=== PATIENT | female | born 1935 | race Caucasian/White ===

== ENCOUNTER 2017-06-13 00:52 | Emergency (ER) | payer MEDICARE, BC ==
[~2017-06-13] VITALS: Ht 152.4 cm; Wt 55.0 kg
[~2017-06-13 00:52] MED LIST: AMLO5TAB2 PO; CLON.1 PO; IPRASOL NEB; K-PHTAB PO; MSIR15 PO; PROT40TA PO; TYLETAB34 PO
[2017-06-13 01:04] VITALS: BP 188/80; PULSE 87; RESP 18; TEMP 97.7; O2SAT 96
[2017-06-13] MEDS ORDERED: SODIUM CHLOR 0.9% 1000 ML INJ 1,000 ML IV SCH (01:07)
[2017-06-13] MEDS ORDERED: SODIUM CHLORIDE 0.9% FLUSH 10 ML FLUSH IVF PRN (01:15)
[2017-06-13] MEDS ORDERED: ONDANSETRON HCL 4 MG/2 ML VIAL IVP ONE (01:15)
[2017-06-13 01:45] LABS: AUTOMATED NEUTROPHIL # 14.8 TH/MM3 (1.8-7.7); BASOPHIL # 0.1 TH/MM3 (0-0.2); BASOPHIL % 0.4 % (0.0-2.0); EOSINOPHIL % 0.1 % (0.0-4.0); HEMATOCRIT 43.8 % (35.0-46.0); LYMPH % 3.9 % (9.0-44.0); LYMPHOCYTE # 0.6 TH/MM3 (1.0-4.8); MEAN CELL VOLUME 89.8 FL (80.0-100.0); MEAN CORPUSCULAR HEMOGLOBIN 30.5 PG (27.0-34.0); MONO % 3.2 % (0.0-8.0); NEUT % 92.4 % (16.0-70.0); PLATELET COUNT 228 TH/MM3 (150-450); RED BLOOD COUNT 4.88 MIL/MM3 (4.00-5.30); RED CELL DISTRIBUTION WIDTH 13.3 % (11.6-17.2)
--- NOTE | 2017-06-13 01:48 | RADRPT ---
EXAM DATE/TIME: 06/13/2017 01:38 [place] COMPARISON: CHEST SINGLE AP, September 10, 2016, 9:53. INDICATIONS : Vomiting, shortness of breath. MEDICAL HISTORY : Hiatal hernia. SURGICAL HISTORY : None. ENCOUNTER: Initial ACUITY: 1 day PAIN SCORE: 0/10 LOCATION: Bilateral chest FINDINGS: No significant new focal pleural or parenchymal opacities. Cardiomediastinal contours are stable. Red emonstration of large hiatal hernia. Remainder of the exam is unchanged. CONCLUSION: 1. No acute abnormality or significant interval change. 1. Johnny Hernández MD on June 13, 2017 at 1:45 Board Certified Radiologist. This report was verified electronically.
[2017-06-13 01:53] LABS: HEMO FLAGS AUTO DIFF
[2017-06-13 02:02] LABS: ALKALINE PHOSPHATASE 69 U/L (45-117); TOTAL BILIRUBIN ADULT 0.7 MG/DL (0.2-1.0)
[2017-06-13 02:04] LABS: ALT (GPT) 23 U/L (10-53); ANION GAP 7 MEQ/L (5-15); AST (GOT) 34 U/L (15-37); BICARBONATE 30.1 MEQ/L (21.0-32.0); BLOOD UREA NITROGEN 16 MG/DL (7-18); CHLORIDE 101 MEQ/L (98-107); GLOMERULAR FILTRATION RATE 62 ML/MIN (>89); SODIUM (NA) 138 MEQ/L (136-145)
[2017-06-13 02:06] LABS: POTASSIUM 5.3 MEQ/L (3.5-5.1)
[2017-06-13 02:09] LABS: PROTHROMBIN TIME - PATIENT 10.9 SEC (9.8-11.6)
[2017-06-13 02:16] LABS: APTT (PATIENT) 19.2 SEC (24.3-30.1)
[2017-06-13 02:17] LABS: PLATELET ESTIMATE SMEAR NORMAL (NORMAL); PLATELET MORPHOLOGY NORMAL (NORMAL); SCAN/DIFF AUTO DIFF CONFIRMED
[2017-06-13 02:41] VITALS: BP 170/72; PULSE 88; RESP 18; O2SAT 95
--- NOTE | 2017-06-13 03:14 | PD ---
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 She reports that over the last 12 hours she's had intractable nausea and vomiting. She reports that the emesis now appears dark in color. She reports that she did have a history of coffee ground emesis and admission for GI bleed in September 2016. She reports that she became concerned that it could be a recurrence of this bleeding. 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 She denies having any recent problems with acid reflux or heartburn prior to this. She reports that she did move her bowels normally twice yesterday. She denies having any diarrhea. She denies having any blood in her stool or black or tarry stools. The patient has generalized weakness reported related to her nausea and vomiting. Otherwise on review of systems, she denies any recent fevers, cough, congestion, neck pain, chest pain, shortness of breath, abdominal pain, urinary symptoms, or other neurologic symptoms. [facility] Past Medical History Narrative Medical the patient's past medical history is significant for a history of GI bleed in September 2016, history of hypertension, history of chronic low back pain, history of a hiatal hernia Asthma: No Autoimmune Disease: No Heart Rhythm Problems: No Cancer: No Cardiovascular Problems: No High Cholesterol: No Chemotherapy: No Chest Pain: No Congestive Heart Failure: No COPD: No Cerebrovascular Accident: No Diabetes: No Diminished Hearing: No Endocrine: No Gastrointestinal Disorders: Yes (diverticulitis) GERD: No Genitourinary: No Hiatal Hernia: No Immune Disorder: No Kidney Stones: No Musculoskeletal: Yes (back pain) Neurologic: No Psychiatric: No Reproductive: No Respiratory: No Migraines: No Radiation Therapy: No Renal Failure: No Seizures: No Sickle Cell Disease: No Sleep Apnea: No Thyroid Disease: No Ulcer: No Tetanus Vaccination: Unknown Influenza Vaccination: No Menopausal: Yes Past Surgical History Narrative Surgical The patient's past surgical history is significant for a hysterectomy. Abdominal Surgery: No AICD: No Arteriovenous Shunt: No Body Medical Devices: a few crowns Cardiac Surgery: No Ear Surgery: No Endocrine Surgery: No Eye Surgery: No Genitourinary Surgery: No Gynecologic Surgery: Yes Hysterectomy: Yes Insulin Pump: No Joint Replacement: No Oral Surgery: No Pacemaker: No Thoracic Surgery: No Social History Alcohol Use: Yes (occasional) Tobacco Use: No (never) Substance Use: No Allergies-Medications (Allergen,Severity, Reaction): Coded Allergies: erythromycin base (Verified Allergy, Unknown, 06/13/17) stomach bleeding meperidine (Unverified Adverse Reaction, Unknown, 06/13/17) she gets all squirrely Reported Meds & Prescriptions Reported Meds & Active Scripts Active Bactrim DS (Sulfamethoxazole-Trimethoprim) 800-160 Mg Tab 1 Tab PO BID Protonix (Pantoprazole Sodium) 40 Mg Tab 40 Mg PO DAILY Zofran Odt (Ondansetron Odt) 4 Mg Tab 4 Mg SL Q6HR PRN Reported Tylenol-Codeine #3 (Acetaminophen-Codeine) 300-30 mg Tab 1 Tab PO HS PRN Review of Systems Except as stated in HPI: all other systems reviewed are Neg General / Constitutional: No: Fever Eyes: No: Visual changes HENT: No: Headaches Cardiovascular: No: Chest Pain or Discomfort Respiratory: No: Shortness of Breath Gastrointestinal: Positive: Nausea, Vomiting, No: Diarrhea, Abdominal Pain, Hematemesis, Hematochezia, Changes in Bowel Habits, Indigestion, Loss of Appetite Genitourinary: No: Dysuria Musculoskeletal: No: Pain Skin: No Rash Neurologic: No: Weakness Psychiatric: No: Depression Endocrine: No: Polydipsia Hematologic/Lymphatic: No: Easy Bruising Physical Exam Narrative General: The patient is a well-developed well-nourished female in no acute distress. Head and Neck exam: Head is normocephalic atraumatic. Eyes: EOMI, pupils are equal round and reactive to light. Nose: Midline septum with pink mucous membranes Mouth: Dentition unremarkable. Moist mucus membranes. Posterior oropharynx is not erythematous. No tonsillar hypertrophy. Uvula midline. Airway patent. Neck: No palpable lymphadenopathy. No nuchal rigidity. No thyromegaly. Cardiovascular: Regular rate and rhythm without murmurs, gallops, or rubs. Lungs: Clear to auscultation bilaterally. No wheezes, rhonchi, or rales. Abdomen: Soft, without tenderness to palpation in all 4 quadrants of the abdomen. No guarding, rebound, or rigidity. Normal bowel sounds are audible. No tenderness on palpation of McBurney's point. Extremities: No clubbing, cyanosis, or edema. 2+ pulses in all 4 extremities. Back: No spinous process tenderness to palpation. No costovertebral angle tenderness to palpation. Neurologic Exam: Grossly nonfocal. Skin Exam: No rash noted. Intact skin that is warm and dry. Data Data Last Documented VS Vital Signs Date Time Temp Pulse Resp B/P (MAP) Pulse Ox O2 Delivery O2 Flow Rate FiO2 06/13/17 06:04 88 16 152/63 (92) 97 Room Air 06/13/17 01:04 97.7 Orders Orders Complete Blood Count With Diff (06/13/17 01:07) Comprehensive Metabolic Panel (06/13/17 01:07) Lipase (06/13/17 01:07) Prothrombin Time / Inr (Pt) (06/13/17 01:07) Act Partial Throm Time (Ptt) (06/13/17 01:07) Urinalysis - C+S If Indicated (06/13/17 01:07) Type And Screen (06/13/17 01:07) Chest, Single Ap (06/13/17 01:07) Ecg Monitoring (06/13/17 01:07) Iv Access Insert/Monitor (06/13/17 01:07) Oximetry (06/13/17 01:07) Ondansetron Inj (Zofran Inj) (06/13/17 01:15) Sodium Chlor 0.9% 1000 Ml Inj (Ns 1000 M (06/13/17 01:07) Sodium Chloride 0.9% Flush (Ns Flush) (06/13/17 01:15) B-Type Natriuretic Peptide (06/13/17 01:07) Troponin I (06/13/17 01:07) Electrocardiogram (06/13/17 ) Sodium Chlorid 0.9% 500 Ml Inj (Ns 500 M (06/13/17 03:45) Pantoprazole Inj (Protonix Inj) (06/13/17 03:45) Oral Rehydration (06/13/17 03:45) Urine Culture (06/13/17 05:24) Sulfamet-Trimeth Ds 800-160 Mg (Bactrim (06/13/17 06:45) Labs Laboratory Tests Test 06/13/17 01:20 06/13/17 05:24 White Blood Count 16.0 TH/MM3 Red Blood Count 4.88 MIL/MM3 Hemoglobin 14.9 GM/DL Hematocrit 43.8 % Mean Corpuscular Volume 89.8 FL Mean Corpuscular Hemoglobin 30.5 PG Mean Corpuscular Hemoglobin Concent 34.0 % Red Cell Distribution Width 13.3 % Platelet Count 228 TH/MM3 Mean Platelet Volume 8.4 FL Neutrophils (%) (Auto) 92.4 % Lymphocytes (%) (Auto) 3.9 % Monocytes (%) (Auto) 3.2 % Eosinophils (%) (Auto) 0.1 % Basophils (%) (Auto) 0.4 % Neutrophils # (Auto) 14.8 TH/MM3 Lymphocytes # (Auto) 0.6 TH/MM3 Monocytes # (Auto) 0.5 TH/MM3 Eosinophils # (Auto) 0.0 TH/MM3 Basophils # (Auto) 0.1 TH/MM3 CBC Comment AUTO DIFF Differential Comment AUTO DIFF CONFIRMED Platelet Estimate NORMAL Platelet Morphology Comment NORMAL Prothrombin Time 10.9 SEC Prothromb Time International Ratio 1.0 RATIO Activated Partial Thromboplast Time 19.2 SEC Blood Urea Nitrogen 16 MG/DL Creatinine 0.87 MG/DL Random Glucose 203 MG/DL Total Protein 8.1 GM/DL Albumin 3.9 GM/DL Calcium Level 9.4 MG/DL Alkaline Phosphatase 69 U/L Aspartate Amino Transf (AST/SGOT) 34 U/L Alanine Aminotransferase (ALT/SGPT) 23 U/L Total Bilirubin 0.7 MG/DL Sodium Level 138 MEQ/L Potassium Level 5.3 MEQ/L Chloride Level 101 MEQ/L Carbon Dioxide Level 30.1 MEQ/L Anion Gap 7 MEQ/L Estimat Glomerular Filtration Rate 62 ML/MIN Troponin I LESS THAN 0.02 NG/ML B-Type Natriuretic Peptide 62 PG/ML Lipase 59 U/L Urine Color YELLOW Urine Turbidity CLEAR Urine pH 7.5 Urine Specific [place] 1.021 Urine Protein 30 mg/dL Urine Glucose (UA) 70 mg/dL Urine Ketones 40 mg/dL Urine Occult Blood MOD Urine Nitrite POS Urine Bilirubin NEG Urine Urobilinogen LESS THAN 2.0 MG/DL Urine Leukocyte Esterase NEG Urine RBC /hpf Urine WBC 9 /hpf Urine Transitional Epithelial Cells <1 /hpf Urine Amorphous Sediment RARE Urine Bacteria MOD /hpf Urine Mucus FEW /lpf Microscopic Urinalysis Comment CULTURE INDICATED MDM Medical Decision Making Medical Screen Exam Complete: Yes Emergency Medical Condition: Yes Medical Record Reviewed: Yes Differential Diagnosis Gastritis, versus hemorrhagic esophagitis, versus Louise-Lorenzo tear, versus viral syndrome, versus dehydration, versus electrolyte derangement Narrative Course During the course of the patients emergency department visit, the patients history, examination, and differential diagnosis were reviewed with the patient. The patient had IV access obtained and blood work sent for analysis. The patient was placed on a radiographer cardiac catheterization with oximetry and blood pressure monitoring. An ECG was done on arrival. The patient's ECG shows a sinus rhythm , nonspecific ST-T wave abnormalities, no acute ST segment elevation or depression. QRS duration is 85 ms, QTC 415 ms. The patient was initially provided Zofran 4 mg IV, normal saline IV fluid bolus and normal saline at a rate of 125 an hour, Protonix 40 mg IV. The patient had no further episodes of vomiting. The patient was started on sips of oral rehydration therapy which she was tolerating well. The patients laboratory studies were reviewed and remarkable for white count of 16, hemoglobin 14.9, platelets 228 with neutrophils 92.4, lymphocytes 3.9, CMP is remarkable for a potassium of 5.3 with slight hemolysis noted. Glucose 203, troponin less than 0.02, BNP is 62, lipase 59, PT 10.9, PTT 19.2. Urinalysis shows Radiology studies were reviewed and remarkable for a chest x-ray that shows no acute abnormality or significant interval change from prior chest x-ray. The patient was offered admission for continued IV fluids and IV antibiotic, however the patient reports that she is feeling improved. She reports that she has a small dog at home to take care of and would prefer to go home and follow- up with her primary care physician. Given the patient's evidence of urinary tract infection, the patient was given Bactrim DS 1 by mouth 1. The patient will be discharged home on Bactrim, Zofran, Protonix. She is instructed to follow-up with her primary care physician today by phone for an appointment within the next 24 hours for follow-up. The patient is resting comfortably and feels better, is alert and in no distress. The patients results and examination findings were discussed with the patient. The repeat examination is unremarkable and benign. The history, exam, diagnostic testing, and current condition do not suggest any significant pathology to warrant further testing, continued ED treatment, admission, or surgical evaluation at this point. The vital signs have been stable. The patient does not have uncontrollable pain, intractable vomiting, or other significant symptoms. The patient's condition is stable and appropriate for discharge. The patient will pursue further outpatient evaluation with a primary care physician or other designated or consulting physician as indicated in the discharge instructions. The patient expressed understanding and was agreeable with this plan. Diagnosis Primary Impression: Vomiting Qualified Codes: R11.2 - Nausea with vomiting, unspecified Additional Impression: Urinary tract infection Qualified Codes: N39.0 - Urinary tract infection, site not specified Referrals: Primary Care Physician 1 day Patient Instructions: Acute Nausea and Vomiting (ED), General Instructions, Urinary Tract Infection in Women (ED) Med/Other Pt SpecificInfo: Prescription(s) given Scripts Sulfamethoxazole-Trimethoprim (Bactrim DS) 800-160 Mg Tab 1 TAB PO BID for Infection, #13 TAB 0 Refills Prov: Miracle Kapoor MD 06/13/17 Pantoprazole (Protonix) 40 Mg Tab 40 MG PO DAILY for Reflux, #30 TAB 0 Refills Prov: Miracle Kapoor MD 06/13/17 Ondansetron Odt (Zofran Odt) 4 Mg Tab 4 MG SL Q6HR Y for Nausea/Vomiting, #7 TAB 0 Refills Prov: Miracle Kapoor MD 06/13/17 Disposition: 01 DISCHARGE HOME Condition: Stable Miracle Kapoor MD Jun 13, 2017 03:14
[2017-06-13] MEDS ORDERED: SODIUM CHLORID 0.9% 500 ML INJ 500 ML IV ONE (03:45)
[2017-06-13] MEDS ORDERED: PANTOPRAZOLE SODIUM 40 MG VIAL IV PUSH ONE (03:45)
[2017-06-13] MEDS ORDERED: ZOFR4TAB3 SL (05:07)
[2017-06-13] MEDS ORDERED: PROT40TA PO (05:07)
[2017-06-13 06:04] VITALS: BP 152/63; PULSE 88; RESP 16; O2SAT 97
[2017-06-13 06:16] LABS: BACTERIA, URINE MOD /hpf; BLOOD, URINE MOD (NEG); COMMENT (UR) CULTURE INDICATED; CULTURE IF INDICATED CULTURE INDICATED; GLUCOSE,URINE 70 mg/dL (NEG); KETONE, URINE 40 mg/dL (NEG); MUCUS URINE FEW /lpf (OCC); NITRITE,URINE POS (NEG); PH, URINE 7.5 (5.0-8.5); TRANSITIONAL EPI CELLS, URINE <1 /hpf; URINE COLOR YELLOW (YELLW/STRAW)
[2017-06-13] MEDS ORDERED: BACT800T5 PO (06:43)
[2017-06-13] MEDS ORDERED: SULFAMETHOXAZOLE-TRIMETHOPRIM DS 800-160 MG TAB PO ONE (06:45)
--- NOTE | 2017-06-13 13:43 | EKG ---
Date Performed: 06/13/2017 Time Performed: 01:10:51 PTAGE: 82 years EKG: Sinus rhythm WITH FIRST DEGREE AV BLOCK MARKED LEFT AXIS DEVIATION LEFT VENTRICULAR HYPERTROPHY AND ST-T CHANGE A BNORMAL ECG Compared to prior tracing no significant change PREVIOUS TRACING : 09/10/2016 07.45 DOCTOR: Tadeo Cordero Interpretating Date/Time 06/13/2017 13:42:57
== END 2017-06-13 08:29 | disposition home or self-care (01) ==
LOC: NEPC 00:52
DX: R11.2 Nausea with vomiting, unspecified (principal); N39.0 Urinary tract infection, site not specified; B96.20 Unspecified Escherichia coli [E. coli] as the cause of diseases classified elsewhere; I44.0 Atrioventricular block, first degree
CPT/HCPCS: 71010; 80053; 81001; 83690; 83880; 84484; 85025; 85610; 85730; 86850; 86900; 86901; 87077; 87086; 87186; 93005; 96361; 96374; 96375; 99285; C9113; J2405; J7030; J7040

== ENCOUNTER 2018-01-08 11:17 | Inpatient (IN) | payer MEDICARE, BC ==
[~2018-01-08] VITALS: Ht 147.3 cm; Wt 59.8 kg
[2018-01-08] VITALS (10 sets, daily range): BP systolic 158–202; BP diastolic 76–90; PULSE 76–125; RESP 18–20; TEMP 98.5; O2SAT 96–99
[~2018-01-08 11:17] MED LIST changes: -AMLO5TAB2 PO; +BACT800T5 PO; -CLON.1 PO; -IPRASOL NEB; -K-PHTAB PO; -MSIR15 PO; +ZOFR4TAB3 SL
[2018-01-08] MEDS ORDERED: IOHEXOL 350 MG/ML 10 ML VIAL (for RAD DIAG) IVCONTRAST ONE (11:18)
[2018-01-08] MEDS ORDERED: SODIUM CHLORIDE 0.9% FLUSH 10 ML FLUSH IVF PRN (12:00)
[2018-01-08] MEDS ORDERED: PANTOPRAZOLE SODIUM 40 MG VIAL IVP ONE (12:00)
--- NOTE | 2018-01-08 12:22 | PD ---
HPI Chief Complaint: Abdominal Pain Time Seen by Provider: 11:51 Travel History International Travel<30 days: No Contact w/Intl Traveler<30days: No Traveled to known affect area: No History of Present Illness HPI 82-year-old female presents to emergency department via [facility] with complaints of nausea and vomiting that started yesterday afternoon. States this morning the vomitus became dark and coffee-ground in appearance and began having abdominal pain so she decided to come to the emergency department today. She does have a prior history of this last year. States that her physicians "have not told her why she is having dark vomitus." Says her abdominal pain is located in the mid umbilical region. No provocative or palliative factors. Pain is constant. she denies chronic medical issues and does not take any medications. She is a remote history of hysterectomy. Says her last bowel movement was yesterday and was normal for her. Denies melena, hematochezia. Denies alcohol or tobacco use. She denies fever, chills, cough, congestion, chest pain, shortness of breath. PFSH Past Medical History Asthma: No Autoimmune Disease: No Heart Rhythm Problems: No Cancer: No Cardiovascular Problems: No High Cholesterol: No Chemotherapy: No Chest Pain: No Congestive Heart Failure: No COPD: No Cerebrovascular Accident: No Diabetes: No Diminished Hearing: No Endocrine: No Gastrointestinal Disorders: Yes (diverticulitis) GERD: No Genitourinary: No Hiatal Hernia: No Immune Disorder: No Kidney Stones: No Musculoskeletal: Yes (back pain) Neurologic: No Psychiatric: No Reproductive: No Respiratory: No Migraines: No Radiation Therapy: No Renal Failure: No Seizures: No Sickle Cell Disease: No Sleep Apnea: No Thyroid Disease: No Ulcer: No Tetanus Vaccination: > 5 Years Influenza Vaccination: No Menopausal: Yes Past Surgical History Abdominal Surgery: No AICD: No Arteriovenous Shunt: No Body Medical Devices: a few crowns Cardiac Surgery: No Ear Surgery: No Endocrine Surgery: No Eye Surgery: No Genitourinary Surgery: No Gynecologic Surgery: Yes Hysterectomy: Yes Insulin Pump: No Joint Replacement: No Oral Surgery: No Pacemaker: No Thoracic Surgery: No Other Surgery: Yes (hysterectomy) Social History Alcohol Use: Yes (occasional) Tobacco Use: No (never) Substance Use: No Allergies-Medications (Allergen,Severity, Reaction): Coded Allergies: erythromycin base (Verified Allergy, Unknown, 01/08/18) stomach bleeding meperidine (Unverified Adverse Reaction, Unknown, 01/08/18) she gets all squirrely Reported Meds & Prescriptions Reported Meds & Active Scripts Active No Active Prescriptions or Reported Medications Review of Systems Except as stated in HPI: all other systems reviewed are Neg Physical Exam Narrative GENERAL: Alert, well-nourished in no apparent distress SKIN: Focused skin assessment warm/dry. HEAD: Atraumatic. Normocephalic. EYES: Pupils equal and round. No scleral icterus. No injection or drainage. ENT: No nasal bleeding or discharge. Mucous membranes pink and moist. NECK: Trachea midline. No JVD. CARDIOVASCULAR: Regular rate and rhythm. No murmur appreciated. RESPIRATORY: No accessory muscle use. Clear to auscultation. Breath sounds equal bilaterally. GASTROINTESTINAL: Abdomen soft, non-tender, nondistended. Hepatic and splenic margins not palpable. No CVA tenderness MUSCULOSKELETAL: No obvious deformities. No clubbing. No cyanosis. No edema. NEUROLOGICAL: Awake and alert. No obvious cranial nerve deficits. Motor grossly within normal limits. Normal speech. PSYCHIATRIC: Appropriate mood and affect; insight and judgment normal. Data Data Last Documented VS Vital Signs Date Time Temp Pulse Resp B/P (MAP) Pulse Ox O2 Delivery O2 Flow Rate FiO2 01/08/18 12:56 95 18 199/88 (125) 98 Room Air 01/08/18 11:49 98.5 Orders Orders Complete Blood Count With Diff (01/08/18 11:51) Comprehensive Metabolic Panel (01/08/18 11:51) Lipase (01/08/18 11:51) Prothrombin Time / Inr (Pt) (01/08/18 11:51) Act Partial Throm Time (Ptt) (01/08/18 11:51) Urinalysis - C+S If Indicated (01/08/18 11:51) Oximetry (01/08/18 11:51) NPO (01/08/18 11:51) Pantoprazole Inj (Protonix Inj) (01/08/18 12:00) Electrocardiogram (01/08/18 11:51) Iv Access Insert/Monitor (01/08/18 11:51) Ecg Monitoring (01/08/18 11:51) Sodium Chloride 0.9% Flush (Ns Flush) (01/08/18 12:00) Thyroid Stimulating Hormone (01/08/18 11:51) Troponin I (01/08/18 11:51) B-Type Natriuretic Peptide (01/08/18 11:51) Chest, Single Ap (01/08/18 ) Ondansetron Inj (Zofran Inj) (01/08/18 12:45) Morphine Inj (Morphine Inj) (01/08/18 13:30) Ct Abd/Pel W Iv Contrast(Rout) (01/08/18 ) Iohexol 350 Inj (Omnipaque 350 Inj) (01/08/18 11:18) Sodium Chlor 0.9% 1000 Ml Inj (Ns 1000 M (01/08/18 15:45) Cath For Specimen (01/08/18 16:06) Octreotide Inj (Sandostatin Inj) (01/08/18 16:15) Type And Screen (01/08/18 16:19) Vital Signs (Adult) Q4H (01/08/18 16:30) Activity Oob With Assistance (01/08/18 16:30) Director Of Federal Sales / Telemetry .CONTINUOUS (01/08/18 16:30) Diet Npo (01/08/18 Dinner) Sodium Chloride 0.9% Flush (Ns Flush) (01/08/18 16:30) Sodium Chloride 0.9% Flush (Ns Flush) (01/08/18 21:00) Ondansetron Inj (Zofran Inj) (01/08/18 17:00) Basic Metabolic Panel (Bmp) (01/09/18 06:00) Complete Blood Count With Diff (01/09/18 06:00) Urinalysis - C+S If Indicated (01/08/18 16:30) Admit Order (Ed Use Only) (01/08/18 16:30) Pt Request For Service (01/08/18 16:30) Case Management Consult (01/08/18 16:30) Naloxone Inj (Narcan Inj) (01/08/18 16:30) Labs Laboratory Tests Test 01/08/18 11:50 White Blood Count 18.4 TH/MM3 Red Blood Count 4.93 MIL/MM3 Hemoglobin 14.5 GM/DL Hematocrit 43.4 % Mean Corpuscular Volume 88.0 FL Mean Corpuscular Hemoglobin 29.4 PG Mean Corpuscular Hemoglobin Concent 33.4 % Red Cell Distribution Width 13.6 % Platelet Count 297 TH/MM3 Mean Platelet Volume 8.7 FL Neutrophils (%) (Auto) 88.8 % Lymphocytes (%) (Auto) 4.3 % Monocytes (%) (Auto) 6.7 % Eosinophils (%) (Auto) 0.0 % Basophils (%) (Auto) 0.2 % Neutrophils # (Auto) 16.4 TH/MM3 Lymphocytes # (Auto) 0.8 TH/MM3 Monocytes # (Auto) 1.2 TH/MM3 Eosinophils # (Auto) 0.0 TH/MM3 Basophils # (Auto) 0.0 TH/MM3 CBC Comment DIFF FINAL Differential Comment Prothrombin Time 10.6 SEC Prothromb Time International Ratio 1.0 RATIO Activated Partial Thromboplast Time 24.3 SEC Blood Urea Nitrogen 21 MG/DL Creatinine 0.98 MG/DL Random Glucose 150 MG/DL Total Protein 7.8 GM/DL Albumin 3.4 GM/DL Calcium Level 8.8 MG/DL Alkaline Phosphatase 69 U/L Aspartate Amino Transf (AST/SGOT) 35 U/L Alanine Aminotransferase (ALT/SGPT) 17 U/L Total Bilirubin 0.6 MG/DL Sodium Level 141 MEQ/L Potassium Level 4.0 MEQ/L Chloride Level 103 MEQ/L Carbon Dioxide Level 28.6 MEQ/L Anion Gap 9 MEQ/L Estimat Glomerular Filtration Rate 54 ML/MIN Troponin I LESS THAN 0.02 NG/ML B-Type Natriuretic Peptide 161 PG/ML Lipase 84 U/L Thyroid Stimulating Hormone 3rd Gen 0.698 uIU/ML MDM Medical Decision Making Medical Screen Exam Complete: Yes Emergency Medical Condition: Yes Differential Diagnosis Gastritis, gastroenteritis, GI bleed, Narrative Course 82-year-old female presents emergency department via [facility] for evaluation of nausea, vomiting, abdominal pain that started yesterday afternoon. After review the EMR, it appears that patient was evaluated by a gastrointestinal specialist in 2016 where she had an EGD. Apparently she had severe esophageal strictures status post dilatation and a small hiatal hernia. At this point, patient states she does not take any medication which indicates to me that she has been noncompliant with her Protonix, or any other PPIs or H2 inhibitor. Patient has not followed up the gastrointestinal specialist. Says that "nobody is ever told her what was wrong with her". She is also not followed up with the primary care physician. Her last follow up was 1.[address] Crabtree. Her last CT abdomen pelvis was September 2016 which read: "1. Large hiatal hernia containing half of the stomach. 2. Multiple calcified nonobstructing bilateral renal calculi. 3. On comp located colonic diverticulosis. 4. Scattered subcentimeter low-density liver lesions within liver which are too small for accurate density measurements. 5. Degenerative changes and scoliosis of the thoracolumbar spine. 6. Left renal cyst measuring 3 cm." Labs and imaging studies were ordered. I explained to her in depth the findings from 2016 and 2017. She seemed frustrated during the conversation however, she understood that it is important to follow-up with a gastrointestinal specialist and take medication as prescribed. At reassessment, patient states that she is having severe abdominal pain and continues to have vomiting. Administered an additional 4 mg Zofran and 2 mg morphine. I added a CT abdomen pelvis as patient was complaining of severe pain, although her pain is likely the result of gastritis or esophagitis. CBC & BMP Diagram 01/08/18 11:50 Total Protein 7.8, Albumin 3.4, Calcium Level 8.8, Alkaline Phosphatase 69, Aspartate Amino Transf (AST/SGOT) 35, Alanine Aminotransferase (ALT/SGPT) 17, Total Bilirubin 0.6 Last Impressions Chest X-Ray 01/08/18 0000 Signed Impressions: Service Date/Time: Monday, January 08, 2018 12:14 - CONCLUSION: No acute abnormality demonstrated. Large chronic hiatal hernia. Aren Medel MD Abdomen/Pelvis CT 01/08/18 0000 Signed Impressions: Service Date/Time: Monday, January 08, 2018 14:42 - CONCLUSION: 1. Overall, the appearance of the CT abdomen/pelvis is similar to prior examination in 2016. Large hiatus hernia containing the antrum of the stomach, distended body of the stomach, diverticulosis of the colon, and severe degenerative changes related to kypho-scoliosis are stable. 2. The only new finding from prior examinations a small right pleural effusion. Jerel Bui MD Her CBC is stable at this point however, because of the quantity of coffee- ground emesis and bloody vomitus I am concerned about stability in this 82-year- old patient. Patient will be admitted for serial CBCs, GI eval. Pt has a dog and a cat at home. The caregiver should be contacted for care of these animals. TIFFANY Martinez will attempt to contact this caregiver. I spoke with Dr. Harris who agreed with this admission Diagnosis Primary Impression: Noncompliance with medication regimen Additional Impression: GI bleed Admitting Information Admitting Physician Requests: Admit Scripts No Active Prescriptions or Reported Meds Condition: Stable Lashon Link Jan 08, 2018 12:22
--- NOTE | 2018-01-08 12:38 | RADRPT ---
EXAM DATE/TIME: 01/08/2018 12:14 [facility] COMPARISON: CHEST SINGLE AP, June 13, 2017, 1:38. INDICATIONS : Shortness of breath. MEDICAL HISTORY : Diverticulitis. SURGICAL HISTORY : Hysterectomy. ENCOUNTER: Initial ACUITY: 1 day PAIN SCORE: 0/10 LOCATION: Bilateral chest FINDINGS: No acute infiltrate demonstrated. No pleural effusion or pneumothorax. Heart size stable, within normal limits. Large hiatal hernia again noted. CONCLUSION: No acute abnormality demonstrated. Large chronic hiatal hernia. Aren Medel MD on January 08, 2018 at 12:35 Board Certified Radiologist. This report was verified electronically.
[2018-01-08] MEDS ORDERED: ONDANSETRON HCL 4 MG/2 ML VIAL IV PUSH ONE (12:45)
[2018-01-08] MEDS ORDERED: MORPHINE SULFATE 2 MG/ML SYRINGE IV PUSH ONE (13:30)
[2018-01-08 13:58] LABS: AUTOMATED NEUTROPHIL # 16.4 TH/MM3 (1.8-7.7); BASOPHIL % 0.2 % (0.0-2.0); HEMATOCRIT 43.4 % (35.0-46.0); HEMOGLOBIN 14.5 GM/DL (11.6-15.3); LYMPH % 4.3 % (9.0-44.0); LYMPHOCYTE # 0.8 TH/MM3 (1.0-4.8); MEAN CORPUSCULAR HEMOGLOBIN 29.4 PG (27.0-34.0); MEAN CORPUSCULAR HGB CONC 33.4 % (32.0-36.0); MEAN PLATELET VOLUME 8.7 FL (7.0-11.0); MONO % 6.7 % (0.0-8.0); MONOCYTE # 1.2 TH/MM3 (0-0.9); NEUT % 88.8 % (16.0-70.0); PLATELET COUNT 297 TH/MM3 (150-450); RED BLOOD COUNT 4.93 MIL/MM3 (4.00-5.30); RED CELL DISTRIBUTION WIDTH 13.6 % (11.6-17.2); WHITE BLOOD COUNT 18.4 TH/MM3 (4.0-11.0)
[2018-01-08 14:08] LABS: PROTHROMBIN TIME - PATIENT 10.6 SEC (9.8-11.6)
[2018-01-08 14:17] LABS: ALBUMIN 3.4 GM/DL (3.4-5.0); ALT (GPT) 17 U/L (10-53); AST (GOT) 35 U/L (15-37); BICARBONATE 28.6 MEQ/L (21.0-32.0); BLOOD UREA NITROGEN 21 MG/DL (7-18); CALCIUM 8.8 MG/DL (8.5-10.1); CHLORIDE 103 MEQ/L (98-107); CREATININE 0.98 MG/DL (0.50-1.00); GLOMERULAR FILTRATION RATE 54 ML/MIN (>89); GLUCOSE,RANDOM 150 MG/DL (74-106); SODIUM (NA) 141 MEQ/L (136-145)
[2018-01-08 14:24] LABS: ALKALINE PHOSPHATASE 69 U/L (45-117); TOTAL BILIRUBIN ADULT 0.6 MG/DL (0.2-1.0); TOTAL PROTEIN 7.8 GM/DL (6.4-8.2); TROPONIN I LESS THAN 0.02 NG/ML (0.02-0.05)
--- NOTE | 2018-01-08 15:26 | RADRPT ---
EXAM DATE/TIME: 01/08/2018 14:42 [facility] COMPARISON: CT ABDOMEN & PELVIS W CONTRAST, September 10, 2016, 8:50. INDICATIONS : Abdomen pain,nausea vomiting dark coffe ground emesis. IV CONTRAST: 72 cc Omnipaque 350 (iohexol) IV ORAL CONTRAST: No oral contrast ingested. RADIATION DOSE: 9.63 CTDIvol (mGy) MEDICAL HISTORY : Diverticulitis. SURGICAL HISTORY : Hysterectomy. ENCOUNTER: Initial ACUITY: 1 day PAIN SCALE: 5/10 LOCATION: Abdomen TECHNIQUE: Volumetric scanning of the abdomen and pelvis was performed. Using automated exposure control and ad justment of the mA and/or kV according to patient size, radiation dose was kept as low as reasonably achievable to obtain optimal diagnostic quality images. DICOM format image data is available electro nically for review and comparison. FINDINGS: LOWER LUNGS: The visualized lower lungs are clear. Small right pleural effusion. There is a large hiatus hernia containing the fundus of the stomach, stable. LIVER: Homogeneous density without solid lesion. Subcentimeter cyst in the left lobe is similar to prior. There is no dilation of the biliary tree. No calcified gallstones. SPLEEN: Normal size without lesion. PANCREAS: Within normal limits. KIDNEYS: No evidence of hydronephrosis. 5 mm calcified stone upper pole renal sinus stable in appearance. Up per pole renal cyst is stable. ADRENAL GLANDS: Within normal limits. VASCULAR: There is no aortic aneurysm. BOWEL/MESENTERY: The body and antrum of the stomach are distended and there is air fluid level. Loops of small and la rge bowel are normal in diameter. Multiple small diverticula throughout the sigmoid colon and transv erse colon without radiographic evidence of diverticulitis. No evidence of free fluid. ABDOMINAL WALL: Within normal limits. RETROPERITONEUM: There is no lymphadenopathy. BLADDER: No wall thickening or mass. REPRODUCTIVE: Within normal limits. INGUINAL: There is no lymphadenopathy or hernia. MUSCULOSKELETAL: Severe kyphoscoliosis throughout the thoracic and lumbar spine, stable from prior. CONCLUSION: 1. Overall, the appearance of the CT abdomen/pelvis is similar to prior examination in 2016. Large h iatus hernia containing the antrum of the stomach, distended body of the stomach, diverticulosis of t he colon, and severe degenerative changes related to kypho-scoliosis are stable. 2. The only new finding from prior examinations a small right pleural effusion. Jerel Bui MD on January 08, 2018 at 15:07 Board Certified Radiologist. This report was verified electronically.
[2018-01-08] MEDS ORDERED: SODIUM CHLOR 0.9% 1000 ML INJ 1,000 ML IV ONE (15:45)
[2018-01-08] MEDS ORDERED: OCTREOTIDE INJ 100 MCG/ML VIAL IV PUSH ONE (16:15)
--- NOTE | 2018-01-08 16:17 | PD ---
Data Data Last Documented VS Vital Signs Date Time Temp Pulse Resp B/P (MAP) Pulse Ox O2 Delivery O2 Flow Rate FiO2 01/08/18 12:56 95 18 199/88 (125) 98 Room Air 01/08/18 11:49 98.5 Orders Orders Complete Blood Count With Diff (01/08/18 11:51) Comprehensive Metabolic Panel (01/08/18 11:51) Lipase (01/08/18 11:51) Prothrombin Time / Inr (Pt) (01/08/18 11:51) Act Partial Throm Time (Ptt) (01/08/18 11:51) Urinalysis - C+S If Indicated (01/08/18 11:51) Oximetry (01/08/18 11:51) NPO (01/08/18 11:51) Pantoprazole Inj (Protonix Inj) (01/08/18 12:00) Electrocardiogram (01/08/18 11:51) Iv Access Insert/Monitor (01/08/18 11:51) Ecg Monitoring (01/08/18 11:51) Sodium Chloride 0.9% Flush (Ns Flush) (01/08/18 12:00) Thyroid Stimulating Hormone (01/08/18 11:51) Troponin I (01/08/18 11:51) B-Type Natriuretic Peptide (01/08/18 11:51) Chest, Single Ap (01/08/18 ) Ondansetron Inj (Zofran Inj) (01/08/18 12:45) Morphine Inj (Morphine Inj) (01/08/18 13:30) Ct Abd/Pel W Iv Contrast(Rout) (01/08/18 ) Iohexol 350 Inj (Omnipaque 350 Inj) (01/08/18 11:18) Sodium Chlor 0.9% 1000 Ml Inj (Ns 1000 M (01/08/18 15:45) Cath For Specimen (01/08/18 16:06) Octreotide Inj (Sandostatin Inj) (01/08/18 16:15) Type And Screen (01/08/18 16:19) Vital Signs (Adult) Q4H (01/08/18 16:30) Activity Oob With Assistance (01/08/18 16:30) Pararescue Manager / Telemetry .CONTINUOUS (01/08/18 16:30) Diet Npo (01/08/18 Dinner) Sodium Chloride 0.9% Flush (Ns Flush) (01/08/18 16:30) Sodium Chloride 0.9% Flush (Ns Flush) (01/08/18 21:00) Ondansetron Inj (Zofran Inj) (01/08/18 17:00) Basic Metabolic Panel (Bmp) (01/09/18 06:00) Complete Blood Count With Diff (01/09/18 06:00) Urinalysis - C+S If Indicated (01/08/18 16:30) Admit Order (Ed Use Only) (01/08/18 16:30) Pt Request For Service (01/08/18 16:30) Case Management Consult (01/08/18 16:30) Naloxone Inj (Narcan Inj) (01/08/18 16:30) Labs Laboratory Tests Test 01/08/18 11:50 White Blood Count 18.4 TH/MM3 Red Blood Count 4.93 MIL/MM3 Hemoglobin 14.5 GM/DL Hematocrit 43.4 % Mean Corpuscular Volume 88.0 FL Mean Corpuscular Hemoglobin 29.4 PG Mean Corpuscular Hemoglobin Concent 33.4 % Red Cell Distribution Width 13.6 % Platelet Count 297 TH/MM3 Mean Platelet Volume 8.7 FL Neutrophils (%) (Auto) 88.8 % Lymphocytes (%) (Auto) 4.3 % Monocytes (%) (Auto) 6.7 % Eosinophils (%) (Auto) 0.0 % Basophils (%) (Auto) 0.2 % Neutrophils # (Auto) 16.4 TH/MM3 Lymphocytes # (Auto) 0.8 TH/MM3 Monocytes # (Auto) 1.2 TH/MM3 Eosinophils # (Auto) 0.0 TH/MM3 Basophils # (Auto) 0.0 TH/MM3 CBC Comment DIFF FINAL Differential Comment Prothrombin Time 10.6 SEC Prothromb Time International Ratio 1.0 RATIO Activated Partial Thromboplast Time 24.3 SEC Blood Urea Nitrogen 21 MG/DL Creatinine 0.98 MG/DL Random Glucose 150 MG/DL Total Protein 7.8 GM/DL Albumin 3.4 GM/DL Calcium Level 8.8 MG/DL Alkaline Phosphatase 69 U/L Aspartate Amino Transf (AST/SGOT) 35 U/L Alanine Aminotransferase (ALT/SGPT) 17 U/L Total Bilirubin 0.6 MG/DL Sodium Level 141 MEQ/L Potassium Level 4.0 MEQ/L Chloride Level 103 MEQ/L Carbon Dioxide Level 28.6 MEQ/L Anion Gap 9 MEQ/L Estimat Glomerular Filtration Rate 54 ML/MIN Troponin I LESS THAN 0.02 NG/ML B-Type Natriuretic Peptide 161 PG/ML Lipase 84 U/L Thyroid Stimulating Hormone 3rd Gen 0.698 uIU/ML MDM Supervised Visit with JENN: Yes Narrative Course I, Dr. Watts, have reviewed the advance practice practitioner's documentation and am in agreement, met with the patient face to face, made the diagnosis, and the medical decision making was done by me. *My assessment and Findings: Patient seen and examined by me in addition to Lashon Nikolay, the patient has had 3 small emesis is in the emergency department all of which is dark brown mucousy emesis which is occult positive. Hemoglobin is actually reassuring and the rest of the blood work is reassuring as well. Still the patient is high risk for continued bleeding and will be admitted to the hospital for further workup and possible GI consult Diagnosis Primary Impression: Noncompliance with medication regimen Scripts No Active Prescriptions or Reported Meds Condition: Stable Colin Watts MD Jan 08, 2018 16:17
[2018-01-08] MEDS ORDERED: SODIUM CHLORIDE 0.9% FLUSH 10 ML FLUSH IV FLUSH PRN (16:30)
[2018-01-08] MEDS ORDERED: NALOXONE HCL 0.4 MG/ML AMP IV PUSH PRN (16:30)
--- NOTE | 2018-01-08 16:59 | HHI.HP ---
[facility] Service [facility] Primary Care Physician No Primary Care Physician Admission Diagnosis hematemesis, abdominal pain Diagnoses: Travel History International Travel<30 Days: No Contact w/Intl Traveler <30 Da: No Traveled to Known Affected Are: No History of Present Illness History from patient, ER PA communication, and review of medical records. Patient reported that since yesterday evening, she has been having vomiting coffee-ground colored vomitus. She therefore decided to come to hospital. Reports of epigastric pain as well. Patient was still vomiting coffee-ground colored vomit while in the emergency room. At the time of my exam as well, patient does have a emesis basin filled with vomitus. It is somewhat greenish in color. I was told by ER VALERIO that Hemoccult was positive on this emesis. Patient denies taking any blood thinners. Denies taking NSAIDs. Patient does report of dizziness on review of system. However she denies other symptoms such as chest pain/palpitations/shortness of breath. She denies seeing any black stool or red stool. Denies any blood in her urine. Patient denies any fever. Denies any burning urination or pain on urination. Patient lives by herself. She states that she walks by herself but does not use a walker. She states she is no longer driving though for the past 6 months because of this dizziness which started around then. She states that she also have back pain which is chronic. In the emergency room, at the time of my exam, patient wanted to urinate and bedpan was given. She was noted to have foul-smelling urine. Review of Systems Except as stated in HPI: all other systems reviewed are Neg Past Family Social History Past Medical History Reports she was told she has hypertension. However she has not seen a doctor for at least 2 years. She used to see Dr. Crabtree. Past Surgical History hysterectomy Allergies: Coded Allergies: erythromycin base (Verified Allergy, Unknown, 01/08/18) stomach bleeding meperidine (Unverified Adverse Reaction, Unknown, 01/08/18) she gets all squirrely Family History nothing she knows of Social History Denies any alcohol abuse or drug abuse. Denies smoking. She lives by herself. No longer driving. Her friend drives her for groceries. She states she walks without a walker. Physical Exam Vital Signs Vital Signs Date Time Temp Pulse Resp B/P (MAP) Pulse Ox O2 Delivery O2 Flow Rate FiO2 01/08/18 12:56 95 18 199/88 (125) 98 Room Air 01/08/18 11:49 98.5 94 18 202/86 (124) 98 Room Air 01/08/18 11:47 18 01/08/18 11:44 98.5 90 18 158/76 (103) 97 Physical Exam GENERAL: This is a well-nourished, well-developed patient, in moderate distress from nausea and abdominal pain SKIN:dry skin on skin HEAD: Atraumatic. Normocephalic. No temporal or scalp tenderness. EYES: No scleral icterus. No injection or drainage. ENT: Nose without bleeding, purulent drainage or septal hematoma. Airway patent. NECK: Trachea midline. No JVD. Supple, nontender, no meningeal signs. CARDIOVASCULAR: Regular rate and rhythm without murmurs, gallops, or rubs. RESPIRATORY: Clear to auscultation. Breath sounds equal bilaterally. No wheezes , rales, or rhonchi. GASTROINTESTINAL: Abdomen soft, nondistended. No guarding. Tenderness diffusely. MUSCULOSKELETAL: Extremities without clubbing, cyanosis, or edema. No calf tenderness. NEUROLOGICAL: Awake and alert. Motor and sensory grossly within normal limits. Normal speech. Laboratory Laboratory Tests Test 01/08/18 11:50 White Blood Count 18.4 Red Blood Count 4.93 Hemoglobin 14.5 Hematocrit 43.4 Mean Corpuscular Volume 88.0 Mean Corpuscular Hemoglobin 29.4 Mean Corpuscular Hemoglobin Concent 33.4 Red Cell Distribution Width 13.6 Platelet Count 297 Mean Platelet Volume 8.7 Neutrophils (%) (Auto) 88.8 Lymphocytes (%) (Auto) 4.3 Monocytes (%) (Auto) 6.7 Eosinophils (%) (Auto) 0.0 Basophils (%) (Auto) 0.2 Neutrophils # (Auto) 16.4 Lymphocytes # (Auto) 0.8 Monocytes # (Auto) 1.2 Eosinophils # (Auto) 0.0 Basophils # (Auto) 0.0 CBC Comment DIFF FINAL Differential Comment Prothrombin Time 10.6 Prothromb Time International Ratio 1.0 Activated Partial Thromboplast Time 24.3 Blood Urea Nitrogen 21 Creatinine 0.98 Random Glucose 150 Total Protein 7.8 Albumin 3.4 Calcium Level 8.8 Alkaline Phosphatase 69 Aspartate Amino Transf (AST/SGOT) 35 Alanine Aminotransferase (ALT/SGPT) 17 Total Bilirubin 0.6 Sodium Level 141 Potassium Level 4.0 Chloride Level 103 Carbon Dioxide Level 28.6 Anion Gap 9 Estimat Glomerular Filtration Rate 54 Troponin I LESS THAN 0.02 Lipase 84 Thyroid Stimulating Hormone 3rd Gen 0.698 Result Diagram: 01/08/18 1150 01/08/18 1150 Imaging Last 48 hours Impressions Chest X-Ray 01/08/18 0000 Signed Impressions: Service Date/Time: Monday, January 08, 2018 12:14 - CONCLUSION: No acute abnormality demonstrated. Large chronic hiatal hernia. Aren Medel MD Abdomen/Pelvis CT 01/08/18 0000 Signed Impressions: Service Date/Time: Monday, January 08, 2018 14:42 - CONCLUSION: 1. Overall, the appearance of the CT abdomen/pelvis is similar to prior examination in 2016. Large hiatus hernia containing the antrum of the stomach, distended body of the stomach, diverticulosis of the colon, and severe degenerative changes related to kypho-scoliosis are stable. 2. The only new finding from prior examinations a small right pleural effusion. MD Rupal Bush VTE Risk Assessment Caprini VTE Risk Assessment: Mod/High Risk (score >= 2) Caprini Risk Assessment Model Point Value = 1 Point Value = 2 Point Value = 3 Point Value = 5 Age 41-60 Minor surgery BMI > 25 kg/m2 Swollen legs Varicose veins or History of unexplained or recurrent spontaneous Oral contraceptives or hormone replacement Sepsis (< 1 month) Serious lung disease, including pneumonia (< 1 month) Abnormal pulmonary function Acute myocardial infarction Congestive heart failure (< 1 month) History of inflammatory bowel disease Medical patient at bed rest Age 61-74 Arthroscopic surgery Major open surgery (> 45 min) Laparoscopic surgery (> 45 min) Malignancy Confined to bed (> 72 hours) Immobilizing plaster cast Central venous access Age >= 75 History of VTE Family history of VTE Factor V Leiden Prothrombin [id number] Lupus anticoagulant Anticardiolipin antibodies Elevated serum homocysteine Heparin-induced thrombocytopenia Other congenital or acquired thrombophilia Stroke (< 1 month) Elective arthroplasty Hip, pelvis, or leg fracture Acute spinal cord injury (< 1 month) Prophylaxis Regimen Total Risk Factor Score Risk Level Prophylaxis Regimen 0-1 Low Early ambulation 2 Moderate Order ONE of the following: *Sequential Compression Device (SCD) *Heparin 5000 units SQ BID 3-4 Higher Order ONE of the following medications: *Heparin 5000 units SQ TID *Enoxaparin/Lovenox 40 mg SQ daily (WT < 150 kg, CrCl > 30 mL/min) *Enoxaparin/Lovenox 30 mg SQ daily (WT < 150 kg, CrCl > 10-29 mL/min) *Enoxaparin/Lovenox 30 mg SQ BID (WT < 150 kg, CrCl > 30 mL/min) AND/OR *Sequential Compression Device (SCD) 5 or more Highest Order ONE of the following medications: *Heparin 5000 units SQ TID (Preferred with Epidurals) *Enoxaparin/Lovenox 40 mg SQ daily (WT < 150 kg, CrCl > 30 mL/min) *Enoxaparin/Lovenox 30 mg SQ daily (WT < 150 kg, CrCl > 10-29 mL/min) *Enoxaparin/Lovenox 30 mg SQ BID (WT < 150 kg, CrCl > 30 mL/min) AND *Sequential Compression Device (SCD) Assessment and Plan Assessment and Plan Impression: possible UGI bleed persistent vomiting large hiatal hernia contributing to above elevated BP- secondary to acute distress from nausea/ vomiting possible underlying undiagnosed htn Leukocytosis with left shift. Possible underlying infection. Hemoconcentration from dehydration as well. Plan: npo serial hgb hct type and screen nausea control pain control still vomiting while in er UA and urine cx if indicated Suspect underlying infection Protonix IV drip Start Zosyn 4.5 g IV every 6 hours for both intra-abdominal etiology and UTI. GI consult. DVT prophylaxis with SCD. Discussed Condition With Patient, ER PA, nursing staff Physician Certification 2 Midnight Certification Type: Admission for Inpatient Services Order for Inpatient Services The services are ordered in accordance with Medicare regulations or non- Medicare payer requirements, as applicable. In the case of services not specified as inpatient-only, they are appropriately provided as inpatient services in accordance with the 2-midnight benchmark. Estimated LOS (days): 4 days is the estimated time the patient will need to remain in the hospital, assuming treatment plan goals are met and no additional complications. Post-Hospital Plan: Home Hudson Harris MD Jan 08, 2018 16:59
[2018-01-08 17:57] LABS: BASOPHIL % 0.1 % (0.0-2.0); HEMATOCRIT 43.1 % (35.0-46.0); HEMOGLOBIN 14.7 GM/DL (11.6-15.3); LYMPH % 4.3 % (9.0-44.0); MEAN CELL VOLUME 88.8 FL (80.0-100.0); MEAN CORPUSCULAR HEMOGLOBIN 30.2 PG (27.0-34.0); MEAN PLATELET VOLUME 8.2 FL (7.0-11.0); MONOCYTE # 1.2 TH/MM3 (0-0.9); NEUT % 90.6 % (16.0-70.0); PLATELET COUNT 282 TH/MM3 (150-450); RED BLOOD COUNT 4.85 MIL/MM3 (4.00-5.30); RED CELL DISTRIBUTION WIDTH 13.5 % (11.6-17.2); WHITE BLOOD COUNT 24.3 TH/MM3 (4.0-11.0)
[2018-01-08] MEDS ORDERED: PANTOPRAZOLE INJ 80 MG in SODIUM CHLORIDE 0.9% INJ 35 ML IV ONE (18:00)
[2018-01-08 18:07] LABS: AMORPHOUS SEDIMENT, URINE RARE; BACTERIA, URINE FEW /hpf; BILIRUBIN, URINE NEG (NEG); BLOOD, URINE SMALL (NEG); GLUCOSE,URINE NEG (NEG); KETONE, URINE NEG (NEG); NITRITE,URINE NEG (NEG); SQUAMOUS EPITHELIAL CELL URINE 1 /hpf (0-5); URINE COLOR LIGHT-YELLOW (YELLW/STRAW); URINE LEUKOCYTE ESTERASE LARGE (NEG)
[2018-01-08] MEDS: PANTOPRAZOLE INJ 80 MG in SODIUM CHLORIDE 0.9% INJ 100 ML IV SCH (18:54)
[2018-01-08] MEDS: PROMETHAZINE INJ 25 MG/ML VIAL IM PRN (19:21)
[2018-01-08] MEDS: SODIUM CHLORIDE 0.9% FLUSH 10 ML FLUSH IV FLUSH SCH (21:00)
[2018-01-08] MEDS: PIPERACIL-TAZO 4.5 GM PREMIX 100 ML IV SCH (22:30)
[2018-01-08] MEDS: ONDANSETRON HCL 4 MG/2 ML VIAL IVP PRN (23:34)
[2018-01-08] MEDS: MORPHINE SULFATE 2 MG/ML SYRINGE IV PUSH PRN (23:46)
[2018-01-09] VITALS (24 sets, daily range): BP systolic 108–189; BP diastolic 58–86; PULSE 74–111; RESP 16–20; TEMP 97.2–99; O2SAT 94–96
[2018-01-09] MEDS: hydrALAZINE HCL 20 MG/ML VIAL IV PUSH PRN (04:44)
[2018-01-09] MEDS: PIPERACIL-TAZO 4.5 GM PREMIX 100 ML IV SCH ×2 (04:44→09:49)
[2018-01-09] MEDS: PANTOPRAZOLE INJ 80 MG in SODIUM CHLORIDE 0.9% INJ 100 ML IV SCH ×2 (04:45→13:00)
[2018-01-09 05:27] LABS: AUTOMATED NEUTROPHIL # 18.7 TH/MM3 (1.8-7.7); BASOPHIL % 0.1 % (0.0-2.0); HEMATOCRIT 44.1 % (35.0-46.0); HEMOGLOBIN 14.6 GM/DL (11.6-15.3); LYMPH % 6.2 % (9.0-44.0); LYMPHOCYTE # 1.3 TH/MM3 (1.0-4.8); MEAN CELL VOLUME 89.4 FL (80.0-100.0); MEAN CORPUSCULAR HEMOGLOBIN 29.7 PG (27.0-34.0); MEAN CORPUSCULAR HGB CONC 33.2 % (32.0-36.0); MEAN PLATELET VOLUME 7.9 FL (7.0-11.0); MONO % 6.2 % (0.0-8.0); MONOCYTE # 1.3 TH/MM3 (0-0.9); NEUT % 87.5 % (16.0-70.0); PLATELET COUNT 293 TH/MM3 (150-450); RED BLOOD COUNT 4.93 MIL/MM3 (4.00-5.30); RED CELL DISTRIBUTION WIDTH 13.9 % (11.6-17.2); WHITE BLOOD COUNT 21.4 TH/MM3 (4.0-11.0)
[2018-01-09 05:55] LABS: CALCIUM 8.7 MG/DL (8.5-10.1); CREATININE 0.94 MG/DL (0.50-1.00)
[2018-01-09] MEDS: ONDANSETRON HCL 4 MG/2 ML VIAL IVP PRN (08:02)
[2018-01-09] MEDS: SODIUM CHLORIDE 0.9% FLUSH 10 ML FLUSH IV FLUSH SCH ×2 (08:02→21:00)
--- NOTE | 2018-01-09 10:40 | PD.PN.STU ---
Subjective Remarks Follow up for persistent vomiting, possible UGI bleed. Patient reports feeling nauseous and vomiting through the night. Notes that Zofran has helped "a little " with the nausea. She also reports abdominal pain in the RLQ and LLQ. She is concerned about her dog at home, I spoke with her telephone appointment clerk/friend Abiola on the phone and relayed the patient's status and instructions to take care of the dog per the patient's request. Denies blood in the stool, fever, chills, SOB, chest pain, dysuria and change in urinary frequency. Objective Vitals Vital Signs Date Time Temp Pulse Resp B/P (MAP) Pulse Ox O2 Delivery O2 Flow Rate FiO2 01/09/18 10:13 85 01/09/18 09:22 95 01/09/18 08:30 86 01/09/18 08:30 98.9 95 16 139/64 (89) 94 01/09/18 06:19 89 01/09/18 05:00 84 01/09/18 04:00 74 01/09/18 03:37 97.2 75 20 189/86 (120) 95 01/09/18 03:00 77 01/09/18 02:00 74 01/09/18 01:00 76 01/09/18 00:15 98.2 82 20 184/86 (118) 96 01/09/18 00:00 76 01/08/18 23:00 76 01/08/18 22:00 76 01/08/18 21:00 77 01/08/18 20:57 01/08/18 20:30 98.5 77 20 174/76 (108) 99 01/08/18 19:26 20 96 Room Air 01/08/18 18:55 76 20 191/90 (123) 99 Room Air 01/08/18 17:17 125 20 193/81 (118) 97 Room Air 01/08/18 12:56 95 18 199/88 (125) 98 Room Air 01/08/18 11:49 98.5 94 18 202/86 (124) 98 Room Air 01/08/18 11:47 18 01/08/18 11:44 98.5 90 18 158/76 (103) 97 I/O 01/08/18 01/08/18 01/08/18 01/09/18 01/09/18 01/09/18 07:00 15:00 23:00 07:00 15:00 23:00 Intake Total 1035 ml 321 ml Balance 1035 ml 321 ml Intake IV Total 1035 ml 321 ml # Voids 1 Result Diagram: 01/09/18 0455 01/09/18 0455 Imaging Last Impressions Chest X-Ray 01/08/18 0000 Signed Impressions: Service Date/Time: Monday, January 08, 2018 12:14 - CONCLUSION: No acute abnormality demonstrated. Large chronic hiatal hernia. Aren Medel MD Abdomen/Pelvis CT 01/08/18 0000 Signed Impressions: Service Date/Time: Monday, January 08, 2018 14:42 - CONCLUSION: 1. Overall, the appearance of the CT abdomen/pelvis is similar to prior examination in 2016. Large hiatus hernia containing the antrum of the stomach, distended body of the stomach, diverticulosis of the colon, and severe degenerative changes related to kypho-scoliosis are stable. 2. The only new finding from prior examinations a small right pleural effusion. Jerel Bui MD Objective Remarks GENERAL: Alert, oriented x3, vomiting intermittently through interview. Patient has some vomitus on her bed sheets. She appears ill. SKIN: Warm and dry. HEAD: Normocephalic. EYES: No scleral icterus. No injection or drainage. NECK: Supple, trachea midline. No JVD or lymphadenopathy. CARDIOVASCULAR: Regular rate and rhythm without murmurs, gallops, or rubs. RESPIRATORY: Breath sounds equal bilaterally. No accessory muscle use. GASTROINTESTINAL: BS+. Abdomen soft, nondistended, LLQ tenderness, no suprapubic tenderness. MUSCULOSKELETAL: No cyanosis, or edema. BACK: Nontender without obvious deformity. No CVA tenderness. A/P Assessment and Plan The patient is an 82 year old female who presented to the ER last night due to a two day history of persistent nausea and vomiting. She stated that yesterday morning, the vomitus became dark and coffee ground, and was accompanied by abdominal pain. She has had an episode like this before. The patient does not take blood thinners. Hemoccult of the vomitus in the ER was positive. CT abdomen revealed a stable hiatal hernia containing the antrum and distended body of stomach as compared to 2016. She was also found to have an elevated WBC of 18.4 with left shift. Her UA was positive and a urine culture was ordered. Persistent vomiting Possible UGI bleed Large Hiatal Hernia, stable Patient still currently vomiting GI consult ordered, panendoscopy ordered today, patient is NPO Continue IV fluids Large hiatal hernia found on CT, stable as compared to previous imaging in 2016, will defer to GI. Sepsis criteria (tachycardic, WBC >12,000, suspected source of infection) WBC 01/08/2018 18.4 -> 24.3 -> 01/09/2018 21.4. On Zosyn 4.5 g every 6 hours IV now UA positive, urine culture pending Hypertension Acute distress from nausea and vomiting may be contributing to blood pressure Patient was told at one point she had hypertension, but has not followed up with PCP in years, and takes no medications. If persistent, consider starting amlodipine 5 mg PO daily DVT prophylaxis: hold anticoagulants pending GI recs. The patient was seen and examined. Case discussed at length with Zhang Anderson MS III. Zhang Anderson M3 Jan 09, 2018 10:40 Valeria Calix MD Jan 09, 2018 14:58
--- NOTE | 2018-01-09 11:46 | GIPROC ---
[facility] [address] [facility]. [facility], [id number] EGD PROCEDURE REPORT EXAM DATE: 01/09/2018 PATIENT NAME: Yanelis Peterson MR #: [id number] BIRTHDATE: 1935 ATTENDING: Areli Holly MD ORDER #: [id number] CREATIVE ENGAGEMENT DIRECTOR: Anamika Sosa and Heron Yung STATUS: inpatient INDICATIONS: The patient is a 82 yr old female here for an EGD due to hematemesis and vomiting PROCEDURE PERFORMED: EGD, diagnostic MEDICATIONS: None and Per Anesthesia. TOPICAL ANESTHETIC: CONSENT: The patient understands the risks and benefits of the procedure and understands that these risks include, but are not limited to: sedation, allergic reaction, infection, perforation and/or bleeding. Alternative means of evaluation and treatment include, among others: physical exam, x-rays, and/or surgical intervention. The patient elects to proceed with this endoscopic procedure. medical equipment was checked for proper function. Hand hygiene and appropriate measures for infection prevention was taken. After the risks, benefits and alternatives of the procedure were thoroughly explained, Informed consent was verified, confirmed and timeout was successfully executed by the treatment team. The patient was anesthetized with topical anesthesia and the Pentax [id number] endoscope was introduced through the mouth and advanced to the stomach body. Retroflexed views revealed a hiatal hernia The gastroscope was then slowly withdrawn and removed. ESOPHAGUS: There was LA Class D esophagitis noted. STOMACH: There was severe gastritis in the gastric antrum. 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 Unable to trverse. Bronchoscope passed through this into the stomach. 800+ cc of fluid suctioned. Unable to advance past the hernia site. ADVERSE EVENTS: There were no complications. IMPRESSIONS: 1. There was LA Class D esophagitis noted 2. 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 Unable to trverse. Bronchoscope passed through this into the stomach. 800+ cc of fluid suctioned. Unable to advance past the hernia site 3. Retroflexed views revealed a hiatal hernia RECOMMENDATIONS: 1. Anti-reflux regimen 2. Continue PPI 3. Xray: UGI SERIES PATIENT CONDITION: stable DISPOSITION: Inpatient REPEAT EXAM: Return 2 days EGD with dilatation Areli Holly MD eSigned: Areli Holly MD 01/09/2018 11:45 AM cc:
[2018-01-09] MEDS ORDERED: DO NOT ADM ANY ANTICOAGULANT DRUGS PRN (11:58)
[2018-01-09] MEDS ORDERED: PHENYLEPH/NS 1000 MCG/10 ML SYR IV ONE (12:00)
[2018-01-09] MEDS ORDERED: ONDANSETRON HCL 4 MG/2 ML VIAL IV ONE (12:00)
[2018-01-09] MEDS ORDERED: ePHEDrine/NS 25 MG/5 ML SYRINGE IV ONE (12:00)
[2018-01-09] MEDS ORDERED: SUCCINYLCHOLINE CHLORIDE 200 MG/10 ML VIAL IV ONE (12:00)
[2018-01-09] MEDS ORDERED: PROPOFOL 200 MG/20 ML AMP IV ONE (12:00)
[2018-01-09] MEDS ORDERED: LIDOCAINE HCL 1% PF 5 ML SYRINGE OTHER ONE (12:00)
--- NOTE | 2018-01-09 13:18 | PD.CONS ---
HPI History of Present Illness This is a 82 year old F with PMH significant for HTN. History is limited, pt just came back from having EGD today, sore throat and pain with speaking. Pt presented to the ER yesterday with complaints of intractable vomiting that began two days prior to arrival. Pt reports initially the emesis was food and bile but noticed it started appearing like coffee ground emesis yesterday. Denies constipation, diarrhea, hematochezia, melena. States some abdominal pain when she was vomiting, described as cramping, now minimal. Denies history of GIB. Did have an EGD Sep 2016 --> Severe esophageal stricture, small hiatal hernia. Pt reports last colonoscopy was probably around 20 years ago and she thinks it was a normal exam. Denies taking blood thinners, ETOH, NSAIDs. (Ann Nicholas) PFSH Past Medical History HTN Past Surgical History hysterectomy EGD Colonoscopy (Ann Nicholas) Coded Allergies: erythromycin base (Verified Allergy, Unknown, 01/08/18) stomach bleeding meperidine (Unverified Adverse Reaction, Unknown, 01/08/18) she gets all squirrely Family History nothing she knows of Social History Denies any alcohol abuse or drug abuse. Denies smoking. She lives by herself. No longer driving. Her friend drives her for groceries. She states she walks without a walker. (Ann Nicholas) Review of Systems Gastrointestinal: COMPLAINS OF: Abdominal pain, Nausea, Vomiting, Hematemesis, DENIES: Black stools, Bloody stools, Constipation, Diarrhea (Ann Nicholas) GI Exam Vitals I&O Vital Signs Date Time Temp Pulse Resp B/P (MAP) Pulse Ox O2 Delivery O2 Flow Rate FiO2 01/09/18 13:02 96 01/09/18 12:25 97.8 90 16 153/67 (95) 96 Nasal Cannula 2 01/09/18 12:15 91 16 149/75 (99) 95 Nasal Cannula 2 01/09/18 12:00 89 16 144/84 (104) 95 Nasal Cannula 2 01/09/18 11:55 99.2 88 18 150/90 (110) 100 Nasal Cannula 3 01/09/18 11:10 98.7 87 16 108/58 (75) 95 01/09/18 11:10 111 4/3/18 10:50 97.8 88 15 165/74 (104) 95 01/09/18 10:13 85 01/09/18 09:22 95 01/09/18 08:30 86 01/09/18 08:30 98.9 95 16 139/64 (89) 94 01/09/18 06:19 89 01/09/18 05:00 84 01/09/18 04:00 74 01/09/18 03:37 97.2 75 20 189/86 (120) 95 01/09/18 03:00 77 01/09/18 02:00 74 01/09/18 01:00 76 01/09/18 00:15 98.2 82 20 184/86 (118) 96 01/09/18 00:00 76 01/08/18 23:00 76 01/08/18 22:00 76 01/08/18 21:00 77 01/08/18 20:57 01/08/18 20:30 98.5 77 20 174/76 (108) 99 01/08/18 19:26 20 96 Room Air 01/08/18 18:55 76 20 191/90 (123) 99 Room Air 01/08/18 17:17 125 20 193/81 (118) 97 Room Air I/O 01/08/18 01/08/18 01/08/18 01/09/18 01/09/18 01/09/18 07:00 15:00 23:00 07:00 15:00 23:00 Intake Total 1035 ml 321 ml 300 ml Balance 1035 ml 321 ml 300 ml Intake IV Total 1035 ml 321 ml Other 300 ml # Voids 1 Imaging Last Impressions Chest X-Ray 01/08/18 0000 Signed Impressions: Service Date/Time: Monday, January 08, 2018 12:14 - CONCLUSION: No acute abnormality demonstrated. Large chronic hiatal hernia. Aren Medel MD Abdomen/Pelvis CT 01/08/18 0000 Signed Impressions: Service Date/Time: Monday, January 08, 2018 14:42 - CONCLUSION: 1. Overall, the appearance of the CT abdomen/pelvis is similar to prior examination in 2016. Large hiatus hernia containing the antrum of the stomach, distended body of the stomach, diverticulosis of the colon, and severe degenerative changes related to kypho-scoliosis are stable. 2. The only new finding from prior examinations a small right pleural effusion. Jerel Bui MD Laboratory Test 01/08/18 17:15 01/09/18 04:55 White Blood Count 24.3 TH/MM3 21.4 TH/MM3 Red Blood Count 4.85 MIL/MM3 4.93 MIL/MM3 Hemoglobin 14.7 GM/DL 14.6 GM/DL Hematocrit 43.1 % 44.1 % Mean Corpuscular Volume 88.8 FL 89.4 FL Mean Corpuscular Hemoglobin 30.2 PG 29.7 PG Mean Corpuscular Hemoglobin Concent 34.0 % 33.2 % Red Cell Distribution Width 13.5 % 13.9 % Platelet Count 282 TH/MM3 293 TH/MM3 Mean Platelet Volume 8.2 FL 7.9 FL Neutrophils (%) (Auto) 90.6 % 87.5 % Lymphocytes (%) (Auto) 4.3 % 6.2 % Monocytes (%) (Auto) 5.0 % 6.2 % Eosinophils (%) (Auto) 0.0 % 0.0 % Basophils (%) (Auto) 0.1 % 0.1 % Neutrophils # (Auto) 22.0 TH/MM3 18.7 TH/MM3 Lymphocytes # (Auto) 1.0 TH/MM3 1.3 TH/MM3 Monocytes # (Auto) 1.2 TH/MM3 1.3 TH/MM3 Eosinophils # (Auto) 0.0 TH/MM3 0.0 TH/MM3 Basophils # (Auto) 0.0 TH/MM3 0.0 TH/MM3 CBC Comment DIFF FINAL DIFF FINAL Differential Comment Urine Color LIGHT-YELLOW Urine Turbidity HAZY Urine pH 8.0 Urine Specific Treadwell 1.045 Urine Protein 30 mg/dL Urine Glucose (UA) NEG mg/dL Urine Ketones NEG mg/dL Urine Occult Blood SMALL Urine Nitrite NEG Urine Bilirubin NEG Urine Urobilinogen LESS THAN 2.0 MG/DL Urine Leukocyte Esterase LARGE Urine RBC 20 /hpf Urine WBC 85 /hpf Urine Squamous Epithelial Cells 1 /hpf Urine Amorphous Sediment RARE Urine Bacteria FEW /hpf Microscopic Urinalysis Comment CULTURE INDICATED Blood Urea Nitrogen 18 MG/DL Creatinine 0.94 MG/DL Random Glucose 130 MG/DL Calcium Level 8.7 MG/DL Sodium Level 145 MEQ/L Potassium Level 3.7 MEQ/L Chloride Level 106 MEQ/L Carbon Dioxide Level 30.0 MEQ/L Anion Gap 9 MEQ/L Estimat Glomerular Filtration Rate 57 ML/MIN Date/Time Source Procedure Growth Status 01/08/18 17:15 Urine Random Urine Urine Culture Pending Received Physical Examination HEENT: Normocephalic; atraumatic CHEST: Even/unlabored CARDIAC: RRR ABDOMEN: Soft, nondistended, nontender; bowel sounds active EXTREMITIES: No clubbing, cyanosis, or edema. SKIN: Normal; no rash; no jaundice. TRAINING AND DEVELOPMENT REP: No focal deficits; alert and oriented times three. (Ann Nicholas) Assessment and Plan Plan Assessment: - Coffee ground emesis- reports coffee ground emesis for one day prior to arrival, vomiting for the past 2 days but initially was food and bile colored. Last EGD Sep 2016 --> Severe esophageal stricture, small hiatal hernia. EGD done today --> Class D esophagitis. Gastritis in the gastric antrum, tight stricture at distal esophagus. Unable to transverse. Bronchoscope passed through this into the stomach 800+ cc of fluid suction. Unable to advance past hernia site. Hiatal hernia. - Abdominal pain, states mostly with emesis, pain is now mild CT abdomen and pelvis --> Overall, the appearance of the CT abdomen/pelvis is similar to prior examination in 2016. Large hiatus hernia containing the antrum of the stomach, distended body of the stomach, diverticulosis of the colon, and severe degenerative changes related to kypho-scoliosis are stable. The only new finding from prior examinations a small right pleural effusion. - Denies constipation, diarrhea, melena, hematochezia- Pt reports last colonoscopy was probably around 20 years ago and she thinks it was a normal exam Plan: UGI series with Gastrografin Clear liquid diet Protonix Further recommendations based on findings of above and clinical course Pt has been seen and examined by myself and Dr. Holly and this note is written on his behalf (Ann Nicholas) Physician Comments Seen and examined with SHAY, EGD done today. UGI gastrografin ordered. Repeat egd under floroscopic guidance depending upon above. Thank you (Areli Holly MD) Ann Nicholas Jan 09, 2018 13:18 Areli Holly MD Jan 09, 2018 14:45
[2018-01-09] MEDS ORDERED: DIATRIZOATE MEGLUM/DIATRIZOATE SOD 120 ML BTL (for RAD DIAG) PO ONE (13:30)
--- NOTE | 2018-01-09 14:13 | RADRPT ---
EXAM DATE/TIME: 01/09/2018 13:29 [facility] COMPARISON: No previous studies available for comparison. INDICATIONS : Stricture. Nausea, vomiting, and abdomen pain. Patient had 800 cc suctioned from her stomach. FLUORO TIME: 0.7 minutes IMAGE COUNT: 9 CONTRAST: 1. MD Patterson MEDICAL HISTORY : Hiatal hernia. Diverticulitis. SURGICAL HISTORY : Hysterectomy. ENCOUNTER: Subsequent ACUITY: 2 days PAIN SCORE: 2/10 LOCATION: Bilateral abdomen. FINDINGS: Nearly half of the stomach is intrathoracic. The GE junction is above the diaphragm. There is an appr oximately 2 cm long mild narrowing of the distal esophagus just above the GE junction probably relate d to volvulus. There is associated mild impedance of the flow to contrast but no complete obstruction . Fairly smooth margins proximally and distally without definite mass CONCLUSION: Large hiatal hernia. Mild non-masslike narrowing of the distal esophagus. Please see above. Aren Medel MD on January 09, 2018 at 14:08 Board Certified Radiologist. This report was verified electronically.
--- NOTE | 2018-01-09 15:02 | HHI.PR ---
Subjective Remarks Follow up for persistent nausea, vomiting, possible UGI bleed. Patient reports feeling nauseous and vomiting through the night. Now with dry heaves. Notes that Zofran has helped "a little" with the nausea. She also reports abdominal pain in the RLQ and LLQ. Denies blood in the stool, fever, chills, SOB, chest pain, dysuria and change in urinary frequency. Objective Vitals Vital Signs Date Time Temp Pulse Resp B/P (MAP) Pulse Ox O2 Delivery O2 Flow Rate FiO2 01/09/18 14:28 97 01/09/18 13:02 96 01/09/18 12:25 97.8 90 16 153/67 (95) 96 Nasal Cannula 2 01/09/18 12:15 91 16 149/75 (99) 95 Nasal Cannula 2 01/09/18 12:00 89 16 144/84 (104) 95 Nasal Cannula 2 01/09/18 11:55 99.2 88 18 150/90 (110) 100 Nasal Cannula 3 01/09/18 11:10 98.7 87 16 108/58 (75) 95 01/09/18 11:10 111 01/09/18 10:50 97.8 88 15 165/74 (104) 95 01/09/18 10:13 85 01/09/18 09:22 95 01/09/18 08:30 86 01/09/18 08:30 98.9 95 16 139/64 (89) 94 01/09/18 06:19 89 01/09/18 05:00 84 01/09/18 04:00 74 01/09/18 03:37 97.2 75 20 189/86 (120) 95 01/09/18 03:00 77 01/09/18 02:00 74 01/09/18 01:00 76 01/09/18 00:15 98.2 82 20 184/86 (118) 96 01/09/18 00:00 76 01/08/18 23:00 76 01/08/18 22:00 76 01/08/18 21:00 77 01/08/18 20:57 01/08/18 20:30 98.5 77 20 174/76 (108) 99 01/08/18 19:26 20 96 Room Air 01/08/18 18:55 76 20 191/90 (123) 99 Room Air 01/08/18 17:17 125 20 193/81 (118) 97 Room Air I/O 01/08/18 01/08/18 01/08/18 01/09/18 01/09/18 01/09/18 07:00 15:00 23:00 07:00 15:00 23:00 Intake Total 1035 ml 321 ml 400 ml Balance 1035 ml 321 ml 400 ml Intake IV Total 1035 ml 321 ml 100 ml Other 300 ml # Voids 1 Result Diagram: 01/09/18 0455 01/09/18 0455 Imaging Last Impressions Upper GI Series 01/09/18 0000 Signed Impressions: Service Date/Time: Tuesday, January 09, 2018 13:29 - CONCLUSION: Large hiatal hernia. Mild non-masslike narrowing of the distal esophagus. Please see above. Aren Medel MD Chest X-Ray 01/08/18 0000 Signed Impressions: Service Date/Time: Monday, January 08, 2018 12:14 - CONCLUSION: No acute abnormality demonstrated. Large chronic hiatal hernia. Aren Medel MD Abdomen/Pelvis CT 01/08/18 0000 Signed Impressions: Service Date/Time: Monday, January 08, 2018 14:42 - CONCLUSION: 1. Overall, the appearance of the CT abdomen/pelvis is similar to prior examination in 2016. Large hiatus hernia containing the antrum of the stomach, distended body of the stomach, diverticulosis of the colon, and severe degenerative changes related to kypho-scoliosis are stable. 2. The only new finding from prior examinations a small right pleural effusion. Jerel Bui MD Objective Remarks GENERAL: Alert, oriented x3, vomiting intermittently through interview. Patient has some vomitus on her bed sheets. She appears ill. CARDIOVASCULAR: Regular rate and rhythm without murmurs, gallops, or rubs. RESPIRATORY: Breath sounds equal bilaterally. No accessory muscle use. GASTROINTESTINAL: BS+. Abdomen soft, nondistended, LLQ tenderness, no suprapubic tenderness. MUSCULOSKELETAL: No cyanosis, or edema. BACK: Nontender without obvious deformity. No CVA tenderness. A/P Assessment and Plan The patient is an 82 year old female who presented to the ER last night due to a two day history of persistent nausea and vomiting. She stated that yesterday morning, the vomitus became dark and coffee ground, and was accompanied by abdominal pain. She has had an episode like this before. The patient does not take blood thinners. Hemoccult of the vomitus in the ER was positive. CT abdomen revealed a stable hiatal hernia containing the antrum and distended body of stomach as compared to 2016. She was also found to have an elevated WBC of 18.4 with left shift. Her UA was positive and a urine culture was ordered. Persistent vomiting Possible UGI bleed Large Hiatal Hernia, stable Patient still currently vomiting GI consult ordered, panendoscopy ordered today, patient is NPO Continue IV fluids Large hiatal hernia found on CT, stable as compared to previous imaging in 2016 , will defer to GI. Sepsis criteria (tachycardic, WBC >12,000, suspected source of infection) WBC 01/08/2018 18.4 -> 24.3 -> 01/09/2018 21.4. On Zosyn 4.5 g every 6 hours IV now UA positive, urine culture pending Hypertension Acute distress from nausea and vomiting may be contributing to blood pressure Patient was told at one point she had hypertension, but has not followed up with PCP in years, and takes no medications. If persistent, consider starting amlodipine 5 mg PO daily DVT prophylaxis: hold anticoagulants pending GI recs. Discussed with the patient, nurse Valeria Calix MD Jan 09, 2018 15:02
[2018-01-09] MEDS: PIPERACIL-TAZO 3.375 GM PREMIX 50 ML IV SCH ×2 (15:56→21:44)
--- NOTE | 2018-01-09 16:20 | EKG ---
Date Performed: 01/08/2018 Time Performed: 11:54:35 PTAGE: 82 years EKG: Sinus rhythm WITH FIRST DEGREE AV BLOCK WITH FREQUENT VENTRICULAR PREMATURE COMPLEXES MARKED LEFT AXIS DEVIATION MINIMAL VOLTAGE CRITERIA FOR LVH, CONSIDER NORMAL VARIANT NONSPECIFIC ST & T-WAVE ABNORMALITY ABNORMA L ECG PREVIOUS TRACING : 06/13/2017 01.10 Ventricular ectopy and subtle ST changes are new since prio r tracing. Clinical correlation is recommended. DOCTOR: Tadeo Cordero Interpretating Date/Time 01/09/2018 16:19:36
[2018-01-10] VITALS (26 sets, daily range): BP systolic 134–190; BP diastolic 61–88; PULSE 75–104; RESP 19–21; TEMP 97.8–98.8; O2SAT 93–98
[2018-01-10] MEDS: ONDANSETRON HCL 4 MG/2 ML VIAL IVP PRN ×3 (03:57→16:49)
[2018-01-10] MEDS: PIPERACIL-TAZO 3.375 GM PREMIX 50 ML IV SCH ×4 (03:57→21:57)
[2018-01-10 05:09] LABS: AUTOMATED NEUTROPHIL # 11.5 TH/MM3 (1.8-7.7); BASOPHIL % 0.2 % (0.0-2.0); HEMATOCRIT 39.5 % (35.0-46.0); HEMOGLOBIN 13.4 GM/DL (11.6-15.3); LYMPH % 7.2 % (9.0-44.0); MEAN CELL VOLUME 88.1 FL (80.0-100.0); MEAN CORPUSCULAR HEMOGLOBIN 29.8 PG (27.0-34.0); MEAN CORPUSCULAR HGB CONC 33.8 % (32.0-36.0); MEAN PLATELET VOLUME 7.8 FL (7.0-11.0); MONO % 6.1 % (0.0-8.0); MONOCYTE # 0.8 TH/MM3 (0-0.9); NEUT % 86.5 % (16.0-70.0); PLATELET COUNT 262 TH/MM3 (150-450); RED BLOOD COUNT 4.49 MIL/MM3 (4.00-5.30); WHITE BLOOD COUNT 13.3 TH/MM3 (4.0-11.0)
[2018-01-10 05:37] LABS: BICARBONATE 27.5 MEQ/L (21.0-32.0); CREATININE 0.96 MG/DL (0.50-1.00)
[2018-01-10] MEDS: POTASSIUM CHLOR 20 MEQ PREMIX 100 ML IV SCH ×4 (06:44→16:44)
[2018-01-10] MEDS: PROMETHAZINE INJ 25 MG/ML VIAL IM PRN (06:55)
[2018-01-10] MEDS: hydrALAZINE HCL 20 MG/ML VIAL IV PUSH PRN ×2 (08:10→15:53)
[2018-01-10] MEDS: MORPHINE SULFATE 2 MG/ML SYRINGE IV PUSH PRN ×2 (08:11→21:09)
[2018-01-10] MEDS: SODIUM CHLORIDE 0.9% FLUSH 10 ML FLUSH IV FLUSH SCH ×2 (08:16→21:09)
--- NOTE | 2018-01-10 09:10 | HHI.PR ---
Subjective Remarks Patient in the chair. Appears in some distress. Still with nausea and vomiting. Also some epigastric pain. No fever or chills. Coughing some. Lungs some sounds congested. Objective Vitals Vital Signs Date Time Temp Pulse Resp B/P (MAP) Pulse Ox O2 Delivery O2 Flow Rate FiO2 01/10/18 08:00 95 01/10/18 07:00 83 01/10/18 06:39 82 01/10/18 05:35 75 01/10/18 04:35 80 01/10/18 03:50 78 01/10/18 03:50 98.8 78 21 159/78 (105) 94 01/10/18 02:37 84 01/10/18 01:30 79 01/10/18 00:03 84 01/09/18 23:40 99.0 87 20 129/62 (84) 96 01/09/18 23:40 77 01/09/18 22:58 77 01/09/18 21:32 79 01/09/18 20:50 80 01/09/18 19:40 79 01/09/18 19:40 98.7 88 19 132/60 (84) 96 01/09/18 18:05 95 01/09/18 17:08 87 01/09/18 16:01 87 01/09/18 15:13 97.7 84 16 132/63 (86) 96 01/09/18 15:13 91 01/09/18 14:28 97 01/09/18 13:02 96 01/09/18 12:25 97.8 90 16 153/67 (95) 96 Nasal Cannula 2 01/09/18 12:15 91 16 149/75 (99) 95 Nasal Cannula 2 01/09/18 12:00 89 16 144/84 (104) 95 Nasal Cannula 2 01/09/18 11:55 99.2 88 18 150/90 (110) 100 Nasal Cannula 3 01/09/18 11:10 98.7 87 16 108/58 (75) 95 01/09/18 11:10 111 01/09/18 10:50 97.8 88 15 165/74 (104) 95 01/09/18 10:13 85 01/09/18 09:22 95 I/O 01/09/18 01/09/18 01/09/18 01/10/18 01/10/184/18 06:59 14:59 22:59 06:59 14:59 22:59 Intake Total 321 ml 400 ml 440 ml 600 ml Output Total 500 ml 400 ml Balance 321 ml 400 ml -60 ml 200 ml Intake Oral 240 ml 600 ml IV Total 321 ml 100 ml 200 ml Other 300 ml Output Urine Total 500 ml 400 ml # Voids 1 0 2 # Bowel Movements 0 Result Diagram: 01/10/18 0450 01/10/18 0450 Imaging Last Impressions Upper GI Series 01/09/18 0000 Signed Impressions: Service Date/Time: Tuesday, January 09, 2018 13:29 - CONCLUSION: Large hiatal hernia. Mild non-masslike narrowing of the distal esophagus. Please see above. Aren Medel MD Chest X-Ray 01/08/18 0000 Signed Impressions: Service Date/Time: Monday, January 08, 2018 12:14 - CONCLUSION: No acute abnormality demonstrated. Large chronic hiatal hernia. Aren Medel MD Abdomen/Pelvis CT 01/08/18 0000 Signed Impressions: Service Date/Time: Monday, January 08, 2018 14:42 - CONCLUSION: 1. Overall, the appearance of the CT abdomen/pelvis is similar to prior examination in 2016. Large hiatus hernia containing the antrum of the stomach, distended body of the stomach, diverticulosis of the colon, and severe degenerative changes related to kypho-scoliosis are stable. 2. The only new finding from prior examinations a small right pleural effusion. Jerel Bui MD Objective Remarks GENERAL: Alert, oriented x3, vomiting intermittently through interview. Patient has some vomitus on her bed sheets. She appears ill. CARDIOVASCULAR: Regular rate and rhythm without murmurs, gallops, or rubs. RESPIRATORY: Breath sounds equal bilaterally. No accessory muscle use. GASTROINTESTINAL: +BS x 4Q. Abdomen soft, nondistended, LLQ tenderness, no suprapubic tenderness. MUSCULOSKELETAL: No cyanosis, or edema. BACK: Nontender without obvious deformity. No CVA tenderness. A/P Assessment and Plan The patient is an 82 year old female who presented to the ER last night due to a two day history of persistent nausea and vomiting. She stated that yesterday morning, the vomitus became dark and coffee ground, and was accompanied by abdominal pain. She has had an episode like this before. The patient does not take blood thinners. Hemoccult of the vomitus in the ER was positive. CT abdomen revealed a stable hiatal hernia containing the antrum and distended body of stomach as compared to 2016. She was also found to have an elevated WBC of 18.4 with left shift. Her UA was positive and a urine culture was ordered. Persistent vomiting Possible UGI bleed Large Hiatal Hernia, stable Hypokalemia 2/2 GI loss decreased PO intake . Replace with IV as patient cant keep anything down. Patient still currently vomiting GI consult Continue IV fluids Large hiatal hernia found on CT, stable as compared to previous imaging in 2016 , will defer to GI. S/P panendoscopy patient with LA class D esophagitis. Gastritis and gastric antrum. Denies stricture at the distal esophagus unable to transverse. Plan for EGD with dilation. Continue PPI X ray UGI series reviewed distal esophagus stricture and large hiatal hernia Plan for EGD with dilation poss tomorrow Might consider gen surg for eval of large hiatal hernia Sepsis criteria (tachycardic, WBC >12,000, suspected source of infection) WBC 01/08/2018 18.4 -> 24.3 -> 01/09/2018 21.4. On Zosyn 4.5 g every 6 hours IV now UA positive, urine culture pending Hypertension Acute distress from nausea and vomiting may be contributing to blood pressure Patient was told at one point she had hypertension, but has not followed up with PCP in years, and takes no medications. If persistent, consider starting amlodipine 5 mg PO daily DVT prophylaxis: hold anticoagulants pending GI recs. Discussed with the patient, nurse, Valeria Moreno MD Jan 10, 2018 09:10
[2018-01-10] MEDS: PANTOPRAZOLE INJ 80 MG in SODIUM CHLORIDE 0.9% INJ 100 ML IV SCH ×4 (10:03→21:09)
--- NOTE | 2018-01-10 11:46 | HHI.GIFU ---
Subjective Remarks Pt OOB to chair. Nonverbal but indicates still with n/v, abd pain. (Annalee Torres) Objective Vitals I&O Vital Signs Date Time Temp Pulse Resp B/P (MAP) Pulse Ox O2 Delivery O2 Flow Rate FiO2 01/10/18 10:00 104 01/10/18 09:00 103 01/10/18 08:30 19 01/10/18 08:00 95 01/10/18 07:30 134/61 (85) 01/10/18 07:00 83 01/10/18 07:00 98.5 84 19 190/88 (122) 98 01/10/18 06:39 82 01/10/18 05:35 75 01/10/18 04:35 80 01/10/18 03:50 78 01/10/18 03:50 98.8 78 21 159/78 (105) 94 01/10/18 02:37 84 01/10/18 01:30 79 01/10/18 00:03 84 01/09/18 23:40 99.0 87 20 129/62 (84) 96 01/09/18 23:40 77 01/09/18 22:58 77 01/09/18 21:32 79 01/09/18 20:50 80 01/09/18 19:40 79 01/09/18 19:40 98.7 88 19 132/60 (84) 96 01/09/18 18:05 95 01/09/18 17:08 87 01/09/18 16:01 87 01/09/18 15:13 97.7 84 16 132/63 (86) 96 01/09/18 15:13 91 01/09/18 14:28 97 01/09/18 13:02 96 01/09/18 12:25 97.8 90 16 153/67 (95) 96 Nasal Cannula 2 01/09/18 12:15 91 16 149/75 (99) 95 Nasal Cannula 2 01/09/18 12:00 89 16 144/84 (104) 95 Nasal Cannula 2 01/09/18 11:55 99.2 88 18 150/90 (110) 100 Nasal Cannula 3 I/O 4/3/18 4/3/18 4/3/18 4/4/18 4/4/18 4/4/18 07:00 15:00 23:00 07:00 15:00 23:00 Intake Total 321 ml 400 ml 440 ml 600 ml 200 ml Output Total 500 ml 400 ml Balance 321 ml 400 ml -60 ml 200 ml 200 ml Intake Oral 240 ml 600 ml IV Total 321 ml 100 ml 200 ml 200 ml Other 300 ml Output Urine Total 500 ml 400 ml # Voids 1 0 2 # Bowel Movements 0 Laboratory Laboratory Tests Test 01/10/18 04:50 White Blood Count 13.3 Red Blood Count 4.49 Hemoglobin 13.4 Hematocrit 39.5 Mean Corpuscular Volume 88.1 Mean Corpuscular Hemoglobin 29.8 Mean Corpuscular Hemoglobin Concent 33.8 Red Cell Distribution Width 14.0 Platelet Count 262 Mean Platelet Volume 7.8 Neutrophils (%) (Auto) 86.5 Lymphocytes (%) (Auto) 7.2 Monocytes (%) (Auto) 6.1 Eosinophils (%) (Auto) 0.0 Basophils (%) (Auto) 0.2 Neutrophils # (Auto) 11.5 Lymphocytes # (Auto) 1.0 Monocytes # (Auto) 0.8 Eosinophils # (Auto) 0.0 Basophils # (Auto) 0.0 CBC Comment DIFF FINAL Differential Comment Blood Urea Nitrogen 26 Creatinine 0.96 Random Glucose 116 Calcium Level 8.0 Sodium Level 146 Potassium Level 2.9 Chloride Level 110 Carbon Dioxide Level 27.5 Anion Gap 9 Estimat Glomerular Filtration Rate 56 Date/Time Source Procedure Growth Status 01/08/18 17:15 Urine Random Urine Urine Culture - Preliminary Gram Negative Titi Resulted Imaging Last Impressions Upper GI Series 01/09/18 0000 Signed Impressions: Service Date/Time: Tuesday, January 09, 2018 13:29 - CONCLUSION: Large hiatal hernia. Mild non-masslike narrowing of the distal esophagus. Please see above. Aren Medel MD Chest X-Ray 01/08/18 0000 Signed Impressions: Service Date/Time: Monday, January 08, 2018 12:14 - CONCLUSION: No acute abnormality demonstrated. Large chronic hiatal hernia. Aren Medel MD Abdomen/Pelvis CT 01/08/18 0000 Signed Impressions: Service Date/Time: Monday, January 08, 2018 14:42 - CONCLUSION: 1. Overall, the appearance of the CT abdomen/pelvis is similar to prior examination in 2016. Large hiatus hernia containing the antrum of the stomach, distended body of the stomach, diverticulosis of the colon, and severe degenerative changes related to kypho-scoliosis are stable. 2. The only new finding from prior examinations a small right pleural effusion. Jerel Bui MD Physical Exam HEENT: PERRL normocephalic; atraumatic; no jaundice. CHEST: wheezes CARDIAC: RRR ABDOMEN: Soft, mildly distended, diffuse TTP; no hepatosplenomegaly; bowel sounds are present in all four quadrants. EXTREMITIES: No clubbing, cyanosis, or edema. SKIN: Normal; no rash; no jaundice. WORKFORCE DEVELOPMENT SPECIALIST: nonverbal but responds appropriately (Annalee Torres) Assessment and Plan Plan Assessment: - Coffee ground emesis- reports coffee ground emesis for one day prior to arrival, vomiting for the past 2 days but initially was food and bile colored. Last EGD Sep 2016 --> Severe esophageal stricture, small hiatal hernia. EGD done today --> Class D esophagitis. Gastritis in the gastric antrum, tight stricture at distal esophagus. Unable to transverse. Bronchoscope passed through this into the stomach 800+ cc of fluid suction. Unable to advance past hernia site. Hiatal hernia. - Abdominal pain, states mostly with emesis, pain is now mild CT abdomen and pelvis --> Overall, the appearance of the CT abdomen/pelvis is similar to prior examination in 2016. Large hiatus hernia containing the antrum of the stomach, distended body of the stomach, diverticulosis of the colon, and severe degenerative changes related to kypho-scoliosis are stable. The only new finding from prior examinations a small right pleural effusion. - Denies constipation, diarrhea, melena, hematochezia- Pt reports last colonoscopy was probably around 20 years ago and she thinks it was a normal exam 01/10/18 UGI series noted, large hiatal hernia, esophageal narrowing. s/p EGD found class D esophagitis, esophageal stricture, fluid suctioned from stomach, unable to pass stricture and had to use bronchoscope. still with n/v, abd discomfort. Plan: EGD with dilatation tomorrow obtain consent NPO after MN GS consult Clear liquid diet Protonix Further recommendations based on findings of above and clinical course Pt has been seen and examined by myself and Dr. Holly and this note is written on his behalf (Annalee Torres) Physician Comments Seen and examined with TYPEWRITER [employer] W[employer]ER, S/P egd and ugi. Repeat egd with dilation under floroscopy tomorrow. Clears. (Arlei Holly MD) Annalee Torres Jan 10, 2018 11:46 Areli Holly MD Jan 10, 2018 14:24
[2018-01-10] MEDS ORDERED: POTASSIUM CHLOR 20 MEQ PREMIX 100 ML IV SCH (12:00)
--- NOTE | 2018-01-10 17:52 | MB ---
cc: Wero Brady MD, Michael A MD DATE: 01/10/2018 REASON FOR CONSULTATION: Hiatal hernia with possible volvulus. HISTORY OF PRESENT ILLNESS: The patient is an elderly 82-year-old female who reports a many year history of problems with her stomach. She had been followed by Dr. Crabtree prior to coming into the hospital before he left for clinic. The patient had coffee ground emesis and was found to have normal hemoglobin of 14.5, WBCs of 18.4. The patient underwent endoscopic examination by Dr. Holly on 01/09 which demonstrated esophagitis with gastritis in the gastric antrum and a tight stricture at the distal esophagus. Bronchoscope was used to pass through this and the patient had a large amount of bloody fluid in the stomach. Upper GI was performed after these findings and this demonstrated half of the stomach being intrathoracic with the GE junction above the diaphragm and a 2 cm long narrowing of the distal esophagus, just above the GE junction. There is mild impedance of contrast, but no complete obstruction. LABORATORY DATA: Today demonstrate WBCs of 13.3, down from 24.3 two days ago. Hemoglobin is 13.4, platelets 262,000. Chemistries demonstrate potassium of 2.9, sodium 146, BUN and creatinine are 26 and 0.96. PHYSICAL EXAMINATION: GENERAL: An elderly female who appears older than her stated age. VITAL SIGNS: BP 168/77, pulse 95, respirations 19, temperature 98.2 HEENT: Sclerae are anicteric. CHEST: Clear to auscultation. CARDIOVASCULAR: Reveals regular rate and rhythm. ABDOMEN: Soft with tenderness in the epigastrium. There are no hernias noted. Pulses are present. ASSESSMENT: Hiatal hernia with possible gastric volvulus. I have spoken with Dr. Holly; he is going to repeat esophagogastroduodenoscopy tomorrow and try to dilate the distal esophagus. If he is successful with this, I will have the patient undergo laparoscopic gastrostomy tube placement to anchor the stomach in the abdominal cavity. This should minimize the risk of volvulus and allow further management based on findings. It is unclear whether she has gastric outlet obstruction in addition to her current problems. We will follow with you, and Dr. Holly will call after the repeat endoscopy tomorrow. There is a possibility that the surgery may be canceled if findings are not consistent with volvulus as patient has stable hemoglobin and she is not bleeding profusely. MD KATELYN Major/SA/rh , 05:04 PM , 05:25 PM
[2018-01-10] MEDS: METOCLOPRAMIDE HCL 10 MG/2 ML VIAL IV PUSH PRN (21:09)
[2018-01-11] VITALS (18 sets, daily range): BP systolic 102–161; BP diastolic 51–84; PULSE 82–100; RESP 19–20; TEMP 97.6–98.4; O2SAT 92–97
[2018-01-11] MEDS: MORPHINE SULFATE 2 MG/ML SYRINGE IV PUSH PRN ×3 (00:27→08:24)
[2018-01-11] MEDS: ONDANSETRON HCL 4 MG/2 ML VIAL IVP PRN ×2 (00:28→08:24)
[2018-01-11] MEDS: PIPERACIL-TAZO 3.375 GM PREMIX 50 ML IV SCH ×4 (04:31→22:52)
[2018-01-11 04:57] LABS: AUTOMATED NEUTROPHIL # 22.8 TH/MM3 (1.8-7.7); BASOPHIL # 0.1 TH/MM3 (0-0.2); BASOPHIL % 0.3 % (0.0-2.0); EOSINOPHIL # 0.1 TH/MM3 (0-0.4); EOSINOPHIL % 0.3 % (0.0-4.0); HEMATOCRIT 44.8 % (35.0-46.0); HEMOGLOBIN 14.9 GM/DL (11.6-15.3); MEAN CORPUSCULAR HEMOGLOBIN 29.8 PG (27.0-34.0); MEAN CORPUSCULAR HGB CONC 33.2 % (32.0-36.0); MEAN PLATELET VOLUME 8.4 FL (7.0-11.0); MONO % 7.2 % (0.0-8.0); MONOCYTE # 1.9 TH/MM3 (0-0.9); NEUT % 88.2 % (16.0-70.0); PLATELET COUNT 319 TH/MM3 (150-450); RED BLOOD COUNT 4.98 MIL/MM3 (4.00-5.30); RED CELL DISTRIBUTION WIDTH 14.7 % (11.6-17.2); WHITE BLOOD COUNT 25.8 TH/MM3 (4.0-11.0)
[2018-01-11 05:14] LABS: BICARBONATE 22.3 MEQ/L (21.0-32.0); CALCIUM 8.9 MG/DL (8.5-10.1); CREATININE 1.34 MG/DL (0.50-1.00)
--- NOTE | 2018-01-11 05:44 | PD.PN.STU ---
Subjective Remarks Follow up for persistent vomiting and possible UGI bleed. Patient reports continued nausea and vomiting over night with abdominal pain. No other changes. Denies fever, chills, chest pain, SOB. Objective Vitals Vital Signs Date Time Temp Pulse Resp B/P (MAP) Pulse Ox O2 Delivery O2 Flow Rate FiO2 01/11/18 05:11 100 01/11/18 05:06 97.9 85 149/70 (96) 94 01/11/18 05:04 18 01/11/18 04:00 97 01/11/18 03:00 84 01/11/18 02:00 82 01/11/18 01:25 97.6 98 139/61 (87) 92 01/11/18 01:00 90 01/11/18 00:00 98 01/10/18 23:00 102 01/10/18 22:56 97.8 98 173/77 (109) 94 01/10/18 22:00 98 01/10/18 21:00 98 01/10/18 20:00 94 01/10/18 19:00 100 01/10/18 18:00 92 01/10/18 17:00 88 01/10/18 16:00 91 01/10/18 15:00 88 01/10/18 15:00 98.2 95 19 168/77 (107) 97 01/10/18 14:00 84 01/10/18 13:00 86 01/10/18 12:00 89 01/10/18 11:00 97.9 94 19 159/70 (99) 93 01/10/18 11:00 95 01/10/18 10:00 104 01/10/18 09:00 103 01/10/18 08:00 95 01/10/18 07:30 134/61 (85) 01/10/18 07:00 83 01/10/18 07:00 98.5 84 19 190/88 (122) 98 01/10/18 06:39 82 I/O 01/10/18 01/10/18 01/10/18 01/11/18 01/11/18 01/11/18 07:00 15:00 23:00 07:00 15:00 23:00 Intake Total 600 ml 350 ml 1190 ml Output Total 400 ml Balance 200 ml 350 ml 1190 ml Intake Oral 600 ml 840 ml IV Total 350 ml 350 ml Output Urine Total 400 ml # Voids 2 4 Result Diagram: 01/11/18 0425 01/11/18 0425 Imaging Last Impressions Upper GI Series 01/09/18 0000 Signed Impressions: Service Date/Time: Tuesday, January 09, 2018 13:29 - CONCLUSION: Large hiatal hernia. Mild non-masslike narrowing of the distal esophagus. Please see above. Aren Medel MD Chest X-Ray 01/08/18 0000 Signed Impressions: Service Date/Time: Monday, January 08, 2018 12:14 - CONCLUSION: No acute abnormality demonstrated. Large chronic hiatal hernia. Aren Medel MD Abdomen/Pelvis CT 01/08/18 0000 Signed Impressions: Service Date/Time: Monday, January 08, 2018 14:42 - CONCLUSION: 1. Overall, the appearance of the CT abdomen/pelvis is similar to prior examination in 2016. Large hiatus hernia containing the antrum of the stomach, distended body of the stomach, diverticulosis of the colon, and severe degenerative changes related to kypho-scoliosis are stable. 2. The only new finding from prior examinations a small right pleural effusion. Jerel Bui MD Objective Remarks GENERAL: Alert, oriented x3, NAD. She appears ill. SKIN: Warm and dry. HEAD: Normocephalic. EYES: No scleral icterus. No injection or drainage. NECK: Supple, trachea midline. No JVD or lymphadenopathy. CARDIOVASCULAR: Regular rate and rhythm without murmurs, gallops, or rubs. RESPIRATORY: Breath sounds equal bilaterally. No accessory muscle use. GASTROINTESTINAL: BS+. Abdomen soft, nondistended, RLQ, LLQ tenderness, no suprapubic tenderness. MUSCULOSKELETAL: No cyanosis, or edema. BACK: Nontender without obvious deformity. No CVA tenderness. Procedures EGD 01/09 Class D esophagitis. Gastritis in the gastric antrum, tight stricture at distal esophagus. Unable to transverse. Bronchoscope passed through this into the stomach 800+ cc of fluid suction. Unable to advance past hernia site. Hiatal hernia. Repeat EGD with dilatation done 01/11 A/P Assessment and Plan The patient is an 82 year old female who presented to the ER last night due to a two day history of persistent nausea and vomiting. She stated that yesterday morning, the vomitus became dark and coffee ground, and was accompanied by abdominal pain. She has had an episode like this before. The patient does not take blood thinners. Hemoccult of the vomitus in the ER was positive. CT abdomen revealed a stable hiatal hernia containing the antrum and distended body of stomach as compared to 2016. She was also found to have an elevated WBC of 18.4 with left shift. Her UA was positive and a urine culture was ordered. Persistent vomiting Possible UGI bleed Large Hiatal Hernia, stable Patient still currently vomiting GI consult ordered, panendoscopy ordered today, patient is NPO Continue IV fluids Large hiatal hernia found on CT, stable as compared to previous imaging in 2016, will defer to GI. EGD done 01/09 --> Class D esophagitis. Gastritis in the gastric antrum, tight stricture at distal esophagus. Unable to transverse. Bronchoscope passed through this into the stomach 800+ cc of fluid suction. Unable to advance past hernia site. Hiatal hernia. GI recs repeat EGD with dilatation, done 01/11 Sepsis criteria (tachycardic, WBC >12,000, suspected source of infection) WBC 01/08/2018 18.4 -> 24.3 -> 01/09/2018 21.4. On Zosyn 4.5 g every 6 hours IV now UA positive, urine culture + E. coli Hypertension Acute distress from nausea and vomiting may be contributing to blood pressure Patient was told at one point she had hypertension, but has not followed up with PCP in years, and takes no medications. If persistent, consider starting amlodipine 5 mg PO daily DVT prophylaxis: hold anticoagulants pending GI recs. The patient was seen next and examined. The case was discussed at length with Zhang Anderson MS III. The noted above was reviewed and agree with the above note. Zhang Anderson M3 Jan 11, 2018 05:44 Valeria Calix MD Jan 11, 2018 17:13
[2018-01-11] MEDS: PANTOPRAZOLE INJ 80 MG in SODIUM CHLORIDE 0.9% INJ 100 ML IV SCH ×2 (06:00→15:35)
--- NOTE | 2018-01-11 08:04 | HHI.PR ---
Subjective Remarks With abd pain, persistent nausea and vomiting. No fever or chills. No sob. Objective Vitals Vital Signs Date Time Temp Pulse Resp B/P (MAP) Pulse Ox O2 Delivery O2 Flow Rate FiO2 01/11/18 07:00 98.4 91 20 155/84 (107) 95 01/11/18 07:00 85 01/11/18 06:02 86 01/11/18 05:11 100 01/11/18 05:06 97.9 85 149/70 (96) 94 01/11/18 05:04 18 01/11/18 04:00 97 01/11/18 03:00 84 01/11/18 02:00 82 01/11/18 01:25 97.6 98 139/61 (87) 92 01/11/18 01:00 90 01/11/18 00:00 98 01/10/18 23:00 102 01/10/18 22:56 97.8 98 173/77 (109) 94 01/10/18 22:00 98 01/10/18 21:00 98 01/10/18 20:00 94 01/10/18 19:00 100 01/10/18 18:00 92 01/10/18 17:00 88 01/10/18 16:00 91 01/10/18 15:00 88 01/10/18 15:00 98.2 95 19 168/77 (107) 97 01/10/18 14:00 84 01/10/18 13:00 86 01/10/18 12:00 89 01/10/18 11:00 97.9 94 19 159/70 (99) 93 01/10/18 11:00 95 01/10/18 10:00 104 01/10/18 09:00 103 I/O 01/10/18 01/10/18 01/10/18 01/11/18 01/11/18 01/11/18 07:00 15:00 23:00 07:00 15:00 23:00 Intake Total 600 ml 350 ml 1190 ml 599.8 ml Output Total 400 ml 600 ml Balance 200 ml 350 ml 1190 ml -0.2 ml Intake Oral 600 ml 840 ml 450 ml IV Total 350 ml 350 ml 149.8 ml Output Urine Total 400 ml 300 ml Emesis 300 ml # Voids 2 4 Result Diagram: 01/11/18 0425 01/11/18 0425 Imaging Last Impressions Upper GI Series 01/09/18 0000 Signed Impressions: Service Date/Time: Tuesday, January 09, 2018 13:29 - CONCLUSION: Large hiatal hernia. Mild non-masslike narrowing of the distal esophagus. Please see above. Aren Medel MD Chest X-Ray 01/08/18 0000 Signed Impressions: Service Date/Time: Monday, January 08, 2018 12:14 - CONCLUSION: No acute abnormality demonstrated. Large chronic hiatal hernia. Aren Medel MD Abdomen/Pelvis CT 01/08/18 0000 Signed Impressions: Service Date/Time: Monday, January 08, 2018 14:42 - CONCLUSION: 1. Overall, the appearance of the CT abdomen/pelvis is similar to prior examination in 2016. Large hiatus hernia containing the antrum of the stomach, distended body of the stomach, diverticulosis of the colon, and severe degenerative changes related to kypho-scoliosis are stable. 2. The only new finding from prior examinations a small right pleural effusion. Jerel Bui MD Objective Remarks GENERAL: Alert, oriented x3, vomiting intermittently through interview. Patient has some vomitus on her bed sheets. She appears ill. CARDIOVASCULAR: Regular rate and rhythm without murmurs, gallops, or rubs. RESPIRATORY: Breath sounds equal bilaterally. No accessory muscle use. GASTROINTESTINAL: +BS x 4Q. Abdomen soft, nondistended, LLQ tenderness, no suprapubic tenderness. MUSCULOSKELETAL: No cyanosis, or edema. BACK: Nontender without obvious deformity. No CVA tenderness. A/P Assessment and Plan The patient is an 82 year old female who presented to the ER last night due to a two day history of persistent nausea and vomiting. She stated that yesterday morning, the vomitus became dark and coffee ground, and was accompanied by abdominal pain. She has had an episode like this before. The patient does not take blood thinners. Hemoccult of the vomitus in the ER was positive. CT abdomen revealed a stable hiatal hernia containing the antrum and distended body of stomach as compared to 2016. She was also found to have an elevated WBC of 18.4 with left shift. Her UA was positive and a urine culture was ordered. Persistent vomiting Possible UGI bleed Large Hiatal Hernia. Consult gen surg Hypokalemia 2/2 GI loss decreased PO intake . Replace with IV as patient cant keep anything down. Patient still currently vomiting GI consult Continue IV fluids Large hiatal hernia found on CT, stable as compared to previous imaging in 2016 , will defer to GI. S/P panendoscopy patient with LA class D esophagitis. Gastritis and gastric antrum. Denies stricture at the distal esophagus unable to transverse. Plan for EGD with dilation. Continue PPI X ray UGI series reviewed distal esophagus stricture and large hiatal hernia Plan for EGD with dilation today Gen surg consulted for eval of large hiatal hernia Sepsis criteria (tachycardic, WBC >12,000, suspected source of infection) WBC 01/08/2018 18.4 -> 24.3 -> 01/09/2018 21.4. On Zosyn 4.5 g every 6 hours IV now UA positive, urine culture pending Hypertension Acute distress from nausea and vomiting may be contributing to blood pressure Patient was told at one point she had hypertension, but has not followed up with PCP in years, and takes no medications. If persistent, consider starting amlodipine 5 mg PO daily DVT prophylaxis: hold anticoagulants pending GI recs. Discussed with the patient, nurse DC plan pending improvement. Will marjorie CRS and GI clearance Plan for EGD with dilation 01/11 Gen surg consulted for eval large hiatal hernia Valeria Cailx MD Jan 11, 2018 08:04
[2018-01-11] MEDS: SODIUM CHLORIDE 0.9% FLUSH 10 ML FLUSH IV FLUSH SCH ×2 (09:00→21:00)
[2018-01-11] MEDS: METOCLOPRAMIDE HCL 10 MG/2 ML VIAL IV PUSH PRN (11:58)
[2018-01-11] MEDS ORDERED: EPINEPHrine HCL (1:1000) 1 MG/ML VIAL IV ONE (12:00)
[2018-01-11] MEDS ORDERED: ONDANSETRON HCL 4 MG/2 ML VIAL IV ONE (12:00)
[2018-01-11] MEDS ORDERED: PHENYLEPHRINE HCL 10 MG/ML VIAL IV ONE (12:00)
[2018-01-11] MEDS ORDERED: STERILE WATER FOR INJECTION 20 ML VIAL IV ONE (12:00)
[2018-01-11] MEDS ORDERED: ePHEDrine/NS 25 MG/5 ML SYRINGE IV ONE (12:00)
[2018-01-11] MEDS ORDERED: PHENYLEPH/NS 1000 MCG/10 ML SYR IV ONE (12:00)
[2018-01-11] MEDS ORDERED: ceFAZolin INJ 1,000 MG VIAL IV ONE ×2 (12:00→15:40)
[2018-01-11] MEDS ORDERED: SUCCINYLCHOLINE CHLORIDE 100 MG/5 ML SYRINGE IV PUSH ONE (12:00)
[2018-01-11] MEDS ORDERED: PROPOFOL 200 MG/20 ML AMP IV ONE (12:00)
[2018-01-11] MEDS ORDERED: ROCURONIUM INJ 50 MG/5 ML SYRINGE IV PUSH ONE (12:00)
[2018-01-11] MEDS ORDERED: DEXAMETHASONE SOD PHOS 4 MG/ML VIAL IV ONE (12:00)
[2018-01-11] MEDS ORDERED: LIDOCAINE HCL 1% PF 5 ML SYRINGE OTHER ONE (12:00)
[2018-01-11] MEDS ORDERED: POVIDONE IODINE 5% (ANTISEPSIS KIT) 4 APPLICATIONS EACH NARE PRN (13:00)
[2018-01-11] MEDS ORDERED: SODIUM CHLORID 0.9% 500 ML IV PRN (13:00)
[2018-01-11] MEDS ORDERED: LACTATED RINGER'S 1000 ML IV PRN (13:00)
[2018-01-11] MEDS ORDERED: CHLORHEXIDINE GLUCONATE 2 % 1 PACK (2 CLOTHS) TOPICAL PRN (13:00)
--- NOTE | 2018-01-11 14:31 | GIPROC ---
[facility] [address] [facility]. [facility], [address] EGD PROCEDURE REPORT EXAM DATE: 01/11/2018 PATIENT NAME: Yanelis Peterson MR #: [id number] BIRTHDATE: 1935 ATTENDING: Areli Holly MD ORDER #: [id number] RELAY RECORD CLERK: Heron Yung and Bettina Benoit STATUS: inpatient INDICATIONS: The patient is a 82 yr old female here for an EGD due to dyspepsia and dysphagia PROCEDURE PERFORMED: EGD w/ dilation of esophagus via guidewire MEDICATIONS: Per Anesthesia and None. TOPICAL ANESTHETIC: CONSENT: The patient understands the risks and benefits of the procedure and understands that these risks include, but are not limited to: sedation, allergic reaction, infection, perforation and/or bleeding. Alternative means of evaluation and treatment include, among others: physical exam, x-rays, and/or surgical intervention. The patient elects to proceed with this endoscopic procedure. medical equipment was checked for proper function. Hand hygiene and appropriate measures for infection prevention was taken. After the risks, benefits and alternatives of the procedure were thoroughly explained, Informed consent was verified, confirmed and timeout was successfully executed by the treatment team. The patient was anesthetized with topical anesthesia and the Pentax EG-[id number] endoscope was introduced through the mouth and advanced to the second portion of the duodenum. Retroflexed views revealed a hiatal hernia and Retroflexed views revealed Large hernia The gastroscope was then slowly withdrawn and removed. ESOPHAGUS: There was LA Class D esophagitis noted. STOMACH: There was erythematous moderate gastritis in the gastric antrum. !300 cc of fluid in the stomach suctioned. Gastric volvulous. DUODENUM: Moderate duodenal inflammation was found in the bulb and second portion of the duodenum. ADVERSE EVENTS: There were no complications. IMPRESSIONS: 1. There was LA Class D esophagitis noted 2. There was erythematous gastritis in the gastric antrum; !300 cc of fluid in the stomach suctioned. Gastric volvulous 3. Duodenal inflammation was found in the bulb and second portion of the duodenum 4. Retroflexed views revealed a hiatal hernia 5. Retroflexed views revealed Large hernia RECOMMENDATIONS: 1. Anti-reflux regimen 2. Gastropexy today with Dr Brady PATIENT CONDITION: stable DISPOSITION: Inpatient REPEAT EXAM: Return 2 months EGD with dilatation Areli Holly MD eSigned: Areli Holly MD 01/11/2018 2:30 PM cc: PATIENT NAME: Yanelis Peterson MR#: [id number]
[2018-01-11] MEDS ORDERED: VASOPRESSIN 20 UNITS/ML VIAL ONE (15:05)
[2018-01-11] MEDS ORDERED: BUPIVACAINE/EPINEPHRINE 0.25% 50 ML VIAL ONE (15:27)
--- NOTE | 2018-01-11 16:52 | HHI.PR ---
cc: Wero Brady MD Immediate Post Op Note Procedure Date: Jan 11, 2018 Pre Op Diagnosis: Gastric volvulus Post Op Diagnosis: Same Surgeon: Wero Brady Carpenter Mold(s): HERMILA Dow Procedure: Lap gastrostomy tube converted to open gastrostomy tube Findings: Large floppy stomach Complications: Hypotension intraop - resolved with fluid and small dose pressors Specimen(s) removed: None Estimated blood loss: 25 ml Anesthesia: General Drains: None IVF (1500 ml) Patient to: PACU Patient Condition: Fair Date/Time of Procedure: SEE SURGICAL CARE RECORD Wero Brady MD Jan 11, 2018 16:52
[2018-01-11] MEDS ORDERED: DO NOT ADM ANY ANTICOAGULANT DRUGS PRN (16:55)
--- NOTE | 2018-01-11 17:29 | RADRPT ---
EXAM DATE/TIME: 01/11/2018 17:08 [place] COMPARISON: CHEST SINGLE AP, January 08, 2018, 12:14. INDICATIONS : Shortness of breath. MEDICAL HISTORY : Hiatal hernia. SURGICAL HISTORY : None. ENCOUNTER: Subsequent ACUITY: 3 days PAIN SCORE: 0/10 LOCATION: Bilateral chest FINDINGS: There is increasing consolidation at the left lung base with loss of delineation of the entire left h emidiaphragm and a meniscal interface laterally suggesting associated pleural effusion. The right mayet ng is clear. The heart is normal in size. CONCLUSION: Left lower lobe segmental consolidation and pleural effusion. Jerel Bui MD on January 11, 2018 at 17:26 Board Certified Radiologist. This report was verified electronically.
[2018-01-11] MEDS ORDERED: METOPROLOL TARTRATE 5 MG/5 ML VIAL IV PUSH ONE (17:30)
[2018-01-11 18:40] LABS: AUTOMATED NEUTROPHIL # 13.3 TH/MM3 (1.8-7.7); HEMATOCRIT 35.3 % (35.0-46.0); HEMOGLOBIN 11.7 GM/DL (11.6-15.3); LYMPH % 3.6 % (9.0-44.0); LYMPHOCYTE # 0.5 TH/MM3 (1.0-4.8); MEAN CORPUSCULAR HEMOGLOBIN 29.9 PG (27.0-34.0); MEAN CORPUSCULAR HGB CONC 33.2 % (32.0-36.0); MEAN PLATELET VOLUME 7.8 FL (7.0-11.0); MONO % 7.5 % (0.0-8.0); MONOCYTE # 1.1 TH/MM3 (0-0.9); NEUT % 88.9 % (16.0-70.0); PLATELET COUNT 272 TH/MM3 (150-450); RED BLOOD COUNT 3.93 MIL/MM3 (4.00-5.30)
--- NOTE | 2018-01-11 18:54 | MP ---
cc: Wero Brady MD DATE OF OPERATION: 01/11/2018 DATE OF PROCEDURE: 01/11/2018 PROCEDURE PERFORMED: Gastrostomy tube placement. PREOPERATIVE DIAGNOSIS: Gastric volvulus with obstruction and bleeding. POSTOPERATIVE DIAGNOSIS: Gastric volvulus with obstruction and bleeding. ANESTHESIA: General endotracheal. SURGEON: Wero Brady MD WRAP YARN SORTER: Sincere Salas MD ESTIMATED BLOOD LOSS: 25 mL. FLUIDS: 1500 mL crystalloid. COMPLICATIONS: Hypotension intraoperatively, requiring pressor therapy. PROCEDURE IN DETAIL: The patient had just undergone EGD with decompression of the stomach by Dr. Holly. The patient was placed in a supine position and the abdomen prepped and draped. Timeout was taken confirming we had the correct patient, site, and procedure to be performed. A 5 mm trocar was placed just inferior to the umbilicus under direct vision. This entered the abdominal cavity uneventfully. The abdomen was insufflated and 2 additional 5 mm trocars were placed after placing a 5-mm 30-degree lens. The stomach was then manipulated somewhat and during this time, insufflation needed to be discontinued due to elevated end tidal CO2 and bradycardia. When this was corrected, insufflation was reinstituted. The stomach was further manipulated and was still quite distended. It was elected at this point to discontinue the laparoscopic procedure and the trocars were removed. A small upper midline incision was made and the stomach was manipulated into view. A nasogastric tube was placed and the stomach decompressed. The patient had placement of the percutaneous gastrostomy tube, utilizing a modified open technique. An 18-Danish MICHAEL tube was placed without difficulty and the balloon inflated. The stomach was then transfixed to the anterior abdominal wall with four 3-0 silk sutures. As the stomach was quite floppy, at the termination of this portion of the procedure, an additional 3-0 silk suture was placed further down along the antrum near the lesser curve of the stomach to fixate this stomach at 2 points so that it would not go back into the chest and also that risk of repeat organoaxial volvulus would be minimized. When this was completed and hemostasis was assured, the wound was closed with #1 PDS in a running fashion followed by closure of the skin with 3-0 Vicryl and 5-0 PDS in a running subcuticular fashion. The trocar sites were closed with 3-0 Vicryl in an interrupted buried fashion. All sites were dressed with Steri-Strips. A 4 x 4 was applied around the gastrostomy tube. The patient was extubated and taken back to the recovery room stable but on ephedrine. Sponge and needle counts were reported to be correct. MD KATELYN Major/JULIA , 06:36 PM , 06:53 PM
--- NOTE | 2018-01-11 20:05 | EKG ---
Date Performed: 01/11/2018 Time Performed: 17:31:39 PTAGE: 82 years EKG: ATRIAL FIBRILLATION WITH RAPID VENTRICULAR RESPONSE WITH ABERRANT CONDUCTION OR VENTRICULAR PREMATURE COMPLEXES LEFT ANTERIOR FASCICULAR BLOCK ABNORMAL R WAVE PROGRESSION, CONSIDER PRECORDIAL LEAD MISPLACEMENT VOLTAGE CRITERIA FOR LVH ST DEVIATION AND MODERATE T-WAVE ABNORMALITY, CONSIDER LAT ERAL ISCHEMIA ABNORMAL ECG PREVIOUS TRACING : 01/08/2018 11.54 Compared to previous tracing, atrial fibrillation has repla angelika probable Sinus rhythm , heart rate has increased, high lateral T wave inversion is now evident, abnormal R wave progression is now present. DOCTOR: Nate Garcia Interpretating Date/Time 01/11/2018 20:03:43
[2018-01-11] MEDS ORDERED: DIGOXIN 0.25 MG TAB PO ONE (20:30)
[2018-01-11] MEDS: LACTATED RINGER'S 1000 ML INJ 1,000 ML IV SCH ×2 (21:00→21:35)
--- NOTE | 2018-01-11 21:46 | PD.CONS ---
HPI Service Critical Care Medicine Consult Requested By Primary Care Physician No Primary Care Physician History of Present Illness 82-year-old female who was admitted with coffee-ground emesis and underwent EGD which revealed hiatal hernia and gastritis with tight stricture and distal esophagus. Patient underwent open G-tube placement by Dr. Brady under GETA today. She was reportedly hypotensive Intra-Op. Postoperatively she had runs of A. fib and it was noted that her IV had infiltrated in the arm. Patient was admitted to the ICU and critical care consult was requested by Dr. Brady. Patient was hemodynamically stable since arrival to the ICU and not in any acute distress when I evaluated her. She denied any chest pain or shortness of breath. Denied any palpitations. She wasn't sinus rhythm however had occasional runs of A. fib with RVR with heart rate up to 140s. ROS - General Review of Systems Except as stated in HPI: all other systems reviewed are Neg PFSH Past Family Social History Past Medical History Reports she was told she has hypertension. However she has not seen a doctor for at least 2 years. She used to see Dr. Crabtree. Past Surgical History hysterectomy Allergies: Coded Allergies: erythromycin base (Verified Allergy, Unknown, 01/08/18) stomach bleeding meperidine (Unverified Adverse Reaction, Unknown, 01/08/18) she gets all squirrely Family History nothing she knows of Social History Denies any alcohol abuse or drug abuse. Denies smoking. She lives by herself. No longer driving. Her friend drives her for groceries. She states she walks without a walker. Physical Exam Vital Signs Vital Signs Date Time Temp Pulse Resp B/P (MAP) Pulse Ox O2 Delivery O2 Flow Rate FiO2 01/11/18 21:00 97 Nasal Cannula 2.00 01/11/18 18:30 97 01/11/18 18:15 98.0 92 19 104/55 (71) 97 Nasal Cannula 2 01/11/18 18:00 110 23 105/55 (72) 95 Nasal Cannula 2 01/11/18 17:45 95 19 153/67 (95) 95 Nasal Cannula 2 01/11/18 17:30 133 22 150/67 (94) 97 Nasal Cannula 2 01/11/18 17:15 130 20 129/95 (106) 97 Nasal Cannula 2 01/11/18 17:00 126 21 134/68 (90) 97 Nasal Cannula 4 01/11/18 16:57 97.6 95 19 166/76 (106) 96 Nasal Cannula 4 01/11/18 12:35 97.6 92 20 160/69 (99) 96 01/11/18 11:00 98.1 94 20 161/74 (103) 94 01/11/18 11:00 93 01/11/18 10:00 84 01/11/18 08:00 90 01/11/18 07:00 98.4 91 20 155/84 (107) 95 01/11/18 07:00 85 01/11/18 06:02 86 01/11/18 05:11 100 01/11/18 05:06 97.9 85 149/70 (96) 94 01/11/18 05:04 18 01/11/18 04:00 97 01/11/18 03:00 84 01/11/18 02:00 82 01/11/18 01:25 97.6 98 139/61 (87) 92 01/11/18 01:00 90 01/11/18 00:00 98 01/10/18 23:00 102 01/10/18 22:56 97.8 98 173/77 (109) 94 01/10/18 22:00 98 Physical Exam Physical Exam GENERAL: This is a well-nourished, well-developed patient, laying in bed not in any acute distress SKIN:dry skin on skin HEAD: Atraumatic. Normocephalic. No temporal or scalp tenderness. EYES: Pallor present No scleral icterus. No injection or drainage. ENT: Nose without bleeding, purulent drainage or septal hematoma. Airway patent. NECK: Trachea midline. No JVD. Supple, nontender CARDIOVASCULAR: Regular rate and rhythm without murmurs, gallops, or rubs. RESPIRATORY: Clear to auscultation. Breath sounds equal bilaterally. No wheezes , rales, or rhonchi. GASTROINTESTINAL: Abdomen soft, nondistended. No guarding. G-tube in place with dressing around it which is clean dry and intact MUSCULOSKELETAL: Extremities without clubbing, cyanosis, or edema. NEUROLOGICAL: Awake and alert. Motor and sensory grossly within normal limits. Normal speech. Laboratory Laboratory Tests Test 01/11/18 04:25 01/11/18 18:11 White Blood Count 25.8 15.0 Red Blood Count 4.98 3.93 Hemoglobin 14.9 11.7 Hematocrit 44.8 35.3 Mean Corpuscular Volume 90.0 90.0 Mean Corpuscular Hemoglobin 29.8 29.9 Mean Corpuscular Hemoglobin Concent 33.2 33.2 Red Cell Distribution Width 14.7 14.0 Platelet Count 319 272 Mean Platelet Volume 8.4 7.8 Neutrophils (%) (Auto) 88.2 88.9 Lymphocytes (%) (Auto) 4.0 3.6 Monocytes (%) (Auto) 7.2 7.5 Eosinophils (%) (Auto) 0.3 0.0 Basophils (%) (Auto) 0.3 0.0 Neutrophils # (Auto) 22.8 13.3 Lymphocytes # (Auto) 1.0 0.5 Monocytes # (Auto) 1.9 1.1 Eosinophils # (Auto) 0.1 0.0 Basophils # (Auto) 0.1 0.0 CBC Comment DIFF FINAL DIFF FINAL Differential Comment Blood Urea Nitrogen 40 Creatinine 1.34 Random Glucose 116 Calcium Level 8.9 Sodium Level 144 Potassium Level 4.1 Chloride Level 110 Carbon Dioxide Level 22.3 Anion Gap 12 Estimat Glomerular Filtration Rate 38 Date/Time Source Procedure Growth Status 01/08/18 17:15 Urine Random Urine Urine Culture - Final Escherichia Coli Complete Result Diagram: 01/11/18 1811 01/11/18 0425 Imaging Last Impressions Chest X-Ray 01/11/18 0000 Signed Impressions: Service Date/Time: January 17:08 - CONCLUSION: Left lower lobe segmental consolidation and pleural effusion. Jerel Bui MD Upper GI Series 01/09/18 0000 Signed Impressions: Service Date/Time: Tuesday, January 09, 2018 13:29 - CONCLUSION: Large hiatal hernia. Mild non-masslike narrowing of the distal esophagus. Please see above. Aren Medel MD Abdomen/Pelvis CT 01/08/18 0000 Signed Impressions: Service Date/Time: Monday, January 08, 2018 14:42 - CONCLUSION: 1. Overall, the appearance of the CT abdomen/pelvis is similar to prior examination in 2016. Large hiatus hernia containing the antrum of the stomach, distended body of the stomach, diverticulosis of the colon, and severe degenerative changes related to kypho-scoliosis are stable. 2. The only new finding from prior examinations a small right pleural effusion. Jerel Bui MD Assessment and Plan Assessment and Plan Upper GI bleed Gastritis Hiatal hernia Gastric volvulus Status post G-tube placement Paroxysmal A. fib with RVR Anemia UTI Plan: Patient admitted to ICU by Dr. Brady Currently appears hemodynamically stable. Continue IV fluids Continue IV Zosyn. Digoxin 0.5 mg IV 1 dose Ordered Protonix 40 mg IV daily as patient is currently off Protonix gtt. General surgery Dr. Brady following, GI following Patient will be transferred to hospitalist service in [facility]. Critical care will be available as needed Manpreet Richard MD Jan 11, 2018 21:46
[2018-01-11] MEDS: PANTOPRAZOLE SODIUM 40 MG VIAL IV PUSH SCH (22:52)
[2018-01-11] MEDS ORDERED: DIGOXIN 0.5 MG/2 ML VIAL IV PUSH ONE (23:15)
[2018-01-12] VITALS (11 sets, daily range): BP systolic 111–165; BP diastolic 53–72; PULSE 57–96; RESP 15–20; TEMP 97.6–98.6; O2SAT 94–98
[2018-01-12] MEDS: PIPERACIL-TAZO 3.375 GM PREMIX 50 ML IV SCH ×3 (04:33→16:42)
[2018-01-12 04:55] LABS: AUTOMATED NEUTROPHIL # 12.7 TH/MM3 (1.8-7.7); HEMATOCRIT 37.1 % (35.0-46.0); HEMOGLOBIN 12.4 GM/DL (11.6-15.3); LYMPH % 5.6 % (9.0-44.0); LYMPHOCYTE # 0.8 TH/MM3 (1.0-4.8); MEAN CORPUSCULAR HEMOGLOBIN 29.8 PG (27.0-34.0); MEAN CORPUSCULAR HGB CONC 33.4 % (32.0-36.0); MEAN PLATELET VOLUME 8.1 FL (7.0-11.0); MONO % 8.2 % (0.0-8.0); MONOCYTE # 1.2 TH/MM3 (0-0.9); NEUT % 86.2 % (16.0-70.0); PLATELET COUNT 264 TH/MM3 (150-450); RED BLOOD COUNT 4.17 MIL/MM3 (4.00-5.30); RED CELL DISTRIBUTION WIDTH 14.1 % (11.6-17.2); WHITE BLOOD COUNT 14.8 TH/MM3 (4.0-11.0)
[2018-01-12 05:00] LABS: BICARBONATE 25.5 MEQ/L (21.0-32.0); CALCIUM 7.9 MG/DL (8.5-10.1); CREATININE 1.01 MG/DL (0.50-1.00)
[2018-01-12] MEDS: LACTATED RINGER'S 1000 ML INJ 1,000 ML IV SCH (05:39)
[2018-01-12] MEDS: MORPHINE SULFATE 2 MG/ML SYRINGE IV PUSH PRN ×2 (06:38→10:05)
[2018-01-12] MEDS: SODIUM CHLORIDE 0.9% FLUSH 10 ML FLUSH IV FLUSH SCH (09:00)
--- NOTE | 2018-01-12 09:42 | HHI.PR ---
Subjective Subjective Notes c/o cramping abd pain, otherwise doing well. off pressors Objective Vitals/I&O Vital Signs Date Time Temp Pulse Resp B/P (MAP) Pulse Ox O2 Delivery O2 Flow Rate FiO2 01/12/18 06:00 95 01/12/18 04:00 98.6 20 126/60 (82) 95 01/11/18 21:00 Nasal Cannula 2.00 01/11/18 19:00 97 Labs Laboratory Tests Test 01/11/18 18:11 01/12/18 03:44 White Blood Count 15.0 14.8 Red Blood Count 3.93 4.17 Hemoglobin 11.7 12.4 Hematocrit 35.3 37.1 Mean Corpuscular Volume 90.0 89.0 Mean Corpuscular Hemoglobin 29.9 29.8 Mean Corpuscular Hemoglobin Concent 33.2 33.4 Red Cell Distribution Width 14.0 14.1 Platelet Count 272 264 Mean Platelet Volume 7.8 8.1 Neutrophils (%) (Auto) 88.9 86.2 Lymphocytes (%) (Auto) 3.6 5.6 Monocytes (%) (Auto) 7.5 8.2 Eosinophils (%) (Auto) 0.0 0.0 Basophils (%) (Auto) 0.0 0.0 Neutrophils # (Auto) 13.3 12.7 Lymphocytes # (Auto) 0.5 0.8 Monocytes # (Auto) 1.1 1.2 Eosinophils # (Auto) 0.0 0.0 Basophils # (Auto) 0.0 0.0 CBC Comment DIFF FINAL DIFF FINAL Differential Comment Blood Urea Nitrogen 32 Creatinine 1.01 Random Glucose 86 Calcium Level 7.9 Sodium Level 149 Potassium Level 3.2 Chloride Level 113 Carbon Dioxide Level 25.5 Anion Gap 11 Estimat Glomerular Filtration Rate 52 Date/Time Source Procedure Growth Status 01/08/18 17:15 Urine Random Urine Urine Culture - Final Escherichia Coli Complete Lungs: Clear Abdomen: Other (soft incision c/d/i g tube low sxn) A/P Assessment and Plan POD 1 open g tube PLAN G Tube to gravity bag ok for ice chips change LR to 1/2NS replace K remove gar tomorrow Sincere Salas MD Jan 12, 2018 09:42
[2018-01-12] MEDS ORDERED: POTASSIUM CHLORIDE 25 MEQ EFFERVESCENT TAB PO PRN (10:00)
[2018-01-12] MEDS ORDERED: ICU - POTASSIUM PHOSPHATE MONOBASIC 500 MG TAB PO PRN (10:00)
[2018-01-12] MEDS ORDERED: ICU - SODIUM PHOSPHATE 30 MMOL/NS 250 ML IV PRN ×2 (10:00)
[2018-01-12] MEDS ORDERED: ICU - MAGNESIUM OXIDE 400 MG TAB PO PRN (10:00)
[2018-01-12] MEDS ORDERED: ICU - MAGNESIUM SULFATE 2 GM/NS 100 ML IV PRN ×2 (10:00)
[2018-01-12] MEDS ORDERED: ICU - D/C ICU ELECTROLYTE ORDERS PRN (10:00)
[2018-01-12] MEDS ORDERED: ICU - POTASSIUM CHLORIDE/AQUEOUS SOLN 40 MEQ/100 ML IVPB IV PRN (10:00)
[2018-01-12] MEDS ORDERED: ICU - POTASSIUM PHOSPHATE 30 MMOL/NS 250 ML IV PRN ×2 (10:00)
[2018-01-12] MEDS ORDERED: ICU - MAGNESIUM SULFATE 4 GM/NS 100 ML IV PRN ×2 (10:00)
[2018-01-12] MEDS ORDERED: ICU - CALL ORDERING PHYSICIAN PRN (10:00)
[2018-01-12] MEDS: SODIUM CHLOR 0.45% 1000 ML INJ 1,000 ML IV SCH ×2 (10:04→18:14)
--- NOTE | 2018-01-12 10:40 | HHI.GIFU ---
Subjective Remarks Pt resting in bed Complaining of some soreness to her abdomen Tolerating ice chips Denies BM since surgery G-tube to LIWS with small amount of bloody output (Ann Nicholas) Objective Vitals I&O Vital Signs Date Time Temp Pulse Resp B/P (MAP) Pulse Ox O2 Delivery O2 Flow Rate FiO2 01/12/18 10:24 20 01/12/18 07:20 Nasal Cannula 2.00 98 01/12/18 06:00 95 01/12/18 04:00 98.6 95 20 126/60 (82) 95 01/12/18 04:00 95 01/12/18 02:00 96 01/12/18 00:00 92 01/12/18 00:00 92 18 111/53 (72) 95 01/11/18 22:00 92 01/11/18 21:00 97 Nasal Cannula 2.00 01/11/18 20:00 97.6 84 19 102/51 (68) 97 01/11/18 20:00 100 01/11/18 19:00 Nasal Cannula 2.00 97 01/11/18 18:30 97 01/11/18 18:15 98.0 92 19 104/55 (71) 97 Nasal Cannula 2 01/11/18 18:00 110 23 105/55 (72) 95 Nasal Cannula 2 01/11/18 17:45 95 19 153/67 (95) 95 Nasal Cannula 2 01/11/18 17:30 133 22 150/67 (94) 97 Nasal Cannula 2 01/11/18 17:15 130 20 129/95 (106) 97 Nasal Cannula 2 01/11/18 17:00 126 21 134/68 (90) 97 Nasal Cannula 4 01/11/18 16:57 97.6 95 19 166/76 (106) 96 Nasal Cannula 4 01/11/18 12:35 97.6 92 20 160/69 (99) 96 01/11/18 11:00 98.1 94 20 161/74 (103) 94 01/11/18 11:00 93 I/O 01/11/18 01/11/18 01/11/18 01/12/18 01/12/18 01/12/18 07:00 15:00 23:00 07:00 15:00 23:00 Intake Total 599.8 ml 50 ml 1550 ml 1100 ml 350 ml Output Total 600 ml 25 ml 625 ml Balance -0.2 ml 50 ml 1525 ml 475 ml 350 ml Intake Oral 450 ml IV Total 149.8 ml 50 ml 50 ml 1100 ml 350 ml Other 1500 ml Output Urine Total 300 ml 0 ml 625 ml Stool Total 0 ml Gastric Drainage Total 0 ml Emesis 300 ml Estimated Blood Loss 25 ml Laboratory Laboratory Tests Test 01/11/18 18:11 01/12/18 03:44 White Blood Count 15.0 14.8 Red Blood Count 3.93 4.17 Hemoglobin 11.7 12.4 Hematocrit 35.3 37.1 Mean Corpuscular Volume 90.0 89.0 Mean Corpuscular Hemoglobin 29.9 29.8 Mean Corpuscular Hemoglobin Concent 33.2 33.4 Red Cell Distribution Width 14.0 14.1 Platelet Count 272 264 Mean Platelet Volume 7.8 8.1 Neutrophils (%) (Auto) 88.9 86.2 Lymphocytes (%) (Auto) 3.6 5.6 Monocytes (%) (Auto) 7.5 8.2 Eosinophils (%) (Auto) 0.0 0.0 Basophils (%) (Auto) 0.0 0.0 Neutrophils # (Auto) 13.3 12.7 Lymphocytes # (Auto) 0.5 0.8 Monocytes # (Auto) 1.1 1.2 Eosinophils # (Auto) 0.0 0.0 Basophils # (Auto) 0.0 0.0 CBC Comment DIFF FINAL DIFF FINAL Differential Comment Blood Urea Nitrogen 32 Creatinine 1.01 Random Glucose 86 Calcium Level 7.9 Sodium Level 149 Potassium Level 3.2 Chloride Level 113 Carbon Dioxide Level 25.5 Anion Gap 11 Estimat Glomerular Filtration Rate 52 Date/Time Source Procedure Growth Status 01/08/18 17:15 Urine Random Urine Urine Culture - Final Escherichia Coli Complete Imaging Last Impressions Chest X-Ray 01/11/18 0000 Signed Impressions: Service Date/Time: January 17:08 - CONCLUSION: Left lower lobe segmental consolidation and pleural effusion. Jerel Bui MD Upper GI Series 01/09/18 0000 Signed Impressions: Service Date/Time: Tuesday, January 09, 2018 13:29 - CONCLUSION: Large hiatal hernia. Mild non-masslike narrowing of the distal esophagus. Please see above. Aren Medel MD Abdomen/Pelvis CT 01/08/18 0000 Signed Impressions: Service Date/Time: Monday, January 08, 2018 14:42 - CONCLUSION: 1. Overall, the appearance of the CT abdomen/pelvis is similar to prior examination in 2016. Large hiatus hernia containing the antrum of the stomach, distended body of the stomach, diverticulosis of the colon, and severe degenerative changes related to kypho-scoliosis are stable. 2. The only new finding from prior examinations a small right pleural effusion. Jerel Bui MD Physical Exam HEENT: Normocephalic; atraumatic CHEST: Even/unlabored CARDIAC: Irregularly irregular, rate controlled ABDOMEN: Soft, nondistended, mild tenderness, bowel sounds active. G-tube to LIWS with small amount of bloody secretions SKIN: Pale DENTAL FINANCIAL COORDINATOR: Alert and oriented x 3 (Ann Nicholas BUSINESS SUPPORT MANAGER) Assessment and Plan Plan Assessment: - Coffee ground emesis- reports coffee ground emesis for one day prior to arrival, vomiting for the past 2 days but initially was food and bile colored. Last EGD Sep 2016 --> Severe esophageal stricture, small hiatal hernia. EGD done (01/09) --> Class D esophagitis. Gastritis in the gastric antrum, tight stricture at distal esophagus. Unable to transverse. Bronchoscope passed through this into the stomach 800+ cc of fluid suction. Unable to advance past hernia site. Hiatal hernia. - Abdominal pain, states mostly with emesis, pain is now mild CT abdomen and pelvis --> Overall, the appearance of the CT abdomen/pelvis is similar to prior examination in 2016. Large hiatus hernia containing the antrum of the stomach, distended body of the stomach, diverticulosis of the colon, and severe degenerative changes related to kypho-scoliosis are stable. The only new finding from prior examinations a small right pleural effusion. - Denies constipation, diarrhea, melena, hematochezia- Pt reports last colonoscopy was probably around 20 years ago and she thinks it was a normal exam (01/12) UGI series with Gastrografin (01/09) --> Large hiatal hernia. Mild non- masslike narrowing of the distal esophagus. S/P repeat EGD (01/11) --> Class D esophagitis. Erythematous gastritis in the gastric antrum, 300 cc of fluid in the stomach suctioned. Gastric volvulus. Duodenal inflammation in the bulb and second portion of the duodenum. Hiatal hernia. GS consulted, now S/P open gastrostomy tube placement for gastric volvulus with obstruction and bleeding. G- tube currently to LIWS with small amount of bloody secretions in suction canister. Post op pt had runs of a-fib RVR and hypotension, currently in ICU. Plan: Protonix G tube to gravity per GS Diet per GS GI will sign off, please reconsult as needed Have pt follow up with GI after DC Pt has been seen and examined by myself and Dr. oHlly and this note is written on his behalf (Ann Nicholas) Physician Comments Seen and examined with BUSINESS SUPPORT MANAGER, s/p egd/dilation and laparatomy. Post op management per surgery. GI available as needed. Will sign off. Thank you (Areli Holly MD) Ann Nicholas Jan 12, 2018 10:40 Areli Holly MD Jan 12, 2018 15:56
[2018-01-12] MEDS: ICU - POTASSIUM CHLORIDE/AQUEOUS SOLN 20 MEQ/100 ML IVPB IV PRN ×4 (11:39→18:13)
[2018-01-12] MEDS ORDERED: SUGAMMADEX SODIUM 200 MG/2 ML VIAL IV PUSH ONE (15:20)
--- NOTE | 2018-01-12 17:47 | HHI.PR ---
Objective Vitals Vital Signs Date Time Temp Pulse Resp B/P (MAP) Pulse Ox O2 Delivery O2 Flow Rate FiO2 01/12/18 16:00 84 01/12/18 16:00 98.4 84 19 160/72 (101) 98 01/12/18 14:00 84 01/12/18 12:00 97.6 94 19 157/69 (98) 95 01/12/18 12:00 94 01/12/18 10:24 20 01/12/18 10:00 92 01/12/18 08:00 91 01/12/18 08:00 98.4 92 19 141/63 (89) 95 01/12/18 07:20 Nasal Cannula 2.00 98 01/12/18 06:00 95 01/12/18 04:00 98.6 95 20 126/60 (82) 95 01/12/18 04:00 95 01/12/18 02:00 96 01/12/18 00:00 92 01/12/18 00:00 92 18 111/53 (72) 95 01/11/18 22:00 92 01/11/18 21:00 97 Nasal Cannula 2.00 01/11/18 20:00 97.6 84 19 102/51 (68) 97 01/11/18 20:00 100 01/11/18 19:00 Nasal Cannula 2.00 97 01/11/18 18:30 97 01/11/18 18:15 98.0 92 19 104/55 (71) 97 Nasal Cannula 2 01/11/18 18:00 110 23 105/55 (72) 95 Nasal Cannula 2 I/O 01/11/18 01/11/18 01/11/18 01/12/18 01/12/18 01/12/18 07:00 15:00 23:00 07:00 15:00 23:00 Intake Total 599.8 ml 50 ml 1550 ml 1100 ml 500 ml Output Total 600 ml 25 ml 625 ml Balance -0.2 ml 50 ml 1525 ml 475 ml 500 ml Intake Oral 450 ml IV Total 149.8 ml 50 ml 50 ml 1100 ml 500 ml Other 1500 ml Output Urine Total 300 ml 0 ml 625 ml Stool Total 0 ml Gastric Drainage Total 0 ml Emesis 300 ml Estimated Blood Loss 25 ml Result Diagram: 01/12/18 0344 01/12/18 034 Objective Remarks GENERAL: Alert, oriented x3, vomiting intermittently through interview. Patient has some vomitus on her bed sheets. She appears ill. CARDIOVASCULAR: Regular rate and rhythm without murmurs, gallops, or rubs. RESPIRATORY: Breath sounds equal bilaterally. No accessory muscle use. GASTROINTESTINAL: +BS x 4Q. Abdomen soft, nondistended, LLQ tenderness, no suprapubic tenderness. MUSCULOSKELETAL: No cyanosis, or edema. BACK: Nontender without obvious deformity. No CVA tenderness. A/P Assessment and Plan The patient is an 82 year old female who presented to the ER last night due to a two day history of persistent nausea and vomiting. She stated that yesterday morning, the vomitus became dark and coffee ground, and was accompanied by abdominal pain. She has had an episode like this before. The patient does not take blood thinners. Hemoccult of the vomitus in the ER was positive. CT abdomen revealed a stable hiatal hernia containing the antrum and distended body of stomach as compared to 2016. She was also found to have an elevated WBC of 18.4 with left shift. Her UA was positive and a urine culture was ordered. Persistent vomiting Possible UGI bleed Large Hiatal Hernia. Consult gen surg Hypokalemia 2/2 GI loss decreased PO intake . Replace with IV as patient cant keep anything down. Patient still currently vomiting GI consult Continue IV fluids Large hiatal hernia found on CT, stable as compared to previous imaging in 2016 , will defer to GI. S/P panendoscopy patient with LA class D esophagitis. Gastritis and gastric antrum. Denies stricture at the distal esophagus unable to transverse. Plan for EGD with dilation. Continue PPI X ray UGI series reviewed distal esophagus stricture and large hiatal hernia Plan for EGD with dilation today Gen surg consulted for eval of large hiatal hernia Sepsis criteria (tachycardic, WBC >12,000, suspected source of infection) WBC 01/08/2018 18.4 -> 24.3 -> 01/09/2018 21.4. On Zosyn 4.5 g every 6 hours IV now UA positive, urine culture pending Hypertension Acute distress from nausea and vomiting may be contributing to blood pressure Patient was told at one point she had hypertension, but has not followed up with PCP in years, and takes no medications. If persistent, consider starting amlodipine 5 mg PO daily DVT prophylaxis: hold anticoagulants pending GI recs. Discussed with the patient, nurse DC plan pending improvement. Will marjorie CRS and GI clearance Plan for EGD with dilation 01/11 Gen surg consulted for eval large hiatal hernia Valeria Calix MD Jan 12, 2018 17:47
--- NOTE | 2018-01-12 17:52 | HHI.PR ---
Subjective Remarks Patient is nauseated has abdominal pain at the surgical site. No fever or chills. No chest pain or shortness of breath no palpitations. Objective Vitals Vital Signs Date Time Temp Pulse Resp B/P (MAP) Pulse Ox O2 Delivery O2 Flow Rate FiO2 01/12/18 16:00 84 01/12/18 16:00 98.4 84 19 160/72 (101) 98 01/12/18 14:00 84 01/12/18 12:00 97.6 94 19 157/69 (98) 95 01/12/18 12:00 94 01/12/18 10:24 20 01/12/18 10:00 92 01/12/18 08:00 91 01/12/18 08:00 98.4 92 19 141/63 (89) 95 01/12/18 07:20 Nasal Cannula 2.00 98 01/12/18 06:00 95 01/12/18 04:00 98.6 95 20 126/60 (82) 95 01/12/18 04:00 95 01/12/18 02:00 96 01/12/18 00:00 92 01/12/18 00:00 92 18 111/53 (72) 95 01/11/18 22:00 92 01/11/18 21:00 97 Nasal Cannula 2.00 01/11/18 20:00 97.6 84 19 102/51 (68) 97 01/11/18 20:00 100 01/11/18 19:00 Nasal Cannula 2.00 97 01/11/18 18:30 97 01/11/18 18:15 98.0 92 19 104/55 (71) 97 Nasal Cannula 2 01/11/18 18:00 110 23 105/55 (72) 95 Nasal Cannula 2 I/O 01/11/18 01/11/18 01/11/18 01/12/18 01/12/18 01/12/18 07:00 15:00 23:00 07:00 15:00 23:00 Intake Total 599.8 ml 50 ml 1550 ml 1100 ml 500 ml Output Total 600 ml 25 ml 625 ml Balance -0.2 ml 50 ml 1525 ml 475 ml 500 ml Intake Oral 450 ml IV Total 149.8 ml 50 ml 50 ml 1100 ml 500 ml Other 1500 ml Output Urine Total 300 ml 0 ml 625 ml Stool Total 0 ml Gastric Drainage Total 0 ml Emesis 300 ml Estimated Blood Loss 25 ml Result Diagram: 01/12/18 0344 01/12/18 0344 Imaging Last Impressions Chest X-Ray 01/11/18 0000 Signed Impressions: Service Date/Time: January 17:08 - CONCLUSION: Left lower lobe segmental consolidation and pleural effusion. Jerel Bui MD Upper GI Series 01/09/18 0000 Signed Impressions: Service Date/Time: Tuesday, January 09, 2018 13:29 - CONCLUSION: Large hiatal hernia. Mild non-masslike narrowing of the distal esophagus. Please see above. Aren Medel MD Abdomen/Pelvis CT 01/08/18 0000 Signed Impressions: Service Date/Time: Monday, January 08, 2018 14:42 - CONCLUSION: 1. Overall, the appearance of the CT abdomen/pelvis is similar to prior examination in 2016. Large hiatus hernia containing the antrum of the stomach, distended body of the stomach, diverticulosis of the colon, and severe degenerative changes related to kypho-scoliosis are stable. 2. The only new finding from prior examinations a small right pleural effusion. Jerel Bui MD Objective Remarks GENERAL: Alert, oriented x3, vomiting intermittently through interview. Patient has some vomitus on her bed sheets. She appears ill. CARDIOVASCULAR: Regular rate and rhythm without murmurs, gallops, or rubs. RESPIRATORY: Breath sounds equal bilaterally. No accessory muscle use. GASTROINTESTINAL: +BS x 4Q. Abdomen soft, nondistended, LLQ tenderness, no suprapubic tenderness. MUSCULOSKELETAL: No cyanosis, or edema. BACK: Nontender without obvious deformity. No CVA tenderness. Procedures Lap gastrostomy tube converted to open gastrostomy tube EGD with dilation A/P Assessment and Plan The patient is an 82 year old female who presented to the ER last night due to a two day history of persistent nausea and vomiting. She stated that yesterday morning, the vomitus became dark and coffee ground, and was accompanied by abdominal pain. She has had an episode like this before. The patient does not take blood thinners. Hemoccult of the vomitus in the ER was positive. CT abdomen revealed a stable hiatal hernia containing the antrum and distended body of stomach as compared to 2016. She was also found to have an elevated WBC of 18.4 with left shift. Her UA was positive and a urine culture was ordered. Persistent vomiting/ nausea . Resolving Possible UGI bleed Large Hiatal Hernia. Consult gen surg Hypokalemia 2/2 GI loss decreased PO intake . Replace as need GI consult, ff Gen surg consulted for eval of large hiatal hernia Continue IV fluids Large hiatal hernia found on CT, stable as compared to previous imaging in 2016 , will defer to GI. S/P panendoscopy patient with LA class D esophagitis. Gastritis and gastric antrum. Denies stricture at the distal esophagus unable to transverse. Plan for EGD with dilation. Continue PPI X ray UGI series reviewed distal esophagus stricture and large hiatal hernia S/p EGD with dilation today Lap gastrostomy tube converted to open gastrostomy tube Sepsis criteria (tachycardic, WBC >12,000, suspected source of infection) WBC 01/08/2018 18.4 -> 24.3 -> 01/09/2018 21.4. On Zosyn 4.5 g every 6 hours IV now UA positive, urine culture pending Hypertension Acute distress from nausea and vomiting may be contributing to blood pressure Patient was told at one point she had hypertension, but has not followed up with PCP in years, and takes no medications. If persistent, consider starting amlodipine 5 mg PO daily DVT prophylaxis: hold anticoagulants pending GI recs. Discussed with the patient, nurse DC plan pending improvement. Will need GS and GI clearance Valeria Calix MD Jan 12, 2018 17:52
--- NOTE | 2018-01-12 22:26 | MB ---
cc: ChristopherAndre Sudha BOWERS DATE: 01/12/2018 REASON FOR CONSULTATION: Atrial fibrillation. HISTORY OF PRESENT ILLNESS: Yanelis Peterson is a pleasant 82-year-old female who originally presented to [facility] Emergency Room on 01/08/2018 due to coffee ground emesis. She underwent an EGD which showed hiatal hernia and gastritis as well as a tight stricture of her distal esophagus. She was taken by Dr. Brady for open G-tube placement and during this, she was noted to be somewhat hypertensive. She was also noted to have episodes of atrial fibrillation with rapid ventricular response. Postprocedure, she was admitted to the ICU. Since arriving in the ICU she has been hemodynamically stable and converted back to sinus rhythm. In seeing her, she denies chest pain, shortness of breath or palpitations. She does have some abdominal pain from her surgery. PAST MEDICAL HISTORY: 1. New onset atrial fibrillation. 2. Hypertension. PAST SURGICAL HISTORY: 1. Hysterectomy. 2. Gastrostomy tube placement due to gastric volvulus with obstruction and bleeding. ALLERGIES: 1. ERYTHROMYCIN ____. 2. MEPERIDINE. MEDICATIONS: Denies. FAMILY HISTORY: Denies premature coronary artery disease or sudden cardiac within the family. SOCIAL HISTORY: Denies tobacco, alcohol or drug abuse. REVIEW OF SYSTEMS: Fourteen systems were reviewed including osteopathic. Pertinent positives and negatives above, otherwise negative. PHYSICAL EXAMINATION: VITAL SIGNS: Temperature 97.6, heart rate 90, blood pressure 157/69, respirations 20, pulse oximetry 95%. GENERAL: The patient appears well in no acute distress, alert, awake and oriented x 3. HEENT: Extraocular muscles intact. Mucous membranes moist. NECK: Supple. No JVD at 45 degrees. No carotid bruits heard bilaterally. Carotid upstroke is brisk in nature. HEART: Regular rate and rhythm. Positive first and second heart sounds with a 1/6 crescendo decrescendo murmur to the right sternal border. LUNGS: Clear to auscultation bilaterally. No wheezes, rales or rhonchi. ABDOMEN: Soft, mildly tender with no guarding. EXTREMITIES: Show no clubbing, cyanosis or edema. Femoral and distal pulses are intact bilaterally. NEUROLOGIC: No focal deficits. SKIN: Warm, dry and intact. OSTEOPATHIC: No kyphoscoliosis, lordosis or paraspinal tender points. LABORATORY DATA: Hemoglobin 12.4, hematocrit 37.1, platelets 264. Potassium 3.2, BUN 32, creatinine 1.03. Electrocardiogram (01/11/2018 at 1731) atrial fibrillation with rapid ventricular response, left anterior fascicular block, nonspecific ST-T wave changes. IMPRESSIONS: 1. New onset atrial fibrillation with rapid ventricular response. 2. Coffee ground emesis due to upper gastrointestinal bleed. 3. Gastric volvulus status post gastrostomy tube placement. 4. Hiatal hernia. 5. Hypertension. RECOMMENDATIONS: 1. Ms. Peterson appears to have new onset atrial fibrillation with rapid ventricular response which has since converted back to normal sinus rhythm. 2. This is most likely due to her overall sickness. 3. She has a CHADS-VASc score of 4 (age x 2, hypertension, gender) but at this time due to her upper GI bleed would not plan on starting her on anticoagulation. 4. When possible from a GI and surgical standpoint, would start her on aspirin 81 mg daily. 5. If in the future, she no longer has the risk of gastrointestinal bleed, would consider placing her on anticoagulation. 6. She is hypertensive will place on a light dose of beta david to help make sure we control her heart rate. Thank you for allowing me to see Yanelis Peterson. If there are any questions, please do not hesitate to call. Andre White, VGP/rt , 09:44 PM , 10:25 PM
[2018-01-12] MEDS: PANTOPRAZOLE SODIUM 40 MG VIAL IV PUSH SCH (23:59)
[2018-01-13] VITALS: BP 158/68; PULSE 80; RESP 17; TEMP 97.9; O2SAT 93
[2018-01-13] MEDS: PIPERACIL-TAZO 3.375 GM PREMIX 50 ML IV SCH ×5 (00:02→20:34)
[2018-01-13] MEDS: SODIUM CHLORIDE 0.9% FLUSH 10 ML FLUSH IV FLUSH SCH ×3 (00:02→20:34)
[2018-01-13 03:13] LABS: AUTOMATED NEUTROPHIL # 14.2 TH/MM3 (1.8-7.7); BASOPHIL % 0.1 % (0.0-2.0); HEMATOCRIT 35.9 % (35.0-46.0); LYMPH % 7.5 % (9.0-44.0); LYMPHOCYTE # 1.3 TH/MM3 (1.0-4.8); MEAN CELL VOLUME 89.7 FL (80.0-100.0); MEAN CORPUSCULAR HEMOGLOBIN 29.9 PG (27.0-34.0); MEAN CORPUSCULAR HGB CONC 33.4 % (32.0-36.0); MONO % 7.9 % (0.0-8.0); MONOCYTE # 1.3 TH/MM3 (0-0.9); NEUT % 84.5 % (16.0-70.0); PLATELET COUNT 234 TH/MM3 (150-450); RED BLOOD COUNT 4.01 MIL/MM3 (4.00-5.30); RED CELL DISTRIBUTION WIDTH 14.4 % (11.6-17.2); WHITE BLOOD COUNT 16.8 TH/MM3 (4.0-11.0)
[2018-01-13 03:33] LABS: CALCIUM 8.1 MG/DL (8.5-10.1); CREATININE 0.7 MG/DL (0.50-1.00); MAGNESIUM 2.4 MG/DL (1.5-2.5)
[2018-01-13] MEDS: SODIUM CHLOR 0.45% 1000 ML INJ 1,000 ML IV SCH ×3 (05:00→22:56)
[2018-01-13 08:00] VITALS: BP 176/73; PULSE 84; RESP 22; TEMP 97.9; O2SAT 95
[2018-01-13] MEDS ORDERED: METOPROLOL TARTRATE 25 MG TAB PO SCH (09:00)
[2018-01-13] MEDS: MORPHINE SULFATE 2 MG/ML SYRINGE IV PUSH PRN (10:48)
--- NOTE | 2018-01-13 11:54 | HHI.PR ---
Subjective Remarks Follow-up for coffee-ground emesis, large hiatal hernia. Patient is sitting in her chair. No acute concerns. No fever or chills. She requests some water or clear liquid diet. Objective Vitals Vital Signs Date Time Temp Pulse Resp B/P (MAP) Pulse Ox O2 Delivery O2 Flow Rate FiO2 01/13/18 08:00 97.9 84 22 176/73 (107) 95 01/13/18 00:00 97.9 80 17 158/68 (98) 93 01/12/18 20:00 98.0 93 15 165/71 (102) 94 01/12/18 18:00 79 01/12/18 16:00 84 01/12/18 16:00 98.4 84 19 160/72 (101) 98 01/12/18 14:00 84 01/12/18 12:00 97.6 94 19 157/69 (98) 95 01/12/18 12:00 94 I/O 01/12/18 01/12/18 01/12/18 01/13/18 01/13/18 01/13/18 07:00 15:00 23:00 07:00 15:00 23:00 Intake Total 1100 ml 500 ml 1100 ml 140 ml 50 ml Output Total 625 ml 520 ml 300 ml Balance 475 ml 500 ml 580 ml -160 ml 50 ml Intake Oral 140 ml IV Total 1100 ml 500 ml 1100 ml 50 ml Output Urine Total 625 ml 480 ml 300 ml Stool Total 0 ml Gastric Drainage Total 0 ml 40 ml # Bowel Movements 0 Result Diagram: 01/13/18 0257 01/13/18 0257 Imaging Last Impressions Chest X-Ray 01/11/18 0000 Signed Impressions: Service Date/Time: January 17:08 - CONCLUSION: Left lower lobe segmental consolidation and pleural effusion. Jerel Bui MD Upper GI Series 01/09/18 0000 Signed Impressions: Service Date/Time: Tuesday, January 09, 2018 13:29 - CONCLUSION: Large hiatal hernia. Mild non-masslike narrowing of the distal esophagus. Please see above. Aren Medel MD Abdomen/Pelvis CT 01/08/18 0000 Signed Impressions: Service Date/Time: Monday, January 08, 2018 14:42 - CONCLUSION: 1. Overall, the appearance of the CT abdomen/pelvis is similar to prior examination in 2016. Large hiatus hernia containing the antrum of the stomach, distended body of the stomach, diverticulosis of the colon, and severe degenerative changes related to kypho-scoliosis are stable. 2. The only new finding from prior examinations a small right pleural effusion. Jerel Bui MD Objective Remarks GENERAL: Alert, NAD. SKIN: Warm and dry. HEAD: Normocephalic. EYES: No scleral icterus. No injection or drainage. NECK: Supple, trachea midline. No JVD or lymphadenopathy. CARDIOVASCULAR: Regular rate and rhythm without murmurs, gallops, or rubs. RESPIRATORY: Breath sounds equal bilaterally. No accessory muscle use. GASTROINTESTINAL: Abdomen soft, non-tender, nondistended. G-tube in place. MUSCULOSKELETAL: No cyanosis, or edema. BACK: Nontender without obvious deformity. No CVA tenderness. Procedures Lap gastrostomy tube converted to open gastrostomy tube EGD with dilation A/P Assessment and Plan Ms. Peterson is a pleasant 82-year-old female who was admitted to the hospital due to nausea vomiting coffee-ground emesis. CT abdomen revealed a stable hiatal hernia containing the antrum and distended body of stomach as compared to 2016. Patient underwent open gastrostomy by general surgery for gastric volvulus with obstruction and bleeding. Patient developed A. fib RVR postop. Gastric volvulus with obstruction and bleeding Status post open gastrostomy by general surgery. Currently clear liquid diet. Currently on Zosyn 3.375g every 6 hours. Atrial fibrillation [id number] score 4. Cardiology was consulted and recommended aspirin when okay with GI/general surgery In the future she may need anticoagulation. In future, consider apixaban 2.5 mg twice daily due to age and weight. Cardiology started metoprolol 12.5 mg every 12 hours. Carvedilol may work better due to patient's hypertension as well. Hypertension - we will start patient on amlodipine 5 mg p.o. daily. Full code. SCDs. Rosa Ryan DO Jan 13, 2018 11:54 am
[2018-01-13 12:00] VITALS: BP 160/65; PULSE 79; RESP 20; TEMP 98.1; O2SAT 9
--- NOTE | 2018-01-13 13:00 | PD.CARD.PN ---
Subjective Subjective Remarks No events overnight Doing well No CP/SOB/palpitations Objective Medications Current Medications Medications (Trade) Dose Ordered Sig/Nghia Route Start Time Stop Time Status Last Admin (NS Flush) 2 ml UNSCH PRN IV FLUSH 01/08/18 16:30 (NS Flush) 2 ml BID IV FLUSH 01/08/18 21:00 01/13/18 00:02 (Zofran Inj) 4 mg Q6H PRN IVP 01/08/18 17:00 01/11/18 08:24 (Narcan Inj) 0.4 mg UNSCH PRN IV PUSH 01/08/18 16:30 (Morphine Inj) 2 mg Q3H PRN IV PUSH 01/08/18 18:00 01/13/18 10:48 (Phenergan Inj) 12.5 mg Q4H PRN IM 01/08/18 18:00 01/10/18 06:55 (Apresoline Inj) 10 mg Q6H PRN IV PUSH 01/09/18 03:45 01/10/18 15:53 Piperacillin Sod/ Tazobactam Sod 50 ml @ 100 mls/hr Q6H IV 01/09/18 16:00 01/13/18 08:21 (Reglan Inj) 5 mg Q8H PRN IV PUSH 01/09/18 15:15 01/11/18 11:58 (Betadine 5% Antisepsis Kit) 1 applic [employer] PRN EACH NARE 01/11/18 13:00 01/14/18 12:59 (Chlorhexidine 2% Cloth) 3 pack [employer] PRN TOPICAL 01/11/18 13:00 01/14/18 12:59 (Protonix Inj) 40 mg Q24H IV PUSH 01/11/18 22:00 01/12/18 23:59 Sodium Chloride 1,000 ml @ 100 mls/hr Q10H IV 01/12/18 09:00 01/13/18 11:26 (Lopressor) 12.5 mg Q12HR PO 01/13/18 09:00 01/13/18 08:21 Vital Signs / I&O Vital Signs Date Time Temp Pulse Resp B/P (MAP) Pulse Ox O2 Delivery O2 Flow Rate FiO2 01/13/18 12:00 98.1 79 20 160/65 (96) 9 01/13/18 08:00 97.9 84 22 176/73 (107) 95 01/13/18 00:00 97.9 80 17 158/68 (98) 93 01/12/18 20:00 98.0 93 15 165/71 (102) 94 01/12/18 18:00 79 01/12/18 16:00 84 01/12/18 16:00 98.4 84 19 160/72 (101) 98 01/12/18 14:00 84 I/O 01/12/18 01/12/18 01/12/18 01/13/18 01/13/18 01/13/18 07:00 15:00 23:00 07:00 15:00 23:00 Intake Total 1100 ml 500 ml 1100 ml 140 ml 50 ml Output Total 625 ml 520 ml 300 ml Balance 475 ml 500 ml 580 ml -160 ml 50 ml Intake Oral 140 ml IV Total 1100 ml 500 ml 1100 ml 50 ml Output Urine Total 625 ml 480 ml 300 ml Stool Total 0 ml Gastric Drainage Total 0 ml 40 ml # Bowel Movements 0 Physical Exam GENERAL: NAD, AAOx3 SKIN: Warm and dry. HEAD: Atraumatic. Normocephalic. EYES: Pupils equal and round. No scleral icterus. No injection or drainage. ENT: No nasal bleeding or discharge. Mucous membranes pink and moist. NECK: Trachea midline. No JVD. CARDIOVASCULAR: Regular rate and rhythm. 1/6 crescendo-decrescendo systolic murmur to the RSB RESPIRATORY: No accessory muscle use. Clear to auscultation. Breath sounds equal bilaterally. GASTROINTESTINAL: Abdomen soft, non-tender, nondistended. Hepatic and splenic margins not palpable. MUSCULOSKELETAL: Extremities without clubbing, cyanosis, or edema. No obvious deformities. NEUROLOGICAL: Awake and alert. No obvious cranial nerve deficits. Motor grossly within normal limits. Five out of 5 muscle strength in the arms and legs. Normal speech. PSYCHIATRIC: Appropriate mood and affect; insight and judgment normal. Laboratory Laboratory Tests Test 01/13/18 02:57 White Blood Count 16.8 TH/MM3 Red Blood Count 4.01 MIL/MM3 Hemoglobin 12.0 GM/DL Hematocrit 35.9 % Mean Corpuscular Volume 89.7 FL Mean Corpuscular Hemoglobin 29.9 PG Mean Corpuscular Hemoglobin Concent 33.4 % Red Cell Distribution Width 14.4 % Platelet Count 234 TH/MM3 Mean Platelet Volume 8.0 FL Neutrophils (%) (Auto) 84.5 % Lymphocytes (%) (Auto) 7.5 % Monocytes (%) (Auto) 7.9 % Eosinophils (%) (Auto) 0.0 % Basophils (%) (Auto) 0.1 % Neutrophils # (Auto) 14.2 TH/MM3 Lymphocytes # (Auto) 1.3 TH/MM3 Monocytes # (Auto) 1.3 TH/MM3 Eosinophils # (Auto) 0.0 TH/MM3 Basophils # (Auto) 0.0 TH/MM3 CBC Comment DIFF FINAL Differential Comment Blood Urea Nitrogen 22 MG/DL Creatinine 0.70 MG/DL Random Glucose 60 MG/DL Calcium Level 8.1 MG/DL Magnesium Level 2.4 MG/DL Sodium Level 150 MEQ/L Potassium Level 3.9 MEQ/L Chloride Level 114 MEQ/L Carbon Dioxide Level 24.0 MEQ/L Anion Gap 12 MEQ/L Estimat Glomerular Filtration Rate 80 ML/MIN Assessment and Plan Problem List: (1) Hiatus hernia with obstruction ICD Codes: K44.0 - Diaphragmatic hernia with obstruction, without gangrene Status: Acute (2) GI bleed ICD Codes: K92.2 - Gastrointestinal hemorrhage, unspecified Status: Acute (3) New onset a-fib ICD Codes: I48.91 - Unspecified atrial fibrillation (4) Esophageal stricture ICD Codes: K22.2 - Esophageal obstruction Status: Acute Assessment and Plan 1) Hiatal hernia with obstruction s/p Gtube placement 2) Upper GI Bleed 3) New onset AFib Currently back in NSR Agree with changing Metoprolol to Coreg for BP control CHADS-VASc = 4 ASA 81mg daily when ok with GI/Surgery Not an anti-coagulation candidate at this time due to GI bleed, this can be reassessed in the future 4) 2D echo pending Problem Qualifiers (1) GI bleed: Andre White DO Jan 13, 2018 13:00
--- NOTE | 2018-01-13 14:04 | HHI.PR ---
cc: Amaury Moreno MD Subjective Subjective Notes DAILY PROGRESS NOTE FOR SURGICAL ATTENDING, DR. AMAURY MORENO I am very thirsty I would like to drink something Objective Vitals/I&O Vital Signs Date Time Temp Pulse Resp B/P (MAP) Pulse Ox O2 Delivery O2 Flow Rate FiO2 01/13/18 12:00 98.1 79 20 160/65 (96) 9 01/12/18 07:20 Nasal Cannula 2.00 98 Labs Laboratory Tests Test 01/13/18 02:57 White Blood Count 16.8 Red Blood Count 4.01 Hemoglobin 12.0 Hematocrit 35.9 Mean Corpuscular Volume 89.7 Mean Corpuscular Hemoglobin 29.9 Mean Corpuscular Hemoglobin Concent 33.4 Red Cell Distribution Width 14.4 Platelet Count 234 Mean Platelet Volume 8.0 Neutrophils (%) (Auto) 84.5 Lymphocytes (%) (Auto) 7.5 Monocytes (%) (Auto) 7.9 Eosinophils (%) (Auto) 0.0 Basophils (%) (Auto) 0.1 Neutrophils # (Auto) 14.2 Lymphocytes # (Auto) 1.3 Monocytes # (Auto) 1.3 Eosinophils # (Auto) 0.0 Basophils # (Auto) 0.0 CBC Comment DIFF FINAL Differential Comment Blood Urea Nitrogen 22 Creatinine 0.70 Random Glucose 60 Calcium Level 8.1 Magnesium Level 2.4 Sodium Level 150 Potassium Level 3.9 Chloride Level 114 Carbon Dioxide Level 24.0 Anion Gap 12 Estimat Glomerular Filtration Rate 80 Date/Time Source Procedure Growth Status 01/08/18 17:15 Urine Random Urine Urine Culture - Final Escherichia Coli Complete Radiology Last Impressions Chest X-Ray 01/11/18 0000 Signed Impressions: Service Date/Time: January 17:08 - CONCLUSION: Left lower lobe segmental consolidation and pleural effusion. Jerel Bui MD Upper GI Series 01/09/18 0000 Signed Impressions: Service Date/Time: Tuesday, January 09, 2018 13:29 - CONCLUSION: Large hiatal hernia. Mild non-masslike narrowing of the distal esophagus. Please see above. Aren Medel MD Abdomen/Pelvis CT 01/08/18 0000 Signed Impressions: Service Date/Time: Monday, January 08, 2018 14:42 - CONCLUSION: 1. Overall, the appearance of the CT abdomen/pelvis is similar to prior examination in 2016. Large hiatus hernia containing the antrum of the stomach, distended body of the stomach, diverticulosis of the colon, and severe degenerative changes related to kypho-scoliosis are stable. 2. The only new finding from prior examinations a small right pleural effusion. Jerel Bui MD Cardiovascular: Regular Lungs: Clear Abdomen: Non-distended, Post-op tenderness Extremities: Perfused Narrative Exam G-tube in place minimal output A/P Problem List: (1) S/P gastrostomy tube (G tube) placement, follow-up exam ICD Codes: Z09 - Encounter for follow-up examination after completed treatment for conditions other than malignant neoplasm Status: Acute (2) Gastrostomy tube in place ICD Codes: Z93.1 - Gastrostomy status Status: Acute (3) Esophageal stricture ICD Codes: K22.2 - Esophageal obstruction Status: Chronic (4) Hiatus hernia with obstruction ICD Codes: K44.0 - Diaphragmatic hernia with obstruction, without gangrene Status: Chronic (5) New onset a-fib ICD Codes: I48.91 - Unspecified atrial fibrillation Status: Acute (6) S/P dilatation of esophageal stricture ICD Codes: Z98.890 - Other specified postprocedural states; Z87.19 - Personal history of other diseases of the digestive system Status: Chronic (7) Elevated WBC count ICD Codes: D72.829 - Elevated white blood cell count, unspecified Status: Acute (8) UTI (urinary tract infection) ICD Codes: N39.0 - Urinary tract infection, site not specified Status: Acute (9) E. coli UTI (urinary tract infection) ICD Codes: N39.0 - Urinary tract infection, site not specified; B96.20 - Unspecified Escherichia coli [E. coli] as the cause of diseases classified elsewhere Status: Acute Assessment and Plan PO open g tube on PLAN G Tube to gravity bag ok for ice chips change LR to S replace Karlo gar tomorrow Attending Statement NOTE FOR SURGICAL ATTENDING, DR. AMAURY MORENO I attest that I had a [id number] encounter with the patient on the same day, and personally performed and documented my assessment and findings in the medical record. The following services were provided during this hospital visit: Chart data review, vital sign assessments/reviewing monitor data Review of consultations notes if present. Medication orders/review and/or management Ordering and/or reviewing lab tests Ordering and/or interpreting/reviewing x-rays and/or diagnostic studies Care of the patient and discussion of the patient with the care team Documentation time To help prompt me to consider important information that might be impacting today's encounter and assessment, Information from prior notes written by myself or my colleagues may have been "brought forward/copy and pasted" into today's note. Problem Qualifiers (1) Elevated WBC count: Qualified Codes: D72.825 - Bandemia (2) UTI (urinary tract infection): Amaury Moreno MD Jan 13, 2018 14:04
[2018-01-13] MEDS: ACETAMINOPHEN/HYDROcodone 325 MG/5 MG TAB PO PRN ×2 (15:49→23:01)
[2018-01-13 16:00] VITALS: BP 158/71; PULSE 84; RESP 20; TEMP 99.2; O2SAT 93
--- NOTE | 2018-01-13 18:24 | ECHRPT ---
Indication: A-FIB CONCLUSIONS The left ventricular systolic function is hyperdynamic with an estimated ejection fraction in the ra nge of 65- 70%. Mild concentric left ventricular hypertrophy. Trace mitral valve regurgitation. Mild aortic valve regurgitation. There is trace tricuspid valve regurgitation. BP: 158 / 69 HR: 98 Rhythm: Atrial fibrillation MEASUREMENTS (Male / Female) Normal Values Technical Quality:Fair 2D ECHO LV Diastolic Diameter PLAX 3.4 cm 4.2 - 5.9 / 3.9 - 5.3 cm LV Systolic Diameter PLAX 2.4 cm IVS Diastolic Thickness 1.3 cm 0.6 - 1.0 / 0.6 - 0.9 cm LVPW Diastolic Thickness 1.2 cm 0.6 - 1.0 / 0.6 - 0.9 cm LV Relative Wall Thickness 0.7 LVOT Diameter 1.6 cm LA Systolic Diameter LX 3.0 cm 3.0 - 4.0 / 2.7 - 3.8 cm LV Ejection Fraction MOD 4C 81.8 % LV Cardiac Index MOD 4C 2792.2 cm/minm LV Ejection Fraction 4C AL 82.5 % LV Cardiac Index 4C AL 3007.3 cm/minm M-MODE Aortic Root Diameter MM 2.0 cm LA Systolic Diameter MM 3.2 cm LA Ao Ratio MM 1.6 AV Cusp Separation MM 1.4 cm DOPPLER AV Peak Velocity 187.0 cm/s AV Peak Gradient 14.0 mmHg AI Peak Velocity 359.0 cm/s AI Peak Gradient 51.6 mmHg AI Pressure Half Time 505.5 ms LVOT Peak Velocity 125.0 cm/s LVOT Peak Gradient 6.3 mmHg AV Area Cont Eq pk 1.3 cm MV Area PHT 4.3 cm TR Peak Velocity 293.0 cm/s TR Peak Gradient 34.3 mmHg Right Atrial Pressure 10.0 mmHg Pulmonary Artery Systolic Pressu 44.3 mmHg Right Ventricular Systolic Press 44.3 mmHg PV Peak Velocity 124.0 cm/s PV Peak Gradient 6.2 mmHg FINDINGS LEFT VENTRICLE The left ventricular systolic function is hyperdynamic with an estimated ejection fraction in the ra nge of 65- 70%. Normal left ventricular size. Mild concentric left ventricular hypertrophy. No regional wall motion abnormalities are present. RIGHT VENTRICLE Normal right ventricular size and systolic function. LEFT ATRIUM The left atrial size is normal. RIGHT ATRIUM The right atrial size is normal. ATRIAL SEPTUM Normal atrial septal thickness AORTA The aortic root and proximal ascending aorta are normal in size on limited imaging. MITRAL VALVE Structurally normal mitral valve. Mild mitral annular calcification. Trace mitral valve regurgitation. No mitral valve stenosis. AORTIC VALVE Trileaflet aortic valve. Aortic valve sclerosis is present. Mild aortic valve regurgitation. No aortic valve stenosis. TRICUSPID VALVE Structurally normal tricuspid valve. There is trace tricuspid valve regurgitation. The estimated pulmonary arterial pressure is 44.3 mmHg. PULMONARY VALVE No pulmonary valve regurgitation or stenosis. VESSELS The inferior vena cava is normal in size. PERICARDIUM No pericardial effusion. Andre White DO (Electronically Signed) Final Date:13 January 2018 18:23
[2018-01-13 20:00] VITALS: BP 144/67; PULSE 88; RESP 18; TEMP 98.5; O2SAT 91
[2018-01-13] MEDS: PANTOPRAZOLE SODIUM 40 MG VIAL IV PUSH SCH (20:34)
[2018-01-13] MEDS: CARVEDILOL 6.25 MG TAB PO SCH (20:34)
[2018-01-14] VITALS: BP 150/67; PULSE 72; RESP 18; TEMP 98.2; O2SAT 92
[2018-01-14] MEDS: PIPERACIL-TAZO 3.375 GM PREMIX 50 ML IV SCH ×4 (04:56→20:16)
[2018-01-14] MEDS: ACETAMINOPHEN/HYDROcodone 325 MG/5 MG TAB PO PRN ×2 (06:27→15:43)
[2018-01-14] MEDS: CARVEDILOL 6.25 MG TAB PO SCH ×2 (07:48→20:16)
[2018-01-14] MEDS: SODIUM CHLORIDE 0.9% FLUSH 10 ML FLUSH IV FLUSH SCH ×2 (07:52→20:18)
[2018-01-14 08:00] VITALS: BP 170/72; PULSE 67; RESP 18; TEMP 98.1; O2SAT 94
--- NOTE | 2018-01-14 09:24 | HHI.PR ---
Subjective Subjective Notes diarrhea overnight, c/o abd pain, no fevers wbc yesterday 16k Objective Vitals/I&O Vital Signs Date Time Temp Pulse Resp B/P (MAP) Pulse Ox O2 Delivery O2 Flow Rate FiO2 01/14/18 08:00 98.1 67 18 170/72 (104) 94 01/12/18 07:20 Nasal Cannula 2.00 98 Labs Date/Time Source Procedure Growth Status 01/08/18 17:15 Urine Random Urine Urine Culture - Final Escherichia Coli Complete Radiology Last Impressions Chest X-Ray 01/11/18 0000 Signed Impressions: Service Date/Time: January 17:08 - CONCLUSION: Left lower lobe segmental consolidation and pleural effusion. Jerel Bui MD Upper GI Series 01/09/18 0000 Signed Impressions: Service Date/Time: Tuesday, January 09, 2018 13:29 - CONCLUSION: Large hiatal hernia. Mild non-masslike narrowing of the distal esophagus. Please see above. Aren Medel MD Abdomen/Pelvis CT 01/08/18 0000 Signed Impressions: Service Date/Time: Monday, January 08, 2018 14:42 - CONCLUSION: 1. Overall, the appearance of the CT abdomen/pelvis is similar to prior examination in 2016. Large hiatus hernia containing the antrum of the stomach, distended body of the stomach, diverticulosis of the colon, and severe degenerative changes related to kypho-scoliosis are stable. 2. The only new finding from prior examinations a small right pleural effusion. Jerel Bui MD Abdomen: Other (mild ttp g tube to gravity c/d/i) A/P Problem List: (1) S/P gastrostomy tube (G tube) placement, follow-up exam ICD Codes: Z09 - Encounter for follow-up examination after completed treatment for conditions other than malignant neoplasm Status: Acute (2) Gastrostomy tube in place ICD Codes: Z93.1 - Gastrostomy status Status: Acute (3) Esophageal stricture ICD Codes: K22.2 - Esophageal obstruction Status: Chronic (4) Hiatus hernia with obstruction ICD Codes: K44.0 - Diaphragmatic hernia with obstruction, without gangrene Status: Chronic (5) New onset a-fib ICD Codes: I48.91 - Unspecified atrial fibrillation Status: Acute (6) S/P dilatation of esophageal stricture ICD Codes: Z98.890 - Other specified postprocedural states; Z87.19 - Personal history of other diseases of the digestive system Status: Chronic (7) Elevated WBC count ICD Codes: D72.829 - Elevated white blood cell count, unspecified Status: Acute (8) UTI (urinary tract infection) ICD Codes: N39.0 - Urinary tract infection, site not specified Status: Acute (9) E. coli UTI (urinary tract infection) ICD Codes: N39.0 - Urinary tract infection, site not specified; B96.20 - Unspecified Escherichia coli [E. coli] as the cause of diseases classified elsewhere Status: Acute Assessment and Plan POD 3 open g tube PLAN start TF full liq diet labs pending today check c dift med mgnt of htn and electrolytes Problem Qualifiers (1) Elevated WBC count: Qualified Codes: D72.825 - Bandemia (2) UTI (urinary tract infection): Sincere Salas MD Jan 14, 2018 09:23
[2018-01-14] MEDS: SODIUM CHLOR 0.45% 1000 ML INJ 1,000 ML IV SCH ×2 (10:34→20:16)
--- NOTE | 2018-01-14 11:55 | HHI.PR ---
Subjective Remarks Follow-up for coffee-ground emesis, large hiatal hernia. Patient is currently resting in bed. No acute concerns. No fever or chills. Tolerating liquid diet well. Objective Vitals Vital Signs Date Time Temp Pulse Resp B/P (MAP) Pulse Ox O2 Delivery O2 Flow Rate FiO2 01/14/18 08:00 98.1 67 18 170/72 (104) 94 01/14/18 00:00 98.2 72 18 150/67 (94) 92 01/13/18 20:00 98.5 88 18 144/67 (92) 91 01/13/18 16:00 99.2 84 20 158/71 (100) 93 01/13/18 12:00 98.1 79 20 160/65 (96) 9 I/O 01/13/18 01/13/18 01/13/18 01/14/18 01/14/18 01/14/18 07:00 15:00 23:00 07:00 15:00 23:00 Intake Total 140 ml 50 ml 1650 ml 290 ml Output Total 300 ml 500 ml 500 ml Balance -160 ml 50 ml 1150 ml -210 ml Intake Oral 140 ml 600 ml 240 ml IV Total 50 ml 1050 ml 50 ml Output Urine Total 300 ml 350 ml Gastric Drainage Total 500 ml Drainage Total 150 ml # Voids 4 # Bowel Movements 0 2 Result Diagram: 01/13/18 0257 01/13/18 0257 Imaging Last Impressions Chest X-Ray 01/11/18 0000 Signed Impressions: Service Date/Time: January 17:08 - CONCLUSION: Left lower lobe segmental consolidation and pleural effusion. Jerel Bui MD Upper GI Series 01/09/18 0000 Signed Impressions: Service Date/Time: Tuesday, January 09, 2018 13:29 - CONCLUSION: Large hiatal hernia. Mild non-masslike narrowing of the distal esophagus. Please see above. Aren Medel MD Abdomen/Pelvis CT 01/08/18 0000 Signed Impressions: Service Date/Time: Monday, January 08, 2018 14:42 - CONCLUSION: 1. Overall, the appearance of the CT abdomen/pelvis is similar to prior examination in 2016. Large hiatus hernia containing the antrum of the stomach, distended body of the stomach, diverticulosis of the colon, and severe degenerative changes related to kypho-scoliosis are stable. 2. The only new finding from prior examinations a small right pleural effusion. Jerel Bui MD Objective Remarks GENERAL: Alert, NAD. SKIN: Warm and dry. HEAD: Normocephalic. EYES: No scleral icterus. No injection or drainage. NECK: Supple, trachea midline. No JVD or lymphadenopathy. CARDIOVASCULAR: Regular rate and rhythm without murmurs, gallops, or rubs. RESPIRATORY: Breath sounds equal bilaterally. No accessory muscle use. GASTROINTESTINAL: Abdomen soft, non-tender, nondistended. G-tube in place. MUSCULOSKELETAL: No cyanosis, or edema. BACK: Nontender without obvious deformity. No CVA tenderness. Procedures Lap gastrostomy tube converted to open gastrostomy tube EGD with dilation A/P Assessment and Plan Ms. Peterson is a pleasant 82-year-old female who was admitted to the hospital due to nausea vomiting coffee-ground emesis. CT abdomen revealed a stable hiatal hernia containing the antrum and distended body of stomach as compared to 2016. Patient underwent open gastrostomy by general surgery for gastric volvulus with obstruction and bleeding. Patient developed A. fib RVR postop. Gastric volvulus with obstruction and bleeding Status post open gastrostomy by general surgery. Currently clear liquid diet. Currently on Zosyn 3.375g every 6 hours. Atrial fibrillation [id number] score 4. Cardiology was consulted and recommended aspirin when okay with GI/general surgery In the future she may need anticoagulation. In future, consider apixaban 2.5 mg twice daily due to age and weight. Cardiology start the patient on carvedilol 6.25 mg twice daily. Hypertension - we will start patient on nifedipine 30 mg p.o. daily. Full code. SCDs. Rosa Ryan DO Jan 14, 2018 11:55 am
[2018-01-14 12:00] VITALS: BP 135/62; PULSE 63; RESP 18; TEMP 98; O2SAT 94
[2018-01-14 12:47] LABS: AUTOMATED NEUTROPHIL # 12.6 TH/MM3 (1.8-7.7); BASOPHIL % 0.1 % (0.0-2.0); EOSINOPHIL # 0.2 TH/MM3 (0-0.4); EOSINOPHIL % 1.4 % (0.0-4.0); HEMATOCRIT 34.4 % (35.0-46.0); HEMOGLOBIN 11.3 GM/DL (11.6-15.3); LYMPH % 8.1 % (9.0-44.0); LYMPHOCYTE # 1.2 TH/MM3 (1.0-4.8); MEAN CELL VOLUME 89.5 FL (80.0-100.0); MEAN CORPUSCULAR HEMOGLOBIN 29.5 PG (27.0-34.0); MEAN CORPUSCULAR HGB CONC 32.9 % (32.0-36.0); MEAN PLATELET VOLUME 8.2 FL (7.0-11.0); MONO % 9.1 % (0.0-8.0); MONOCYTE # 1.4 TH/MM3 (0-0.9); NEUT % 81.3 % (16.0-70.0); PLATELET COUNT 235 TH/MM3 (150-450); RED BLOOD COUNT 3.85 MIL/MM3 (4.00-5.30); RED CELL DISTRIBUTION WIDTH 13.9 % (11.6-17.2); WHITE BLOOD COUNT 15.4 TH/MM3 (4.0-11.0)
[2018-01-14] MEDS ORDERED: NIFEdipine 30 MG SUSTAINED RELEASE TAB PO ONE (13:00)
[2018-01-14 13:10] LABS: BICARBONATE 27.6 MEQ/L (21.0-32.0); CALCIUM 7.5 MG/DL (8.5-10.1); CREATININE 0.63 MG/DL (0.50-1.00)
--- NOTE | 2018-01-14 13:37 | PD.CARD.PN ---
Subjective Subjective Remarks No events overnight Doing well No CP/SOB/palpitations Objective Medications Current Medications Medications (Trade) Dose Ordered Sig/Nghia Route Start Time Stop Time Status Last Admin (NS Flush) 2 ml UNSCH PRN IV FLUSH 01/08/18 16:30 (NS Flush) 2 ml BID IV FLUSH 01/08/18 21:00 01/13/18 00:02 (Zofran Inj) 4 mg Q6H PRN IVP 01/08/18 17:00 01/11/18 08:24 (Narcan Inj) 0.4 mg UNSCH PRN IV PUSH 01/08/18 16:30 (Phenergan Inj) 12.5 mg Q4H PRN IM 01/08/18 18:00 01/10/18 06:55 (Apresoline Inj) 10 mg Q6H PRN IV PUSH 01/09/18 03:45 01/10/18 15:53 Piperacillin Sod/ Tazobactam Sod 50 ml @ 100 mls/hr Q6H IV 01/09/18 16:00 01/14/18 07:48 (Reglan Inj) 5 mg Q8H PRN IV PUSH 01/09/18 15:15 01/11/18 11:58 (Protonix Inj) 40 mg Q24H IV PUSH 01/11/18 22:00 01/13/18 20:34 Sodium Chloride 1,000 ml @ 100 mls/hr Q10H IV 01/12/18 09:00 01/14/18 10:34 (Coreg) 6.25 mg Q12HR PO 01/13/18 21:00 01/14/18 07:48 ([place] 5-325 Mg) 1 tab Q6HR PRN PO 01/13/18 14:15 01/14/18 06:27 (Procardia Xl) 30 mg DAILY PO 01/15/18 09:00 Vital Signs / I&O Vital Signs Date Time Temp Pulse Resp B/P (MAP) Pulse Ox O2 Delivery O2 Flow Rate FiO2 01/14/18 12:00 98.0 63 18 135/62 (86) 94 01/14/18 08:00 98.1 67 18 170/72 (104) 94 01/14/18 00:00 98.2 72 18 150/67 (94) 92 01/13/18 20:00 98.5 88 18 144/67 (92) 91 01/13/18 16:00 99.2 84 20 158/71 (100) 93 I/O 01/13/18 01/13/18 01/13/18 01/14/18 01/14/18 01/14/18 07:00 15:00 23:00 07:00 15:00 23:00 Intake Total 140 ml 50 ml 1650 ml 290 ml Output Total 300 ml 500 ml 500 ml Balance -160 ml 50 ml 1150 ml -210 ml Intake Oral 140 ml 600 ml 240 ml IV Total 50 ml 1050 ml 50 ml Output Urine Total 300 ml 350 ml Gastric Drainage Total 500 ml Drainage Total 150 ml # Voids 4 # Bowel Movements 0 2 Physical Exam GENERAL: NAD, AAOx3 SKIN: Warm and dry. HEAD: Atraumatic. Normocephalic. EYES: Pupils equal and round. No scleral icterus. No injection or drainage. ENT: No nasal bleeding or discharge. Mucous membranes pink and moist. NECK: Trachea midline. No JVD. CARDIOVASCULAR: Regular rate and rhythm. / crescendo-decrescendo systolic murmur to the RSB RESPIRATORY: No accessory muscle use. Clear to auscultation. Breath sounds equal bilaterally. GASTROINTESTINAL: Abdomen soft, non-tender, nondistended. Hepatic and splenic margins not palpable. MUSCULOSKELETAL: Extremities without clubbing, cyanosis, or edema. No obvious deformities. NEUROLOGICAL: Awake and alert. No obvious cranial nerve deficits. Motor grossly within normal limits. Five out of 5 muscle strength in the arms and legs. Normal speech. PSYCHIATRIC: Appropriate mood and affect; insight and judgment normal. Laboratory Laboratory Tests Test 01/14/18 12:13 White Blood Count 15.4 TH/MM3 Red Blood Count 3.85 MIL/MM3 Hemoglobin 11.3 GM/DL Hematocrit 34.4 % Mean Corpuscular Volume 89.5 FL Mean Corpuscular Hemoglobin 29.5 PG Mean Corpuscular Hemoglobin Concent 32.9 % Red Cell Distribution Width 13.9 % Platelet Count 235 TH/MM3 Mean Platelet Volume 8.2 FL Neutrophils (%) (Auto) 81.3 % Lymphocytes (%) (Auto) 8.1 % Monocytes (%) (Auto) 9.1 % Eosinophils (%) (Auto) 1.4 % Basophils (%) (Auto) 0.1 % Neutrophils # (Auto) 12.6 TH/MM3 Lymphocytes # (Auto) 1.2 TH/MM3 Monocytes # (Auto) 1.4 TH/MM3 Eosinophils # (Auto) 0.2 TH/MM3 Basophils # (Auto) 0.0 TH/MM3 CBC Comment DIFF FINAL Differential Comment Blood Urea Nitrogen 14 MG/DL Creatinine 0.63 MG/DL Random Glucose 163 MG/DL Calcium Level 7.5 MG/DL Carbon Dioxide Level 27.6 MEQ/L Estimat Glomerular Filtration Rate 90 ML/MIN Assessment and Plan Problem List: (1) Hiatus hernia with obstruction ICD Codes: K44.0 - Diaphragmatic hernia with obstruction, without gangrene Status: Chronic (2) GI bleed ICD Codes: K92.2 - Gastrointestinal hemorrhage, unspecified Status: Acute (3) New onset a-fib ICD Codes: I48.91 - Unspecified atrial fibrillation Status: Acute (4) Esophageal stricture ICD Codes: K22.2 - Esophageal obstruction Status: Chronic Assessment and Plan 1) Hiatal hernia with obstruction s/p Gtube placement 2) Upper GI Bleed 3) New onset AFib Currently back in NSR Agree with changing Metoprolol to Coreg for BP control CHADS-VASc = 4 ASA 81mg daily when ok with GI/Surgery Not an anti-coagulation candidate at this time due to GI bleed, this can be reassessed in the future 4) HTN Agree with placing on Procardia Blood pressure better controlled 5) EF 65-70% Problem Qualifiers (1) GI bleed: Andre White DO Jan 14, 2018 13:36
[2018-01-14 16:00] VITALS: BP 142/65; PULSE 66; RESP 16; TEMP 98.7; O2SAT 95
[2018-01-14 20:00] VITALS: BP 148/70; PULSE 67; RESP 18; TEMP 98.2; O2SAT 94
[2018-01-14] MEDS: PANTOPRAZOLE SODIUM 40 MG VIAL IV PUSH SCH (20:16)
[2018-01-15] VITALS: BP 158/71; PULSE 66; RESP 18; TEMP 98.1; O2SAT 95
[2018-01-15] MEDS: ACETAMINOPHEN/HYDROcodone 325 MG/5 MG TAB PO PRN ×2 (02:38→17:09)
[2018-01-15] MEDS: PIPERACIL-TAZO 3.375 GM PREMIX 50 ML IV SCH ×4 (05:01→21:44)
[2018-01-15] MEDS: SODIUM CHLOR 0.45% 1000 ML INJ 1,000 ML IV SCH ×2 (06:11→17:10)
[2018-01-15 08:00] VITALS: BP 189/80; PULSE 70; RESP 18; TEMP 98; O2SAT 94
[2018-01-15] MEDS: CARVEDILOL 6.25 MG TAB PO SCH ×2 (08:59→21:45)
[2018-01-15] MEDS: NIFEdipine 30 MG SUSTAINED RELEASE TAB PO SCH (08:59)
[2018-01-15] MEDS: SODIUM CHLORIDE 0.9% FLUSH 10 ML FLUSH IV FLUSH SCH ×2 (09:00→21:46)
[2018-01-15 12:00] VITALS: BP 124/60; PULSE 58; RESP 20; TEMP 98.3; O2SAT 95
--- NOTE | 2018-01-15 12:15 | HHI.PR ---
Subjective Remarks Follow-up for coffee-ground emesis, large hiatal hernia. Patient is resting in bed. No acute concerns. No fever, chills. Objective Vitals Vital Signs Date Time Temp Pulse Resp B/P (MAP) Pulse Ox O2 Delivery O2 Flow Rate FiO2 01/15/18 08:00 98.0 70 18 189/80 (116) 94 01/15/18 00:00 98.1 66 18 158/71 (100) 95 01/14/18 20:00 98.2 67 18 148/70 (96) 94 01/14/18 16:00 98.7 66 16 142/65 (90) 95 I/O 01/14/18 01/14/18 01/14/18 01/15/18 01/15/18 01/15/18 07:00 15:00 23:00 07:00 15:00 23:00 Intake Total 290 ml 50 ml 1050 ml 1290 ml 50 ml Output Total 500 ml 200 ml 1000 ml Balance -210 ml 50 ml 850 ml 290 ml 50 ml Intake Oral 240 ml 240 ml IV Total 50 ml 50 ml 1050 ml 1050 ml 50 ml Output Urine Total 600 ml Gastric Drainage Total 500 ml 400 ml Drainage Total 200 ml # Voids 4 1 # Bowel Movements 2 1 Result Diagram: 01/14/18 1213 01/14/18 1213 Objective Remarks GENERAL: Alert, NAD. SKIN: Warm and dry. HEAD: Normocephalic. EYES: No scleral icterus. No injection or drainage. NECK: Supple, trachea midline. No JVD or lymphadenopathy. CARDIOVASCULAR: Regular rate and rhythm without murmurs, gallops, or rubs. RESPIRATORY: Breath sounds equal bilaterally. No accessory muscle use. GASTROINTESTINAL: Abdomen soft, non-tender, nondistended. G-tube in place. MUSCULOSKELETAL: No cyanosis, or edema. BACK: Nontender without obvious deformity. No CVA tenderness. Procedures Lap gastrostomy tube converted to open gastrostomy tube EGD with dilation A/P Assessment and Plan Ms. Peterson is a pleasant 82-year-old female who was admitted to the hospital due to nausea vomiting coffee-ground emesis. CT abdomen revealed a stable hiatal hernia containing the antrum and distended body of stomach as compared to 2016. Patient underwent open gastrostomy by general surgery for gastric volvulus with obstruction and bleeding. Patient developed A. fib RVR postop. Gastric volvulus with obstruction and bleeding Status post open gastrostomy by general surgery. Currently clear liquid diet. General surgery indicated possible tube feeding. Currently on Zosyn 3.375g every 6 hours. Atrial fibrillation [id number] score 4. Cardiology was consulted and recommended aspirin when okay with GI/general surgery In the future she may need anticoagulation. In future, consider apixaban 2.5 mg twice daily due to age and weight. Cardiology started the patient on carvedilol 6.25 mg twice daily. Hypertension - Continue Nifedipine 30 mg p.o. daily Full code. SCDs. Rosa Ryan DO Jan 15, 2018 12:15 pm
--- NOTE | 2018-01-15 12:34 | HHI.PR ---
cc: Sincere Salas MD Subjective Subjective Notes Resting in bed "I am lactose intolerant so there is not much I can pick from the full liquid menu." "I use eye drops at home everyday because I get dry eyes." Objective Vitals/I&O Vital Signs Date Time Temp Pulse Resp B/P (MAP) Pulse Ox O2 Delivery O2 Flow Rate FiO2 01/15/18 08:00 98.0 70 18 189/80 (116) 94 01/12/18 07:20 Nasal Cannula 2.00 98 Labs Date/Time Source Procedure Growth Status 01/08/18 17:15 Urine Random Urine Urine Culture - Final Escherichia Coli Complete Radiology Last Impressions Chest X-Ray 01/11/18 0000 Signed Impressions: Service Date/Time: January 17:08 - CONCLUSION: Left lower lobe segmental consolidation and pleural effusion. Jerel Bui MD Upper GI Series 01/09/18 0000 Signed Impressions: Service Date/Time: Tuesday, January 09, 2018 13:29 - CONCLUSION: Large hiatal hernia. Mild non-masslike narrowing of the distal esophagus. Please see above. Aren Medel MD Abdomen/Pelvis CT 01/08/18 0000 Signed Impressions: Service Date/Time: Monday, January 08, 2018 14:42 - CONCLUSION: 1. Overall, the appearance of the CT abdomen/pelvis is similar to prior examination in 2016. Large hiatus hernia containing the antrum of the stomach, distended body of the stomach, diverticulosis of the colon, and severe degenerative changes related to kypho-scoliosis are stable. 2. The only new finding from prior examinations a small right pleural effusion. Jerel Bui MD Cardiovascular: Regular Lungs: Clear Abdomen: Other (lap sites c/d/i; G tube clamped; soft; minimal tenderness to palaption ) Extremities: No edema A/P Problem List: (1) S/P gastrostomy tube (G tube) placement, follow-up exam ICD Codes: Z09 - Encounter for follow-up examination after completed treatment for conditions other than malignant neoplasm Status: Acute (2) Gastrostomy tube in place ICD Codes: Z93.1 - Gastrostomy status Status: Acute (3) Esophageal stricture ICD Codes: K22.2 - Esophageal obstruction Status: Chronic (4) Hiatus hernia with obstruction ICD Codes: K44.0 - Diaphragmatic hernia with obstruction, without gangrene Status: Chronic (5) New onset a-fib ICD Codes: I48.91 - Unspecified atrial fibrillation Status: Acute (6) S/P dilatation of esophageal stricture ICD Codes: Z98.890 - Other specified postprocedural states; Z87.19 - Personal history of other diseases of the digestive system Status: Chronic (7) Elevated WBC count ICD Codes: D72.829 - Elevated white blood cell count, unspecified Status: Acute (8) UTI (urinary tract infection) ICD Codes: N39.0 - Urinary tract infection, site not specified Status: Acute (9) E. coli UTI (urinary tract infection) ICD Codes: N39.0 - Urinary tract infection, site not specified; B96.20 - Unspecified Escherichia coli [E. coli] as the cause of diseases classified elsewhere Status: Acute Assessment and Plan 82 year old female POD4 open G tube for gastric volvulus -Continue full liquids -Start TF via G tube -OOB as tolerated -CBC pending today; will follow up -Closely monitor electrolytes -Hypertensive; Medicine following Problem Qualifiers (1) Elevated WBC count: Qualified Codes: D72.825 - Bandemia (2) UTI (urinary tract infection): Larissa Mireles/Literacy Education Professor [employer] Jan 15, 2018 12:34
[2018-01-15 13:38] LABS: BASOPHIL % 0.1 % (0.0-2.0); EOSINOPHIL # 0.2 TH/MM3 (0-0.4); EOSINOPHIL % 1.5 % (0.0-4.0); HEMATOCRIT 38.5 % (35.0-46.0); HEMOGLOBIN 12.7 GM/DL (11.6-15.3); LYMPH % 8.7 % (9.0-44.0); LYMPHOCYTE # 1.3 TH/MM3 (1.0-4.8); MEAN CELL VOLUME 88.1 FL (80.0-100.0); MEAN CORPUSCULAR HEMOGLOBIN 29.1 PG (27.0-34.0); MEAN PLATELET VOLUME 8.6 FL (7.0-11.0); MONOCYTE # 1.2 TH/MM3 (0-0.9); NEUT % 81.7 % (16.0-70.0); PLATELET COUNT 330 TH/MM3 (150-450); RED BLOOD COUNT 4.37 MIL/MM3 (4.00-5.30); RED CELL DISTRIBUTION WIDTH 14.1 % (11.6-17.2); WHITE BLOOD COUNT 14.7 TH/MM3 (4.0-11.0)
[2018-01-15 13:59] LABS: BICARBONATE 28.7 MEQ/L (21.0-32.0); CALCIUM 7.8 MG/DL (8.5-10.1); CREATININE 0.63 MG/DL (0.50-1.00)
[2018-01-15 14:20] LABS: BANDS 14 % (0-6); LYMPHOCYTES 4 % (9-44); MONOCYTES 6 % (0-8); NEUTROPHIL # MANUAL DIFF 13.2 TH/MM3 (1.8-7.7); POLYS (SEG NEUTROPHILS) 76 % (16-70); TOXIC GRANULATION 2+ (NORMAL)
--- NOTE | 2018-01-15 15:34 | PD.CARD.PN ---
Subjective Subjective Remarks No events overnight Doing well No CP/SOB/palpitations Objective Medications Current Medications Medications (Trade) Dose Ordered Sig/Nghia Route Start Time Stop Time Status Last Admin (NS Flush) 2 ml UNSCH PRN IV FLUSH 01/08/18 16:30 (NS Flush) 2 ml BID IV FLUSH 01/08/18 21:00 01/13/18 00:02 (Zofran Inj) 4 mg Q6H PRN IVP 01/08/18 17:00 01/11/18 08:24 (Narcan Inj) 0.4 mg UNSCH PRN IV PUSH 01/08/18 16:30 (Phenergan Inj) 12.5 mg Q4H PRN IM 01/08/18 18:00 01/10/18 06:55 (Apresoline Inj) 10 mg Q6H PRN IV PUSH 01/09/18 03:45 01/10/18 15:53 Piperacillin Sod/ Tazobactam Sod 50 ml @ 100 mls/hr Q6H IV 01/09/18 16:00 01/15/18 09:02 (Reglan Inj) 5 mg Q8H PRN IV PUSH 01/09/18 15:15 01/11/18 11:58 (Protonix Inj) 40 mg Q24H IV PUSH 01/11/18 22:00 01/14/18 20:16 Sodium Chloride 1,000 ml @ 100 mls/hr Q10H IV 01/12/18 09:00 01/15/18 06:11 (Coreg) 6.25 mg Q12HR PO 01/13/18 21:00 01/15/18 08:59 ([place] 5-325 Mg) 1 tab Q6HR PRN PO 01/13/18 14:15 01/15/18 02:38 (Procardia Xl) 30 mg DAILY PO 01/15/18 09:00 01/15/18 08:59 Vital Signs / I&O Vital Signs Date Time Temp Pulse Resp B/P (MAP) Pulse Ox O2 Delivery O2 Flow Rate FiO2 01/15/18 12:00 98.3 58 20 124/60 (81) 95 01/15/18 08:00 98.0 70 18 189/80 (116) 94 01/15/18 00:00 98.1 66 18 158/71 (100) 95 01/14/18 20:00 98.2 67 18 148/70 (96) 94 01/14/18 16:00 98.7 66 16 142/65 (90) 95 I/O 01/14/18 01/14/18 01/14/18 01/15/18 01/15/18 01/15/18 07:00 15:00 23:00 07:00 15:00 23:00 Intake Total 290 ml 50 ml 1050 ml 1290 ml 50 ml Output Total 500 ml 200 ml 1000 ml Balance -210 ml 50 ml 850 ml 290 ml 50 ml Intake Oral 240 ml 240 ml IV Total 50 ml 50 ml 1050 ml 1050 ml 50 ml Output Urine Total 600 ml Gastric Drainage Total 500 ml 400 ml Drainage Total 200 ml # Voids 4 1 # Bowel Movements 2 1 Physical Exam GENERAL: NAD, AAOx3 SKIN: Warm and dry. HEAD: Atraumatic. Normocephalic. EYES: Pupils equal and round. No scleral icterus. No injection or drainage. ENT: No nasal bleeding or discharge. Mucous membranes pink and moist. NECK: Trachea midline. No JVD. CARDIOVASCULAR: Regular rate and rhythm. / crescendo-decrescendo systolic murmur to the RSB RESPIRATORY: No accessory muscle use. Clear to auscultation. Breath sounds equal bilaterally. GASTROINTESTINAL: Abdomen soft, non-tender, nondistended. Hepatic and splenic margins not palpable. MUSCULOSKELETAL: Extremities without clubbing, cyanosis, or edema. No obvious deformities. NEUROLOGICAL: Awake and alert. No obvious cranial nerve deficits. Motor grossly within normal limits. Five out of 5 muscle strength in the arms and legs. Normal speech. PSYCHIATRIC: Appropriate mood and affect; insight and judgment normal. Laboratory Laboratory Tests Test 01/15/18 12:52 White Blood Count 14.7 TH/MM3 Red Blood Count 4.37 MIL/MM3 Hemoglobin 12.7 GM/DL Hematocrit 38.5 % Mean Corpuscular Volume 88.1 FL Mean Corpuscular Hemoglobin 29.1 PG Mean Corpuscular Hemoglobin Concent 33.0 % Red Cell Distribution Width 14.1 % Platelet Count 330 TH/MM3 Mean Platelet Volume 8.6 FL Neutrophils (%) (Auto) 81.7 % Lymphocytes (%) (Auto) 8.7 % Monocytes (%) (Auto) 8.0 % Eosinophils (%) (Auto) 1.5 % Basophils (%) (Auto) 0.1 % Neutrophils # (Auto) 12.0 TH/MM3 Lymphocytes # (Auto) 1.3 TH/MM3 Monocytes # (Auto) 1.2 TH/MM3 Eosinophils # (Auto) 0.2 TH/MM3 Basophils # (Auto) 0.0 TH/MM3 CBC Comment AUTO DIFF Differential Total Cells Counted 100 Neutrophils % (Manual) 76 % Band Neutrophils % 14 % Lymphocytes % 4 % Monocytes % 6 % Neutrophils # (Manual) 13.2 TH/MM3 Differential Comment FINAL DIFF MANUAL Toxic Granulation 2+ Platelet Estimate NORMAL Platelet Morphology Comment NORMAL Red Cell Morphology Comment NORMAL Blood Urea Nitrogen 7 MG/DL Creatinine 0.63 MG/DL Random Glucose 142 MG/DL Calcium Level 7.8 MG/DL Sodium Level 143 MEQ/L Potassium Level 2.9 MEQ/L Chloride Level 108 MEQ/L Carbon Dioxide Level 28.7 MEQ/L Anion Gap 6 MEQ/L Estimat Glomerular Filtration Rate 90 ML/MIN Assessment and Plan Problem List: (1) Hiatus hernia with obstruction ICD Codes: K44.0 - Diaphragmatic hernia with obstruction, without gangrene Status: Chronic (2) GI bleed ICD Codes: K92.2 - Gastrointestinal hemorrhage, unspecified Status: Acute (3) New onset a-fib ICD Codes: I48.91 - Unspecified atrial fibrillation Status: Acute (4) Esophageal stricture ICD Codes: K22.2 - Esophageal obstruction Status: Chronic Assessment and Plan 1) Hiatal hernia with obstruction s/p Gtube placement 2) Upper GI Bleed 3) New onset AFib Currently back in NSR Agree with changing Metoprolol to Coreg for BP control CHADS-VASc = 4 ASA 81mg daily when ok with GI/Surgery Not an anti-coagulation candidate at this time due to GI bleed, this can be reassessed in the future 4) HTN Agree with placing on Procardia BP labile, if stable then will hold on increasing meds If elevated then increase Procardia 5) EF 65-70% Problem Qualifiers (1) GI bleed: Andre White DO Jan 15, 2018 15:34
[2018-01-15 16:00] VITALS: BP 146/70; PULSE 67; RESP 20; TEMP 98.3; O2SAT 95
[2018-01-15] MEDS: ENOXAPARIN SODIUM 40 MG/0.4 ML SYRINGE SQ SCH (17:10)
[2018-01-15 20:00] VITALS: BP 123/63; PULSE 68; RESP 17; TEMP 98.4; O2SAT 97
[2018-01-15] MEDS: ARTIFICIAL TEARS OPTH SOLN 15 ML BTL EACH EYE SCH (21:46)
[2018-01-15] MEDS: PANTOPRAZOLE SODIUM 40 MG VIAL IV PUSH SCH (21:46)
[2018-01-15] MEDS: POTASSIUM CHLORIDE 20 MEQ PWD PACKET NG SCH (21:46)
[2018-01-15] MEDS: POTASSIUM CHLOR 20 MEQ PREMIX 100 ML IV SCH (21:47)
[2018-01-16] VITALS: BP 151/66; PULSE 69; RESP 17; TEMP 98.1; O2SAT 97
[2018-01-16] MEDS: POTASSIUM CHLOR 20 MEQ PREMIX 100 ML IV SCH (01:04)
[2018-01-16] MEDS: SODIUM CHLOR 0.45% 1000 ML INJ 1,000 ML IV SCH (03:55)
[2018-01-16] MEDS: PIPERACIL-TAZO 3.375 GM PREMIX 50 ML IV SCH ×4 (03:55→20:18)
[2018-01-16 08:00] VITALS: BP 112/57; PULSE 62; RESP 18; TEMP 96.8; O2SAT 93
[2018-01-16] MEDS: SODIUM CHLORIDE 0.9% FLUSH 10 ML FLUSH IV FLUSH SCH ×2 (09:00→20:24)
[2018-01-16] MEDS: NIFEdipine 30 MG SUSTAINED RELEASE TAB PO SCH (09:49)
[2018-01-16] MEDS: CARVEDILOL 6.25 MG TAB PO SCH ×2 (09:50→20:18)
[2018-01-16] MEDS: POTASSIUM CHLORIDE 20 MEQ PWD PACKET NG SCH ×2 (09:56→20:18)
[2018-01-16] MEDS: ARTIFICIAL TEARS OPTH SOLN 15 ML BTL EACH EYE SCH ×2 (09:57→20:24)
--- NOTE | 2018-01-16 10:03 | PD.CARD.PN ---
Subjective Subjective Remarks No events overnight Doing well No CP/SOB/palpitations Objective Medications Current Medications Medications (Trade) Dose Ordered Sig/Nghia Route Start Time Stop Time Status Last Admin (NS Flush) 2 ml UNSCH PRN IV FLUSH 01/08/18 16:30 (NS Flush) 2 ml BID IV FLUSH 01/08/18 21:00 01/15/18 21:46 (Zofran Inj) 4 mg Q6H PRN IVP 01/08/18 17:00 01/11/18 08:24 (Narcan Inj) 0.4 mg UNSCH PRN IV PUSH 01/08/18 16:30 (Phenergan Inj) 12.5 mg Q4H PRN IM 01/08/18 18:00 01/10/18 06:55 (Apresoline Inj) 10 mg Q6H PRN IV PUSH 01/09/18 03:45 01/10/18 15:53 Piperacillin Sod/ Tazobactam Sod 50 ml @ 100 mls/hr Q6H IV 01/09/18 16:00 01/16/18 03:55 (Reglan Inj) 5 mg Q8H PRN IV PUSH 01/09/18 15:15 01/11/18 11:58 (Protonix Inj) 40 mg Q24H IV PUSH 01/11/18 22:00 01/15/18 21:46 Sodium Chloride 1,000 ml @ 100 mls/hr Q10H IV 01/12/18 09:00 01/16/18 03:55 (Coreg) 6.25 mg Q12HR PO 01/13/18 21:00 01/15/18 21:45 ([place] 5-325 Mg) 1 tab Q6HR PRN PO 01/13/18 14:15 01/15/18 17:09 (Procardia Xl) 30 mg DAILY PO 01/15/18 09:00 01/15/18 08:59 (Lovenox Inj) 40 mg Q24H SQ 01/15/18 17:00 01/15/18 17:10 (Tears Naturale Opth Soln) 1 drop BID EACH EYE 01/15/18 21:00 01/15/18 21:46 (KCl Powder) 20 meq Q12HR NG 01/15/18 21:00 01/18/18 20:59 01/15/18 21:46 Vital Signs / I&O Vital Signs Date Time Temp Pulse Resp B/P (MAP) Pulse Ox O2 Delivery O2 Flow Rate FiO2 01/16/18 08:00 96.8 62 18 112/57 (75) 93 01/16/18 00:00 98.1 69 17 151/66 (94) 97 01/15/18 20:00 98.4 68 17 123/63 (83) 97 01/15/18 16:00 98.3 67 20 146/70 (95) 95 01/15/18 12:00 98.3 58 20 124/60 (81) 95 I/O 01/15/18 01/15/18 01/15/18 01/16/18 01/16/18 01/16/18 07:00 15:00 23:00 07:00 15:00 23:00 Intake Total 1290 ml 50 ml 2450 ml 280 ml Output Total 1000 ml 400 ml 800 ml 1300 ml Balance 290 ml -350 ml 1650 ml -1020 ml Intake Oral 240 ml 1400 ml 280 ml IV Total 1050 ml 50 ml 1050 ml Output Urine Total 600 ml 800 ml 1300 ml Gastric Drainage Total 400 ml Drainage Total 400 ml # Voids 1 3 # Bowel Movements 1 1 1 Physical Exam GENERAL: NAD, AAOx3 SKIN: Warm and dry. HEAD: Atraumatic. Normocephalic. EYES: Pupils equal and round. No scleral icterus. No injection or drainage. ENT: No nasal bleeding or discharge. Mucous membranes pink and moist. NECK: Trachea midline. No JVD. CARDIOVASCULAR: Regular rate and rhythm. 1/6 crescendo-decrescendo systolic murmur to the RSB RESPIRATORY: No accessory muscle use. Clear to auscultation. Breath sounds equal bilaterally. GASTROINTESTINAL: Abdomen soft, non-tender, nondistended. Hepatic and splenic margins not palpable. MUSCULOSKELETAL: Extremities without clubbing, cyanosis, or edema. No obvious deformities. NEUROLOGICAL: Awake and alert. No obvious cranial nerve deficits. Motor grossly within normal limits. Five out of 5 muscle strength in the arms and legs. Normal speech. PSYCHIATRIC: Appropriate mood and affect; insight and judgment normal. Laboratory Laboratory Tests Test 01/15/18 12:52 01/15/18 18:47 White Blood Count 14.7 TH/MM3 Red Blood Count 4.37 MIL/MM3 Hemoglobin 12.7 GM/DL Hematocrit 38.5 % Mean Corpuscular Volume 88.1 FL Mean Corpuscular Hemoglobin 29.1 PG Mean Corpuscular Hemoglobin Concent 33.0 % Red Cell Distribution Width 14.1 % Platelet Count 330 TH/MM3 Mean Platelet Volume 8.6 FL Neutrophils (%) (Auto) 81.7 % Lymphocytes (%) (Auto) 8.7 % Monocytes (%) (Auto) 8.0 % Eosinophils (%) (Auto) 1.5 % Basophils (%) (Auto) 0.1 % Neutrophils # (Auto) 12.0 TH/MM3 Lymphocytes # (Auto) 1.3 TH/MM3 Monocytes # (Auto) 1.2 TH/MM3 Eosinophils # (Auto) 0.2 TH/MM3 Basophils # (Auto) 0.0 TH/MM3 CBC Comment AUTO DIFF Differential Total Cells Counted 100 Neutrophils % (Manual) 76 % Band Neutrophils % 14 % Lymphocytes % 4 % Monocytes % 6 % Neutrophils # (Manual) 13.2 TH/MM3 Differential Comment FINAL DIFF MANUAL Toxic Granulation 2+ Platelet Estimate NORMAL Platelet Morphology Comment NORMAL Red Cell Morphology Comment NORMAL Blood Urea Nitrogen 7 MG/DL Creatinine 0.63 MG/DL Random Glucose 142 MG/DL Calcium Level 7.8 MG/DL Sodium Level 143 MEQ/L Potassium Level 2.9 MEQ/L Chloride Level 108 MEQ/L Carbon Dioxide Level 28.7 MEQ/L Anion Gap 6 MEQ/L Estimat Glomerular Filtration Rate 90 ML/MIN Stool C. difficile Toxin (PCR) NEGATIVE Stl C. difficile Toxin Epiderm 027 PRESUMPTIVE NEGATIVE Assessment and Plan Problem List: (1) Hiatus hernia with obstruction ICD Codes: K44.0 - Diaphragmatic hernia with obstruction, without gangrene Status: Chronic (2) GI bleed ICD Codes: K92.2 - Gastrointestinal hemorrhage, unspecified Status: Acute (3) New onset a-fib ICD Codes: I48.91 - Unspecified atrial fibrillation Status: Acute (4) Esophageal stricture ICD Codes: K22.2 - Esophageal obstruction Status: Chronic Assessment and Plan 1) Hiatal hernia with obstruction s/p Gtube placement 2) Upper GI Bleed 3) New onset AFib Currently back in NSR CHADS-VASc = 4 ASA 81mg daily when ok with GI/Surgery Not an anti-coagulation candidate at this time due to GI bleed, this can be reassessed in the future 4) HTN Agree with placing on Procardia BP better today 5) EF 65-70% Problem Qualifiers (1) GI bleed: Andre White DO Jan 16, 2018 10:03
--- NOTE | 2018-01-16 10:36 | HHI.PR ---
Subjective Remarks Follow-up for coffee-ground emesis, large hiatal hernia. Patient is currently doing well. She does feel somewhat weak. She also requests lactose free Ensure. Objective Vitals Vital Signs Date Time Temp Pulse Resp B/P (MAP) Pulse Ox O2 Delivery O2 Flow Rate FiO2 01/16/18 08:00 96.8 62 18 112/57 (75) 93 01/16/18 00:00 98.1 69 17 151/66 (94) 97 01/15/18 20:00 98.4 68 17 123/63 (83) 97 01/15/18 16:00 98.3 67 20 146/70 (95) 95 01/15/18 12:00 98.3 58 20 124/60 (81) 95 I/O 01/15/18 01/15/18 01/15/18 01/16/18 01/16/18 01/16/18 07:00 15:00 23:00 07:00 15:00 23:00 Intake Total 1290 ml 50 ml 2450 ml 280 ml Output Total 1000 ml 400 ml 800 ml 1300 ml Balance 290 ml -350 ml 1650 ml -1020 ml Intake Oral 240 ml 1400 ml 280 ml IV Total 1050 ml 50 ml 1050 ml Output Urine Total 600 ml 800 ml 1300 ml Gastric Drainage Total 400 ml Drainage Total 400 ml # Voids 1 3 # Bowel Movements 1 1 1 Result Diagram: 01/15/18 1252 01/15/18 1252 Imaging Last Impressions Chest X-Ray 01/11/18 0000 Signed Impressions: Service Date/Time: January 17:08 - CONCLUSION: Left lower lobe segmental consolidation and pleural effusion. Jerel Bui MD Upper GI Series 01/09/18 0000 Signed Impressions: Service Date/Time: Tuesday, January 09, 2018 13:29 - CONCLUSION: Large hiatal hernia. Mild non-masslike narrowing of the distal esophagus. Please see above. Aren Medel MD Abdomen/Pelvis CT 01/08/18 0000 Signed Impressions: Service Date/Time: Monday, January 08, 2018 14:42 - CONCLUSION: 1. Overall, the appearance of the CT abdomen/pelvis is similar to prior examination in 2016. Large hiatus hernia containing the antrum of the stomach, distended body of the stomach, diverticulosis of the colon, and severe degenerative changes related to kypho-scoliosis are stable. 2. The only new finding from prior examinations a small right pleural effusion. Jerel Bui MD Objective Remarks GENERAL: Alert, NAD. SKIN: Warm and dry. HEAD: Normocephalic. EYES: No scleral icterus. No injection or drainage. NECK: Supple, trachea midline. No JVD or lymphadenopathy. CARDIOVASCULAR: Regular rate and rhythm without murmurs, gallops, or rubs. RESPIRATORY: Breath sounds equal bilaterally. No accessory muscle use. GASTROINTESTINAL: Abdomen soft, non-tender, nondistended. G-tube in place. MUSCULOSKELETAL: No cyanosis, or edema. BACK: Nontender without obvious deformity. No CVA tenderness. Procedures Lap gastrostomy tube converted to open gastrostomy tube EGD with dilation A/P Assessment and Plan Ms. Peterson is a pleasant 82-year-old female who was admitted to the hospital due to nausea vomiting coffee-ground emesis. CT abdomen revealed a stable hiatal hernia containing the antrum and distended body of stomach as compared to 2016. Patient underwent open gastrostomy by general surgery for gastric volvulus with obstruction and bleeding. Patient developed A. fib RVR postop. Gastric volvulus with obstruction and bleeding Status post open gastrostomy by general surgery. Currently clear liquid diet. General surgery started tube feeding. Currently on Zosyn 3.375g every 6 hours. Atrial fibrillation [id number] score 4. Cardiology was consulted and recommended aspirin when okay with GI/general surgery In the future she may need anticoagulation. In future, consider apixaban 2.5 mg twice daily due to age and weight. Cardiology started the patient on carvedilol 6.25 mg twice daily. Hypertension - Continue Nifedipine 30 mg p.o. daily Hypokalemia - Potassium replaced. Will check BMP. Full code. SCDs. Rosa Ryan DO Jan 16, 2018 10:36 am
--- NOTE | 2018-01-16 10:40 | HHI.PR ---
Subjective Subjective Notes Resting in bed Requesting Ensure Clear Objective Vitals/I&O Vital Signs Date Time Temp Pulse Resp B/P (MAP) Pulse Ox O2 Delivery O2 Flow Rate FiO2 01/16/18 08:00 96.8 62 18 112/57 (75) 93 01/12/18 07:20 Nasal Cannula 2.00 98 Labs Laboratory Tests Test 01/15/18 12:52 01/15/18 18:47 White Blood Count 14.7 Red Blood Count 4.37 Hemoglobin 12.7 Hematocrit 38.5 Mean Corpuscular Volume 88.1 Mean Corpuscular Hemoglobin 29.1 Mean Corpuscular Hemoglobin Concent 33.0 Red Cell Distribution Width 14.1 Platelet Count 330 Mean Platelet Volume 8.6 Neutrophils (%) (Auto) 81.7 Lymphocytes (%) (Auto) 8.7 Monocytes (%) (Auto) 8.0 Eosinophils (%) (Auto) 1.5 Basophils (%) (Auto) 0.1 Neutrophils # (Auto) 12.0 Lymphocytes # (Auto) 1.3 Monocytes # (Auto) 1.2 Eosinophils # (Auto) 0.2 Basophils # (Auto) 0.0 CBC Comment AUTO DIFF Differential Total Cells Counted 100 Neutrophils % (Manual) 76 Band Neutrophils % 14 Lymphocytes % 4 Monocytes % 6 Neutrophils # (Manual) 13.2 Differential Comment FINAL DIFF MANUAL Toxic Granulation 2+ Platelet Estimate NORMAL Platelet Morphology Comment NORMAL Red Cell Morphology Comment NORMAL Blood Urea Nitrogen 7 Creatinine 0.63 Random Glucose 142 Calcium Level 7.8 Sodium Level 143 Potassium Level 2.9 Chloride Level 108 Carbon Dioxide Level 28.7 Anion Gap 6 Estimat Glomerular Filtration Rate 90 Stool C. difficile Toxin (PCR) NEGATIVE Stl C. difficile Toxin Epiderm 027 PRESUMPTIVE NEGATIVE Date/Time Source Procedure Growth Status 01/08/18 17:15 Urine Random Urine Urine Culture - Final Escherichia Coli Complete Radiology Last Impressions Chest X-Ray 01/11/18 0000 Signed Impressions: Service Date/Time: January 17:08 - CONCLUSION: Left lower lobe segmental consolidation and pleural effusion. Jerel Bui MD Upper GI Series 01/09/18 0000 Signed Impressions: Service Date/Time: Tuesday, January 09, 2018 13:29 - CONCLUSION: Large hiatal hernia. Mild non-masslike narrowing of the distal esophagus. Please see above. Aren Medel MD Abdomen/Pelvis CT 01/08/18 0000 Signed Impressions: Service Date/Time: Monday, January 08, 2018 14:42 - CONCLUSION: 1. Overall, the appearance of the CT abdomen/pelvis is similar to prior examination in 2016. Large hiatus hernia containing the antrum of the stomach, distended body of the stomach, diverticulosis of the colon, and severe degenerative changes related to kypho-scoliosis are stable. 2. The only new finding from prior examinations a small right pleural effusion. Jerel Bui MD Cardiovascular: Regular Lungs: Clear Abdomen: Other (lap sites c/d/i; G tube without complications ) Extremities: No edema A/P Problem List: (1) S/P gastrostomy tube (G tube) placement, follow-up exam ICD Codes: Z09 - Encounter for follow-up examination after completed treatment for conditions other than malignant neoplasm Status: Acute (2) Gastrostomy tube in place ICD Codes: Z93.1 - Gastrostomy status Status: Acute (3) Esophageal stricture ICD Codes: K22.2 - Esophageal obstruction Status: Chronic (4) Hiatus hernia with obstruction ICD Codes: K44.0 - Diaphragmatic hernia with obstruction, without gangrene Status: Chronic (5) New onset a-fib ICD Codes: I48.91 - Unspecified atrial fibrillation Status: Acute (6) S/P dilatation of esophageal stricture ICD Codes: Z98.890 - Other specified postprocedural states; Z87.19 - Personal history of other diseases of the digestive system Status: Chronic (7) Elevated WBC count ICD Codes: D72.829 - Elevated white blood cell count, unspecified Status: Acute (8) UTI (urinary tract infection) ICD Codes: N39.0 - Urinary tract infection, site not specified Status: Acute (9) E. coli UTI (urinary tract infection) ICD Codes: N39.0 - Urinary tract infection, site not specified; B96.20 - Unspecified Escherichia coli [E. 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
[2018-01-16 11:48] LABS: CALCIUM 7.6 MG/DL (8.5-10.1); CREATININE 0.55 MG/DL (0.50-1.00)
[2018-01-16 12:00] VITALS: BP 133/72; PULSE 64; RESP 17; TEMP 97.6; O2SAT 92
[2018-01-16] MEDS: ENOXAPARIN SODIUM 40 MG/0.4 ML SYRINGE SQ SCH (15:31)
[2018-01-16 16:00] VITALS: BP 122/60; PULSE 61; RESP 16; TEMP 98.1; O2SAT 94
[2018-01-16 20:00] VITALS: BP 135/61; PULSE 61; RESP 17; TEMP 97.8; O2SAT 97
[2018-01-16] MEDS: PANTOPRAZOLE SODIUM 40 MG VIAL IV PUSH SCH (20:20)
[2018-01-17] VITALS: BP 121/70; PULSE 60; RESP 17; TEMP 97.9; O2SAT 96
[2018-01-17] MEDS: PIPERACIL-TAZO 3.375 GM PREMIX 50 ML IV SCH ×2 (04:45→08:57)
[2018-01-17 08:00] VITALS: BP 161/73; PULSE 57; RESP 19; TEMP 98.1; O2SAT 94
[2018-01-17] MEDS: CARVEDILOL 6.25 MG TAB PO SCH (08:57)
[2018-01-17] MEDS: SODIUM CHLORIDE 0.9% FLUSH 10 ML FLUSH IV FLUSH SCH (08:57)
[2018-01-17] MEDS: POTASSIUM CHLORIDE 20 MEQ PWD PACKET NG SCH (08:57)
[2018-01-17] MEDS ORDERED: NIFEdipine 60 MG SUSTAINED RELEASE TAB PO SCH (09:00)
[2018-01-17] MEDS: ARTIFICIAL TEARS OPTH SOLN 15 ML BTL EACH EYE SCH (09:04)
--- NOTE | 2018-01-17 11:00 | RADRPT ---
EXAM DATE/TIME: 01/17/2018 09:43 [facility] COMPARISON: CHEST SINGLE AP, January 11, 2018, 17:08. INDICATIONS : Shortness of breath. MEDICAL HISTORY : Hiatal hernia. SURGICAL HISTORY : None. ENCOUNTER: Subsequent ACUITY: 1 week PAIN SCORE: 0/10 LOCATION: Bilateral chest FINDINGS: Redemonstration of left lower lobe airspace disease and likely trace pleural effusion. Slight increas ed opacities in the right lower lung zone in the interval. Cardiomediastinal contours are stable. Rem ainder of the exam is unchanged. CONCLUSION: 1. Persistent left lower lobe airspace disease and trace left pleural effusion. 2. Development of mild right lower lung zone airspace disease. This may reflect atelectasis. Differen tial considerations include aspiration in the appropriate clinical setting. Johnny Hernández MD on January 17, 2018 at 10:37 Board Certified Radiologist. This report was verified electronically.
--- NOTE | 2018-01-17 11:20 | HHI.PR ---
Subjective Subjective Notes "It hurts to take a deep breath. I feel like I can't catch my breath." Objective Vitals/I&O Vital Signs Date Time Temp Pulse Resp B/P (MAP) Pulse Ox O2 Delivery O2 Flow Rate FiO2 01/17/18 08:00 98.1 57 19 161/73 (102) 94 Labs Date/Time Source Procedure Growth Status 01/08/18 17:15 Urine Random Urine Urine Culture - Final Escherichia Coli Complete Radiology Last Impressions Chest X-Ray 01/11/18 0000 Signed Impressions: Service Date/Time: January 17:08 - CONCLUSION: Left lower lobe segmental consolidation and pleural effusion. Jerel Bui MD Upper GI Series 01/09/18 0000 Signed Impressions: Service Date/Time: Tuesday, January 09, 2018 13:29 - CONCLUSION: Large hiatal hernia. Mild non-masslike narrowing of the distal esophagus. Please see above. Aren Medel MD Abdomen/Pelvis CT 01/08/18 0000 Signed Impressions: Service Date/Time: Monday, January 08, 2018 14:42 - CONCLUSION: 1. Overall, the appearance of the CT abdomen/pelvis is similar to prior examination in 2016. Large hiatus hernia containing the antrum of the stomach, distended body of the stomach, diverticulosis of the colon, and severe degenerative changes related to kypho-scoliosis are stable. 2. The only new finding from prior examinations a small right pleural effusion. Jerel Bui MD Cardiovascular: Regular Lungs: Clear Abdomen: Other (lap sites c/d/i; dressing in place; TF through G tube without complications ) Extremities: No edema A/P Problem List: (1) S/P gastrostomy tube (G tube) placement, follow-up exam ICD Codes: Z09 - Encounter for follow-up examination after completed treatment for conditions other than malignant neoplasm Status: Acute (2) Gastrostomy tube in place ICD Codes: Z93.1 - Gastrostomy status Status: Acute (3) Esophageal stricture ICD Codes: K22.2 - Esophageal obstruction Status: Chronic (4) Hiatus hernia with obstruction ICD Codes: K44.0 - Diaphragmatic hernia with obstruction, without gangrene Status: Chronic (5) New onset a-fib ICD Codes: I48.91 - Unspecified atrial fibrillation Status: Acute (6) S/P dilatation of esophageal stricture ICD Codes: Z98.890 - Other specified postprocedural states; Z87.19 - Personal history of other diseases of the digestive system Status: Chronic (7) Elevated WBC count ICD Codes: D72.829 - Elevated white blood cell count, unspecified Status: Acute (8) UTI (urinary tract infection) ICD Codes: N39.0 - Urinary tract infection, site not specified Status: Acute (9) E. coli UTI (urinary tract infection) ICD Codes: N39.0 - Urinary tract infection, site not specified; B96.20 - Unspecified Escherichia coli [E. coli] as the cause of diseases classified elsewhere Status: Acute Assessment and Plan 82 year old female POD6 open G tube for gastric volvulus -TF at 35 cc/hr + pureed diet -Check CXR this morning -Labs ordered for today -OOB as tolerated -Closely monitor electrolytes -Discussed with Dr. Ryan---may need cardiac workup Problem Qualifiers (1) Elevated WBC count: Qualified Codes: D72.825 - Bandemia (2) UTI (urinary tract infection): Larissa Mireles/[employer] Jan 17, 2018 11:20
[2018-01-17] MEDS ORDERED: CARV6.25 PO (12:03)
[2018-01-17] MEDS ORDERED: NIFE60TA8 PO (12:03)
[2018-01-17] MEDS ORDERED: MOXI1TAB2 PO (12:03)
[2018-01-17] MEDS ORDERED: PROT40TA PO (12:03)
[2018-01-17] MEDS ORDERED: HYDR-3516 PO (12:03)
[2018-01-17 12:06] LABS: AUTOMATED NEUTROPHIL # 8.9 TH/MM3 (1.8-7.7); BASOPHIL % 0.3 % (0.0-2.0); EOSINOPHIL # 0.1 TH/MM3 (0-0.4); EOSINOPHIL % 1.3 % (0.0-4.0); HEMATOCRIT 36.6 % (35.0-46.0); HEMOGLOBIN 12.4 GM/DL (11.6-15.3); LYMPH % 10.7 % (9.0-44.0); LYMPHOCYTE # 1.2 TH/MM3 (1.0-4.8); MEAN CELL VOLUME 88.3 FL (80.0-100.0); MEAN CORPUSCULAR HEMOGLOBIN 29.8 PG (27.0-34.0); MEAN CORPUSCULAR HGB CONC 33.8 % (32.0-36.0); MEAN PLATELET VOLUME 8.9 FL (7.0-11.0); MONO % 10.1 % (0.0-8.0); MONOCYTE # 1.1 TH/MM3 (0-0.9); NEUT % 77.6 % (16.0-70.0); PLATELET COUNT 240 TH/MM3 (150-450); RED BLOOD COUNT 4.15 MIL/MM3 (4.00-5.30); RED CELL DISTRIBUTION WIDTH 13.9 % (11.6-17.2); WHITE BLOOD COUNT 11.4 TH/MM3 (4.0-11.0)
[2018-01-17 12:35] LABS: TOXIC GRANULATION 2+ (NORMAL)
[2018-01-17 12:40] LABS: BICARBONATE 27.4 MEQ/L (21.0-32.0); CALCIUM 7.7 MG/DL (8.5-10.1); CREATININE 0.52 MG/DL (0.50-1.00)
[2018-01-17 15:20] VITALS: O2SAT 93
[2018-01-17 16:00] VITALS: BP 144/63; PULSE 55; RESP 16; TEMP 97.5; O2SAT 97
--- NOTE | 2018-01-17 19:30 | HHI.DS ---
Discharge Summary Admission Date Jan 08, 2018 at 16:34 Discharge Date: Jan 17, 2018 Admitting Diagnosis hematemesis, abdominal pain (1) Hypertension ICD Code: I10 - Essential (primary) hypertension (2) Gastric volvulus ICD Code: K31.89 - Other diseases of stomach and duodenum Diagnosis: Principal (3) New onset a-fib ICD Code: I48.91 - Unspecified atrial fibrillation Status: Acute Procedures Lap gastrostomy tube converted to open gastrostomy tube EGD with dilation Brief History - From Admission History from patient, ER PA communication, and review of medical records. Patient reported that since yesterday evening, she has been having vomiting coffee-ground colored vomitus. She therefore decided to come to hospital. Reports of epigastric pain as well. Patient was still vomiting coffee-ground colored vomit while in the emergency room. At the time of my exam as well, patient does have a emesis basin filled with vomitus. It is somewhat greenish in color. I was told by ER PA that Hemoccult was positive on this emesis. Patient denies taking any blood thinners. Denies taking NSAIDs. Patient does report of dizziness on review of system. However she denies other symptoms such as chest pain/palpitations/shortness of breath. She denies seeing any black stool or red stool. Denies any blood in her urine. Patient denies any fever. Denies any burning urination or pain on urination. Patient lives by herself. She states that she walks by herself but does not use a walker. She states she is no longer driving though for the past 6 months because of this dizziness which started around then. She states that she also have back pain which is chronic. In the emergency room, at the time of my exam, patient wanted to urinate and bedpan was given. She was noted to have foul-smelling urine. CBC/BMP: 01/17/18 1130 01/17/18 1130 Significant Findings Laboratory Tests Test 01/15/18 12:52 01/15/18 18:47 01/16/18 10:25 01/17/18 11:30 White Blood Count 14.7 TH/MM3 (4.0-11.0) 11.4 TH/MM3 (4.0-11.0) Neutrophils (%) (Auto) 81.7 % (16.0-70.0) 77.6 % (16.0-70.0) Lymphocytes (%) (Auto) 8.7 % (9.0-44.0) Neutrophils # (Auto) 12.0 TH/MM3 (1.8-7.7) 8.9 TH/MM3 (1.8-7.7) Monocytes # (Auto) 1.2 TH/MM3 (0-0.9) 1.1 TH/MM3 (0-0.9) Neutrophils % (Manual) 76 % (16-70) Band Neutrophils % 14 % (0-6) Lymphocytes % 4 % (9-44) Neutrophils # (Manual) 13.2 TH/MM3 (1.8-7.7) Toxic Granulation 2+ (NORMAL) 2+ (NORMAL) Random Glucose 142 MG/DL (74-106) 204 MG/DL (74-106) 181 MG/DL (74-106) Calcium Level 7.8 MG/DL (8.5-10.1) 7.6 MG/DL (8.5-10.1) 7.7 MG/DL (8.5-10.1) Potassium Level 2.9 MEQ/L (3.5-5.1) Chloride Level 108 MEQ/L (98-107) Blood Urea Nitrogen 6 MG/DL (7-18) Monocytes (%) (Auto) 10.1 % (0.0-8.0) Troponin I LESS THAN 0.02 NG/ML Imaging Last Impressions Chest X-Ray 01/17/18 0000 Signed Impressions: Service Date/Time: Wednesday, January 17, 2018 09:43 - CONCLUSION: 1. Persistent left lower lobe airspace disease and trace left pleural effusion. 2. Development of mild right lower lung zone airspace disease. This may reflect atelectasis. Differential considerations include aspiration in the appropriate clinical setting. Johnny Hernández MD Upper GI Series 01/09/18 0000 Signed Impressions: Service Date/Time: Tuesday, January 09, 2018 13:29 - CONCLUSION: Large hiatal hernia. Mild non-masslike narrowing of the distal esophagus. Please see above. Aren Medel MD Abdomen/Pelvis CT 01/08/18 0000 Signed Impressions: Service Date/Time: Monday, January 08, 2018 14:42 - CONCLUSION: 1. Overall, the appearance of the CT abdomen/pelvis is similar to prior examination in 2016. Large hiatus hernia containing the antrum of the stomach, distended body of the stomach, diverticulosis of the colon, and severe degenerative changes related to kypho-scoliosis are stable. 2. The only new finding from prior examinations a small right pleural effusion. Jerel Bui MD PE at Discharge GENERAL: Alert, NAD. SKIN: Warm and dry. HEAD: Normocephalic. EYES: No scleral icterus. No injection or drainage. NECK: Supple, trachea midline. No JVD or lymphadenopathy. CARDIOVASCULAR: Regular rate and rhythm without murmurs, gallops, or rubs. RESPIRATORY: Breath sounds equal bilaterally. No accessory muscle use. GASTROINTESTINAL: Abdomen soft, non-tender, nondistended. G-tube in place. MUSCULOSKELETAL: No cyanosis, or edema. BACK: Nontender without obvious deformity. No CVA tenderness. Pt update on day of discharge Patient is doing well. No acute concerns. Patient mentioned chest discomfort to another provider - EKG, troponins were unremarkable. Hospital Course Ms. Petesron is a pleasant 82-year-old female who was admitted to the hospital due to nausea vomiting coffee-ground emesis. CT abdomen revealed a stable hiatal hernia containing the antrum and distended body of stomach as compared to 2016. Patient underwent open gastrostomy by general surgery for gastric volvulus with obstruction and bleeding. Patient developed A. fib RVR postop. Gastric volvulus with obstruction and bleeding Status post open gastrostomy by general surgery. Currently clear liquid diet. General surgery started tube feeding. Patient received Zosyn. Possible atelectasis Possible aspiration pneumonia CXR indicated possibility of atelectasis vs aspiration pneumonia No cough, fever, chills. We will complete a course Moxifloxacin for 7 days. Chest discomfort - unremarkable EKG and troponin. Atrial fibrillation [id number] score 4. Cardiology was consulted and recommended aspirin when okay with GI/general surgery In the future she may need anticoagulation. In future, consider apixaban 2.5 mg twice daily due to age and weight. Cardiology started the patient on carvedilol 6.25 mg twice daily. Hypertension - Continue Nifedipine 30 mg p.o. daily Hypokalemia - Potassium replaced. Pt Condition on Discharge: Good Discharge Disposition: Discharge to SNF Discharge Time: > 30 minutes Discharge Instructions DIET: Follow Instructions for: On Tube Feeding Additional Diet Instructions: Tube feed with tray. Activities you can perform: Regular-No Restrictions Follow up Referrals: SNF/[facility]/ New Medications: Moxifloxacin (Moxifloxacin) 400 Mg Tab 400 MG PO DAILY for Infection, #7 TAB 0 Refills Pantoprazole (Protonix) 40 Mg Tab 40 MG PO DAILY for Reflux, #30 TAB 0 Refills Carvedilol (Coreg) 6.25 Mg Tab 6.25 MG PO Q12HR for Heart, #60 TAB Hold if systolic BP < 110 or Heart rate < 65 Hydrocodone/Acetaminophen (Hydrocodone-Acetamin 5-325 mg) 5 Mg-325 Mg Tablet 1 TAB PO Q6HR PRN for PAIN SCALE 5 TO 10, #12 TAB Nifedipine ER 24 HR (Nifedipine ER 24 HR) 60 Mg Tab 60 MG PO DAILY for Blood Pressure Management, #30 TAB Rosa Ryan DO Jan 17, 2018 19:30
--- NOTE | 2018-01-17 20:41 | EKG ---
Date Performed: 01/17/2018 Time Performed: 10:50:19 PTAGE: 82 years EKG: SINUS BRADYCARDIA BORDERLINE LEFT AXIS DEVIATION LEFT VENTRICULAR HYPERTROPHY AND ST-T [place] GE ABNORMAL ECG PREVIOUS TRACING : 01/11/2018 17.31 Compared to previous tracing, Afib with RVR is no longer p resent DOCTOR: Rahul Foss Interpretating Date/Time 01/17/2018 20:40:49
== END 2018-01-17 18:21 | DRG 327 ==
LOC: NEPC 11:17 → NEDA 16:34 → HCPC 20:53 → N05A 01-11 12:22 → N03B 01-11 16:59 → N07B 01-12 18:49
PROVIDERS: ADMIT Internal Medicine; ATTEND Internal Medicine
PROC: 0DJ08ZZ Inspection of Upper Intestinal Tract, Via Natural or Artificial Opening Endoscopic (ICD-10-PCS; 2018-01-09)
PROC: 0D758ZZ Dilation of Esophagus, Via Natural or Artificial Opening Endoscopic (ICD-10-PCS; 2018-01-11)
PROC: 0DH60UZ Insertion of Feeding Device into Stomach, Open Approach (ICD-10-PCS; principal; 2018-01-11 13:58)
PROC: 0WJP4ZZ Inspection of Gastrointestinal Tract, Percutaneous Endoscopic Approach (ICD-10-PCS; 2018-01-11 13:58)
DX: K44.0 Diaphragmatic hernia with obstruction, without gangrene (principal); K92.0 Hematemesis; I48.0 Paroxysmal atrial fibrillation; I95.89 Other hypotension; R00.1 Bradycardia, unspecified; E86.0 Dehydration; N39.0 Urinary tract infection, site not specified; K20.9 Esophagitis, unspecified; I10 Essential (primary) hypertension; K22.2 Esophageal obstruction; E87.6 Hypokalemia; K31.89 Other diseases of stomach and duodenum; K29.70 Gastritis, unspecified, without bleeding; B96.20 Unspecified Escherichia coli [E. coli] as the cause of diseases classified elsewhere; G89.29 Other chronic pain; R91.8 Other nonspecific abnormal finding of lung field; R07.89 Other chest pain
CPT/HCPCS: 71045; 74177; 74240; 76000; 76937; 80048; 80053; 81001; 83690; 83735; 83880; 84443; 84484; 85007; 85025; 85027; 85610; 85730; 86850; 86900; 86901; 86920; 87077; 87086; 87186; 87493; 93005; 93306; 94150; 96361; 96374; 96375; C1769; C9113; J0171; J0330; J0360; J0690; J1100; J1160; J1650; J2270; J2354; J2370; J2405; J2543; J2550; J2765; J3010; J3480; J7030; J7120; Q9963; Q9967

== ENCOUNTER 2018-01-20 14:12 | Inpatient (IN) | payer MEDICARE, BC ==
[~2018-01-20] VITALS: Ht 152.4 cm; Wt 55.5 kg
[~2018-01-20 14:12] MED LIST changes: -BACT800T5 PO; +CARV6.25 PO; +HYDR-3516 PO; +MOXI1TAB2 PO; +NIFE60TA8 PO; -TYLETAB34 PO; -ZOFR4TAB3 SL
[2018-01-20 14:20] VITALS: BP 123/88; PULSE 60; RESP 35; TEMP 97.9; O2SAT 93
[2018-01-20] MEDS ORDERED: RESP: ALBUTEROL 2.5 MG/IPRATROPIUM 0.5 MG NEB (SCH) INH ONE (14:45)
[2018-01-20] MEDS ORDERED: SODIUM CHLORIDE 0.9% FLUSH 10 ML FLUSH IVF PRN (14:45)
[2018-01-20 15:27] LABS: BASOPHIL # 0.1 TH/MM3 (0-0.2); BASOPHIL % 0.4 % (0.0-2.0); EOSINOPHIL # 0.2 TH/MM3 (0-0.4); EOSINOPHIL % 1.6 % (0.0-4.0); HEMATOCRIT 34.6 % (35.0-46.0); HEMOGLOBIN 11.5 GM/DL (11.6-15.3); LYMPH % 7.3 % (9.0-44.0); MEAN CELL VOLUME 87.9 FL (80.0-100.0); MEAN CORPUSCULAR HEMOGLOBIN 29.2 PG (27.0-34.0); MEAN CORPUSCULAR HGB CONC 33.2 % (32.0-36.0); MEAN PLATELET VOLUME 8.8 FL (7.0-11.0); MONO % 6.4 % (0.0-8.0); MONOCYTE # 0.9 TH/MM3 (0-0.9); NEUT % 84.3 % (16.0-70.0); PLATELET COUNT 391 TH/MM3 (150-450); RED BLOOD COUNT 3.93 MIL/MM3 (4.00-5.30); RED CELL DISTRIBUTION WIDTH 13.9 % (11.6-17.2); WHITE BLOOD COUNT 14.2 TH/MM3 (4.0-11.0)
[2018-01-20] MEDS ORDERED: FLOR250C PO (15:29)
[2018-01-20 15:35] LABS: BILIRUBIN, URINE NEG (NEG); BLOOD, URINE NEG (NEG); GLUCOSE,URINE NEG (NEG); KETONE, URINE NEG (NEG); MUCUS URINE FEW /lpf (OCC); NITRITE,URINE NEG (NEG); PH, URINE 6.5 (5.0-8.5); SQUAMOUS EPITHELIAL CELL URINE 12 /hpf (0-5); URINE COLOR YELLOW (YELLW/STRAW); URINE LEUKOCYTE ESTERASE NEG (NEG)
--- NOTE | 2018-01-20 15:42 | RADRPT ---
EXAM DATE/TIME: 01/20/2018 15:28 [facility] COMPARISON: CHEST SINGLE AP, January 17, 2018, 9:43. INDICATIONS : Shortness of breath. MEDICAL HISTORY : Hiatal hernia. SURGICAL HISTORY : None. ENCOUNTER: Initial ACUITY: 1 day PAIN SCORE: Non-responsive. LOCATION: Bilateral chest FINDINGS: There is persistent basilar parenchymal opacity and pleural effusion bilaterally. Cardiac contour is grossly unchanged. CONCLUSION: No significant change Aren Valdez MD on January 20, 2018 at 15:39 Board Certified Radiologist. This report was verified electronically.
[2018-01-20 15:47] LABS: PROTHROMBIN TIME - PATIENT 9.7 SEC (9.8-11.6)
[2018-01-20 15:53] LABS: ALBUMIN 1.9 GM/DL (3.4-5.0); ALKALINE PHOSPHATASE 68 U/L (45-117); ALT (GPT) 29 U/L (10-53); AST (GOT) 28 U/L (15-37); BICARBONATE 31.9 MEQ/L (21.0-32.0); BLOOD UREA NITROGEN 18 MG/DL (7-18); CALCIUM 7.9 MG/DL (8.5-10.1); CHLORIDE 103 MEQ/L (98-107); CREATININE 0.56 MG/DL (0.50-1.00); GLOMERULAR FILTRATION RATE 103 ML/MIN (>89); GLUCOSE,RANDOM 149 MG/DL (74-106); SODIUM (NA) 140 MEQ/L (136-145); TOTAL BILIRUBIN ADULT 0.3 MG/DL (0.2-1.0); TROPONIN I LESS THAN 0.02 NG/ML (0.02-0.05)
[2018-01-20] MEDS ORDERED: IOHEXOL 350 MG/ML 10 ML VIAL (for RAD DIAG) IVCONTRAST ONE (16:00)
[2018-01-20 16:40] VITALS: BP 133/58; PULSE 58; RESP 30; O2SAT 95
--- NOTE | 2018-01-20 16:55 | RADRPT ---
EXAM DATE/TIME: 01/20/2018 16:25 [facility] COMPARISON: CHEST SINGLE AP, January 20, 2018, 15:28. INDICATIONS : Shortness of breath. IV CONTRAST: 71 cc Omnipaque 350 (iohexol) IV ; Cumulative dose for multiple exams. RADIATION DOSE: 20.63 CTDIvol (mGy) ; Patient positioning MEDICAL HISTORY : Stroke. Hernia, hiatal. Gastroesophageal reflux disease. SURGICAL HISTORY : Hysterectomy. Appendectomy.PEG placement ENCOUNTER: Initial ACUITY: 1 day PAIN SCALE: 0/10 LOCATION: Bilateral chest TECHNIQUE: Volumetric scanning of the chest was performed using a pulmonary embolism protocol MIP images were re constructed. Using automated exposure control and adjustment of the mA and/or kV according to patien t size, radiation dose was kept as low as reasonably achievable to obtain optimal diagnostic quality images. DICOM format image data is available electronically for review and comparison. Follow-up recommendations for detected pulmonary nodules are based at a minimum on nodule size and pa tient risk factors according to Fleischner Society Guidelines. FINDINGS: PULMONARY ARTERIES: No filling defects are seen in the pulmonary arteries through the segmental level. LUNGS: Mild groundglass infiltrate in the right middle lobe and moderate atelectasis in the dependent merchant banker ior lung bases associated with sizable effusions PLEURAE: Moderate bilateral effusion MEDIASTINUM: There is good visualization of the great vessels of the middle mediastinum. No evidence of mediastin al or hilar adenopathy/mass. MUSCULOSKELETAL: Severe kyphoscoliosis CONCLUSION: No evidence of pulmonary embolism Aren Valdez MD on January 20, 2018 at 16:50 Board Certified Radiologist. This report was verified electronically.
--- NOTE | 2018-01-20 16:59 | RADRPT ---
EXAM DATE/TIME: 01/20/2018 16:25 [facility] COMPARISON: CT ABDOMEN & PELVIS W CONTRAST, January 08, 2018, 14:42. CT PULMONARY ANGIOGRAM, January 20, 2018, 16:25 . INDICATIONS : Diffuse abdomen pain today. IV CONTRAST: 71 cc Omnipaque 350 (iohexol) IV ; Cumulative dose for multiple exams. ORAL CONTRAST: No oral contrast ingested. RADIATION DOSE: 20.64 CTDIvol (mGy) ; Patient positioning MEDICAL HISTORY : Stroke. Hernia, hiatal. Gastroesophageal reflux disease. SURGICAL HISTORY : Appendectomy. Hysterectomy.PEG placement ENCOUNTER: Initial ACUITY: 1 day PAIN SCALE: 7/10 LOCATION: Bilateral abdomen TECHNIQUE: Volumetric scanning of the abdomen and pelvis was performed. Using automated exposure control and ad justment of the mA and/or kV according to patient size, radiation dose was kept as low as reasonably achievable to obtain optimal diagnostic quality images. DICOM format image data is available electro nically for review and comparison. FINDINGS: LIVER: Tiny liver cysts. No evidence of suspicious mass or biliary ductal dilatation. SPLEEN: Normal size without lesion. PANCREAS: Within normal limits. KIDNEYS: Nonobstructing calculus in the upper pole of the left kidney. ADRENAL GLANDS: Within normal limits. VASCULAR: There is no aortic aneurysm. BOWEL/MESENTERY: The esophagus is fluid filled. A gastrostomy tube is present. There is no abnormal dilatation of hadley l. Colonic diverticulosis. Small blind free peritoneal fluid. ABDOMINAL WALL: Small subcutaneous tissue fluid density in the midline upper abdomen may be an injection site. Correl ation recommended RETROPERITONEUM: There is no lymphadenopathy. BLADDER: No wall thickening or mass. REPRODUCTIVE: Uterus surgically absent. INGUINAL: There is no lymphadenopathy or hernia. MUSCULOSKELETAL: Degenerative changes and severe scoliosis. CONCLUSION: No acute CT findings in the abdomen or pelvis Aren Valdez MD on January 20, 2018 at 16:53 Board Certified Radiologist. This report was verified electronically.
--- NOTE | 2018-01-20 17:28 | PD ---
HPI Chief Complaint: [employer] Problem Time Seen by Provider: 14:36 Travel History International Travel<30 days: No Contact w/Intl Traveler<30days: No Traveled to known affect area: No History of Present Illness HPI Patient is an 82-year-old female [facility] due to shortness of breath and possible issues with her PEG tube. She was recently discharged after having a bowel obstruction. She says she feels very tight around her chest and that is making it difficult for her to breathe. She is also noticed swelling her hands and feet. She denies any chest pain. She is not really having any abdominal pain either. She has not had any nausea or vomiting. Severity is mild to moderate. PFSH Past Medical History Asthma: No Atrial Fibrillation: Yes Autoimmune Disease: No Heart Rhythm Problems: No Cancer: No Cardiovascular Problems: No High Cholesterol: No Chemotherapy: No Chest Pain: No Congestive Heart Failure: No COPD: No Cerebrovascular Accident: Yes (COPD) Diabetes: No Diminished Hearing: No Endocrine: No Gastrointestinal Disorders: Yes (diverticulitis, GI bleed) GERD: Yes Genitourinary: No Hiatal Hernia: Yes Hypertension: Yes Immune Disorder: No Kidney Stones: No Musculoskeletal: Yes (back pain) Neurologic: No Psychiatric: No Reproductive: No Respiratory: No Migraines: No Radiation Therapy: No Renal Failure: No Seizures: No Sickle Cell Disease: No Sleep Apnea: No Thyroid Disease: No Ulcer: No Tetanus Vaccination: < 5 Years Influenza Vaccination: No ?: Not Menopausal: Yes Past Surgical History Abdominal Surgery: Yes (hiatal hernia repair with PEG placement) AICD: No Appendectomy: Yes Arteriovenous Shunt: No Body Medical Devices: a few crowns Cardiac Surgery: No Ear Surgery: No Endocrine Surgery: No Eye Surgery: No Genitourinary Surgery: No Gynecologic Surgery: Yes Hysterectomy: Yes Insulin Pump: No Joint Replacement: No Oral Surgery: No Pacemaker: No Thoracic Surgery: No Other Surgery: Yes (hysterectomy) Social History Alcohol Use: No (occasional) Tobacco Use: No (never) Substance Use: No Allergies-Medications (Allergen,Severity, Reaction): Coded Allergies: erythromycin base (Verified Allergy, Unknown, 01/20/18) stomach bleeding meperidine (Unverified Adverse Reaction, Unknown, 01/20/18) she gets all squirrely Reported Meds & Prescriptions Reported Meds & Active Scripts Active Moxifloxacin (Moxifloxacin HCl) 400 Mg Tab 400 Mg PO DAILY Protonix (Pantoprazole Sodium) 40 Mg Tab 40 Mg PO DAILY Hydrocodone-Acetamin 5-325 mg (Hydrocodone/Acetaminophen) 5 Mg-325 Mg Tablet 1 Tab PO Q6HR PRN Nifedipine ER 24 HR (Nifedipine) 60 Mg Tab 60 Mg PO DAILY Coreg (Carvedilol) 6.25 Mg Tab 6.25 Mg PO Q12HR Hold if systolic BP < 110 or Heart rate < 65 Reported Florastor (Saccharomyces Boulardii) 250 Mg Cap 250 Mg PO BID Review of Systems Except as stated in HPI: all other systems reviewed are Neg General / Constitutional: No: Fever, Chills HENT: No: Headaches, Lightheadedness Cardiovascular: No: Chest Pain or Discomfort Respiratory: Positive: Shortness of Breath Musculoskeletal: Positive: Edema Skin: No Rash, No Change in Pigmentation Neurologic: No: Weakness, Dizziness Physical Exam Narrative GENERAL: Awake and alert, in mild respiratory distress. SKIN: Focused skin assessment warm/dry. HEAD: Atraumatic. Normocephalic. EYES: Pupils equal and round. No scleral icterus. ENT: Mucous membranes pink and moist. NECK: Trachea midline. No JVD. CARDIOVASCULAR: Regular rate and rhythm. No murmur appreciated. RESPIRATORY: No accessory muscle use. Occasional wheezing. Decreased breath sounds at the bases. Breath sounds equal bilaterally. GASTROINTESTINAL: Abdomen soft, non-tender, nondistended. MUSCULOSKELETAL: No obvious deformities. No clubbing. No cyanosis. Edema of the lower extremities as well as the upper extremities. NEUROLOGICAL: Awake and alert. No obvious cranial nerve deficits. Motor grossly within normal limits. Normal speech. PSYCHIATRIC: Appropriate mood and affect; insight and judgment normal. Data Data Last Documented VS Vital Signs Date Time Temp Pulse Resp B/P (MAP) Pulse Ox O2 Delivery O2 Flow Rate FiO2 01/20/18 16:40 58 30 133/58 (83) 95 Nasal Cannula 2.00 01/20/18 14:20 97.9 Orders Orders Complete Blood Count With Diff (01/20/18 14:36) Comprehensive Metabolic Panel (01/20/18 14:36) Act Partial Throm Time (Ptt) (01/20/18 14:36) Prothrombin Time / Inr (Pt) (01/20/18 14:36) Ckmb (Isoenzyme) Profile (01/20/18 14:36) Troponin I (01/20/18 14:36) Urinalysis - C+S If Indicated (01/20/18 14:36) Iv Access Insert/Monitor (01/20/18 14:36) Electrocardiogram (01/20/18 14:36) Ecg Monitoring (01/20/18 14:36) Oximetry (01/20/18 14:36) Oxygen Administration (01/20/18 14:36) Chest, Single Ap (01/20/18 14:36) Ct Pulmonary Angiogram (01/20/18 14:36) Sodium Chloride 0.9% Flush (Ns Flush) (01/20/18 14:45) Albuterol-Ipratropium Neb (Duoneb Neb) (01/20/18 14:45) Ct Abd/Pel W Iv Contrast(Rout) (01/20/18 ) Iohexol 350 Inj (Omnipaque 350 Inj) (01/20/18 16:00) Furosemide Inj (Lasix Inj) (01/20/18 17:30) Admit Order (Ed Use Only) (01/20/18 ) Labs Laboratory Tests Test 01/20/18 14:47 White Blood Count 14.2 TH/MM3 Red Blood Count 3.93 MIL/MM3 Hemoglobin 11.5 GM/DL Hematocrit 34.6 % Mean Corpuscular Volume 87.9 FL Mean Corpuscular Hemoglobin 29.2 PG Mean Corpuscular Hemoglobin Concent 33.2 % Red Cell Distribution Width 13.9 % Platelet Count 391 TH/MM3 Mean Platelet Volume 8.8 FL Neutrophils (%) (Auto) 84.3 % Lymphocytes (%) (Auto) 7.3 % Monocytes (%) (Auto) 6.4 % Eosinophils (%) (Auto) 1.6 % Basophils (%) (Auto) 0.4 % Neutrophils # (Auto) 12.0 TH/MM3 Lymphocytes # (Auto) 1.0 TH/MM3 Monocytes # (Auto) 0.9 TH/MM3 Eosinophils # (Auto) 0.2 TH/MM3 Basophils # (Auto) 0.1 TH/MM3 CBC Comment DIFF FINAL Differential Comment Prothrombin Time 9.7 SEC Prothromb Time International Ratio 1.0 RATIO Activated Partial Thromboplast Time 21.1 SEC Urine Color YELLOW Urine Turbidity HAZY Urine pH 6.5 Urine Specific [place] 1.014 Urine Protein TRACE mg/dL Urine Glucose (UA) NEG mg/dL Urine Ketones NEG mg/dL Urine Occult Blood NEG Urine Nitrite NEG Urine Bilirubin NEG Urine Urobilinogen LESS THAN 2.0 MG/DL Urine Leukocyte Esterase NEG Urine RBC 3 /hpf Urine WBC 3 /hpf Urine Squamous Epithelial Cells 12 /hpf Urine Mucus FEW /lpf Microscopic Urinalysis Comment CATH-CULT NOT IND Blood Urea Nitrogen 18 MG/DL Creatinine 0.56 MG/DL Random Glucose 149 MG/DL Total Protein 6.0 GM/DL Albumin 1.9 GM/DL Calcium Level 7.9 MG/DL Alkaline Phosphatase 68 U/L Aspartate Amino Transf (AST/SGOT) 28 U/L Alanine Aminotransferase (ALT/SGPT) 29 U/L Total Bilirubin 0.3 MG/DL Sodium Level 140 MEQ/L Potassium Level 4.7 MEQ/L Chloride Level 103 MEQ/L Carbon Dioxide Level 31.9 MEQ/L Anion Gap 5 MEQ/L Estimat Glomerular Filtration Rate 103 ML/MIN Total Creatine Kinase 56 U/L Troponin I LESS THAN 0.02 NG/ML MDM Medical Decision Making Medical Screen Exam Complete: Yes Emergency Medical Condition: Yes Medical Record Reviewed: Yes Interpretation(s) ECG shows normal sinus rhythm at a rate of 62, no ST elevation or depression. Differential Diagnosis CHF versus pneumonia versus PE Narrative Course Patient is an 82-year-old female who comes in due to shortness of breath. Exam shows tachypnea, decreased breath sounds, occasional wheezing. IV established, labs sent. Labs show an elevated white blood cell count 14, it was similar a few days ago, also albumin is low at 1.9. CTA of the chest performed shows bilateral pleural effusions. Last 24 hours Impressions Chest X-Ray 01/20/18 1436 Signed Impressions: Service Date/Time: Saturday, January 20, 2018 15:28 - CONCLUSION: No significant change Aren Valdez MD CT Angiography 01/20/18 1436 Signed Impressions: Service Date/Time: Saturday, January 20, 2018 16:25 - CONCLUSION: No evidence of pulmonary embolism Aren Valdez MD Abdomen/Pelvis CT 01/20/18 0000 Signed Impressions: Service Date/Time: Saturday, January 20, 2018 16:25 - CONCLUSION: No acute CT findings in the abdomen or pelvis Aren Valdez MD Patient given a dose of Lasix. She was given 1 DuoNeb. She is on 4 L nasal cannula with an oxygen saturation of 95%. She does report some improvement of her symptoms. She will be admitted for further management. Diagnosis Primary Impression: Pleural effusion Additional Impression: Hypoxia Admitting Information Admitting Physician Requests: Admit Sheela Ibarra MD Jan 20, 2018 17:28
[2018-01-20] MEDS ORDERED: FUROSEMIDE 40 MG/4 ML VIAL IV PUSH ONE (17:30)
[2018-01-20] MEDS ORDERED: ONDANSETRON HCL 4 MG/2 ML VIAL IVP PRN (18:15)
[2018-01-20] MEDS ORDERED: NALOXONE HCL 0.4 MG/ML AMP IV PUSH PRN (18:15)
[2018-01-20] MEDS ORDERED: BISACODYL 10 MG SUPP RECTAL PRN (18:15)
[2018-01-20] MEDS ORDERED: SODIUM CHLORIDE 0.9% FLUSH 10 ML FLUSH IV FLUSH PRN (18:15)
[2018-01-20] MEDS ORDERED: SENNOSIDES 8.6 MG TAB PO PRN (18:15)
[2018-01-20] MEDS ORDERED: MAGNESIUM HYDROXIDE SUSP 30 ML CUP PO PRN (18:15)
[2018-01-20] MEDS ORDERED: LACTULOSE SYRUP 20 GM/30 ML CUP PO PRN (18:15)
--- NOTE | 2018-01-20 19:06 | RADRPT ---
EXAM DATE/TIME: 01/20/2018 18:32 [facility] COMPARISON: CT PULMONARY ANGIOGRAM, January 20, 2018, 16:25. INDICATIONS : Shortness of breath. MEDICAL HISTORY : Hiatal hernia. SURGICAL HISTORY : None. ENCOUNTER: Subsequent ACUITY: 1 day PAIN SCORE: 0/10 LOCATION: chest FINDINGS: Small moderate pleural effusions with basilar consolidation again noted and not significantly changed . No pneumothorax. Heart size stable, upper limits of normal. CONCLUSION: Persistent bilateral effusions and basilar consolidation. Aren Medel MD on January 20, 2018 at 19:03 Board Certified Radiologist. This report was verified electronically.
[2018-01-20 19:09] VITALS: BP 133/64; PULSE 62; RESP 26; O2SAT 98
[2018-01-20 20:01] VITALS: BP 126/60; PULSE 60; RESP 22; O2SAT 97
--- NOTE | 2018-01-20 20:07 | HHI.HP ---
[facility] No Primary Care Physician Admission Diagnosis bilateral pleural effusions, hypoxia Diagnoses: (1) Pleural effusion Diagnosis: Principal (2) Hypoxia Diagnosis: Principal (3) A-fib Diagnosis: Principal Travel History International Travel<30 Days: No Contact w/Intl Traveler <30 Da: No Traveled to Known Affected Are: No History of Present Illness This is an 82-year-old female with a PMH of HTN, A. 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 Denies any abdominal pain, nausea or vomiting. Does note SOB in addition to swelling to bilateral hands starting earlier today. Denies fever, chills, cough or chest pain. On arrival , BP 133/58, HR 58, O2 sat 95% on 2L NC, Afebrile. WBC 14.2. Chemistry essentially unremarkable. Troponin negative. INR 1.0. UA negative. CT Abdomen/Pelvis with no acute findings. CTA Pulm negative for PE, CXR w/ bilateral effusions and basilar consolidation. S/p Lasix 40mg IV in ER and DuoNeb Review of Systems Except as stated in HPI: all other systems reviewed are Neg ROS: 14 point review of systems otherwise negative. Past Family Social History Past Medical History PMH: HTN, A. fib, COPD and s/p Open Gastrostomy Tube Placement for Volvulus 01/11 Past Surgical History PAST SURGICAL HISTORY: Hiatal Hernia Repair, PEG Tube, Appendectomy, Hysterectomy Allergies: Coded Allergies: erythromycin base (Verified Allergy, Unknown, 01/20/18) stomach bleeding meperidine (Unverified Adverse Reaction, Unknown, 01/20/18) she gets all squirrely Family History PAST FAMILY HISTORY: Reviewed. No h/o DM or CAD Social History PAST SOCIAL HISTORY: Occasional alcohol. Negative for tobacco or drugs. Physical Exam Vital Signs Vital Signs Date Time Temp Pulse Resp B/P (MAP) Pulse Ox O2 Delivery O2 Flow Rate FiO2 01/20/18 20:01 60 22 126/60 (82) 97 Nasal Cannula 2.00 01/20/18 19:09 62 26 133/64 (87) 98 Nasal Cannula 2.00 01/20/18 16:40 58 30 133/58 (83) 95 Nasal Cannula 2.00 01/20/18 14:20 97.9 60 35 123/88 (100) 93 Physical Exam PE: GENERAL: Very pleasant elderly white female in no acute distress. HEENT: PERRLA, EOMI. No scleral icterus or conjunctival pallor. No lid lag or facial droop. CARDIOVASCULAR: Regular rate and rhythm. No obvious murmurs to auscultation. No chest tenderness to palpation. RESPIRATORY: No obvious rhonchi or wheezing. Clear to auscultation. Breath sounds equal bilaterally. GASTROINTESTINAL: Abdomen soft, non-tender, nondistended. BS normal. MUSCULOSKELETAL: Extremities without clubbing, cyanosis, or edema. No obvious deformities. NEUROLOGICAL: Awake, alert and oriented x4. No focal neurologic deficits. Moving both upper and lower extremities spontaneously. Laboratory Laboratory Tests Test 01/20/18 14:47 White Blood Count 14.2 Red Blood Count 3.93 Hemoglobin 11.5 Hematocrit 34.6 Mean Corpuscular Volume 87.9 Mean Corpuscular Hemoglobin 29.2 Mean Corpuscular Hemoglobin Concent 33.2 Red Cell Distribution Width 13.9 Platelet Count 391 Mean Platelet Volume 8.8 Neutrophils (%) (Auto) 84.3 Lymphocytes (%) (Auto) 7.3 Monocytes (%) (Auto) 6.4 Eosinophils (%) (Auto) 1.6 Basophils (%) (Auto) 0.4 Neutrophils # (Auto) 12.0 Lymphocytes # (Auto) 1.0 Monocytes # (Auto) 0.9 Eosinophils # (Auto) 0.2 Basophils # (Auto) 0.1 CBC Comment DIFF FINAL Differential Comment Prothrombin Time 9.7 Prothromb Time International Ratio 1.0 Activated Partial Thromboplast Time 21.1 Urine Color YELLOW Urine Turbidity HAZY Urine pH 6.5 Urine Specific [place] 1.014 Urine Protein TRACE Urine Glucose (UA) NEG Urine Ketones NEG Urine Occult Blood NEG Urine Nitrite NEG Urine Bilirubin NEG Urine Urobilinogen LESS THAN 2.0 Urine Leukocyte Esterase NEG Urine RBC 3 Urine WBC 3 Urine Squamous Epithelial Cells 12 Urine Mucus FEW Microscopic Urinalysis Comment CATH-CULT NOT IND Blood Urea Nitrogen 18 Creatinine 0.56 Random Glucose 149 Total Protein 6.0 Albumin 1.9 Calcium Level 7.9 Alkaline Phosphatase 68 Aspartate Amino Transf (AST/SGOT) 28 Alanine Aminotransferase (ALT/SGPT) 29 Total Bilirubin 0.3 Sodium Level 140 Potassium Level 4.7 Chloride Level 103 Carbon Dioxide Level 31.9 Anion Gap 5 Estimat Glomerular Filtration Rate 103 Total Creatine Kinase 56 Troponin I LESS THAN 0.02 Result Diagram: 01/20/18 1447 01/20/18 1447 Caprini VTE Risk Assessment Caprini VTE Risk Assessment: No/Low Risk (score <= 1) Caprini Risk Assessment Model Point Value = 1 Point Value = 2 Point Value = 3 Point Value = 5 Age 41-60 Minor surgery BMI > 25 kg/m2 Swollen legs Varicose veins or History of unexplained or recurrent spontaneous Oral contraceptives or hormone replacement Sepsis (< 1 month) Serious lung disease, including pneumonia (< 1 month) Abnormal pulmonary function Acute myocardial infarction Congestive heart failure (< 1 month) History of inflammatory bowel disease Medical patient at bed rest Age 61-74 Arthroscopic surgery Major open surgery (> 45 min) Laparoscopic surgery (> 45 min) Malignancy Confined to bed (> 72 hours) Immobilizing plaster cast Central venous access Age >= 75 History of VTE Family history of VTE Factor V Leiden Prothrombin [id number] Lupus anticoagulant Anticardiolipin antibodies Elevated serum homocysteine Heparin-induced thrombocytopenia Other congenital or acquired thrombophilia Stroke (< 1 month) Elective arthroplasty Hip, pelvis, or leg fracture Acute spinal cord injury (< 1 month) Prophylaxis Regimen Total Risk Factor Score Risk Level Prophylaxis Regimen 0-1 Low Early ambulation 2 Moderate Order ONE of the following: *Sequential Compression Device (SCD) *Heparin 5000 units SQ BID 3-4 Higher Order ONE of the following medications: *Heparin 5000 units SQ TID *Enoxaparin/Lovenox 40 mg SQ daily (WT < 150 kg, CrCl > 30 mL/min) *Enoxaparin/Lovenox 30 mg SQ daily (WT < 150 kg, CrCl > 10-29 mL/min) *Enoxaparin/Lovenox 30 mg SQ BID (WT < 150 kg, CrCl > 30 mL/min) AND/OR *Sequential Compression Device (SCD) 5 or more Highest Order ONE of the following medications: *Heparin 5000 units SQ TID (Preferred with Epidurals) *Enoxaparin/Lovenox 40 mg SQ daily (WT < 150 kg, CrCl > 30 mL/min) *Enoxaparin/Lovenox 30 mg SQ daily (WT < 150 kg, CrCl > 10-29 mL/min) *Enoxaparin/Lovenox 30 mg SQ BID (WT < 150 kg, CrCl > 30 mL/min) AND *Sequential Compression Device (SCD) Assessment and Plan Problem List: (1) Pleural effusion ICD Code: J90 - Pleural effusion, not elsewhere classified Status: Acute (2) Hypoxia ICD Code: R09.02 - Hypoxemia Status: Acute (3) A-fib ICD Code: I48.91 - Unspecified atrial fibrillation Assessment and Plan A/P: 1. Pleural Effusion: CXR w/ bilateral pleural effusions and basilar consolidation, images reviewed by me. CTA Pulm negative for PE. Echo 01/13/18 w / EF 65-70%. Thoracentesis scheduled for am. SOB improved. Continue DuoNeb prn 2. Hypoxia: Transient, O2 sat 90's, currently 98% on 2L NC, monitor O2, no PE on CTA Pulm 3. A-fib: New Onset of A-fib on recent admit 01/2018, will continue home Coreg , on ASA only, no further anticoagulation. 4. DVT Prophylaxis: SCD/Teds 5. Social work for d/c planning as needed. 6. Case discussed w/ ER physician at length, labs/records/imaging reviewed by me. Lora Low MD Jan 20, 2018 20:07
[2018-01-20 20:22] VITALS: BP 123/56; PULSE 63; RESP 17; TEMP 97.6; O2SAT 99
[2018-01-20 21:00] VITALS: PULSE 63
[2018-01-20] MEDS: DOCUSATE SODIUM 50 MG/SENNA 8.6 MG TAB PO SCH (21:00)
[2018-01-20] MEDS: SODIUM CHLORIDE 0.9% FLUSH 10 ML FLUSH IV FLUSH SCH (21:00)
[2018-01-20] MEDS ORDERED: CARVEDILOL 6.25 MG TAB PO SCH (21:00)
[2018-01-21] VITALS: BP_SYST 133; BP_DIAS 52; BP_DIAS 62; PULSE 55; PULSE 56; RESP 20; TEMP 97.2; O2SAT 98
[2018-01-21 04:00] VITALS: BP 121/58; PULSE 47; PULSE 63; RESP 18; TEMP 97.5; O2SAT 98
[2018-01-21 06:50] LABS: AUTOMATED NEUTROPHIL # 9.2 TH/MM3 (1.8-7.7); BASOPHIL % 0.3 % (0.0-2.0); EOSINOPHIL # 0.2 TH/MM3 (0-0.4); EOSINOPHIL % 1.4 % (0.0-4.0); HEMATOCRIT 32.7 % (35.0-46.0); LYMPH % 12.6 % (9.0-44.0); LYMPHOCYTE # 1.5 TH/MM3 (1.0-4.8); MEAN CELL VOLUME 89.2 FL (80.0-100.0); MEAN CORPUSCULAR HEMOGLOBIN 30.1 PG (27.0-34.0); MEAN CORPUSCULAR HGB CONC 33.8 % (32.0-36.0); MEAN PLATELET VOLUME 8.5 FL (7.0-11.0); MONO % 7.4 % (0.0-8.0); MONOCYTE # 0.9 TH/MM3 (0-0.9); NEUT % 78.3 % (16.0-70.0); PLATELET COUNT 339 TH/MM3 (150-450); RED BLOOD COUNT 3.67 MIL/MM3 (4.00-5.30); RED CELL DISTRIBUTION WIDTH 13.9 % (11.6-17.2); WHITE BLOOD COUNT 11.8 TH/MM3 (4.0-11.0)
[2018-01-21 07:07] LABS: ALBUMIN 1.9 GM/DL (3.4-5.0); AST (GOT) 22 U/L (15-37); BICARBONATE 36.8 MEQ/L (21.0-32.0); BLOOD UREA NITROGEN 15 MG/DL (7-18); CALCIUM 8.1 MG/DL (8.5-10.1); CHLORIDE 100 MEQ/L (98-107); CREATININE 0.54 MG/DL (0.50-1.00); GLOMERULAR FILTRATION RATE 108 ML/MIN (>89); GLUCOSE,RANDOM 102 MG/DL (74-106); SODIUM (NA) 140 MEQ/L (136-145)
[2018-01-21 07:10] LABS: ALKALINE PHOSPHATASE 63 U/L (45-117); ALT (GPT) 25 U/L (10-53); TOTAL BILIRUBIN ADULT 0.2 MG/DL (0.2-1.0); TOTAL PROTEIN 5.9 GM/DL (6.4-8.2)
[2018-01-21 08:00] VITALS: BP 137/64; PULSE 59; PULSE 61; RESP 20; TEMP 98; O2SAT 98
[2018-01-21] MEDS: NIFEdipine 60 MG SUSTAINED RELEASE TAB PO SCH (09:00)
[2018-01-21] MEDS: SODIUM CHLORIDE 0.9% FLUSH 10 ML FLUSH IV FLUSH SCH ×2 (09:00→21:27)
[2018-01-21] MEDS: PANTOPRAZOLE SOD 40 MG DELAYED RELEASE TAB PO SCH (10:13)
[2018-01-21] MEDS: DOCUSATE SODIUM 50 MG/SENNA 8.6 MG TAB PO SCH ×2 (10:13→21:00)
--- NOTE | 2018-01-21 11:05 | RADRPT ---
EXAM DATE/TIME: 01/21/2018 10:13 [facility] COMPARISON: CHEST SINGLE AP, January 20, 2018, 18:32. INDICATIONS : Shortness of breath. MEDICAL HISTORY : None. SURGICAL HISTORY : None. ENCOUNTER: Subsequent ACUITY: 3 days PAIN SCORE: 0/10 LOCATION: Bilateral chest FINDINGS: Moderate bibasilar parenchymal changes with cardiomegaly and mild interstitial edema. There is no pn eumothorax. The portion of the bony skeleton visualized is unremarkable. CONCLUSION: Bibasilar partial changes with mild to moderate congestive failure. Findings are stable to slightly improved.. Armaan Matuet MD FACR on January 21, 2018 at 11:02 Board Certified Radiologist. This report was verified electronically.
[2018-01-21 11:30] LABS: PLEURAL FLUID RBC 660 /MM3 (0-0); PLEURAL FLUID WBC 68 /MM3 (0-10)
[2018-01-21 11:45] LABS: PLEURAL FLUID EOS 1 %; PLEURAL FLUID HISTIOCYTES 1 %; PLEURAL FLUID LYMPHS 58 %; PLEURAL FLUID MESOTHELIAL 3 %; PLEURAL FLUID MONOS 9 %; PLEURAL FLUID PLASMA CELLS 9 %; PLEURAL FLUID POLYS (SEGS) 13 %
[2018-01-21 12:00] VITALS: BP 143/64; PULSE 55; PULSE 60; RESP 20; TEMP 98.4; O2SAT 96
[2018-01-21 12:24] LABS: PLEURAL FLUID RBC 114 /MM3 (0-0); PLEURAL FLUID WBC 102 /MM3 (0-10)
[2018-01-21 12:28] LABS: PLEURAL FLUID EOS 1 %; PLEURAL FLUID HISTIOCYTES 17 %; PLEURAL FLUID LYMPHS 54 %; PLEURAL FLUID MONOS 12 %; PLEURAL FLUID PLASMA CELLS 7 %; PLEURAL FLUID POLYS (SEGS) 1 %
[2018-01-21 12:29] LABS: PLEURAL FLUID MESOTHELIAL 6 %
--- NOTE | 2018-01-21 13:13 | HHI.PR ---
Subjective Remarks Patient reports she is feeling much better. Breathing much more comfortable since she had her thoracentesis. Objective Vitals Vital Signs Date Time Temp Pulse Resp B/P (MAP) Pulse Ox O2 Delivery O2 Flow Rate FiO2 01/21/18 08:00 98.0 59 20 137/64 (88) 98 01/21/18 04:00 97.5 63 18 121/58 (79) 98 01/21/18 04:00 47 01/21/18 00:00 97.2 56 20 133/62 (85) 98 01/21/18 00:00 55 01/20/18 21:00 Nasal Cannula 2.00 01/20/18 21:00 63 01/20/18 20:22 97.6 63 17 123/56 (78) 99 01/20/18 20:01 60 22 126/60 (82) 97 Nasal Cannula 2.00 01/20/18 19:09 62 26 133/64 (87) 98 Nasal Cannula 2.00 01/20/18 16:40 58 30 133/58 (83) 95 Nasal Cannula 2.00 01/20/18 14:20 97.9 60 35 123/88 (100) 93 I/O 01/20/18 01/20/18 01/20/18 01/21/18 01/21/18 01/21/18 07:00 15:00 23:00 07:00 15:00 23:00 Intake Total 0 ml Output Total 0 ml Balance 0 ml Intake Oral 0 ml Output Urine Total 0 ml # Voids 1 # Bowel Movements 0 Result Diagram: 01/21/1862101/21/18 06 Objective Remarks GENERAL: Frail elderly female in no apparent distress. CARDIOVASCULAR: Normal rate and irregular rhythm without murmurs, gallops, or rubs. RESPIRATORY: Good respiratory efforts. Diminished breath sounds at the bases bilaterally otherwise clear to auscultation GASTROINTESTINAL: Abdomen soft, non-tender, non-distended. Normal active bowel sounds MUSCULOSKELETAL: Extremities without cyanosis, or edema. NEURO: Alert & Oriented x4 to person, place, time, situation. Moves all ext x4 PSYCH: Appropriate mood and affect. A/P Problem List: (1) Pleural effusion ICD Code: J90 - Pleural effusion, not elsewhere classified Status: Acute Plan: Chest x-ray shows bibasilar pleural effusion and basilar consolidation. I reviewed the image. CTA negative for PE. No known heart failure. LVEF on echo from 01/13/18 with EF of 65-70%. Status post thoracentesis with improvement in symptoms. Follow fluid studies. (2) Hypoxia ICD Code: R09.02 - Hypoxemia Status: Acute Plan: Secondary to pleural effusion above. Continue supplemental oxygen. Expect improvement. (3) A-fib ICD Code: I48.91 - Unspecified atrial fibrillation Plan: Patient is currently bradycardic. Med rec included Coreg 6.25 mg twice daily. Will hold all beta-blockers for now. Monitor on telemetry. Patient had recent GI bleeding at the last admission about 4 days ago. That seemed to have resolved. We will plan on starting Eliquis 2.5 mg twice daily if H&H remains stable and has no signs of bleeding. (4) Bradycardia ICD Code: R00.1 - Bradycardia, unspecified Plan: Could be secondary to Coreg. Hold Coreg and monitor on telemetry. May need cardiology consult if persistent. Currently she is asymptomatic. Although it is hard to tell if that was not the main contributor of the pleural effusion Discharge Planning Patient states she will not return to the same SNF. We will ask case management to discuss options with her. She will likely need to return to SNF due to debility. Hector Hall MD Jan 21, 2018 13:13
[2018-01-21 16:00] VITALS: BP 139/64; PULSE 63; PULSE 65; RESP 20; TEMP 99; O2SAT 96
--- NOTE | 2018-01-21 16:16 | EKG ---
Date Performed: 01/20/2018 Time Performed: 15:08:03 PTAGE: 82 years EKG: Sinus rhythm BORDERLINE LEFT AXIS DEVIATION NONSPECIFIC ST & T-WAVE ABNORMALITY BORDERLINE ECG Compared to PREVIOUS TRACING , the patient is no longer bradycardic. PREVIOUS TRACIN01/17/2018 10. 50 DOCTOR: Uzma Wooten Interpretating Date/Time 01/21/2018 16:15:34
[2018-01-21 20:00] VITALS: BP 144/68; PULSE 59; PULSE 64; RESP 20; TEMP 99; O2SAT 98
[2018-01-22] VITALS (14 sets, daily range): BP systolic 141–170; BP diastolic 64–75; PULSE 42–61; RESP 17–30; TEMP 98.1–98.6; O2SAT 96–99
--- NOTE | 2018-01-22 07:48 | RADRPT ---
EXAM DATE/TIME: 01/21/2018 08:43 [facility] COMPARISON: No previous studies available for comparison. INDICATIONS : Right pleural effusion. MEDICAL HISTORY : Chronic obstructive pulmonary disease. Hypertension. Gastroesophageal reflux disease. Atrial fibrilla tion. Hiatal hernia. Diverticultitis. GI bleed. SURGICAL HISTORY : Appendectomy. Hysterectomy. ENCOUNTER: Initial ACUITY: 1 day PAIN SCORE: 2/10 LOCATION: Right chest FLUID: Total volume of 350 cc of clear, yellow fluid was removed. Fluid was sent to lab for ordered studies. TECHNIQUE: 1. Ultrasound guidance for thoracentesis. 2. Thoracentesis. The risks, benefits, and alternatives to ultrasound guided thoracentesis were explained to the patien t in lay simple terms, including the risk of bleeding and infection. Written and verbal informed con sent was obtained. Appropriate area for thoracentesis was marked under ultrasound guidance with the patient in the uprig ht position. Overlying skin was prepped and draped in the usual sterile fashion and with local anest hetic, a dermatotomy was made with an 11 blade scalpel. A 6 Hebrew thoracentesis catheter was placed in the pleural space and fluid was removed. Catheter was then removed and a sterile dressing applie d. There were no immediate complications. The patient tolerated the procedure well and the left the ultrasound suite in stable condition. Chest radiograph is to be obtained. CONCLUSION: Uncomplicated ultrasound guided thoracentesis. Johnny Hernández MD on January 22, 2018 at 7:33 Board Certified Radiologist. This report was verified electronically.
--- NOTE | 2018-01-22 07:48 | RADRPT ---
EXAM DATE/TIME: 01/21/2018 09:07 [facility] COMPARISON: CHEST SINGLE AP, January 20, 2018, 18:32. CHEST SINGLE AP, January 21, 2018, 10:13. INDICATIONS : Left pleural effusion. MEDICAL HISTORY : Gastroesophageal reflux disease. Hypertension. Chronic obstructive pulmonary disease. Atrial fibrilla tion. Hiatal hernia. Diverticultitis. GI bleed. SURGICAL HISTORY : Hysterectomy. Appendectomy. ENCOUNTER: Initial ACUITY: 1 day PAIN SCORE: 2/10 LOCATION: Left chest FLUID: Total volume of 450 cc of clear, yellow fluid was removed. Fluid was sent to lab for ordered studies. TECHNIQUE: 1. Ultrasound guidance for thoracentesis. 2. Thoracentesis. The risks, benefits, and alternatives to ultrasound guided thoracentesis were explained to the patien t in lay simple terms, including the risk of bleeding and infection. Written and verbal informed con sent was obtained. Appropriate area for thoracentesis was marked under ultrasound guidance with the patient in the uprig ht position. Overlying skin was prepped and draped in the usual sterile fashion and with local anest hetic, a dermatotomy was made with an 11 blade scalpel. A 6 German thoracentesis catheter was placed in the pleural space and fluid was removed. Catheter was then removed and a sterile dressing applie d. There were no immediate complications. The patient tolerated the procedure well and the left the ultrasound suite in stable condition. Chest radiograph is to be obtained. CONCLUSION: Uncomplicated ultrasound guided thoracentesis. Johnny Hernández MD on January 22, 2018 at 7:46 Board Certified Radiologist. This report was verified electronically.
[2018-01-22] MEDS: DOCUSATE SODIUM 50 MG/SENNA 8.6 MG TAB PO SCH ×2 (09:00→21:00)
[2018-01-22] MEDS: NIFEdipine 60 MG SUSTAINED RELEASE TAB PO SCH (09:00)
[2018-01-22 10:11] LABS: HEMATOCRIT 36.7 % (35.0-46.0); HEMOGLOBIN 12.3 GM/DL (11.6-15.3); MEAN CELL VOLUME 89.8 FL (80.0-100.0); MEAN CORPUSCULAR HGB CONC 33.4 % (32.0-36.0); MEAN PLATELET VOLUME 8.6 FL (7.0-11.0); PLATELET COUNT 336 TH/MM3 (150-450); RED BLOOD COUNT 4.09 MIL/MM3 (4.00-5.30); WHITE BLOOD COUNT 11.7 TH/MM3 (4.0-11.0)
[2018-01-22 10:24] LABS: BICARBONATE 31.3 MEQ/L (21.0-32.0); CALCIUM 8.4 MG/DL (8.5-10.1); CREATININE 0.6 MG/DL (0.50-1.00); MAGNESIUM 2.6 MG/DL (1.5-2.5)
[2018-01-22] MEDS: SODIUM CHLORIDE 0.9% FLUSH 10 ML FLUSH IV FLUSH SCH ×2 (10:24→21:00)
[2018-01-22] MEDS: PANTOPRAZOLE SOD 40 MG DELAYED RELEASE TAB PO SCH (10:25)
[2018-01-22 10:26] LABS: PHOSPHORUS 3.2 MG/DL (2.5-4.9)
--- NOTE | 2018-01-22 11:22 | HHI.PR ---
Subjective Remarks Patient reports she is feeling okay. No increased in shortness of breath. Objective Vitals Vital Signs Date Time Temp Pulse Resp B/P (MAP) Pulse Ox O2 Delivery O2 Flow Rate FiO2 01/22/18 08:07 98.2 58 18 168/74 (105) 97 01/22/18 04:00 55 01/22/18 04:00 98.2 55 20 152/69 (96) 98 01/22/18 00:00 98.5 60 17 167/74 (105) 96 01/22/18 00:00 Nasal Cannula 2.00 01/22/18 00:00 52 01/21/18 21:30 Nasal Cannula 2.00 01/21/18 20:00 99.0 64 20 144/68 (93) 98 01/21/18 20:00 59 01/21/18 16:00 99.0 63 20 139/64 (89) 96 01/21/18 16:00 65 01/21/18 12:00 98.4 60 20 143/64 (90) 96 01/21/18 12:00 55 I/O 01/21/18 01/21/18 01/21/18 01/22/18 01/22/18 01/22/18 07:00 15:00 23:00 07:00 15:00 23:00 Intake Total 0 ml 240 ml Output Total 0 ml 700 ml Balance 0 ml -460 ml Intake Oral 0 ml 240 ml Output Urine Total 0 ml 700 ml # Voids 1 # Bowel Movements 0 1 2 Result Diagram: 01/22/1885701/22/1858 Objective Remarks GENERAL: Frail elderly female in no apparent distress. CARDIOVASCULAR: Normal rate and irregular rhythm without murmurs, gallops, or rubs. RESPIRATORY: Good respiratory efforts. Diminished breath sounds at the bases but there are faint crackles and wheezing at the bases bilaterally. GASTROINTESTINAL: Abdomen soft, non-tender, non-distended. Normal active bowel sounds MUSCULOSKELETAL: Extremities without cyanosis, or edema. NEURO: Alert & Oriented x4 to person, place, time, situation. Moves all ext x4 PSYCH: Appropriate mood and affect. A/P Problem List: (1) Pleural effusion ICD Code: J90 - Pleural effusion, not elsewhere classified Status: Acute Plan: Chest x-ray shows bibasilar pleural effusion and basilar consolidation. CTA negative for PE. No known heart failure. LVEF on echo from 01/13/18 with EF of 65-70%. Status post thoracentesis with improvement in symptoms. Follow fluid studies. Appeared to be transudate. Repeat chest x-ray (2) Hypoxia ICD Code: R09.02 - Hypoxemia Status: Acute Plan: Secondary to pleural effusion above. Continue supplemental oxygen. Incentive spirometry (3) A-fib ICD Code: I48.91 - Unspecified atrial fibrillation Plan: Patient is currently bradycardic. Discussed with cardiology, Dr. White. Continue to hold Coreg. Patient had recent GI bleeding at the last admission about 4 days ago. That seemed to have resolved. Will discuss with cardiology regarding anticoagulation. (4) Bradycardia ICD Code: R00.1 - Bradycardia, unspecified Plan: Could be secondary to Coreg. Hold Coreg and monitor on telemetry. Cardiology consulted and agreed to continue to hold Coreg. Continue to monitor on telemetry. (5) Debility ICD Code: R53.81 - Other malaise Plan: Consult PT. Will likely need SNF. Discharge Planning Patient states she will not return to the same SNF. Case management consulted. She will likely need to return to SNF due to debility. Hector Hall MD Jan 22, 2018 11:22
--- NOTE | 2018-01-22 12:51 | RADRPT ---
EXAM DATE/TIME: 01/22/2018 11:46 [place] COMPARISON: CT PULMONARY ANGIOGRAM, January 20, 2018, 16:25. CHEST SINGLE AP, January 20, 2018, 18:32. CHEST SINGLE AP, January 21, 2018, 10:13. INDICATIONS : Short of breath MEDICAL HISTORY : None. SURGICAL HISTORY : None. ENCOUNTER: Subsequent ACUITY: 4 - 6 days PAIN SCORE: 0/10 LOCATION: chest FINDINGS: Rotated portable AP view of the chest demonstrates a normal-sized cardiac silhouette. There are bibas ilar pleural-parenchymal opacities, slightly increased from yesterday's examination. No pneumothorax is identified. The bones and soft tissues demonstrate no acute finding. There is lumbar scoliosis. CONCLUSION: Small bibasilar opacities likely representing pleural effusions with associated volume loss and/or ai rspace consolidation. These findings are stable compared to the 01/20/2018 exam. Aren Mac MD on January 22, 2018 at 12:48 Board Certified Radiologist. This report was verified electronically.
[2018-01-22] MEDS ORDERED: LIDOCAINE HCL 1% 20 ML VIAL ONE (16:02)
[2018-01-23] VITALS (18 sets, daily range): BP systolic 146–179; BP diastolic 73–88; PULSE 30–66; RESP 15–22; TEMP 97.9–98.5; O2SAT 93–99
[2018-01-23 07:16] LABS: HEMATOCRIT 31.9 % (35.0-46.0); HEMOGLOBIN 10.8 GM/DL (11.6-15.3); MEAN CELL VOLUME 89.1 FL (80.0-100.0); MEAN CORPUSCULAR HEMOGLOBIN 30.1 PG (27.0-34.0); MEAN CORPUSCULAR HGB CONC 33.8 % (32.0-36.0); MEAN PLATELET VOLUME 8.5 FL (7.0-11.0); PLATELET COUNT 318 TH/MM3 (150-450); RED BLOOD COUNT 3.58 MIL/MM3 (4.00-5.30); WHITE BLOOD COUNT 11.7 TH/MM3 (4.0-11.0)
[2018-01-23 08:04] LABS: CALCIUM 8.1 MG/DL (8.5-10.1); CREATININE 0.53 MG/DL (0.50-1.00)
[2018-01-23] MEDS: SODIUM CHLORIDE 0.9% FLUSH 10 ML FLUSH IV FLUSH SCH ×2 (08:31→21:00)
[2018-01-23] MEDS: DOCUSATE SODIUM 50 MG/SENNA 8.6 MG TAB PO SCH ×2 (08:31→21:00)
[2018-01-23] MEDS: NIFEdipine 60 MG SUSTAINED RELEASE TAB PO SCH (08:31)
[2018-01-23] MEDS: PANTOPRAZOLE SOD 40 MG DELAYED RELEASE TAB PO SCH (08:31)
--- NOTE | 2018-01-23 09:37 | MB ---
cc: Andre White DO DATE: 01/22/2018 REASON FOR CONSULTATION: Bradycardia/pauses. HISTORY OF PRESENT ILLNESS: Yanelis Peterson is a pleasant 82-year-old female who presented to [facility] Emergency Room on 01/20/2018 from her SNF for shortness of breath and possible PEG tube malfunction. 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 During this, she was found to have atrial fibrillation with RVR and was noted to be relatively controlled and so she was started on carvedilol. During her original hospitalization, she was also noted to have a GI bleed and so she was not started on anticoagulation. She went to the nursing facility and was brought in due to shortness of breath. She has noted some swelling in her bilateral hands earlier today, as well as the shortness of breath and so on arrival, she was given IV Lasix. In seeing her, she states that her shortness of breath is somewhat better and her swelling down. On telemetry, she was noted to have some mild bradycardia and occasional pauses intermittently during her atrial fibrillation. PAST MEDICAL HISTORY: 1. Hypertension. 2. Atrial fibrillation. 3. Chronic obstructive pulmonary disease. PAST SURGICAL HISTORY: 1. Open G-tube placement for volvulus (01/11/2018). 2. Hiatal hernia repair. 3. Appendectomy. 4. Hysterectomy. ALLERGIES: 1. ERYTHROMYCIN. 2. MEPERIDINE. MEDICATIONS: 1. Moxifloxacin 400 mg daily. 2. Coreg 6.25 mg every 12 hours. 3. Nifedipine extended release 60 mg daily. 4. Hydrocodone/acetaminophen 5/325 every 6 hours as needed for pain. 5. Protonix 40 mg daily. 6. Florastor 250 mg b.i.d. FAMILY HISTORY: Denies premature coronary artery disease or sudden cardiac within the family. SOCIAL HISTORY: The patient occasionally drinks alcohol. She denies tobacco or drug abuse. REVIEW OF SYSTEMS: Fourteen systems were reviewed including osteopathic, pertinent positives and negatives above, otherwise negative. PHYSICAL EXAMINATION: VITAL SIGNS: Temperature 98.2, heart rate 58, blood pressure 168/74, respirations 18, pulse oximetry 97% on 2 liters. GENERAL: The patient appears well, in no acute distress. Alert and oriented x 3. HEENT: Extraocular muscles intact. Mucous membranes moist. NECK: Supple. No JVD at 45 degrees. No carotid bruits heard bilaterally. Carotid upstroke is brisk in nature. HEART: Rate is irregularly irregular. Positive first and second heart sounds, with no murmurs, gallops or rubs. LUNGS: Decreased breath sounds bilaterally. No overt wheezes, rales or rhonchi. ABDOMEN: Soft, nontender, nondistended. No organomegaly noted. EXTREMITIES: Show no clubbing, cyanosis or edema. Femoral and distal pulses intact bilaterally. NEUROLOGIC: No focal deficits. SKIN: Warm, dry and intact. OSTEOPATHIC: No kyphoscoliosis, lordosis or paraspinal tender points. LABORATORY DATA: Hemoglobin 12.3, hematocrit 36.2, platelets 336. Potassium 3.8, BUN 12, creatinine 0.66. Troponin less than 0.02. TSH previously 0.698. ELECTROCARDIOGRAM (01/20/2018 AT 1508): Probable atrial fibrillation, sinus rhythm, nonspecific ST-T wave changes. IMPRESSION: 1. Bilateral pleural effusion, status post thoracentesis. 2. Hypoxia due to pleural effusions. 3. Paroxysmal atrial fibrillation, with episodes of atrial fibrillation with slow ventricular response. 4. History of gastric volvulus with gastrointestinal bleed, status post open gastrostomy tube placement. RECOMMENDATIONS: 1. Ms. Peterson appears to have episodes of bradycardia with her atrial fibrillation, on carvedilol. We will plan on holding her carvedilol and watching her telemetry overnight. 2. She appears relatively asymptomatic from this, but if significant episodes of bradycardia or if she has episodes of significant tachycardia off medications, she may need further evaluation by EP Cardiology. 3. As far as her bilateral pleural effusions, she feels better after thoracentesis. We will plan on her going home on some Lasix therapy orally. Pleural effusions may be third spacing due to her low albumin level. 4. Further recommendations will be made based on the hospital course. Thank you for allowing me to see Yanelis Peterson. If there are any questions, please do not hesitate to call. DO PRIMITIVO Vicente/KRIS , 10:33 PM , 11:03 PM
--- NOTE | 2018-01-23 11:38 | HHI.PR ---
Subjective Remarks Patient has been having pauses up to 6 secs. Objective Vitals Vital Signs Date Time Temp Pulse Resp B/P (MAP) Pulse Ox O2 Delivery O2 Flow Rate FiO2 01/23/18 09:03 30 01/23/18 08:58 30 01/23/18 08:00 98.5 58 17 159/88 (111) 98 01/23/18 08:00 Nasal Cannula 2.00 01/23/18 04:18 Nasal Cannula 2.00 01/23/18 04:18 98.0 60 22 146/76 (99) 99 01/23/18 03:46 49 01/23/18 02:09 40 01/23/18 00:05 63 01/22/18 23:25 Nasal Cannula 2.00 01/22/18 23:25 98.2 60 30 141/75 (97) 98 01/22/18 23:21 42 01/22/18 22:43 44 01/22/18 20:19 98 Nasal Cannula 2.00 01/22/18 20:00 Nasal Cannula 2.00 01/22/18 20:00 98.1 61 18 141/64 (89) 98 01/22/18 19:46 61 01/22/18 16:06 98.6 55 18 154/70 (98) 99 01/22/18 16:00 51 01/22/18 12:09 98.5 60 18 170/72 (104) 99 01/22/18 12:00 58 01/22/18 11:53 97 Nasal Cannula 2.00 I/O 01/22/18 01/22/18 01/22/18 01/23/18 01/23/18 01/23/18 07:00 15:00 23:00 07:00 15:00 23:00 Intake Total 240 ml 480 ml 610 ml Output Total 700 ml 1000 ml 450 ml Balance -460 ml -520 ml 160 ml Intake Oral 240 ml 480 ml 610 ml Output Urine Total 700 ml 1000 ml 450 ml # Voids 1 # Bowel Movements 2 0 1 Result Diagram: 01/23/1855 01/23/18 0655 Objective Remarks GENERAL: Frail elderly female in no apparent distress. CARDIOVASCULAR: rate in the 50's and irregular rhythm without murmurs, gallops, or rubs. RESPIRATORY: Good respiratory efforts. Diminished breath sounds at the bases but there are faint crackles and wheezing at the bases bilaterally. GASTROINTESTINAL: Abdomen soft, non-tender, non-distended. Normal active bowel sounds MUSCULOSKELETAL: Extremities without cyanosis, or edema. NEURO: Alert & Oriented x4 to person, place, time, situation. Moves all ext x4 PSYCH: Appropriate mood and affect. A/P Problem List: (1) Pleural effusion ICD Code: J90 - Pleural effusion, not elsewhere classified Status: Acute Plan: Chest x-ray shows bibasilar pleural effusion and basilar consolidation. CTA negative for PE. No known heart failure. LVEF on echo from 01/13/18 with EF of 65-70%. Status post thoracentesis with improvement in symptoms. Follow fluid studies. Appeared to be transudate. Repeat chest x-ray (2) Hypoxia ICD Code: R09.02 - Hypoxemia Status: Acute Plan: Secondary to pleural effusion above. Continue supplemental oxygen. Incentive spirometry (3) A-fib ICD Code: I48.91 - Unspecified atrial fibrillation Plan: Patient with episodes of bradycardia with long pauses Discussed with cardiology, Dr. White and Dr. Galloway. Plan for pacemaker placement today Patient had recent GI bleeding at the last admission about 4 days ago. That seemed to have resolved. Further decision on anticoagulation per Cardiology. (4) Bradycardia ICD Code: R00.1 - Bradycardia, unspecified Plan: See above. No improvement after stopping Coreg. Plan for Pacemaker. (5) Debility ICD Code: R53.81 - Other malaise Plan: Continue PT. Will need SNF. Discharge Planning Patient states she will not return to the same SNF. Case management consulted. She will likely need to return to SNF due to debility. Hector Hall MD Jan 23, 2018 11:38
--- NOTE | 2018-01-23 11:41 | PD.CARD.PN ---
Subjective Subjective Remarks Overnight Afib with bradycardia and pauses of greater than 5 seconds Asymptomatic, not sleeping Today feels well, no complaints Objective Medications Current Medications Medications (Trade) Dose Ordered Sig/Nghia Route Start Time Stop Time Status Last Admin (NS Flush) 2 ml UNSCH PRN IV FLUSH 01/20/18 18:15 (NS Flush) 2 ml BID IV FLUSH 01/20/18 21:00 01/23/18 08:31 (Tylenol) 650 mg Q4H PRN PO 01/20/18 18:15 (Zofran Inj) 4 mg Q6H PRN IVP 01/20/18 18:15 (Narcan Inj) 0.4 mg UNSCH PRN IV PUSH 01/20/18 18:15 (Kendra-Colace) 1 tab BID PO 01/20/18 21:00 01/21/18 10:13 (Milk Of Magnesia Liq) 30 ml Q12H PRN PO 01/20/18 18:15 (Senokot) 17.2 mg Q12H PRN PO 01/20/18 18:15 (Dulcolax Supp) 10 mg DAILY PRN RECTAL 01/20/18 18:15 (Lactulose Liq) 30 ml DAILY PRN PO 01/20/18 18:15 (Coreg) 6.25 mg Q12HR PO 01/20/18 21:00 Future Hold (Procardia Xl) 60 mg DAILY PO 01/21/18 09:00 (Protonix) 40 mg DAILY PO 01/21/18 09:00 01/22/18 10:25 Vital Signs / I&O Vital Signs Date Time Temp Pulse Resp B/P (MAP) Pulse Ox O2 Delivery O2 Flow Rate FiO2 01/23/18 09:03 30 01/23/18 08:58 30 01/23/18 08:00 98.5 58 17 159/88 (111) 98 01/23/18 08:00 Nasal Cannula 2.00 01/23/18 04:18 Nasal Cannula 2.00 01/23/18 04:18 98.0 60 22 146/76 (99) 99 01/23/18 03:46 49 01/23/18 02:09 40 01/23/18 00:05 63 01/22/18 23:25 Nasal Cannula 2.00 01/22/18 23:25 98.2 60 30 141/75 (97) 98 01/22/18 23:21 42 01/22/18 22:43 44 01/22/18 20:19 98 Nasal Cannula 2.00 01/22/18 20:00 Nasal Cannula 2.00 01/22/18 20:00 98.1 61 18 141/64 (89) 98 01/22/18 19:46 61 01/22/18 16:06 98.6 55 18 154/70 (98) 99 01/22/18 16:00 51 01/22/18 12:09 98.5 60 18 170/72 (104) 99 01/22/18 12:00 58 01/22/18 11:53 97 Nasal Cannula 2.00 I/O 01/22/18 01/22/18 01/22/18 01/23/18 01/23/18 01/23/18 07:00 15:00 23:00 07:00 15:00 23:00 Intake Total 240 ml 480 ml 610 ml Output Total 700 ml 1000 ml 450 ml Balance -460 ml -520 ml 160 ml Intake Oral 240 ml 480 ml 610 ml Output Urine Total 700 ml 1000 ml 450 ml # Voids 1 # Bowel Movements 2 0 1 Physical Exam GENERAL: NAD, AAOx3 SKIN: Warm and dry. HEAD: Atraumatic. Normocephalic. EYES: Pupils equal and round. No scleral icterus. No injection or drainage. ENT: No nasal bleeding or discharge. Mucous membranes pink and moist. NECK: Trachea midline. No JVD. CARDIOVASCULAR: Irregularly irregular RESPIRATORY: No accessory muscle use. Clear to auscultation. Breath sounds equal bilaterally. GASTROINTESTINAL: Abdomen soft, non-tender, nondistended. Hepatic and splenic margins not palpable. MUSCULOSKELETAL: Extremities without clubbing, cyanosis, or edema. No obvious deformities. NEUROLOGICAL: Awake and alert. No obvious cranial nerve deficits. Motor grossly within normal limits. Five out of 5 muscle strength in the arms and legs. Normal speech. PSYCHIATRIC: Appropriate mood and affect; insight and judgment normal. Laboratory Laboratory Tests Test 01/23/18 06:55 White Blood Count 11.7 TH/MM3 Red Blood Count 3.58 MIL/MM3 Hemoglobin 10.8 GM/DL Hematocrit 31.9 % Mean Corpuscular Volume 89.1 FL Mean Corpuscular Hemoglobin 30.1 PG Mean Corpuscular Hemoglobin Concent 33.8 % Red Cell Distribution Width 14.0 % Platelet Count 318 TH/MM3 Mean Platelet Volume 8.5 FL Blood Urea Nitrogen 11 MG/DL Creatinine 0.53 MG/DL Random Glucose 115 MG/DL Calcium Level 8.1 MG/DL Sodium Level 142 MEQ/L Potassium Level 4.0 MEQ/L Chloride Level 104 MEQ/L Carbon Dioxide Level 35.0 MEQ/L Anion Gap 3 MEQ/L Estimat Glomerular Filtration Rate 110 ML/MIN Assessment and Plan Problem List: (1) A-fib ICD Codes: I48.91 - Unspecified atrial fibrillation (2) Bradycardia ICD Codes: R00.1 - Bradycardia, unspecified (3) Debility ICD Codes: R53.81 - Other malaise (4) Hypoxia ICD Codes: R09.02 - Hypoxemia Status: Acute (5) Pleural effusion ICD Codes: J90 - Pleural effusion, not elsewhere classified Status: Acute (6) Hypertension ICD Codes: I10 - Essential (primary) hypertension (7) Gastrostomy tube in place ICD Codes: Z93.1 - Gastrostomy status Status: Acute Assessment and Plan 1) Afib Currently with bradycardia/pauses, asymptomatic Last dose of Coreg on 01/[address] Galloway evaluated for consideration of PPM Not an anti-coagulation candidate due to previous GI bleed last admission 2) B/L pleural effusion s/p thoracentesis May be due to third spacing due to her low albumin level Andre White DO Jan 23, 2018 11:41
[2018-01-23 15:23] LABS: AMYLASE BODY FLUID 19 U/L; AMYLASE BODY FLUID TYPE RIGHT PLEURAL FLUID
[2018-01-23 15:24] LABS: AMYLASE BODY FLUID 15 U/L; AMYLASE BODY FLUID TYPE LEFT PLEURAL
--- NOTE | 2018-01-23 19:05 | MB ---
cc: Tony Galloway MD DATE: 01/23/2018 REASON FOR CONSULTATION: Bradycardia, 7 second pause. HISTORY OF PRESENT ILLNESS: Ms. Peterson is an 82-year-old female with history of high blood pressure, atrial fibrillation, COPD. She has a G-tube placement, admitted through emergency room due to severe bradycardia and atrial fibrillation. Coreg was discontinued since 01/20. The patient is developing some 5-7 second pauses and symptomatic. I was consulted for evaluation and management. Chart was reviewed. The patient was evaluated. I discussed the case with Dr. White as well as Dr. Hall. ALLERGIES: ERYTHROMYCIN AND MEPERIDINE. SOCIAL HISTORY: Negative for smoking and drinking. FAMILY HISTORY: Noncontributory to her current medical condition. MEDICATIONS: Currently, the patient is on Coreg 6.25 mg twice a day, acetaminophen p.r.n. The patient is on Procardia XL, is on Protonix. REVIEW OF SYSTEMS: The patient with currently no chest pain, no chest discomfort, no palpitation, no fever. PHYSICAL EXAMINATION: GENERAL: Alert, fully oriented, pleasant, in bed. The patient is cachectic. VITAL SIGNS: Blood pressure 163/73, pulse 57, respiratory rate 18. LUNGS: Ventilated. CARDIOVASCULAR: S1, S2, irregular. No gallop. No murmur. ABDOMEN: Soft. No mass. No bruits. EXTREMITIES: With no edema. DIAGNOSTIC DATA: Electrocardiogram on hospitalization shows sinus rhythm. Subsequent telemetry showed AFib and multiple pauses. LABORATORY DATA:: Hemoglobin is 10.8, white blood cell 11.7. Potassium 4.0, creatinine is 0.53. INR is 1.0. ASSESSMENT AND RECOMMENDATIONS: Ms. Peterson has severe bradycardia and pauses. She was on Coreg, that was discontinued. She is on Procardia XL. calcium channel david with less negative chronotropic effect. At this point, the best approach is to transfer the patient to CIC unit and then to insert a permanent pacemaker. The risks, the nature and the benefits of the procedure are clearly stated to her. Risks include pneumothorax, cardiac perforation, stroke and even . She understood and agreed to proceed. The Micra transvenous wireless pacemaker will be inserted. ADDENDUM: Due to anesthesia unavailability, at this point, I am going to reschedule the case for tomorrow. Anterior, posterior pad will be placed for pacing support if necessary. MD WADE Resendiz/HERMINIO , 06:10 PM , 07:05 PM
[2018-01-23] MEDS ORDERED: SODIUM CHLORID 0.9% 500 ML IV PRN (22:30)
[2018-01-23] MEDS ORDERED: METOPROLOL TARTRATE 25 MG TAB PO PRN (22:30)
[2018-01-23] MEDS ORDERED: POVIDONE IODINE 5% (ANTISEPSIS KIT) 4 APPLICATIONS EACH NARE PRN (22:30)
[2018-01-23] MEDS ORDERED: CHLORHEXIDINE GLUCONATE 2 % 1 PACK (2 CLOTHS) TOPICAL PRN (22:30)
[2018-01-23] MEDS ORDERED: LACTATED RINGER'S 1000 ML IV PRN (22:30)
[2018-01-24] VITALS (20 sets, daily range): BP systolic 132–206; BP diastolic 46–80; PULSE 48–75; RESP 16–20; TEMP 97.7–98.7; O2SAT 94–96
[2018-01-24 05:13] LABS: HEMATOCRIT 33.8 % (35.0-46.0); HEMOGLOBIN 11.4 GM/DL (11.6-15.3); MEAN CELL VOLUME 89.7 FL (80.0-100.0); MEAN CORPUSCULAR HEMOGLOBIN 30.3 PG (27.0-34.0); MEAN CORPUSCULAR HGB CONC 33.7 % (32.0-36.0); PLATELET COUNT 365 TH/MM3 (150-450); RED BLOOD COUNT 3.77 MIL/MM3 (4.00-5.30); WHITE BLOOD COUNT 12.5 TH/MM3 (4.0-11.0)
[2018-01-24 05:37] LABS: BICARBONATE 32.6 MEQ/L (21.0-32.0); CALCIUM 8.1 MG/DL (8.5-10.1); CREATININE 0.55 MG/DL (0.50-1.00)
[2018-01-24] MEDS: DOCUSATE SODIUM 50 MG/SENNA 8.6 MG TAB PO SCH ×2 (09:00→21:00)
[2018-01-24] MEDS: PANTOPRAZOLE SOD 40 MG DELAYED RELEASE TAB PO SCH (09:30)
[2018-01-24] MEDS: SODIUM CHLORIDE 0.9% FLUSH 10 ML FLUSH IV FLUSH SCH ×2 (09:34→21:00)
[2018-01-24] MEDS ORDERED: ePHEDrine/NS 25 MG/5 ML SYRINGE IV ONE (12:00)
[2018-01-24] MEDS ORDERED: SUCCINYLCHOLINE CHLORIDE 100 MG/5 ML SYRINGE IV PUSH ONE (12:00)
[2018-01-24] MEDS ORDERED: PHENYLEPH/NS 1000 MCG/10 ML SYR IV ONE (12:00)
[2018-01-24] MEDS ORDERED: SODIUM CHLORID 0.9% 500 ML INJ 1,000 ML IV ONE (12:00)
[2018-01-24] MEDS ORDERED: PROPOFOL 200 MG/20 ML AMP IV ONE (12:00)
--- NOTE | 2018-01-24 14:48 | PD.CARD.PN ---
Subjective Subjective Remarks Overnight Afib with bradycardia and pauses of greater than 5 seconds still, plan for PPM today by Dr. Galloway Today feels well, no complaints Objective Medications Current Medications Medications (Trade) Dose Ordered Sig/Nghia Route Start Time Stop Time Status Last Admin (NS Flush) 2 ml UNSCH PRN IV FLUSH 01/20/18 18:15 (NS Flush) 2 ml BID IV FLUSH 01/20/18 21:00 01/24/18 09:34 (Tylenol) 650 mg Q4H PRN PO 01/20/18 18:15 (Zofran Inj) 4 mg Q6H PRN IVP 01/20/18 18:15 (Narcan Inj) 0.4 mg UNSCH PRN IV PUSH 01/20/18 18:15 (Kendra-Colace) 1 tab BID PO 01/20/18 21:00 01/21/18 10:13 (Milk Of Magnesia Liq) 30 ml Q12H PRN PO 01/20/18 18:15 (Senokot) 17.2 mg Q12H PRN PO 01/20/18 18:15 (Dulcolax Supp) 10 mg DAILY PRN RECTAL 01/20/18 18:15 (Lactulose Liq) 30 ml DAILY PRN PO 01/20/18 18:15 (Coreg) 6.25 mg Q12HR PO 01/20/18 21:00 Future Hold (Protonix) 40 mg DAILY PO 01/21/18 09:00 01/24/18 09:30 Lactated Ringer's 1,000 ml @ 30 mls/hr Q24H PRN IV 01/23/18 22:30 01/26/18 22:29 Sodium Chloride 500 ml @ 30 mls/hr [id number] PRN IV 01/23/18 22:30 01/26/18 22:29 (Lopressor) 25 mg [employer] PRN PO 01/23/18 22:30 01/26/18 22:29 (Betadine 5% Antisepsis Kit) 1 applic [employer] PRN EACH NARE 01/23/18 22:30 01/26/18 22:29 (Chlorhexidine 2% Cloth) 3 pack [employer] PRN TOPICAL 01/23/18 22:30 01/26/18 22:29 Vital Signs / I&O Vital Signs Date Time Temp Pulse Resp B/P (MAP) Pulse Ox O2 Delivery O2 Flow Rate FiO2 01/24/18 14:00 63 01/24/18 13:00 53 01/24/18 12:00 62 01/24/18 11:00 63 01/24/18 11:00 98.7 60 20 178/80 (112) 96 01/24/18 10:00 53 01/24/18 09:00 60 01/24/18 08:00 60 01/24/18 07:00 194/78 (116) 01/24/18 07:00 98.5 60 19 172/74 (106) 96 01/24/18 07:00 48 01/24/18 07:00 96 Nasal Cannula 2.00 01/24/18 06:11 48 01/24/18 05:00 63 01/24/18 04:00 59 01/24/18 03:00 60 01/24/18 03:00 98.0 65 16 169/79 (109) 95 01/24/18 02:00 59 01/24/18 01:00 49 01/24/18 00:05 50 01/23/18 23:00 97.9 60 18 170/74 (106) 96 01/23/18 23:00 52 01/23/18 22:00 60 01/23/18 21:00 64 01/23/18 20:00 66 01/23/18 19:15 97.9 61 15 179/76 (110) 93 01/23/18 19:15 93 Nasal Cannula 2.00 01/23/18 19:00 57 01/23/18 18:23 98.2 59 16 163/73 (103) 96 01/23/18 18:00 60 01/23/18 16:00 Nasal Cannula 2.00 01/23/18 16:00 65 I/O 01/23/18 01/23/18 01/23/18 01/24/18 01/24/18 01/24/18 07:00 15:00 23:00 07:00 15:00 23:00 Intake Total 610 ml 400 ml Output Total 450 ml Balance 160 ml 400 ml Intake Oral 610 ml 400 ml Output Urine Total 450 ml # Voids 3 # Bowel Movements 1 2 Physical Exam GENERAL: NAD, AAOx3 SKIN: Warm and dry. HEAD: Atraumatic. Normocephalic. EYES: Pupils equal and round. No scleral icterus. No injection or drainage. ENT: No nasal bleeding or discharge. Mucous membranes pink and moist. NECK: Trachea midline. No JVD. CARDIOVASCULAR: Irregularly irregular RESPIRATORY: No accessory muscle use. Clear to auscultation. Breath sounds equal bilaterally. GASTROINTESTINAL: Abdomen soft, non-tender, nondistended. Hepatic and splenic margins not palpable. MUSCULOSKELETAL: Extremities without clubbing, cyanosis, or edema. No obvious deformities. NEUROLOGICAL: Awake and alert. No obvious cranial nerve deficits. Motor grossly within normal limits. Five out of 5 muscle strength in the arms and legs. Normal speech. PSYCHIATRIC: Appropriate mood and affect; insight and judgment normal. Laboratory Laboratory Tests Test 01/24/18 03:53 White Blood Count 12.5 TH/MM3 Red Blood Count 3.77 MIL/MM3 Hemoglobin 11.4 GM/DL Hematocrit 33.8 % Mean Corpuscular Volume 89.7 FL Mean Corpuscular Hemoglobin 30.3 PG Mean Corpuscular Hemoglobin Concent 33.7 % Red Cell Distribution Width 14.0 % Platelet Count 365 TH/MM3 Mean Platelet Volume 9.0 FL Blood Urea Nitrogen 11 MG/DL Creatinine 0.55 MG/DL Random Glucose 89 MG/DL Calcium Level 8.1 MG/DL Sodium Level 142 MEQ/L Potassium Level 4.4 MEQ/L Chloride Level 104 MEQ/L Carbon Dioxide Level 32.6 MEQ/L Anion Gap 5 MEQ/L Estimat Glomerular Filtration Rate 106 ML/MIN Assessment and Plan Problem List: (1) A-fib ICD Codes: I48.91 - Unspecified atrial fibrillation (2) Bradycardia ICD Codes: R00.1 - Bradycardia, unspecified (3) Debility ICD Codes: R53.81 - Other malaise (4) Hypoxia ICD Codes: R09.02 - Hypoxemia Status: Acute (5) Pleural effusion ICD Codes: J90 - Pleural effusion, not elsewhere classified Status: Acute (6) Hypertension ICD Codes: I10 - Essential (primary) hypertension (7) Gastrostomy tube in place ICD Codes: Z93.1 - Gastrostomy status Status: Acute Assessment and Plan 1) Afib Currently with bradycardia/pauses, asymptomatic Last dose of Coreg on 01/[address] PPM today, plan for Micra Not an anti-coagulation candidate due to previous GI bleed last admission 2) B/L pleural effusion s/p thoracentesis May be due to third spacing due to her low albumin level Andre White DO Jan 24, 2018 14:48
[2018-01-24] MEDS ORDERED: HEPARIN SODIUM - IV 10,000 UNITS/10 ML VIAL ONE (15:53)
[2018-01-24] MEDS ORDERED: LIDOCAINE HCL 1% PF 30 ML VIAL ONE (16:19)
[2018-01-24] MEDS ORDERED: HEPARIN-NS/PF FLUSH BAG 2,000 ML IV FLUSH ONE (16:20)
[2018-01-24] MEDS ORDERED: SODIUM CHLOR 0.9% 250 ML INJ 250 ML ONE (16:36)
[2018-01-24] MEDS ORDERED: VANCOMYCIN HCL 1000 MG VIAL ONE (16:36)
[2018-01-24] MEDS ORDERED: DOPamine 800 MG/500 ML INJ 500 ML ONE (17:02)
[2018-01-24] MEDS ORDERED: NOREPINEPHRINE 4 MG/4 ML AMP ONE (17:16)
[2018-01-24] MEDS ORDERED: PROTAMINE SULFATE 50 MG/5 ML VIAL ONE (17:16)
[2018-01-24] MEDS ORDERED: HYDROCORTISONE SOD SUCCINATE 100 MG VIAL ONE (17:39)
--- NOTE | 2018-01-24 17:56 | CATHPROC ---
[employer] HIS Report Study Information Study Number Admission Scheduled Start Study Start [id number] Jan 21 2018 1:16PM 01/24/2018 Jan 24 2018 3:58PM [place] [facility] Cardiac Pacer/ICD Admit Source Facility Department Emergency department [facility] - [facility] Physician and Clinical Staff Initial Tony Melendez Joggle Press Operator Renetta Mendoza,VITA TECH2 Joggle Press Operator Shivani Kruger,TIFFANY Other Alexander Hernández RN Other Anesthesia, PIPELINE ENGINEER Recorder Bárbara Gallagher,BUTTONER TECH2 Recorder Shivani Kruger,TIFFANY Recorder Ladan Lewis ,ELIZABETHN Scrub Jignesh Durán,RT(R) Procedures Performed Procedure Location (Site) Vessel Name Wire insertion Fem Vein (right) Femoral Vein Equipment Time Store Shopper Description Size Mfg Part Number Used/Scraped [employer] GroupTER [id number] 16:02 SET, TUBING COOLFLOW * Used INC. *[id number] 16:03 COOK/PACER DILATOR SET (MICRA) FR8-12 Used *[id number] WIRE, GUIDE AMPLATZ STIFF [id number] 16:03 COOK/PACER 3MMJ Used 180CM *[id number] 16:03 [employer] INDUSTRIES PACK, CCL CUSTOM * Used *[id number] 16:03 [employer] PACER RODAS, LIMB * 2530 *[id number] Used [facility]-4F-11- 17:05 [employer] MEDICAL SHEATH, FR4.5 PRELUDE 11CM FR 4.5 Used [id number] 16:08 NAMIC TUBING, HIGH PRESSURE 20" 20" Used *[id number] 16:03 NAMIC TUBING, HIGH PRESSURE 20" 20" Used *[id number] 17:05 NAMIC TUBING, HIGH PRESSURE 48" 48" Used *[id number] 17:14 NAMIC TUBING, HIGH PRESSURE 48" 48" Used *[id number] 16:03 [employer] OMNIPAQUE, 300 MG, 50ML 50ML [id number] Used SUTURE, 0 ETHIBOND [CT1] (CX21D), 8pk [id number] 16:03 [employer] MEDICAL BLANKET,WARM AIR CCL * Used *[id number] 17:13 [facility] MEDICAL SHEATH, EPS, FR7 FAST CATH FR 7 [id number] Used 16:03 VITATRON MEDTRONIC MONITOR, PACEMAKER\\ICD 57744 *[id number] Used SYSTEM, TRANS-CATHETER [id number] 16:03 M-ChangaATRCurseTRONIC Used PACING (MICRA) *[id number] History: Current Medications Medication Dosage/Unit Route Frequency Last Date/Time Taken CARVEDILOL PROCARDIA History: Risk Factors Hypertension Yes Chronic Lung Disease History: Arrhythmias Selection Items Atrial fibrillation Labs Hgb (g/dl) Hct (%) WBC (l/cumm) Platelets (thousands) 11.60-17.00 35.00-51.00 4.00-11.00 150.00-450.00 11.4 33.8 12.5 365 Glucose (mg/dl) BUN (mg/dl) Creatinine (mg/dl) BUN:Creatinine (1:x) 74.00-106.00 7.00-18.00 0.50-1.30 10.00-20.00 89 11 0.5 22 Na (meq/l) K (meq/l) Cl (meq/l) CO2 (mmol/L) Ca (mg/dl) 136.00-145.00 3.50-5.10 98.00-107.00 21.00-32.00 8.50-10.10 142 4.4 104 32.6 8.1 PT (sec) PTT (sec) INR (PTT:PT) 9.80-11.60 24.30-30.10 0.90-1.10 9.7 21.1 1 CPK-MB (ng/ML) 0.50-3.60 Not Drawn Medication Medication Total Dose (Bolus/Oral) Medication Total Dosage/Unit 1% XYLOCAINE 20 mL HEPARIN 2000 units PROTAMINE 10 mg Medications (Bolus/Oral) Medication Time Given Dosage/Unit Administered By Reason 1% XYLOCAINE 01/24/2018 4:36:39 PM 20 mL Tony Galloway 20 mL 1% XYLOCAINE given in lab by Tony Galloway in Right Groin via Subcutaneous. HEPARIN 01/24/2018 4:44:23 PM 2000 units Anesthesia, PIPELINE ENGINEER 2000 units HEPARIN given in lab by Isiah, PIPELINE ENGINEER in Right Wrist via Peripheral IV. Ordered by Tony Boo. PROTAMINE 01/24/2018 5:19:54 PM 10 mg Anesthesia, PIPELINE ENGINEER 10 mg PROTAMINE given in lab by Anesthesia, PIPELINE ENGINEER. Ordered by Tony Galloway. Medication (Drip) Medication Time Given Dosage/Unit Concentration/Unit Diluent (ml) Guy on DOPAMINE HCL 01/24/2018 5:12:03 PM 5 mcg/kg/min 800 mg 500 D5W 5 mcg/kg/min DOPAMINE HCL given in lab by Anesthesia, PIPELINE ENGINEER via Peripheral IV. Pump/Drip Flow = 10.63 ml/hr using D5W with a concentration of 800 mg in 500 ml. Ordered by Tony Galloway. IV Solutions 01/24/2018 4:10:30 PM 0 mL (IV) 500 NaCl .9 Patient arrived on IV Solutions in Right Wrist via Peripheral IV. Pump/Drip Flow = 20 ml/hr using NaC l .9. IV Solutions 01/24/2018 4:10:32 PM 0 mL (IV) 500 NaCl .9 Patient arrived on IV Solutions in Left Wrist via Peripheral IV. Pump/Drip Flow = 20 ml/hr using NaCl .9. LEVOPHED 01/24/2018 5:14:17 PM 4 mcg/min 4 mg 250 D5W 4 mcg/min LEVOPHED given in lab by Anesthesia, PIPELINE ENGINEER via Central IV. Pump/Drip Flow = 15 ml/hr using D 5W with a concentration of 4 mg in 250 ml. Ordered by Tony Galloway. VANCOMYCIN DRIP 01/24/2018 4:40:16 PM 1 g 1 g VANCOMYCIN DRIP given in lab by Anesthesia, PIPELINE ENGINEER in Right Wrist via Peripheral IV. Ordered by Tony Villegas. Initial Case Assessment Cardiovascular HR NIBP Chest Pain 61 113/73 0 Circulatory - Right Pulses Dorsalis Pedis 3 Scale (0,1,2,3,4,d) Circulatory - Left Pulses Dorsalis Pedis 3 Scale (0,1,2,3,4,d) Neurological State Oriented to time-place- Alert Moves all extremities person Respiration - General Respiration Rate SpO2 (%) (B/min) 16 100 Chronological Log Time Study Chronological Log 15:57:42 Patient arrived via Bed. 15:57:43 Patient Name, D.O.B, / Armband Verified By R.N. 15:57:44 Consent signed by the physician and the patient and verified by the [facility] staff. 15:57:46 Pre-op and post- op instructions given; patient acknowledges understanding of instructions. 15:57:48 Verbal Stimulation=2 Physical Stimulation=2 Airway=2 Respiration=2 TOTAL=8. (0=absent, 1=li mited, 2=present) 15:57:49 Anesthesia at bedside.BRIAN Mcdaniel Assumes care of patient. 16:01:47 Presedation assessment performed by [facility] RN. 16:01:50 Patient has been NPO for More than 6Hrs. 16:01:51 Skin Breakdown-none 16:01:52 Disposable Defibrillator Pads Placed On Patient. 16:01:55 Chanda Prominences Protected 16:10:29 A # 22 IV was noted in the Wrist (right). Grade = 0 16:10:30 Patient arrived on IV Solutions in Right Wrist via Peripheral IV. Pump/Drip Flow = 20 ml/hr using NaCl .9. 16:10:31 A # 20 IV was noted in the Wrist (left). Grade = 0 16:10:32 Patient arrived on IV Solutions in Left Wrist via Peripheral IV. Pump/Drip Flow = 20 ml/hr using NaCl .9. 16:11:30 QQ=732 bpm, SMAV=002/73 mmhg, SpO2=97.0 %, Resp=20 B/min, Pain=0, Jodi=10, Kelsey=2 Assessment: Initial Case, HR=61 BPM, RTPJ=812/73 mmhg, Chest Pain=0 Right Pulses: Neptali Ped=3 16:14:59 Left Pulses: Neptali Ped=3 Neurological: State=Alert, Ox3, [place] Respiration: Resp=16 B/min, ExD7=915 % 16:20:17 Bilateral groins prepped with 2% chlorhexidine, and draped after a 3 minute waiting time. 16:21:46 MD paged 16:22:42 MD responded 16:27:52 MD arrived. 16:32:51 Reference ECG taken Time Out. Correct patient, procedure, procedure equipment, site and side verified with physicia n present. Time 16:35:29 concurred by MD, individual staff and PIPELINE ENGINEER. Time Out #2 - Consents verified, patient in correct position, all results are labled and displa yed, safety precautions 16:35:30 taken, antibiotics administered. Time out concurred by MD, individual staff and PIPELINE ENGINEER in procedu re 16:36:31 Case Start 16:36:39 20 mL 1% XYLOCAINE given in lab by Tony Galloway in Right Groin via Subcutaneous. 16:37:17 Vascular access was obtained in the Fem Vein (right). 16:38:17 A WIRE, GUIDE AMPLATZ STIFF 180CM 3MMJ was inserted via Fem Vein (right). 16:38:38 Figure 8 knot placed using Ethibond to right femoral vein. 16:40:16 1 g VANCOMYCIN DRIP given in lab by Anesthesia, PIPELINE ENGINEER in Right Wrist via Peripheral IV. Orde red by Tony Galloway. A DILATOR SET (MICRA) FR8-12 was advanced into the Fem Vein (right) using the Percutaneous tech nique. 8 fr 16:40:17 dilator inserted. A DILATOR SET (MICRA) FR8-12 was exchanged in the Fem Vein (right). This was necessary in order to accomodate a 16:41:19 larger catheter. Upsized to a 12 fr dilator A DILATOR SET (MICRA) FR8-12 was exchanged in the Fem Vein (right). This was necessary in order to accomodate a 16:42:42 larger catheter. Upsized to a 16 fr dilator A DILATOR SET (MICRA) FR8-12 was exchanged in the Fem Vein (right). This was necessary in order to accomodate a 16:42:52 larger catheter. Upsized to a 20 fr dilator 16:44:23 2000 units HEPARIN given in lab by Anesthesia, PIPELINE ENGINEER in Right Wrist via Peripheral IV. Order ed by Tony Galloway. A Micra delivery sheath was exchanged in the Fem Vein (right). This was necessary in order to a ccomodate a larger 16:44:38 catheter. 16:46:57 Amplatz wire and dilator removed. 16:47:14 Micra prepped and inserted via Right femoral vein. 16:48:21 A SYSTEM, TRANS-CATHETER PACING (MICRA) was advanced and placed in the RV under fluro. 16:49:40 Micra placement verified under fluoroscopy 16:50:17 The Micra device impedance and threshold being tested. 16:52:09 BRIAN Bedoya CRNA 16:55:03 Micra recaptured and repositioned in the RV. 16:55:48 The Micra impedance and threshold being tested. 16:57:45 Micra recaptured and repositioned in the RV. 17:00:21 Ra from Echo paged. 17:07:35 Vascular access was obtained in the Fem Art (left). 17:07:54 A SHEATH, FR4.5 PRELUDE 11CM FR 4.5 was advanced into the Fem Art (left) using the Percutan eous technique. 17:10:54 Echo at bedside 5 mcg/kg/min DOPAMINE HCL given in lab by Anesthesia, PIPELINE ENGINEER via Peripheral IV. Pump/Drip Flow = 10.63 ml/hr using 17:12:03 D5W with a concentration of 800 mg in 500 ml. Ordered by Tony Galloway. 17:13:05 Vascular access was obtained in the Fem Vein (left). 17:13:16 A SHEATH, EPS, FR7 FAST CATH FR 7 was advanced into the Fem Vein (left) using the Percuta neous technique. 4 mcg/min LEVOPHED given in lab by Anesthesia, PIPELINE ENGINEER via Central IV. Pump/Drip Flow = 15 ml/hr using D5W with a 17:14:17 concentration of 4 mg in 250 ml. Ordered by Tony Galloway. 17:15:03 Micra recaptured and repositioned 17:16:02 The RV lead impedance and threshold being tested. 17:16:10 Effusion seen via Echo; Dr. Brenner called 17:16:25 Delivery device removed 17:16:36 Figure 8 Suture secured; pressure being held for 20 min 17:19:54 10 mg PROTAMINE given in lab by Anesthesia, PIPELINE ENGINEER. Ordered by Tony Galloway. 17:22:50 PACU called. Spoke to Zhanna 17:23:08 Left femoral arterial and venous Sheath(s) sutured in place. 17:24:45 Case End 17:26:35 Dr. Brenner at bedside 17:28:40 Sterile dressing applied to site 17:29:50 Case complication noted. 17:29:54 Cine recording checked. 17:30:04 Bedside Report will be given. 17:30:30 Implant Procedure was performed. 17:30:34 A PPM Implant . (Micra) 17:33:06 Echo called to bedside 17:36:32 Echo at bedside 17:50:48 Patient moved to stretcher End Study - Contrast Media Used In Study Contrast Total Opened (mL) Total Used (mL) Total Wasted (mL) Omnipaque 10 10 0 End Study - Maximum Contrast Load Max Contrast Load (mL) 566.8 End Study - Radiation Exposure Fluoro Time (minutes) 7.1 End Study - Patient Disposition Complications Transferred To Not selected Telemetry Bed
[2018-01-24] MEDS ORDERED: DO NOT ADM ANY ANTICOAGULANT DRUGS PRN (18:05)
--- NOTE | 2018-01-24 18:28 | HHI.PR ---
Subjective Remarks Patient seen in PACU. Status post pacemaker placement. A large pericardial effusion was noted. She had a pericardial window. Currently requiring dopamine. Objective Vitals Vital Signs Date Time Temp Pulse Resp B/P (MAP) Pulse Ox O2 Delivery O2 Flow Rate FiO2 01/24/18 15:00 67 01/24/18 15:00 98.5 75 19 206/80 (122) 96 01/24/18 14:00 63 01/24/18 13:00 53 01/24/18 12:00 62 01/24/18 11:00 63 01/24/18 11:00 98.7 60 20 178/80 (112) 96 01/24/18 10:00 53 01/24/18 09:00 60 01/24/18 08:00 60 01/24/18 07:00 194/78 (116) 01/24/18 07:00 98.5 60 19 172/74 (106) 96 01/24/18 07:00 48 01/24/18 07:00 96 Nasal Cannula 2.00 01/24/18 06:11 48 01/24/18 05:00 63 01/24/18 04:00 59 01/24/18 03:00 60 01/24/18 03:00 98.0 65 16 169/79 (109) 95 01/24/18 02:00 59 01/24/18 01:00 49 01/24/18 00:05 50 01/23/18 23:00 97.9 60 18 170/74 (106) 96 01/23/18 23:00 52 01/23/18 22:00 60 01/23/18 21:00 64 01/23/18 20:00 66 01/23/18 19:15 97.9 61 15 179/76 (110) 93 01/23/18 19:15 93 Nasal Cannula 2.00 01/23/18 19:00 57 I/O 01/23/18 01/23/18 01/23/18 01/24/18 01/24/18 01/24/18 07:00 15:00 23:00 07:00 15:00 23:00 Intake Total 610 ml 400 ml Output Total 450 ml 800 ml Balance 160 ml 400 ml -800 ml Intake Oral 610 ml 400 ml Output Urine Total 450 ml 800 ml # Voids 3 # Bowel Movements 1 2 Result Diagram: 01/24/18 0353 01/24/18 0353 Objective Remarks GENERAL: Frail elderly female in no apparent distress. CARDIOVASCULAR: Rate in the 70s. Regular. RESPIRATORY: Clear to auscultation anteriorly. Limited exam. GASTROINTESTINAL: Abdomen soft, non-tender, non-distended. Normal active bowel sounds MUSCULOSKELETAL: Extremities without cyanosis, or edema. NEURO: Alert but somewhat sedated A/P Problem List: (1) S/P cardiac pacemaker procedure ICD Code: Z95.0 - Presence of cardiac pacemaker Plan: Currently unstable, requiring dopamine. Attempt will be made to wean off. If remains unstable, will need transfer to the ICU with plastics tooling engineer consult. Defer to cardiology. (2) Pleural effusion ICD Code: J90 - Pleural effusion, not elsewhere classified Status: Acute Plan: Chest x-ray shows bibasilar pleural effusion and basilar consolidation. CTA negative for PE. No known heart failure. LVEF on echo from 01/13/18 with EF of 65-70%. Status post thoracentesis with improvement in symptoms. Fluids negative for malignant cells. Apparently patient had pericardial effusion requiring pericardial window today. (3) Hypoxia ICD Code: R09.02 - Hypoxemia Status: Acute Plan: Secondary to pleural effusion above. Continue supplemental oxygen. Incentive spirometry (4) A-fib ICD Code: I48.91 - Unspecified atrial fibrillation Plan: Patient with episodes of bradycardia with long pauses Status post pacemaker placement today. Not anticoagulated due to recent GI bleeding. (5) Bradycardia ICD Code: R00.1 - Bradycardia, unspecified Plan: See above. Status post pacemaker. (6) Debility ICD Code: R53.81 - Other malaise Plan: Continue PT. Will need SNF. Discharge Planning Patient states she will not return to the same SNF. Case management consulted. She will likely need to return to SNF due to debility. Hector Hall MD Jan 24, 2018 18:28
[2018-01-25] VITALS (27 sets, daily range): BP systolic 118–153; BP diastolic 46–68; PULSE 60–83; RESP 18–21; TEMP 98.2–98.5; O2SAT 94–99
[2018-01-25 04:42] LABS: HEMATOCRIT 31.2 % (35.0-46.0); HEMOGLOBIN 10.5 GM/DL (11.6-15.3); MEAN CELL VOLUME 88.7 FL (80.0-100.0); MEAN CORPUSCULAR HEMOGLOBIN 29.9 PG (27.0-34.0); MEAN CORPUSCULAR HGB CONC 33.7 % (32.0-36.0); MEAN PLATELET VOLUME 8.6 FL (7.0-11.0); PLATELET COUNT 322 TH/MM3 (150-450); RED BLOOD COUNT 3.52 MIL/MM3 (4.00-5.30); RED CELL DISTRIBUTION WIDTH 14.4 % (11.6-17.2)
[2018-01-25 05:08] LABS: BICARBONATE 26.2 MEQ/L (21.0-32.0); CALCIUM 8.1 MG/DL (8.5-10.1); CREATININE 0.55 MG/DL (0.50-1.00)
[2018-01-25] MEDS: DOCUSATE SODIUM 50 MG/SENNA 8.6 MG TAB PO SCH ×2 (08:57→20:56)
[2018-01-25] MEDS: PANTOPRAZOLE SOD 40 MG DELAYED RELEASE TAB PO SCH (08:57)
[2018-01-25] MEDS: SODIUM CHLORIDE 0.9% FLUSH 10 ML FLUSH IV FLUSH SCH ×2 (09:00→20:56)
--- NOTE | 2018-01-25 14:58 | HHI.PR ---
Subjective Remarks Patient reports she is feeling okay today. No increased in shortness of breath but some discomfort with deep breathing. Objective Vitals Vital Signs Date Time Temp Pulse Resp B/P (MAP) Pulse Ox O2 Delivery O2 Flow Rate FiO2 01/25/18 13:00 74 01/25/18 12:00 78 01/25/18 11:35 98.2 81 18 153/68 (96) 96 01/25/18 11:00 81 01/25/18 10:00 72 01/25/18 09:00 74 01/25/18 08:00 72 01/25/18 07:58 98.4 70 20 136/64 (88) 94 Arterial Line 01/25/18 07:54 98 Nasal Cannula 2.00 01/25/18 07:00 60 01/25/18 06:00 68 01/25/18 05:00 71 01/25/18 04:00 65 01/25/18 04:00 98.5 70 20 118/58 (78) 94 138/46 (76) 01/25/18 03:00 72 01/25/18 02:00 74 01/25/18 01:00 64 01/25/18 00:00 72 01/25/18 00:00 98.5 69 20 135/63 (87) 94 146/46 (79) 01/24/18 23:00 69 01/24/18 22:00 71 01/24/18 21:00 62 01/24/18 20:00 Nasal Cannula 2.00 01/24/18 20:00 97.7 70 20 132/56 (81) 94 137/46 (76) 01/24/18 20:00 68 01/24/18 19:15 69 20 141/61 (87) 97 Nasal Cannula 2 135/62 (86) 01/24/18 19:00 71 20 120/55 (76) 97 Nasal Cannula 2 118/54 (75) 01/24/18 18:45 71 20 93/50 (64) 97 Nasal Cannula 4 120/42 (68) 01/24/18 18:30 70 20 92/54 (67) 98 Nasal Cannula 4 115/44 (67) 01/24/18 18:15 81 20 116/56 (76) 98 Nasal Cannula 4 114/39 (64) 01/24/18 18:03 98.4 85 20 123/58 (79) 100 Nasal Cannula 4 01/24/18 15:00 67 01/24/18 15:00 98.5 75 19 206/80 (122) 96 I/O 01/24/18 01/24/18 01/24/18 01/25/18 01/25/18 01/25/18 06:59 14:59 22:59 06:59 14:59 22:59 Intake Total 400 ml 30 ml Output Total 800 ml 150 ml Balance 400 ml -800 ml -120 ml Intake Oral 400 ml 30 ml Output Urine Total 800 ml 150 ml # Voids 3 # Bowel Movements 2 Result Diagram: 01/25/18 0400 01/25/18 0400 Objective Remarks GENERAL: Frail elderly female in no apparent distress. CARDIOVASCULAR: Rate in the 70s. Regular. RESPIRATORY: Clear to auscultation anteriorly. Limited exam. Diminished breath sounds at the base. GASTROINTESTINAL: Abdomen soft, non-tender, non-distended. Normal active bowel sounds MUSCULOSKELETAL: Extremities without cyanosis, or edema. NEURO: Alert and oriented. Short term memory is poor. A/P Problem List: (1) S/P cardiac pacemaker procedure ICD Code: Z95.0 - Presence of cardiac pacemaker Plan: Cardiology following. S/P PPM placement. Had effusion, pericardial window. Improving. Further plans per Cardiology (2) Pleural effusion ICD Code: J90 - Pleural effusion, not elsewhere classified Status: Acute Plan: Chest x-ray shows bibasilar pleural effusion and basilar consolidation. CTA negative for PE. No known heart failure. LVEF on echo from 01/13/18 with EF of 65-70%. Status post thoracentesis with improvement in symptoms. Fluids negative for malignant cells. Patient had pericardial effusion requiring pericardial window Stable today. Incentive spirometry (3) Hypoxia ICD Code: R09.02 - Hypoxemia Status: Acute Plan: Secondary to pleural effusion above. Continue supplemental oxygen. Incentive spirometry (4) A-fib ICD Code: I48.91 - Unspecified atrial fibrillation Plan: Patient with episodes of bradycardia with long pauses Status post pacemaker placement today. Not anticoagulated due to recent GI bleeding. (5) Bradycardia ICD Code: R00.1 - Bradycardia, unspecified Plan: See above. Status post pacemaker. (6) Debility ICD Code: R53.81 - Other malaise Plan: Continue PT. Will need SNF. Discharge Planning Patient states she will not return to the same SNF. Case management consulted. She will likely need to return to SNF due to debility. Hector Hall MD Jan 25, 2018 14:57
--- NOTE | 2018-01-25 15:02 | MP ---
cc: Tony Glaloway MD, Fox, DATE OF OPERATION: 01/24/2018 PROCEDURE PERFORMED: Micra permanent pacemaker insertion. INDICATIONS FOR PROCEDURE: Mrs. 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 White for permanent pacemaker insertion. The risks, the nature and the benefits of the procedure are clearly stated to her. I recited pneumothorax, cardiac perforation, stroke, need for open heart surgery and even . The patient understood and agreed to proceed. DESCRIPTION OF PROCEDURE: After written informed consent was obtained, the patient was brought to the EP lab, where she was prepped and draped in the usual sterile fashion. Conscious sedation was initiated and maintained throughout the procedure by anesthesiologist. Once sedation verified, the right inguinal area was anesthetized with 2% Xylocaine. Using modified Seldinger technique, the right femoral was cannulated using on one occasion and one guidewire was advanced. Then, using #11 blade scalpel, a less than a 1 cm incision was made. Then, 2-0 Ethibond suture was placed as a pursestring fashion around the access point, then, over the wire, all the way to the superior vena cava. Then, less than a cm incision was made at the entry point. 2-0 Ethibond suture were placed at the exit bed to prevent backbleeding. Then, the area was previously dilated using an 8, 12, 16 and 20-Wallisian dilator. Then, subsequently, the micro sheath was advanced and placed at the right atrium. Then, the delivery system was advanced. Before that, the patient received 2000 units of heparin. Then, the delivery system was advanced and placed at the right ventricular septal area. Venography was performed through a Micra sheath in the septum. At that point, I do realize there is some contrast extravasation in the pericardial space. the delivery system and the Micra system in multiple locations. At that point, after adequate pacing sensing threshold obtained, the delivery system was removed. The patient's saturation was normal, but the systolic blood pressure was in the 70s. At this point, I decided to access and A-line. The left femoral artery was cannulated and a guidewire was advanced. Over the wire, a 4-Wallisian Hemaquet was advanced and connected for pressure monitoring. Subsequently, I did access the left femoral vein on 1 occasion, a guidewire was advanced over the wire, 7-Wallisian Hemaquet was advanced. That was for fluid administration. Saturation was at 100%. Subsequently, an echo was performed, showing minimal pericardial effusion. The patient received 10 mg of protamine. Then, further takeoff view was taken. I did review again the acorn multiple occasions with Dr. Brenner and Dr. Hanson. There was no significant effusion. The patient's blood pressure and saturation was good. At that point, the procedure was complete. The patient is going to be transferred to the recovery room. That was a very complex case. Blood loss minimal. 1. Implant that was implanted, pacemaker is an [employer] Micra model #[id number]. Serial #[id number]. 2. The right ventricular pacing threshold in the bipolar mode was 24 milliseconds. Lead impedance 1400 ohms, R-wave over 20 millivolt. Setting the device VVI 60. Rate response will be reevaluated. CONCLUSION Successful Micra insertion. RECOMMENDATION: The patient is going to be transferred to the recovery room. Will be observed. Can be discharged whenever it is okay with the managing team. Echo will be repeated in the morning. MD WADE Resendiz/KRIS , 05:52 PM , 06:46 PM
--- NOTE | 2018-01-25 16:43 | EKG ---
Date Performed: 01/24/2018 Time Performed: 18:24:07 PTAGE: 82 years EKG: Sinus rhythm BORDERLINE LEFT AXIS DEVIATION Since previous tracing, no significant change noted BORDERLINE ECG PREVIOUS TRACING : 01/20/2018 15.08 DOCTOR: Christopher Ryder Interpretating Date/Time 01/25/2018 16:42:43
--- NOTE | 2018-01-25 16:45 | EKG ---
Date Performed: 01/25/2018 Time Performed: 05:54:44 PTAGE: 82 years EKG: Sinus rhythm Poor R wave progression - probable normal variant Lateral ST-T changes may be due to myocardial isch emia When compared to previous tracing, anterolateral ST changes are Slightly more prominant. Conside r ischemia. Abnormal ECG PREVIOUS TRACING : 01/24/2018 18.24 DOCTOR: Christopher Ryder Interpretating Date/Time 01/25/2018 16:44:30
--- NOTE | 2018-01-25 18:26 | PD.CARD.PN ---
Subjective Subjective Remarks Patient was seen earlier today, late entry note Today feels well, no complaints Events from procedure noted Small pericardial effusion after PPM placement Objective Medications Current Medications Medications (Trade) Dose Ordered Sig/Nghia Route Start Time Stop Time Status Last Admin (NS Flush) 2 ml UNSCH PRN IV FLUSH 01/20/18 18:15 (NS Flush) 2 ml BID IV FLUSH 01/20/18 21:00 01/25/18 09:00 (Tylenol) 650 mg Q4H PRN PO 01/20/18 18:15 (Zofran Inj) 4 mg Q6H PRN IVP 01/20/18 18:15 (Narcan Inj) 0.4 mg UNSCH PRN IV PUSH 01/20/18 18:15 (Kendra-Colace) 1 tab BID PO 01/20/18 21:00 01/25/18 08:57 (Milk Of Magnesia Liq) 30 ml Q12H PRN PO 01/20/18 18:15 (Senokot) 17.2 mg Q12H PRN PO 01/20/18 18:15 (Dulcolax Supp) 10 mg DAILY PRN RECTAL 01/20/18 18:15 (Lactulose Liq) 30 ml DAILY PRN PO 01/20/18 18:15 (Coreg) 6.25 mg Q12HR PO 01/20/18 21:00 Future Hold (Protonix) 40 mg DAILY PO 01/21/18 09:00 01/25/18 08:57 Lactated Ringer's 1,000 ml @ 30 mls/hr Q24H PRN IV 01/23/18 22:30 01/26/18 22:29 Sodium Chloride 500 ml @ 30 mls/hr [id number] PRN IV 01/23/18 22:30 01/26/18 22:29 (Lopressor) 25 mg HEAD MACHINIST PRN PO 01/23/18 22:30 01/26/18 22:29 (Betadine 5% Antisepsis Kit) 1 applic HEAD MACHINIST PRN EACH NARE 01/23/18 22:30 01/26/18 22:29 (Chlorhexidine 2% Cloth) 3 pack HEAD MACHINIST PRN TOPICAL 01/23/18 22:30 01/26/18 22:29 Vital Signs / I&O Vital Signs Date Time Temp Pulse Resp B/P (MAP) Pulse Ox O2 Delivery O2 Flow Rate FiO2 01/25/18 15:45 98.5 83 18 140/65 (90) 97 01/25/18 13:00 74 01/25/18 12:00 78 01/25/18 11:35 98.2 81 18 153/68 (96) 96 01/25/18 11:00 81 01/25/18 10:00 72 01/25/18 09:00 74 01/25/18 08:00 72 01/25/18 07:58 98.4 70 20 136/64 (88) 94 Arterial Line 01/25/18 07:54 98 Nasal Cannula 2.00 01/25/18 07:00 60 01/25/18 06:00 68 01/25/18 05:00 71 01/25/18 04:00 65 01/25/18 04:00 98.5 70 20 118/58 (78) 94 138/46 (76) 01/25/18 03:00 72 01/25/18 02:00 74 01/25/18 01:00 64 01/25/18 00:00 72 01/25/18 00:00 98.5 69 20 135/63 (87) 94 146/46 (79) 01/24/18 23:00 69 01/24/18 22:00 71 01/24/18 21:00 62 01/24/18 20:00 Nasal Cannula 2.00 01/24/18 20:00 97.7 70 20 132/56 (81) 94 137/46 (76) 01/24/18 20:00 68 01/24/18 19:15 69 20 141/61 (87) 97 Nasal Cannula 2 135/62 (86) 01/24/18 19:00 71 20 120/55 (76) 97 Nasal Cannula 2 118/54 (75) 01/24/18 18:45 71 20 93/50 (64) 97 Nasal Cannula 4 120/42 (68) 01/24/18 18:30 70 20 92/54 (67) 98 Nasal Cannula 4 115/44 (67) I/O 01/24/18 01/24/18 01/24/18 01/25/18 01/25/18 01/25/18 07:00 15:00 23:00 07:00 15:00 23:00 Intake Total 400 ml 30 ml 460 ml Output Total 800 ml 150 ml 150 ml Balance 400 ml -800 ml -120 ml 310 ml Intake Oral 400 ml 30 ml 460 ml Output Urine Total 800 ml 150 ml 150 ml # Voids 3 # Bowel Movements 2 0 Physical Exam GENERAL: NAD, AAOx3 SKIN: Warm and dry. HEAD: Atraumatic. Normocephalic. EYES: Pupils equal and round. No scleral icterus. No injection or drainage. ENT: No nasal bleeding or discharge. Mucous membranes pink and moist. NECK: Trachea midline. No JVD. CARDIOVASCULAR: Irregularly irregular RESPIRATORY: No accessory muscle use. Clear to auscultation. Breath sounds equal bilaterally. GASTROINTESTINAL: Abdomen soft, non-tender, nondistended. Hepatic and splenic margins not palpable. MUSCULOSKELETAL: Extremities without clubbing, cyanosis, or edema. No obvious deformities. NEUROLOGICAL: Awake and alert. No obvious cranial nerve deficits. Motor grossly within normal limits. Five out of 5 muscle strength in the arms and legs. Normal speech. PSYCHIATRIC: Appropriate mood and affect; insight and judgment normal. Laboratory Laboratory Tests Test 01/25/18 04:00 White Blood Count 14.0 TH/MM3 Red Blood Count 3.52 MIL/MM3 Hemoglobin 10.5 GM/DL Hematocrit 31.2 % Mean Corpuscular Volume 88.7 FL Mean Corpuscular Hemoglobin 29.9 PG Mean Corpuscular Hemoglobin Concent 33.7 % Red Cell Distribution Width 14.4 % Platelet Count 322 TH/MM3 Mean Platelet Volume 8.6 FL Blood Urea Nitrogen 15 MG/DL Creatinine 0.55 MG/DL Random Glucose 119 MG/DL Calcium Level 8.1 MG/DL Sodium Level 143 MEQ/L Potassium Level 4.4 MEQ/L Chloride Level 108 MEQ/L Carbon Dioxide Level 26.2 MEQ/L Anion Gap 9 MEQ/L Estimat Glomerular Filtration Rate 106 ML/MIN Assessment and Plan Problem List: (1) A-fib ICD Codes: I48.91 - Unspecified atrial fibrillation (2) Bradycardia ICD Codes: R00.1 - Bradycardia, unspecified (3) Debility ICD Codes: R53.81 - Other malaise (4) Hypoxia ICD Codes: R09.02 - Hypoxemia Status: Acute (5) Pleural effusion ICD Codes: J90 - Pleural effusion, not elsewhere classified Status: Acute (6) Hypertension ICD Codes: I10 - Essential (primary) hypertension (7) Gastrostomy tube in place ICD Codes: Z93.1 - Gastrostomy status Status: Acute Assessment and Plan 1) Afib Previously with bradycardia/pauses, asymptomatic Last dose of Coreg on 01/20 Micra PPM placed Not an anti-coagulation candidate due to previous GI bleed last admission 2) B/L pleural effusion s/p thoracentesis May be due to third spacing due to her low albumin level 3) Small pericardial effusion Repeat echo 4) Further management per Dr. Galloway Will see PRN, call with questions Andre White DO Jan 25, 2018 18:26
[2018-01-26] VITALS (27 sets, daily range): BP systolic 140–160; BP diastolic 62–69; PULSE 60–85; RESP 18–22; TEMP 98–98.5; O2SAT 92–98
[2018-01-26 04:42] LABS: HEMATOCRIT 29.4 % (35.0-46.0); HEMOGLOBIN 9.8 GM/DL (11.6-15.3); MEAN CELL VOLUME 90.3 FL (80.0-100.0); MEAN CORPUSCULAR HGB CONC 33.2 % (32.0-36.0); MEAN PLATELET VOLUME 8.9 FL (7.0-11.0); PLATELET COUNT 261 TH/MM3 (150-450); RED BLOOD COUNT 3.26 MIL/MM3 (4.00-5.30); RED CELL DISTRIBUTION WIDTH 14.7 % (11.6-17.2); WHITE BLOOD COUNT 15.7 TH/MM3 (4.0-11.0)
[2018-01-26 05:01] LABS: BICARBONATE 28.5 MEQ/L (21.0-32.0); CALCIUM 8.1 MG/DL (8.5-10.1); CREATININE 0.66 MG/DL (0.50-1.00)
[2018-01-26] MEDS: PANTOPRAZOLE SOD 40 MG DELAYED RELEASE TAB PO SCH (08:08)
[2018-01-26] MEDS: DOCUSATE SODIUM 50 MG/SENNA 8.6 MG TAB PO SCH ×2 (09:00→21:00)
[2018-01-26] MEDS: SODIUM CHLORIDE 0.9% FLUSH 10 ML FLUSH IV FLUSH SCH ×2 (09:00→21:00)
--- NOTE | 2018-01-26 11:07 | HHI.PR ---
Subjective Remarks This is a pleasant 82 y/o Female seen in her bedroom, discussed with nurse Miss Mc followed by trading specialist with Diagnosis of Atrial Fibrillation, previously with bradycardia/pauses, asymptomatic, last dose of Coreg 01/20/18, Micra PPM placed, Not an anticoagulation candidate due to Previous GI bleed last admission, had bilateral pleural effusions status post Thoracentesis, small pericardial effusion recommended by Cardiology to repeat echocardiogram, Further management by Doctor Efrain, not yet cleared for discharge. no nausea, vomit or diarrhea. Discussed with nurse Miss Keitha. Objective Vital Signs Date Time Temp Pulse Resp B/P (MAP) Pulse Ox O2 Delivery O2 Flow Rate FiO2 01/26/18 08:00 98.4 74 18 152/67 (95) 92 01/26/18 08:00 74 01/26/18 07:28 98 Nasal Cannula 2.00 01/26/18 07:00 65 01/26/18 06:06 74 01/26/18 05:10 76 01/26/18 04:05 77 01/26/18 03:15 98.5 77 21 140/63 (88) 95 01/26/18 03:15 67 01/26/18 02:00 65 01/26/18 01:20 64 01/26/18 00:33 78 01/25/18 23:00 98.3 75 21 146/62 (90) 96 01/25/18 23:00 78 01/25/18 22:00 65 01/25/18 21:00 67 01/25/18 20:00 70 01/25/18 19:10 98.5 76 21 129/63 (85) 99 01/25/18 19:10 69 01/25/18 19:10 Nasal Cannula 2.00 01/25/18 18:01 80 01/25/18 17:00 62 01/25/18 16:00 78 01/25/18 15:45 98.5 83 18 140/65 (90) 97 01/25/18 15:00 81 01/25/18 14:00 78 01/25/18 13:00 74 01/25/18 12:00 78 01/25/18 11:35 98.2 81 18 153/68 (96) 96 I/O 01/25/18 01/25/18 01/25/18 01/26/18 01/26/1820/18 07:00 15:00 23:00 07:00 15:00 23:00 Intake Total 30 ml 460 ml 480 ml Output Total 150 ml 150 ml 100 ml Balance -120 ml 310 ml 380 ml Intake Oral 30 ml 460 ml 480 ml Output Urine Total 150 ml 150 ml 100 ml # Voids 2 # Bowel Movements 0 1 Result Diagram: 01/26/18 0316 01/26/18 0316 Imaging Last Impressions Chest X-Ray 01/22/18 0000 Signed Impressions: Service Date/Time: Monday, January 22, 2018 11:46 - CONCLUSION: Small bibasilar opacities likely representing pleural effusions with associated volume loss and/or airspace consolidation. These findings are stable compared to the 01/20/2018 exam. Aren Mac MD Thoracentesis Ultrasound 01/21/18 0000 Signed Impressions: Service Date/Time: Sunday, January 21, 2018 09:07 - CONCLUSION: Uncomplicated ultrasound guided thoracentesis. Johnny Hernández MD CT Angiography 01/20/18 1436 Signed Impressions: Service Date/Time: Saturday, January 20, 2018 16:25 - CONCLUSION: No evidence of pulmonary embolism Aren Valdez MD Abdomen/Pelvis CT 01/20/18 0000 Signed Impressions: Service Date/Time: Saturday, January 20, 2018 16:25 - CONCLUSION: No acute CT findings in the abdomen or pelvis Aren Valdez MD Procedures Pacemaker placement Other Results Laboratory Tests Test 01/20/18 14:47 01/21/18 06:22 01/21/18 09:30 01/22/18 08:58 Prothrombin Time 9.7 SEC Prothromb Time International Ratio 1.0 RATIO Activated Partial Thromboplast Time 21.1 SEC Urine Color YELLOW Urine Turbidity HAZY Urine pH 6.5 Urine Specific [place] 1.014 Urine Protein TRACE mg/dL Urine Glucose (UA) NEG mg/dL Urine Ketones NEG mg/dL Urine Occult Blood NEG Urine Nitrite NEG Urine Bilirubin NEG Urine Urobilinogen LESS THAN 2.0 MG/DL Urine Leukocyte Esterase NEG Urine RBC 3 /hpf Urine WBC 3 /hpf Urine Squamous Epithelial Cells 12 /hpf Urine Mucus FEW /lpf Microscopic Urinalysis Comment CATH-CULT NOT IND Total Creatine Kinase 56 U/L Troponin I LESS THAN 0.02 NG/ML Neutrophils (%) (Auto) 78.3 % Lymphocytes (%) (Auto) 12.6 % Monocytes (%) (Auto) 7.4 % Eosinophils (%) (Auto) 1.4 % Basophils (%) (Auto) 0.3 % Neutrophils # (Auto) 9.2 TH/MM3 Lymphocytes # (Auto) 1.5 TH/MM3 Monocytes # (Auto) 0.9 TH/MM3 Eosinophils # (Auto) 0.2 TH/MM3 Basophils # (Auto) 0.0 TH/MM3 CBC Comment DIFF FINAL Differential Comment Blood Urea Nitrogen 15 MG/DL 12 MG/DL Creatinine 0.54 MG/DL 0.60 MG/DL Random Glucose 102 MG/DL 141 MG/DL Total Protein 5.9 GM/DL Albumin 1.9 GM/DL Calcium Level 8.1 MG/DL 8.4 MG/DL Alkaline Phosphatase 63 U/L Aspartate Amino Transf (AST/SGOT) 22 U/L Alanine Aminotransferase (ALT/SGPT) 25 U/L Total Bilirubin 0.2 MG/DL Sodium Level 140 MEQ/L 140 MEQ/L Potassium Level 4.3 MEQ/L 3.8 MEQ/L Chloride Level 100 MEQ/L 102 MEQ/L Carbon Dioxide Level 36.8 MEQ/L 31.3 MEQ/L Body Fluid Amylase Source LEFT PLEURAL Body Fluid Amylase 15 U/L Pleural Fluid pH 8.5 Pleural Fluid WBC 68 /MM3 Pleural Fluid RBC 660 /MM3 Pleural Fluid Neutrophils 13 % Pleural Fluid Lymphocytes 58 % Pleural Fluid Monocytes 9 % Pleural Fluid Eosinophils 1 % Pleural Fluid Histiocytes 1 % Pleural Fluid Mesothelial Cells 3 % Pleural Fluid Plasma Cells 9 % Pleural Fluid Other Cells 6 % Pleural Fluid Comment Pleural Fluid Total Protein 2.0 GM/DL Pleural Fluid LDH 103 U/L Pleural Fluid Glucose 106 MG/DL Phosphorus Level 3.2 MG/DL Magnesium Level 2.6 MG/DL Test 01/26/18 03:16 White Blood Count 15.7 TH/MM3 Red Blood Count 3.26 MIL/MM3 Hemoglobin 9.8 GM/DL Hematocrit 29.4 % Mean Corpuscular Volume 90.3 FL Mean Corpuscular Hemoglobin 30.0 PG Mean Corpuscular Hemoglobin Concent 33.2 % Red Cell Distribution Width 14.7 % Platelet Count 261 TH/MM3 Mean Platelet Volume 8.9 FL Blood Urea Nitrogen 17 MG/DL Creatinine 0.66 MG/DL Random Glucose 150 MG/DL Calcium Level 8.1 MG/DL Sodium Level 141 MEQ/L Potassium Level 3.8 MEQ/L Chloride Level 104 MEQ/L Carbon Dioxide Level 28.5 MEQ/L Anion Gap 9 MEQ/L Estimat Glomerular Filtration Rate 86 ML/MIN Objective Remarks GENERAL: No acute distress. CARDIOVASCULAR: Regular rate and rhythm. RESPIRATORY: Clear to auscultation anteriorly. Limited exam. Diminished breath sounds at the base. GASTROINTESTINAL: Abdomen soft, non-tender, non-distended. Normal active bowel sounds MUSCULOSKELETAL: Extremities without cyanosis, or edema. NEURO: Alert and oriented. Short term memory is poor. Medications and IVs Current Medications Medications (Trade) Dose Ordered Sig/Nghia Route Start Time Stop Time Status Last Admin (NS Flush) 2 ml UNSCH PRN IV FLUSH 01/20/18 18:15 (NS Flush) 2 ml BID IV FLUSH 01/20/18 21:00 01/26/18 09:00 (Tylenol) 650 mg Q4H PRN PO 01/20/18 18:15 (Zofran Inj) 4 mg Q6H PRN IVP 01/20/18 18:15 (Narcan Inj) 0.4 mg UNSCH PRN IV PUSH 01/20/18 18:15 (Kendra-Colace) 1 tab BID PO 01/20/18 21:00 01/25/18 20:56 (Milk Of Magnesia Liq) 30 ml Q12H PRN PO 01/20/18 18:15 (Senokot) 17.2 mg Q12H PRN PO 01/20/18 18:15 (Dulcolax Supp) 10 mg DAILY PRN RECTAL 01/20/18 18:15 (Lactulose Liq) 30 ml DAILY PRN PO 01/20/18 18:15 (Coreg) 6.25 mg Q12HR PO 01/20/18 21:00 Future Hold (Protonix) 40 mg DAILY PO 01/21/18 09:00 01/26/18 08:08 Lactated Ringer's 1,000 ml @ 30 mls/hr Q24H PRN IV 01/23/18 22:30 01/26/18 22:29 Sodium Chloride 500 ml @ 30 mls/hr [id number] PRN IV 01/23/18 22:30 01/26/18 22:29 (Lopressor) 25 mg RESIDENTIAL COLLECTIONS PRN PO 01/23/18 22:30 01/26/18 22:29 (Betadine 5% Antisepsis Kit) 1 applic RESIDENTIAL COLLECTIONS PRN EACH NARE 01/23/18 22:30 01/26/18 22:29 (Chlorhexidine 2% Cloth) 3 pack RESIDENTIAL COLLECTIONS PRN TOPICAL 01/23/18 22:30 01/26/18 22:29 A/P Assessment and Plan (1) S/P cardiac pacemaker procedure ICD Code: Z95.0 - Presence of cardiac pacemaker Plan: Cardiology following. S/P PPM placement. Had effusion, pericardial window. previously with bradycardia/pauses, asymptomatic, last dose of Coreg 01/20/18, Micra PPM placed, Not an anticoagulation candidate due to Previous GI bleed last admission (2) Pleural effusion ICD Code: J90 - Pleural effusion, not elsewhere classified Status: Acute Plan: Chest x-ray shows bibasilar pleural effusion and basilar consolidation. CTA negative for PE. No known heart failure. LVEF on echo from 01/13/18 with EF of 65-70%. Status post thoracentesis with improvement in symptoms. Fluids negative for malignant cells. Patient had pericardial effusion requiring pericardial window Stable today. Incentive spirometry (3) Hypoxia ICD Code: R09.02 - Hypoxemia Status: Acute Plan: Secondary to pleural effusion above. Continue supplemental oxygen. Incentive spirometry (4) A-fib ICD Code: I48.91 - Unspecified atrial fibrillation Plan: Patient with episodes of bradycardia with long pauses Status post pacemaker placement Not anticoagulated due to recent GI bleeding. (5) Bradycardia ICD Code: R00.1 - Bradycardia, unspecified Plan: See above. Status post pacemaker. (6) Debility ICD Code: R53.81 - Other malaise Plan: Continue PT. Will need SNF. Discharge Planning Patient states she will not return to the same SNF. Case management consulted. She will likely need to return to SNF due to debility. once cleared by trading specialist. discussed with nurse Miss Hayes awaiting for Doctor Nilesh for discharge. to [facility]. Jadon Gomez MD Jan 26, 2018 11:07
[2018-01-27] VITALS (25 sets, daily range): BP systolic 140–164; BP diastolic 63–72; PULSE 56–89; RESP 20–21; TEMP 98.3–98.6; O2SAT 93–95
[2018-01-27] MEDS: DOCUSATE SODIUM 50 MG/SENNA 8.6 MG TAB PO SCH ×2 (09:00→21:00)
[2018-01-27] MEDS: SODIUM CHLORIDE 0.9% FLUSH 10 ML FLUSH IV FLUSH SCH ×2 (09:18→20:37)
[2018-01-27] MEDS: PANTOPRAZOLE SOD 40 MG DELAYED RELEASE TAB PO SCH (09:18)
--- NOTE | 2018-01-27 15:20 | HHI.PR ---
Subjective Remarks This is a pleasant 82 y/o Female seen in her bedroom, discussed with nurse Miss Mc followed by motor tune up specialist with Diagnosis of Atrial Fibrillation, previously with bradycardia/pauses, asymptomatic, last dose of Coreg 01/20/18, Micra PPM placed, Not an anticoagulation candidate due to Previous GI bleed last admission, had bilateral pleural effusions status post Thoracentesis, small pericardial effusion recommended by Cardiology to repeat echocardiogram, Further management by Doctor Efrain. 01/27; Seen in her bedroom discussed with nurse and okay to discharge as per Nurse, was asked to the nurse to titrate Oxygen and she is tolerating at room air with 93% of oxygen saturation. No nausea, vomit or diarrhea. Objective Vital Signs Date Time Temp Pulse Resp B/P (MAP) Pulse Ox O2 Delivery O2 Flow Rate FiO2 01/27/18 13:00 78 01/27/18 12:00 82 01/27/18 11:00 98.5 74 20 159/68 (98) 93 01/27/18 11:00 72 01/27/18 10:00 76 01/27/18 09:00 56 01/27/18 08:00 93 Room Air 01/27/18 08:00 98.3 77 20 153/68 (96) 93 01/27/18 08:00 70 01/27/18 07:00 89 01/27/18 06:28 79 01/27/18 05:19 86 01/27/18 04:26 88 01/27/18 03:56 98.5 77 21 140/63 (88) 95 01/27/18 03:54 76 01/27/18 02:00 70 01/27/18 01:28 61 01/27/18 00:20 62 01/26/18 23:54 78 01/26/18 23:10 98.5 73 21 160/69 (99) 97 01/26/18 22:00 60 01/26/18 21:00 65 01/26/18 20:00 71 01/26/18 19:20 73 01/26/18 19:20 Nasal Cannula 2.00 01/26/18 19:20 98.4 81 22 147/68 (94) 98 01/26/18 18:00 65 01/26/18 17:00 85 01/26/18 16:00 74 01/26/18 15:45 98.2 74 18 145/65 (91) 94 I/O 01/26/18 01/26/18 01/26/18 01/27/18 01/27/18 01/27/18 07:00 15:00 23:00 07:00 15:00 23:00 Intake Total 480 ml 480 ml 240 ml Output Total 100 ml 425 ml Balance 380 ml 480 ml -185 ml Intake Oral 480 ml 480 ml 240 ml Output Urine Total 100 ml 425 ml Stool Total 0 ml # Voids 2 2 # Bowel Movements 1 Result Diagram: 01/26/18 0316 01/26/18 0316 Imaging Last Impressions Chest X-Ray 01/22/18 0000 Signed Impressions: Service Date/Time: Monday, January 22, 2018 11:46 - CONCLUSION: Small bibasilar opacities likely representing pleural effusions with associated volume loss and/or airspace consolidation. These findings are stable compared to the 01/20/2018 exam. Aren Mac MD Thoracentesis Ultrasound 01/21/18 0000 Signed Impressions: Service Date/Time: Sunday, January 21, 2018 09:07 - CONCLUSION: Uncomplicated ultrasound guided thoracentesis. Johnny Hernández MD CT Angiography 01/20/18 1436 Signed Impressions: Service Date/Time: Saturday, January 20, 2018 16:25 - CONCLUSION: No evidence of pulmonary embolism Aren Valdez MD Abdomen/Pelvis CT 01/20/18 0000 Signed Impressions: Service Date/Time: Saturday, January 20, 2018 16:25 - CONCLUSION: No acute CT findings in the abdomen or pelvis Aren Valdez MD Procedures Pacemaker placement Other Results Laboratory Tests Test 01/20/18 14:47 01/21/18 06:22 01/21/18 09:30 01/22/18 08:58 Prothrombin Time 9.7 SEC Prothromb Time International Ratio 1.0 RATIO Activated Partial Thromboplast Time 21.1 SEC Urine Color YELLOW Urine Turbidity HAZY Urine pH 6.5 Urine Specific [place] 1.014 Urine Protein TRACE mg/dL Urine Glucose (UA) NEG mg/dL Urine Ketones NEG mg/dL Urine Occult Blood NEG Urine Nitrite NEG Urine Bilirubin NEG Urine Urobilinogen LESS THAN 2.0 MG/DL Urine Leukocyte Esterase NEG Urine RBC 3 /hpf Urine WBC 3 /hpf Urine Squamous Epithelial Cells 12 /hpf Urine Mucus FEW /lpf Microscopic Urinalysis Comment CATH-CULT NOT IND Total Creatine Kinase 56 U/L Troponin I LESS THAN 0.02 NG/ML Neutrophils (%) (Auto) 78.3 % Lymphocytes (%) (Auto) 12.6 % Monocytes (%) (Auto) 7.4 % Eosinophils (%) (Auto) 1.4 % Basophils (%) (Auto) 0.3 % Neutrophils # (Auto) 9.2 TH/MM3 Lymphocytes # (Auto) 1.5 TH/MM3 Monocytes # (Auto) 0.9 TH/MM3 Eosinophils # (Auto) 0.2 TH/MM3 Basophils # (Auto) 0.0 TH/MM3 CBC Comment DIFF FINAL Differential Comment Blood Urea Nitrogen 15 MG/DL 12 MG/DL Creatinine 0.54 MG/DL 0.60 MG/DL Random Glucose 102 MG/DL 141 MG/DL Total Protein 5.9 GM/DL Albumin 1.9 GM/DL Calcium Level 8.1 MG/DL 8.4 MG/DL Alkaline Phosphatase 63 U/L Aspartate Amino Transf (AST/SGOT) 22 U/L Alanine Aminotransferase (ALT/SGPT) 25 U/L Total Bilirubin 0.2 MG/DL Sodium Level 140 MEQ/L 140 MEQ/L Potassium Level 4.3 MEQ/L 3.8 MEQ/L Chloride Level 100 MEQ/L 102 MEQ/L Carbon Dioxide Level 36.8 MEQ/L 31.3 MEQ/L Body Fluid Amylase Source LEFT PLEURAL Body Fluid Amylase 15 U/L Pleural Fluid pH 8.5 Pleural Fluid WBC 68 /MM3 Pleural Fluid RBC 660 /MM3 Pleural Fluid Neutrophils 13 % Pleural Fluid Lymphocytes 58 % Pleural Fluid Monocytes 9 % Pleural Fluid Eosinophils 1 % Pleural Fluid Histiocytes 1 % Pleural Fluid Mesothelial Cells 3 % Pleural Fluid Plasma Cells 9 % Pleural Fluid Other Cells 6 % Pleural Fluid Comment Pleural Fluid Total Protein 2.0 GM/DL Pleural Fluid LDH 103 U/L Pleural Fluid Glucose 106 MG/DL Phosphorus Level 3.2 MG/DL Magnesium Level 2.6 MG/DL Test 01/26/18 03:16 White Blood Count 15.7 TH/MM3 Red Blood Count 3.26 MIL/MM3 Hemoglobin 9.8 GM/DL Hematocrit 29.4 % Mean Corpuscular Volume 90.3 FL Mean Corpuscular Hemoglobin 30.0 PG Mean Corpuscular Hemoglobin Concent 33.2 % Red Cell Distribution Width 14.7 % Platelet Count 261 TH/MM3 Mean Platelet Volume 8.9 FL Blood Urea Nitrogen 17 MG/DL Creatinine 0.66 MG/DL Random Glucose 150 MG/DL Calcium Level 8.1 MG/DL Sodium Level 141 MEQ/L Potassium Level 3.8 MEQ/L Chloride Level 104 MEQ/L Carbon Dioxide Level 28.5 MEQ/L Anion Gap 9 MEQ/L Estimat Glomerular Filtration Rate 86 ML/MIN Objective Remarks GENERAL: No acute distress. CARDIOVASCULAR: Regular rate and rhythm. RESPIRATORY: Clear to auscultation anteriorly. Limited exam. Diminished breath sounds at the base. GASTROINTESTINAL: Abdomen soft, non-tender, non-distended. Normal active bowel sounds MUSCULOSKELETAL: Extremities without cyanosis, or edema. NEURO: Alert and oriented. Short term memory is poor. Medications and IVs Current Medications Medications (Trade) Dose Ordered Sig/Nghia Route Start Time Stop Time Status Last Admin (NS Flush) 2 ml UNSCH PRN IV FLUSH 01/20/18 18:15 (NS Flush) 2 ml BID IV FLUSH 01/20/18 21:00 01/27/18 09:18 (Tylenol) 650 mg Q4H PRN PO 01/20/18 18:15 (Zofran Inj) 4 mg Q6H PRN IVP 01/20/18 18:15 (Narcan Inj) 0.4 mg UNSCH PRN IV PUSH 01/20/18 18:15 (Kendra-Colace) 1 tab BID PO 01/20/18 21:00 01/25/18 20:56 (Milk Of Magnesia Liq) 30 ml Q12H PRN PO 01/20/18 18:15 (Senokot) 17.2 mg Q12H PRN PO 01/20/18 18:15 (Dulcolax Supp) 10 mg DAILY PRN RECTAL 01/20/18 18:15 (Lactulose Liq) 30 ml DAILY PRN PO 01/20/18 18:15 (Coreg) 6.25 mg Q12HR PO 01/20/18 21:00 Future Hold (Protonix) 40 mg DAILY PO 01/21/18 09:00 01/27/18 09:18 A/P Assessment and Plan (1) S/P cardiac pacemaker procedure ICD Code: Z95.0 - Presence of cardiac pacemaker Plan: Cardiology following. S/P PPM placement. Had effusion, pericardial window. previously with bradycardia/pauses, asymptomatic, last dose of Coreg 01/20/18, Micra PPM placed, Not an anticoagulation candidate due to Previous GI bleed last admission (2) Pleural effusion ICD Code: J90 - Pleural effusion, not elsewhere classified Status: Acute Plan: Chest x-ray shows bibasilar pleural effusion and basilar consolidation. CTA negative for PE. No known heart failure. LVEF on echo from 01/13/18 with EF of 65-70%. Status post thoracentesis with improvement in symptoms. Fluids negative for malignant cells. Patient had pericardial effusion requiring pericardial window Stable today. Incentive spirometry (3) Hypoxia ICD Code: R09.02 - Hypoxemia Status: Acute Plan: Secondary to pleural effusion above. Continue supplemental oxygen. Incentive spirometry (4) A-fib ICD Code: I48.91 - Unspecified atrial fibrillation Plan: Patient with episodes of bradycardia with long pauses Status post pacemaker placement Not anticoagulated due to recent GI bleeding. (5) Bradycardia ICD Code: R00.1 - Bradycardia, unspecified Plan: See above. Status post pacemaker. (6) Debility ICD Code: R53.81 - Other malaise Plan: Continue PT. Will need SNF. okay by motor tune up specialist for discharge at this time. Discharge Planning Discharge to SNF now. Jadon Gomez MD Jan 27, 2018 15:20
--- NOTE | 2018-01-27 15:25 | HHI.DS ---
Discharge Summary Admission Date Jan 21, 2018 at 13:16 Discharge Date: Jan 27, 2018 Admitting Diagnosis bilateral pleural effusions, hypoxia (1) S/P cardiac pacemaker procedure ICD Code: Z95.0 - Presence of cardiac pacemaker Diagnosis: Principal (2) Pleural effusion ICD Code: J90 - Pleural effusion, not elsewhere classified Diagnosis: Principal Status: Acute (3) Hypoxia ICD Code: R09.02 - Hypoxemia Diagnosis: Principal Status: Acute (4) A-fib ICD Code: I48.91 - Unspecified atrial fibrillation Diagnosis: Principal (5) Bradycardia ICD Code: R00.1 - Bradycardia, unspecified Diagnosis: Principal (6) Debility ICD Code: R53.81 - Other malaise Diagnosis: Principal Procedures pacemaker placement Brief History - From Admission This is an 82-year-old female with a PMH of HTN, A. 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 Denies any abdominal pain, nausea or vomiting. Does note SOB in addition to swelling to bilateral hands starting earlier today. Denies fever, chills, cough or chest pain. On arrival , BP 133/58, HR 58, O2 sat 95% on 2L NC, Afebrile. WBC 14.2. Chemistry essentially unremarkable. Troponin negative. INR 1.0. UA negative. CT Abdomen/Pelvis with no acute findings. CTA Pulm negative for PE, CXR w/ bilateral effusions and basilar consolidation. S/p Lasix 40mg IV in ER and DuoNeb CBC/BMP: 01/26/18 0316 01/26/18 0316 Significant Findings Laboratory Tests Test 01/25/18 04:00 01/26/18 03:16 White Blood Count 14.0 TH/MM3 (4.0-11.0) 15.7 TH/MM3 (4.0-11.0) Red Blood Count 3.52 MIL/MM3 (4.00-5.30) 3.26 MIL/MM3 (4.00-5.30) Hemoglobin 10.5 GM/DL (11.6-15.3) 9.8 GM/DL (11.6-15.3) Hematocrit 31.2 % (35.0-46.0) 29.4 % (35.0-46.0) Random Glucose 119 MG/DL (74-106) 150 MG/DL (74-106) Calcium Level 8.1 MG/DL (8.5-10.1) 8.1 MG/DL (8.5-10.1) Chloride Level 108 MEQ/L (98-107) Estimat Glomerular Filtration Rate 86 ML/MIN (>89) Imaging Last Impressions Chest X-Ray 01/22/18 0000 Signed Impressions: Service Date/Time: Monday, January 22, 2018 11:46 - CONCLUSION: Small bibasilar opacities likely representing pleural effusions with associated volume loss and/or airspace consolidation. These findings are stable compared to the 01/20/2018 exam. Aren Mac MD Thoracentesis Ultrasound 01/21/18 0000 Signed Impressions: Service Date/Time: Sunday, January 21, 2018 09:07 - CONCLUSION: Uncomplicated ultrasound guided thoracentesis. Johnny Hernández MD CT Angiography 01/20/18 1436 Signed Impressions: Service Date/Time: Saturday, January 20, 2018 16:25 - CONCLUSION: No evidence of pulmonary embolism Aren Valdez MD Abdomen/Pelvis CT 01/20/18 0000 Signed Impressions: Service Date/Time: Saturday, January 20, 2018 16:25 - CONCLUSION: No acute CT findings in the abdomen or pelvis Aren Valdez MD PE at Discharge GENERAL: No acute distress. CARDIOVASCULAR: Regular rate and rhythm. RESPIRATORY: Clear to auscultation anteriorly. Limited exam. Diminished breath sounds at the base. GASTROINTESTINAL: Abdomen soft, non-tender, non-distended. Normal active bowel sounds MUSCULOSKELETAL: Extremities without cyanosis, or edema. NEURO: Alert and oriented. Short term memory is poor. Hospital Course This is a pleasant 82 y/o Female seen in her bedroom, discussed with nurse Miss Mc followed by mailing specialist with Diagnosis of Atrial Fibrillation, previously with bradycardia/pauses, asymptomatic, last dose of Coreg 01/20/18, Micra PPM placed, Not an anticoagulation candidate due to Previous GI bleed last admission, had bilateral pleural effusions status post Thoracentesis, small pericardial effusion recommended by Cardiology to repeat echocardiogram, Further management by Doctor Efrain. 01/27; Seen in her bedroom discussed with nurse and okay to discharge as per Nurse, was asked to the nurse to titrate Oxygen and she is tolerating at room air with 93% of oxygen saturation. No nausea, vomit or diarrhea. Assessment and Plan (1) S/P cardiac pacemaker procedure ICD Code: Z95.0 - Presence of cardiac pacemaker Plan: Cardiology following. S/P PPM placement. Had effusion, pericardial window. previously with bradycardia/pauses, asymptomatic, last dose of Coreg 01/20/18, Micra PPM placed, Not an anticoagulation candidate due to Previous GI bleed last admission (2) Pleural effusion ICD Code: J90 - Pleural effusion, not elsewhere classified Status: Acute Plan: Chest x-ray shows bibasilar pleural effusion and basilar consolidation. CTA negative for PE. No known heart failure. LVEF on echo from 01/13/18 with EF of 65-70%. Status post thoracentesis with improvement in symptoms. Fluids negative for malignant cells. Patient had pericardial effusion requiring pericardial window Stable today. Incentive spirometry (3) Hypoxia ICD Code: R09.02 - Hypoxemia Status: Acute Plan: Secondary to pleural effusion above. Continue supplemental oxygen. Incentive spirometry (4) A-fib ICD Code: I48.91 - Unspecified atrial fibrillation Plan: Patient with episodes of bradycardia with long pauses Status post pacemaker placement Not anticoagulated due to recent GI bleeding. (5) Bradycardia ICD Code: R00.1 - Bradycardia, unspecified Plan: See above. Status post pacemaker. (6) Debility ICD Code: R53.81 - Other malaise Plan: Continue PT. Will need SNF. okay by mailing specialist for discharge at this time. Discharge Planning Discharge to SNF now. Pt Condition on Discharge: Good Discharge Disposition: Discharge to SNF Discharge Time: > 30 minutes Discharge Instructions DIET: Follow Instructions for: Heart Healthy Diet Activities you can perform: Regular-No Restrictions Jadon Gomez MD Jan 27, 2018 15:25
[2018-01-27] MEDS ORDERED: SYMB160A INH (15:26)
[2018-01-27] MEDS ORDERED: ACETAMINOPHEN 650 MG/20.3 ML UDC PO ONE (22:15)
[2018-01-28] VITALS (25 sets, daily range): BP systolic 148–184; BP diastolic 70–82; PULSE 60–94; RESP 22; TEMP 97.6–99.7; O2SAT 92–93
[2018-01-28] MEDS: DOCUSATE SODIUM 50 MG/SENNA 8.6 MG TAB PO SCH ×2 (08:31→20:17)
[2018-01-28] MEDS: SODIUM CHLORIDE 0.9% FLUSH 10 ML FLUSH IV FLUSH SCH ×2 (08:34→20:17)
[2018-01-28] MEDS: PANTOPRAZOLE SOD 40 MG DELAYED RELEASE TAB PO SCH (08:34)
[2018-01-28] MEDS: ACETAMINOPHEN 325 MG TAB PO PRN ×2 (10:23→20:17)
--- NOTE | 2018-01-28 15:15 | HHI.PR ---
Subjective Remarks This is a pleasant 82 y/o Female seen in her bedroom, discussed with nurse Miss Mc followed by mechanical engineering specialist with Diagnosis of Atrial Fibrillation, previously with bradycardia/pauses, asymptomatic, last dose of Coreg 01/20/18, Micra PPM placed, Not an anticoagulation candidate due to Previous GI bleed last admission, had bilateral pleural effusions status post Thoracentesis, small pericardial effusion recommended by Cardiology to repeat echocardiogram, Further management by Doctor Efrain. 01/27; Seen in her bedroom discussed with nurse and okay to discharge as per Nurse, was asked to the nurse to titrate Oxygen and she is tolerating at room air with 93% of oxygen saturation. 01/28; Stable in her bedroom [facility], discussed with nurse miss Garber and with Respiratory therapy specialist, the patient is having high respiratory rate but does not qualify for oxygen she has oxygen saturation in 97%. at room air. will get Walk test and follow, no nausea, vomit or diarrhea awaiting for placement. Objective Vital Signs Date Time Temp Pulse Resp B/P (MAP) Pulse Ox O2 Delivery O2 Flow Rate FiO2 01/28/18 13:00 68 01/28/18 12:00 76 01/28/18 11:23 20 01/28/18 11:00 76 01/28/18 11:00 97.9 78 22 148/82 (104) 93 01/28/18 10:00 68 01/28/18 09:00 67 01/28/18 08:00 68 01/28/18 07:52 97.9 94 22 184/78 (113) 93 01/28/18 06:11 67 01/28/18 05:00 70 01/28/18 04:29 97.6 73 165/73 (103) 93 01/28/18 04:00 70 01/28/18 03:00 60 01/28/18 02:00 72 01/28/18 01:00 60 01/28/18 00:22 98.6 83 148/75 (99) 92 01/28/18 00:00 64 01/27/18 23:00 82 01/27/18 22:00 74 01/27/18 21:00 76 01/27/18 20:00 72 01/27/18 19:00 70 01/27/18 19:00 98.6 76 142/63 (89) 94 01/27/18 18:00 83 01/27/18 17:00 83 01/27/18 16:00 75 I/O 01/27/18 01/27/18 01/27/18 01/28/18 01/28/18 01/28/18 07:00 15:00 23:00 07:00 15:00 23:00 Intake Total 240 ml 840 ml 360 ml Output Total 425 ml 250 ml 450 ml Balance -185 ml 590 ml -90 ml Intake Oral 240 ml 840 ml 360 ml Output Urine Total 425 ml 250 ml 450 ml Stool Total 0 ml # Bowel Movements 1 Result Diagram: 01/26/18 0316 01/26/18 0316 Imaging Last Impressions Chest X-Ray 01/22/18 0000 Signed Impressions: Service Date/Time: Monday, January 22, 2018 11:46 - CONCLUSION: Small bibasilar opacities likely representing pleural effusions with associated volume loss and/or airspace consolidation. These findings are stable compared to the 01/20/2018 exam. Aren Mac MD Thoracentesis Ultrasound 01/21/18 0000 Signed Impressions: Service Date/Time: Sunday, January 21, 2018 09:07 - CONCLUSION: Uncomplicated ultrasound guided thoracentesis. Johnny Hernández MD CT Angiography 01/20/18 1436 Signed Impressions: Service Date/Time: Saturday, January 20, 2018 16:25 - CONCLUSION: No evidence of pulmonary embolism Aren Valdez MD Abdomen/Pelvis CT 01/20/18 0000 Signed Impressions: Service Date/Time: Saturday, January 20, 2018 16:25 - CONCLUSION: No acute CT findings in the abdomen or pelvis Aren Valdez MD Procedures Pacemaker placement Other Results Laboratory Tests Test 01/20/18 14:47 01/21/18 06:22 01/21/18 09:30 01/22/18 08:58 Prothrombin Time 9.7 SEC Prothromb Time International Ratio 1.0 RATIO Activated Partial Thromboplast Time 21.1 SEC Urine Color YELLOW Urine Turbidity HAZY Urine pH 6.5 Urine Specific [place] 1.014 Urine Protein TRACE mg/dL Urine Glucose (UA) NEG mg/dL Urine Ketones NEG mg/dL Urine Occult Blood NEG Urine Nitrite NEG Urine Bilirubin NEG Urine Urobilinogen LESS THAN 2.0 MG/DL Urine Leukocyte Esterase NEG Urine RBC 3 /hpf Urine WBC 3 /hpf Urine Squamous Epithelial Cells 12 /hpf Urine Mucus FEW /lpf Microscopic Urinalysis Comment CATH-CULT NOT IND Total Creatine Kinase 56 U/L Troponin I LESS THAN 0.02 NG/ML Neutrophils (%) (Auto) 78.3 % Lymphocytes (%) (Auto) 12.6 % Monocytes (%) (Auto) 7.4 % Eosinophils (%) (Auto) 1.4 % Basophils (%) (Auto) 0.3 % Neutrophils # (Auto) 9.2 TH/MM3 Lymphocytes # (Auto) 1.5 TH/MM3 Monocytes # (Auto) 0.9 TH/MM3 Eosinophils # (Auto) 0.2 TH/MM3 Basophils # (Auto) 0.0 TH/MM3 CBC Comment DIFF FINAL Differential Comment Blood Urea Nitrogen 15 MG/DL 12 MG/DL Creatinine 0.54 MG/DL 0.60 MG/DL Random Glucose 102 MG/DL 141 MG/DL Total Protein 5.9 GM/DL Albumin 1.9 GM/DL Calcium Level 8.1 MG/DL 8.4 MG/DL Alkaline Phosphatase 63 U/L Aspartate Amino Transf (AST/SGOT) 22 U/L Alanine Aminotransferase (ALT/SGPT) 25 U/L Total Bilirubin 0.2 MG/DL Sodium Level 140 MEQ/L 140 MEQ/L Potassium Level 4.3 MEQ/L 3.8 MEQ/L Chloride Level 100 MEQ/L 102 MEQ/L Carbon Dioxide Level 36.8 MEQ/L 31.3 MEQ/L Body Fluid Amylase Source LEFT PLEURAL Body Fluid Amylase 15 U/L Pleural Fluid pH 8.5 Pleural Fluid WBC 68 /MM3 Pleural Fluid RBC 660 /MM3 Pleural Fluid Neutrophils 13 % Pleural Fluid Lymphocytes 58 % Pleural Fluid Monocytes 9 % Pleural Fluid Eosinophils 1 % Pleural Fluid Histiocytes 1 % Pleural Fluid Mesothelial Cells 3 % Pleural Fluid Plasma Cells 9 % Pleural Fluid Other Cells 6 % Pleural Fluid Comment Pleural Fluid Total Protein 2.0 GM/DL Pleural Fluid LDH 103 U/L Pleural Fluid Glucose 106 MG/DL Phosphorus Level 3.2 MG/DL Magnesium Level 2.6 MG/DL Test 01/26/18 03:16 White Blood Count 15.7 TH/MM3 Red Blood Count 3.26 MIL/MM3 Hemoglobin 9.8 GM/DL Hematocrit 29.4 % Mean Corpuscular Volume 90.3 FL Mean Corpuscular Hemoglobin 30.0 PG Mean Corpuscular Hemoglobin Concent 33.2 % Red Cell Distribution Width 14.7 % Platelet Count 261 TH/MM3 Mean Platelet Volume 8.9 FL Blood Urea Nitrogen 17 MG/DL Creatinine 0.66 MG/DL Random Glucose 150 MG/DL Calcium Level 8.1 MG/DL Sodium Level 141 MEQ/L Potassium Level 3.8 MEQ/L Chloride Level 104 MEQ/L Carbon Dioxide Level 28.5 MEQ/L Anion Gap 9 MEQ/L Estimat Glomerular Filtration Rate 86 ML/MIN Objective Remarks GENERAL: No acute distress. CARDIOVASCULAR: Regular rate and rhythm. RESPIRATORY: Clear to auscultation anteriorly. Limited exam. Diminished breath sounds at the base. GASTROINTESTINAL: Abdomen soft, non-tender, non-distended. Normal active bowel sounds MUSCULOSKELETAL: Extremities without cyanosis, or edema. NEURO: Alert and oriented. Short term memory is poor. Medications and IVs Current Medications Medications (Trade) Dose Ordered Sig/Nghia Route Start Time Stop Time Status Last Admin (NS Flush) 2 ml UNSCH PRN IV FLUSH 01/20/18 18:15 (NS Flush) 2 ml BID IV FLUSH 01/20/18 21:00 01/28/18 08:34 (Tylenol) 650 mg Q4H PRN PO 01/20/18 18:15 01/28/18 10:23 (Zofran Inj) 4 mg Q6H PRN IVP 01/20/18 18:15 (Narcan Inj) 0.4 mg UNSCH PRN IV PUSH 01/20/18 18:15 (Kendra-Colace) 1 tab BID PO 01/20/18 21:00 01/25/18 20:56 (Milk Of Magnesia Liq) 30 ml Q12H PRN PO 01/20/18 18:15 (Senokot) 17.2 mg Q12H PRN PO 01/20/18 18:15 (Dulcolax Supp) 10 mg DAILY PRN RECTAL 01/20/18 18:15 (Lactulose Liq) 30 ml DAILY PRN PO 01/20/18 18:15 (Coreg) 6.25 mg Q12HR PO 01/20/18 21:00 Future Hold (Protonix) 40 mg DAILY PO 01/21/18 09:00 01/28/18 08:34 A/P Assessment and Plan (1) S/P cardiac pacemaker procedure ICD Code: Z95.0 - Presence of cardiac pacemaker Plan: Cardiology following. S/P PPM placement. Had effusion, pericardial window. previously with bradycardia/pauses, asymptomatic, last dose of Coreg 01/20/18, Micra PPM placed, Not an anticoagulation candidate due to Previous GI bleed last admission (2) Pleural effusion ICD Code: J90 - Pleural effusion, not elsewhere classified Status: Acute Plan: Chest x-ray shows bibasilar pleural effusion and basilar consolidation. CTA negative for PE. No known heart failure. LVEF on echo from 01/13/18 with EF of 65-70%. Status post thoracentesis with improvement in symptoms. Fluids negative for malignant cells. Patient had pericardial effusion requiring pericardial window today good oxygen saturation but she has increased Respiratory rate, she has basilar consolidation, will take a new CXR and start her on Levaquin has leukocytosis blood cultures were negative. asked for six minute walk. (3) Hypoxia ICD Code: R09.02 - Hypoxemia Status: Acute Plan: Secondary to pleural effusion above. Continue supplemental oxygen. Incentive spirometry. has good oxygen saturation, but increased respiratory rate asked for CXR, start Levaquin and follow. for six minute walk. (4) A-fib ICD Code: I48.91 - Unspecified atrial fibrillation Plan: Patient with episodes of bradycardia with long pauses Status post pacemaker placement Not anticoagulated due to recent GI bleeding. (5) Bradycardia ICD Code: R00.1 - Bradycardia, unspecified Plan: See above. Status post pacemaker. (6) Debility ICD Code: R53.81 - Other malaise Plan: Continue PT. Will need SNF. okay by mechanical engineering specialist for discharge at this time. but the patient is having some respiratory issues will assess this first. Discharge Planning Hold the Discharge for now. Jadon Gomez MD Jan 28, 2018 15:15
[2018-01-28] MEDS ORDERED: LEVOFLOXACIN 750 MG PREMIX INJ 150 ML IV SCH (16:00)
--- NOTE | 2018-01-28 16:42 | RADRPT ---
EXAM DATE/TIME: 01/28/2018 16:11 [facility] COMPARISON: CHEST PA & LAT, September 12, 2016, 9:07. INDICATIONS : Shortness of breath. Evaluate for pneumonia. MEDICAL HISTORY : Chronic obstructive pulmonary disease. Hypertension SURGICAL HISTORY : Appendectomy. Hysterectomy. ENCOUNTER: Subsequent ACUITY: 2 days PAIN SCORE: 0/10 LOCATION: Bilateral chest FINDINGS: PA and lateral views of the chest demonstrate bibasilar consolidation with associated effusions. Hear t size is borderline prominent. Mild interstitial prominence could represent some degree of vascular congestion or volume overload. Dextroscoliosis of the thoracolumbar spine. Osseous structures are oth erwise intact CONCLUSION: 1. Bibasilar areas of consolidation with associated effusions. 2. Mild interstitial prominence may represent some degree of vascular congestion. Spectrum of finding s could represent CHF in the appropriate clinical setting. Inocencio Shanks MD on January 28, 2018 at 16:39 Board Certified Radiologist. This report was verified electronically.
[2018-01-28 18:09] LABS: AUTOMATED NEUTROPHIL # 7.5 TH/MM3 (1.8-7.7); BASOPHIL % 0.4 % (0.0-2.0); EOSINOPHIL % 0.5 % (0.0-4.0); HEMATOCRIT 30.2 % (35.0-46.0); HEMOGLOBIN 10.1 GM/DL (11.6-15.3); LYMPH % 15.2 % (9.0-44.0); LYMPHOCYTE # 1.5 TH/MM3 (1.0-4.8); MEAN CELL VOLUME 89.8 FL (80.0-100.0); MEAN CORPUSCULAR HGB CONC 33.5 % (32.0-36.0); MEAN PLATELET VOLUME 8.6 FL (7.0-11.0); MONO % 8.2 % (0.0-8.0); MONOCYTE # 0.8 TH/MM3 (0-0.9); NEUT % 75.7 % (16.0-70.0); PLATELET COUNT 267 TH/MM3 (150-450); RED BLOOD COUNT 3.36 MIL/MM3 (4.00-5.30); RED CELL DISTRIBUTION WIDTH 14.7 % (11.6-17.2); WHITE BLOOD COUNT 9.9 TH/MM3 (4.0-11.0)
[2018-01-28 18:14] LABS: BICARBONATE 31.4 MEQ/L (21.0-32.0); CALCIUM 8.3 MG/DL (8.5-10.1); CREATININE 0.46 MG/DL (0.50-1.00)
[2018-01-28] MEDS: guaiFENesin E.R. 600 MG TAB PO SCH (21:00)
[2018-01-28] MEDS: RESP: ALBUTEROL 2.5 MG/IPRATROPIUM 0.5 MG NEB (SCH) NEB ×2 (21:40→23:37)
[2018-01-29] VITALS (19 sets, daily range): BP systolic 150–176; BP diastolic 66–74; PULSE 60–101; RESP 19–20; TEMP 98.2–98.8; O2SAT 93–95
[2018-01-29] MEDS: RESP: ALBUTEROL 2.5 MG/IPRATROPIUM 0.5 MG NEB (SCH) NEB ×2 (03:05→08:40)
[2018-01-29] MEDS: DOCUSATE SODIUM 50 MG/SENNA 8.6 MG TAB PO SCH (08:06)
[2018-01-29] MEDS: guaiFENesin E.R. 600 MG TAB PO SCH (08:06)
[2018-01-29] MEDS: PANTOPRAZOLE SOD 40 MG DELAYED RELEASE TAB PO SCH (08:06)
[2018-01-29] MEDS: SODIUM CHLORIDE 0.9% FLUSH 10 ML FLUSH IV FLUSH SCH (08:18)
[2018-01-29] MEDS ORDERED: AMLO5TAB2 PO (14:51)
[2018-01-29] MEDS ORDERED: ACET5DRO2 PO (14:56)
[2018-01-29] MEDS ORDERED: amLODIPine BESYLATE 5 MG TAB PO ONE (15:00)
--- NOTE | 2018-01-29 15:46 | HHI.PR ---
Subjective Remarks This is a pleasant 82 y/o Female seen in her bedroom, discussed with nurse Miss Mc followed by sustainability specialist with Diagnosis of Atrial Fibrillation, previously with bradycardia/pauses, asymptomatic, last dose of Coreg 01/20/18, Micra PPM placed, Not an anticoagulation candidate due to Previous GI bleed last admission, had bilateral pleural effusions status post Thoracentesis, small pericardial effusion recommended by Cardiology to repeat echocardiogram, Further management by Doctor Efrain. 01/27; Seen in her bedroom discussed with nurse and okay to discharge as per Nurse, was asked to the nurse to titrate Oxygen and she is tolerating at room air with 93% of oxygen saturation. 01/28; Stable in her bedroom the patient refused going to [facility] she wants to go to [facility], discussed with nurse miss Garber and with Respiratory therapy specialist, the patient is having high respiratory rate but does not qualify for oxygen she has oxygen saturation in 97%. at room air. will get Walk test and follow, awaiting for placement. 01/29; Seen in her bedroom in the presence of relative and nurse Miss Vázquez, at this time will go to SNF. Objective Vital Signs Date Time Temp Pulse Resp B/P (MAP) Pulse Ox O2 Delivery O2 Flow Rate FiO2 01/29/18 15:00 87 01/29/18 14:00 84 01/29/18 13:00 90 01/29/18 12:00 84 01/29/18 11:00 101 01/29/18 11:00 98.7 93 20 176/70 (105) 94 01/29/18 10:00 78 01/29/18 09:00 85 01/29/18 08:42 94 21 01/29/18 08:00 90 01/29/18 07:00 98.8 90 19 158/68 (98) 95 01/29/18 07:00 72 01/29/18 06:31 77 01/29/18 05:03 85 01/29/18 04:28 98.2 81 150/66 (94) 93 01/29/18 04:00 73 01/29/18 03:00 64 01/29/18 02:00 60 01/29/18 01:00 74 01/29/18 00:23 98.6 95 161/74 (103) 94 01/29/18 00:00 62 01/28/18 23:00 88 01/28/18 22:00 78 01/28/18 21:40 21 01/28/18 21:00 60 01/28/18 20:00 60 01/28/18 19:00 99.7 68 171/75 (107) 93 01/28/18 19:00 80 01/28/18 17:00 62 01/28/18 16:42 98.0 76 22 170/70 (103) 93 01/28/18 16:00 62 01/28/18 15:44 60 I/O 01/28/18 01/28/18 01/28/18 01/29/18 01/29/18 01/29/18 07:00 15:00 23:00 07:00 15:00 23:00 Intake Total 360 ml 340 ml 480 ml Output Total 450 ml 900 ml 900 ml Balance -90 ml -560 ml -420 ml Intake Oral 360 ml 340 ml 480 ml Output Urine Total 450 ml 900 ml 900 ml Result Diagram: 01/28/18 1729 01/28/18 1729 Imaging Last Impressions Chest X-Ray 01/28/18 0000 Signed Impressions: Service Date/Time: Sunday, January 28, 2018 16:11 - CONCLUSION: 1. Bibasilar areas of consolidation with associated effusions. 2. Mild interstitial prominence may represent some degree of vascular congestion. Spectrum of findings could represent CHF in the appropriate clinical setting. Inocencio Shanks MD Thoracentesis Ultrasound 01/21/18 0000 Signed Impressions: Service Date/Time: Sunday, January 21, 2018 09:07 - CONCLUSION: Uncomplicated ultrasound guided thoracentesis. Johnny Hernández MD CT Angiography 01/20/18 1436 Signed Impressions: Service Date/Time: Saturday, January 20, 2018 16:25 - CONCLUSION: No evidence of pulmonary embolism Aren Valdez MD Abdomen/Pelvis CT 01/20/18 0000 Signed Impressions: Service Date/Time: Saturday, January 20, 2018 16:25 - CONCLUSION: No acute CT findings in the abdomen or pelvis Aren Valdez MD Procedures Pacemaker placement Other Results Laboratory Tests Test 01/20/18 14:47 01/21/18 06:22 01/21/18 09:30 01/22/18 08:58 Prothrombin Time 9.7 SEC Prothromb Time International Ratio 1.0 RATIO Activated Partial Thromboplast Time 21.1 SEC Urine Color YELLOW Urine Turbidity HAZY Urine pH 6.5 Urine Specific [place] 1.014 Urine Protein TRACE mg/dL Urine Glucose (UA) NEG mg/dL Urine Ketones NEG mg/dL Urine Occult Blood NEG Urine Nitrite NEG Urine Bilirubin NEG Urine Urobilinogen LESS THAN 2.0 MG/DL Urine Leukocyte Esterase NEG Urine RBC 3 /hpf Urine WBC 3 /hpf Urine Squamous Epithelial Cells 12 /hpf Urine Mucus FEW /lpf Microscopic Urinalysis Comment CATH-CULT NOT IND Total Creatine Kinase 56 U/L Troponin I LESS THAN 0.02 NG/ML Blood Urea Nitrogen 15 MG/DL 12 MG/DL Creatinine 0.54 MG/DL 0.60 MG/DL Random Glucose 102 MG/DL 141 MG/DL Total Protein 5.9 GM/DL Albumin 1.9 GM/DL Calcium Level 8.1 MG/DL 8.4 MG/DL Alkaline Phosphatase 63 U/L Aspartate Amino Transf (AST/SGOT) 22 U/L Alanine Aminotransferase (ALT/SGPT) 25 U/L Total Bilirubin 0.2 MG/DL Sodium Level 140 MEQ/L 140 MEQ/L Potassium Level 4.3 MEQ/L 3.8 MEQ/L Chloride Level 100 MEQ/L 102 MEQ/L Carbon Dioxide Level 36.8 MEQ/L 31.3 MEQ/L Body Fluid Amylase Source LEFT PLEURAL Body Fluid Amylase 15 U/L Pleural Fluid pH 8.5 Pleural Fluid WBC 68 /MM3 Pleural Fluid RBC 660 /MM3 Pleural Fluid Neutrophils 13 % Pleural Fluid Lymphocytes 58 % Pleural Fluid Monocytes 9 % Pleural Fluid Eosinophils 1 % Pleural Fluid Histiocytes 1 % Pleural Fluid Mesothelial Cells 3 % Pleural Fluid Plasma Cells 9 % Pleural Fluid Other Cells 6 % Pleural Fluid Comment Pleural Fluid Total Protein 2.0 GM/DL Pleural Fluid LDH 103 U/L Pleural Fluid Glucose 106 MG/DL Phosphorus Level 3.2 MG/DL Magnesium Level 2.6 MG/DL Test 01/28/18 17:29 White Blood Count 9.9 TH/MM3 Red Blood Count 3.36 MIL/MM3 Hemoglobin 10.1 GM/DL Hematocrit 30.2 % Mean Corpuscular Volume 89.8 FL Mean Corpuscular Hemoglobin 30.0 PG Mean Corpuscular Hemoglobin Concent 33.5 % Red Cell Distribution Width 14.7 % Platelet Count 267 TH/MM3 Mean Platelet Volume 8.6 FL Neutrophils (%) (Auto) 75.7 % Lymphocytes (%) (Auto) 15.2 % Monocytes (%) (Auto) 8.2 % Eosinophils (%) (Auto) 0.5 % Basophils (%) (Auto) 0.4 % Neutrophils # (Auto) 7.5 TH/MM3 Lymphocytes # (Auto) 1.5 TH/MM3 Monocytes # (Auto) 0.8 TH/MM3 Eosinophils # (Auto) 0.0 TH/MM3 Basophils # (Auto) 0.0 TH/MM3 CBC Comment DIFF FINAL Differential Comment Blood Urea Nitrogen 8 MG/DL Creatinine 0.46 MG/DL Random Glucose 133 MG/DL Calcium Level 8.3 MG/DL Sodium Level 144 MEQ/L Potassium Level 3.7 MEQ/L Chloride Level 106 MEQ/L Carbon Dioxide Level 31.4 MEQ/L Anion Gap 7 MEQ/L Estimat Glomerular Filtration Rate 130 ML/MIN Objective Remarks GENERAL: No acute distress. CARDIOVASCULAR: Regular rate and rhythm. RESPIRATORY: Clear to auscultation anteriorly. Limited exam. Diminished breath sounds at the base. GASTROINTESTINAL: Abdomen soft, non-tender, non-distended. Normal active bowel sounds MUSCULOSKELETAL: Extremities without cyanosis, or edema. NEURO: Alert and oriented. Short term memory is poor. Medications and IVs Current Medications Medications (Trade) Dose Ordered Sig/Nghia Route Start Time Stop Time Status Last Admin (NS Flush) 2 ml UNSCH PRN IV FLUSH 01/20/18 18:15 (NS Flush) 2 ml BID IV FLUSH 01/20/18 21:00 01/29/18 08:18 (Tylenol) 650 mg Q4H PRN PO 01/20/18 18:15 01/28/18 20:17 (Zofran Inj) 4 mg Q6H PRN IVP 01/20/18 18:15 (Narcan Inj) 0.4 mg UNSCH PRN IV PUSH 01/20/18 18:15 (Kendra-Colace) 1 tab BID PO 01/20/18 21:00 01/29/18 08:06 (Milk Of Magnesia Liq) 30 ml Q12H PRN PO 01/20/18 18:15 (Senokot) 17.2 mg Q12H PRN PO 01/20/18 18:15 (Dulcolax Supp) 10 mg DAILY PRN RECTAL 01/20/18 18:15 (Lactulose Liq) 30 ml DAILY PRN PO 01/20/18 18:15 (Coreg) 6.25 mg Q12HR PO 01/20/18 21:00 Future Hold (Protonix) 40 mg DAILY PO 01/21/18 09:00 01/29/18 08:06 Levofloxacin/ Dextrose 150 ml @ 100 mls/hr Q24H IV 01/28/18 16:00 01/28/18 17:40 (Duoneb Neb) 1 ampule Q4HR NEB NEB 01/28/18 16:00 01/29/18 08:40 (Mucinex Er) 600 mg BID PO 01/28/18 21:00 01/29/18 08:06 A/P Assessment and Plan (1) S/P cardiac pacemaker procedure ICD Code: Z95.0 - Presence of cardiac pacemaker Plan: Cardiology following. S/P PPM placement. Had effusion, pericardial window. previously with bradycardia/pauses, asymptomatic, last dose of Coreg 01/20/18, Micra PPM placed, Not an anticoagulation candidate due to Previous GI bleed last admission (2) Pleural effusion ICD Code: J90 - Pleural effusion, not elsewhere classified Status: Acute Plan: Chest x-ray shows bibasilar pleural effusion and basilar consolidation. CTA negative for PE. No known heart failure. LVEF on echo from 01/13/18 with EF of 65-70%. Status post thoracentesis with improvement in symptoms. Fluids negative for malignant cells. Patient had pericardial effusion requiring pericardial window today good oxygen saturation but she has increased Respiratory rate, she has basilar consolidation, will take a new CXR and start her on Levaquin has leukocytosis blood cultures were negative. Improved oxygen saturation. (3) Hypoxia ICD Code: R09.02 - Hypoxemia Status: Acute Plan: Secondary to pleural effusion above. Continue supplemental oxygen. Incentive spirometry. has good oxygen saturation, but increased respiratory rate asked for CXR, start Levaquin will discharge Home at this time, will continue Levaquin for five more days. (4) A-fib ICD Code: I48.91 - Unspecified atrial fibrillation Plan: Patient with episodes of bradycardia with long pauses Status post pacemaker placement Not anticoagulated due to recent GI bleeding. (5) Bradycardia ICD Code: R00.1 - Bradycardia, unspecified Plan: See above. Status post pacemaker. (6) Debility ICD Code: R53.81 - Other malaise Plan: Continue PT. Will need SNF. okay by sustainability specialist for discharge at this time. Discharge Planning Discharge today. Jadon Gomez MD Jan 29, 2018 15:46
--- NOTE | 2018-01-29 15:49 | HHI.DS ---
Discharge Summary Admission Date Jan 21, 2018 at 13:16 Discharge Date: Jan 29, 2018 Admitting Diagnosis bilateral pleural effusions, hypoxia (1) S/P cardiac pacemaker procedure ICD Code: Z95.0 - Presence of cardiac pacemaker Diagnosis: Principal (2) Pleural effusion ICD Code: J90 - Pleural effusion, not elsewhere classified Diagnosis: Principal Status: Acute (3) Hypoxia ICD Code: R09.02 - Hypoxemia Diagnosis: Principal Status: Acute (4) A-fib ICD Code: I48.91 - Unspecified atrial fibrillation Diagnosis: Principal (5) Bradycardia ICD Code: R00.1 - Bradycardia, unspecified Diagnosis: Principal (6) Debility ICD Code: R53.81 - Other malaise Diagnosis: Principal Procedures pacemaker placement Brief History - From Admission This is an 82-year-old female with a PMH of HTN, A. 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 Denies any abdominal pain, nausea or vomiting. Does note SOB in addition to swelling to bilateral hands starting earlier today. Denies fever, chills, cough or chest pain. On arrival , BP 133/58, HR 58, O2 sat 95% on 2L NC, Afebrile. WBC 14.2. Chemistry essentially unremarkable. Troponin negative. INR 1.0. UA negative. CT Abdomen/Pelvis with no acute findings. CTA Pulm negative for PE, CXR w/ bilateral effusions and basilar consolidation. S/p Lasix 40mg IV in ER and DuoNeb CBC/BMP: 01/28/18 1729 01/28/18 1729 Significant Findings Laboratory Tests Test 01/28/18 17:29 Red Blood Count 3.36 MIL/MM3 (4.00-5.30) Hemoglobin 10.1 GM/DL (11.6-15.3) Hematocrit 30.2 % (35.0-46.0) Neutrophils (%) (Auto) 75.7 % (16.0-70.0) Monocytes (%) (Auto) 8.2 % (0.0-8.0) Creatinine 0.46 MG/DL (0.50-1.00) Random Glucose 133 MG/DL (74-106) Calcium Level 8.3 MG/DL (8.5-10.1) Imaging Last Impressions Chest X-Ray 01/28/18 0000 Signed Impressions: Service Date/Time: Sunday, January 28, 2018 16:11 - CONCLUSION: 1. Bibasilar areas of consolidation with associated effusions. 2. Mild interstitial prominence may represent some degree of vascular congestion. Spectrum of findings could represent CHF in the appropriate clinical setting. Inocencio Shanks MD Thoracentesis Ultrasound 01/21/18 0000 Signed Impressions: Service Date/Time: Sunday, January 21, 2018 09:07 - CONCLUSION: Uncomplicated ultrasound guided thoracentesis. Johnny Hernández MD CT Angiography 01/20/18 1436 Signed Impressions: Service Date/Time: Saturday, January 20, 2018 16:25 - CONCLUSION: No evidence of pulmonary embolism Aren Valdez MD Abdomen/Pelvis CT 01/20/18 0000 Signed Impressions: Service Date/Time: Saturday, January 20, 2018 16:25 - CONCLUSION: No acute CT findings in the abdomen or pelvis Aren Valdez MD PE at Discharge GENERAL: No acute distress. CARDIOVASCULAR: Regular rate and rhythm. RESPIRATORY: Clear to auscultation anteriorly. Limited exam. Diminished breath sounds at the base. GASTROINTESTINAL: Abdomen soft, non-tender, non-distended. Normal active bowel sounds MUSCULOSKELETAL: Extremities without cyanosis, or edema. NEURO: Alert and oriented. Short term memory is poor. Hospital Course This is a pleasant 82 y/o Female seen in her bedroom, discussed with nurse Miss Mc followed by care management specialist with Diagnosis of Atrial Fibrillation, previously with bradycardia/pauses, asymptomatic, last dose of Coreg 01/20/18, Micra PPM placed, Not an anticoagulation candidate due to Previous GI bleed last admission, had bilateral pleural effusions status post Thoracentesis, small pericardial effusion recommended by Cardiology to repeat echocardiogram, Further management by Doctor Efrain. 01/27; Seen in her bedroom discussed with nurse and okay to discharge as per Nurse, was asked to the nurse to titrate Oxygen and she is tolerating at room air with 93% of oxygen saturation. 01/28; Stable in her bedroom the patient refused going to [facility] she wants to go to [facility], discussed with nurse miss Garber and with Respiratory therapy specialist, the patient is having high respiratory rate but does not qualify for oxygen she has oxygen saturation in 97%. at room air. will get Walk test and follow, awaiting for placement. 01/29; Seen in her bedroom in the presence of relative and nurse Kathie, at this time will go to SNF. Assessment and Plan (1) S/P cardiac pacemaker procedure ICD Code: Z95.0 - Presence of cardiac pacemaker Plan: Cardiology following. S/P PPM placement. Had effusion, pericardial window. previously with bradycardia/pauses, asymptomatic, last dose of Coreg 01/20/18, Micra PPM placed, Not an anticoagulation candidate due to Previous GI bleed last admission (2) Pleural effusion ICD Code: J90 - Pleural effusion, not elsewhere classified Status: Acute Plan: Chest x-ray shows bibasilar pleural effusion and basilar consolidation. CTA negative for PE. No known heart failure. LVEF on echo from 01/13/18 with EF of 65-70%. Status post thoracentesis with improvement in symptoms. Fluids negative for malignant cells. Patient had pericardial effusion requiring pericardial window today good oxygen saturation but she has increased Respiratory rate, she has basilar consolidation, will take a new CXR and start her on Levaquin has leukocytosis blood cultures were negative. Improved oxygen saturation. (3) Hypoxia ICD Code: R09.02 - Hypoxemia Status: Acute Plan: Secondary to pleural effusion above. Continue supplemental oxygen. Incentive spirometry. has good oxygen saturation, but increased respiratory rate asked for CXR, start Levaquin will discharge Home at this time, will continue Levaquin for five more days. (4) A-fib ICD Code: I48.91 - Unspecified atrial fibrillation Plan: Patient with episodes of bradycardia with long pauses Status post pacemaker placement Not anticoagulated due to recent GI bleeding. (5) Bradycardia ICD Code: R00.1 - Bradycardia, unspecified Plan: See above. Status post pacemaker. (6) Debility ICD Code: R53.81 - Other malaise Plan: Continue PT. Will need SNF. okay by care management specialist for discharge at this time. Discharge Planning Discharge today. Pt Condition on Discharge: Good Discharge Disposition: Discharge to SNF Discharge Time: > 30 minutes Discharge Instructions DIET: Follow Instructions for: Heart Healthy Diet Activities you can perform: Regular-No Restrictions Jadon Gomez MD Jan 29, 2018 15:49
== END 2018-01-29 15:48 | DRG 229 ==
LOC: NEPE 14:12 → INTOOBSV 17:57 → NEDA 17:57 → N04B 20:28 → OBSVTOIN 01-21 13:16 → HCPC 01-23 17:20
PROVIDERS: ADMIT Internal Medicine; ATTEND Internal Medicine
PROC: 0W9B3ZX Drainage of Left Pleural Cavity, Percutaneous Approach, Diagnostic (ICD-10-PCS; 2018-01-21)
PROC: 0W993ZZ Drainage of Right Pleural Cavity, Percutaneous Approach (ICD-10-PCS; 2018-01-21)
PROC: 04HY32Z Insertion of Monitoring Device into Lower Artery, Percutaneous Approach (ICD-10-PCS; 2018-01-24)
PROC: 02HK3NZ Insertion of Intracardiac Pacemaker into Right Ventricle, Percutaneous Approach (ICD-10-PCS; principal; 2018-01-24 18:00)
DX: I49.5 Sick sinus syndrome (principal); J90 Pleural effusion, not elsewhere classified; I31.3 Pericardial effusion (noninflammatory); J44.9 Chronic obstructive pulmonary disease, unspecified; I48.0 Paroxysmal atrial fibrillation; R06.82 Tachypnea, not elsewhere classified; R09.02 Hypoxemia; I10 Essential (primary) hypertension; K21.9 Gastro-esophageal reflux disease without esophagitis; Z93.1 Gastrostomy status
CPT/HCPCS: 0387T; 32555; 71045; 71046; 71275; 74177; 80048; 80053; 81001; 82150; 82550; 82945; 83615; 83735; 83986; 84100; 84157; 84484; 85025; 85027; 85610; 85730; 87015; 87070; 87102; 87116; 87205; 87206; 88112; 88305; 89051; 93005; 93306; 93308; 94150; 94640; 94664; 96374; C1729; G0378; J0330; J1265; J1644; J1720; J1940; J1956; J2370; J2720; J3370; J7040; J7050; Q9967

== ENCOUNTER → 2018-03-13 | Day surgery (SDC) | payer MEDICARE, BC ==
[~2018-03-13] VITALS: Ht 154.9 cm; Wt 49.7 kg
[~2018-03-13] MED LIST changes: +ACET5DRO2 PO; +AMLO5TAB2 PO; -CARV6.25 PO; +CHLORHEXIDINE GLUCONATE 2 % 1 PACK (2 CLOTHS) TOPICAL PRN; +CRAN425C2 PO; +FLOR250C PO; +FLUT1INH7 INH; -HYDR-3516 PO; +IPRASOL INH; +LACTATED RINGER'S 1000 ML IV PRN; +LIDOCAINE HCL 1% PF 5 ML SYRINGE OTHER ONE; +METOPROLOL TARTRATE 25 MG TAB PO PRN; -MOXI1TAB2 PO; +MULTTAB67 PO; -NIFE60TA8 PO; +POLY99.0 EACH EYE; +POVIDONE IODINE 5% (ANTISEPSIS KIT) 4 APPLICATIONS EACH NARE PRN; +PROPOFOL 200 MG/20 ML AMP IV ONE; +SENN1TAB PO; +SODIUM CHLORID 0.9% 500 ML IV PRN; +SYMB160A INH; +TYLE325T PO; +VITA250T3 PO
--- NOTE | 2018-03-13 09:43 | GIPROC ---
[facility] [address] [facility]. [facility], [address] EGD PROCEDURE REPORT EXAM DATE: 03/13/2018 PATIENT NAME: Yanelis Peterson MR #: [id number] BIRTHDATE: 1935 ATTENDING: Estuardo Chinchilla MD ORDER #: [id number] BUILDING SERVICE WORKER: Jillian Martin and Heron Yung STATUS: outpatient INDICATIONS: The patient is a 82 yr old female here for an EGD due to diagnostic procedure and Postoperative assessment PROCEDURE PERFORMED: EGD, diagnostic MEDICATIONS: None and Per Anesthesia. TOPICAL ANESTHETIC: none CONSENT: The patient understands the risks and benefits of the procedure and understands that these risks include, but are not limited to: sedation, allergic reaction, infection, perforation and/or bleeding. Alternative means of evaluation and treatment include, among others: physical exam, x-rays, and/or surgical intervention. The patient elects to proceed with this endoscopic procedure. medical equipment was checked for proper function. Hand hygiene and appropriate measures for infection prevention was taken. After the risks, benefits and alternatives of the procedure were thoroughly explained, Informed consent was verified, confirmed and timeout was successfully executed by the treatment team. The patient was anesthetized with topical anesthesia and the Pentax [id number] endoscope was introduced through the mouth and advanced to the second portion of the duodenum. Retroflexion was performed and was normal The gastroscope was then slowly withdrawn and removed. ESOPHAGUS: The esophagus was otherwise normal. STOMACH: G tube in place. Deformed stomach. There was a small amount of residual food seen in the gastric body. DUODENUM: The duodenal mucosa appeared normal in the bulb and second portion of the duodenum. ADVERSE EVENTS: There were no complications. IMPRESSIONS: 1. The esophagus was otherwise normal 2. G tube in place 3. Deformed stomach 4. Food residue in the gastric body 5. Normal duodenal mucosa in the bulb and second portion of the duodenum 6. Retroflexion was performed and was normal RECOMMENDATIONS: Follow-up: GI clinic 1 month(s) PATIENT CONDITION: stable DISPOSITION: Observation REPEAT EXAM: NONE Estuardo Chinchilla MD eSigned: Estuardo Chinchilla MD 03/13/2018 9:42 AM cc: PATIENT NAME: Yanelis Peterson MR#: [id number]
[2018-03-13 10:21] VITALS: BP 138/62; PULSE 76; RESP 18; TEMP 98.3; O2SAT 99
== END | disposition home or self-care (01) ==
LOC: EDSTATUS 03-08 10:00 → HSDC 07:40
PROVIDERS: ATTEND Specialist
DX: R10.13 Epigastric pain (principal); K21.9 Gastro-esophageal reflux disease without esophagitis; Z93.1 Gastrostomy status; R13.10 Dysphagia, unspecified; I48.91 Unspecified atrial fibrillation; I10 Essential (primary) hypertension; R00.1 Bradycardia, unspecified; Z95.0 Presence of cardiac pacemaker; H04.123 Dry eye syndrome of bilateral lacrimal glands
CPT/HCPCS: 00731; 43235; J7120